=== PATIENT | female | born 1940 | race Caucasian/White ===

== ENCOUNTER → 2017-08-20 12:42 | Outpatient (CLI) | payer MEDICARE, SELFPAY ==
--- NOTE | 2017-08-20 12:46 | CDU_ITS ---
Reason For Study: Carotid stenosis Rt. Velocities/BP Lt. Velocities/BP Prox CCA 88.5/15.8 cm/sec. Prox CCA 92.6/16.4 cm/sec. Mid CCA 88.5/17.6 cm/sec. Mid CCA 78.6/17.0 cm/sec. Dist CCA 76.8/18.2 cm/sec. Dist CCA 82.1/12.3 cm/sec. Prox ICA 58.7/10.5 cm/sec. Prox ICA 72.7/21.7 cm/sec. Mid ICA 75.0/19.9 cm/sec. Mid ICA 90.3/25.8 cm/sec. Dist ICA 70.1/15.9 cm/sec. Dist ICA 73.8/16.0 cm/sec. Rt. ICA/CCA = .85. Lt. ICA/CCA = 1.2. Prox ECA 84.4/9.4 cm/sec. Prox ECA 82.7/10.6 cm/sec. Rt. Vert. 53.4/14.7 cm/sec. Lt. Vert. 63.9/17.0 cm/sec. Right Extracranial There is intimal thickening but no significant atherosclerotic plaque noted in the right common carotid artery. There is intimal thickening but no significant atherosclerotic plaque noted in the right internal carotid artery. There is intimal thickening but no significant atherosclerotic plaque noted in the right external carotid artery. Antegrade flow is noted in the right vertebral artery. Left Extracranial There is intimal thickening but no significant atherosclerotic plaque noted in the left common carotid artery. There is intimal thickening but no significant atherosclerotic plaque noted in the left internal carotid artery. There is intimal thickening but no significant atherosclerotic plaque noted in the left external carotid artery. Antegrade flow is noted in the left vertebral artery. Procedure Carotid Duplex [id number]. Exam performed in department. Interpretation Summary Mild (<50%) stenosis right extracranial internal carotid. Mild (<50%) stenosis left extracranial internal carotid. Flow within the vertebral arteries is antegrade bilaterally. Ordering Physician: Stacie Cardenas Referring Physician: Stacie Cardenas Performed By: Latasha Lanier RVT
== END ==
PROVIDERS: Family Provider Internal Medicine; PCP Internal Medicine; Visit Provider Internal Medicine
DX: I65.23 Occlusion and stenosis of bilateral carotid arteries (principal)
CPT/HCPCS: 93880

== ENCOUNTER → 2017-09-17 11:11 | Outpatient (CLI) | payer MEDICARE, SELFPAY ==
--- NOTE | 2017-09-17 11:16 | BD_ITS ---
STUDY: DUAL ENERGY X-RAY ABSORPTIOMETRY / DXA REASON FOR EXAM: Female, 77 years old. The patient is postmenopausal. Loss of height. TECHNIQUE: Bone Mineral Density (BMD) measurements of lumbar spine and bilateral hips were obtained. COMPARISON: Comparison is made with prior study dated September 14, 2015. FINDINGS: Lumbar Spine (L1-L4): g/cm2 (0.746) / T-score (-3.6) / Z-score (-1.8) Findings are suggestive of osteoporosis with a high fracture risk. Left Femur Total: g/cm2 (0.761) / T-score (-2.0) / Z-score (0.0) Left Femoral Neck: g/cm2 (0.755) / T-score (-2.0) / Z-score (0.1) Right Femur Total: g/cm2 (0.768) / T-score (-1.9) / Z-score (0.1) Right Femoral Neck: g/cm2 (0.805) / T-score (-1.7) / Z-score (0.4) The T-Scores on the most recent prior examination were: Lumbar Spine (L1-L4): There has been worsening of bone density since the previous examination. Left Femur Total: which represents a worsening of 4.6%. Right Femur Total: which represents a worsening of 8.6%. BD/Dexa Bone Density Study IMPRESSION: The patient is considered osteoporotic as outlined below according to World Raz Organization (WHO) criteria with a high fracture risk. There has been worsening of bone density since the previous examination. Reference Information: The T-score is the number of standard deviations above or below the standard which is normal for young adults at their peak bone mineral density. The World Health Organization (WHO) interprets the T-scores as follows: Above -1 Normal bone density Between -1 and -2.5 Osteopenia Equal to / or below -2.5 Osteoporosis As a practical clinical guideline, osteopenia may be graded as follows: Mild -1 through -1.5 Moderate -1.6 through -2.0 Severe -2.1 through -2.4 The Z-score is the number of standard deviations above or below age-matched controls. A Z-score of less than -1.5 would be considered abnormal. References: 1. NIH Osteoporosis and Related Bone Diseases http://www.osteo.org 2. International Society for Clinical Densitometry http://www.iscd.org 3. National Osteoporosis Foundation http://www.nof.org Electronically Signed: Leon Arrington MD at 9:12 EDT Tel [phone], Service support ,
--- NOTE | 2017-09-17 11:17 | BI_ITS ---
MAMMOGRAPHY - BILATERAL SCREENING REASON FOR EXAM: Female, 77 years old. Routine annual screening examination. PERTINENT HISTORY: Sister with breast cancer. TECHNIQUE: Digital bilateral breast joshua (3D mammographic acquisition) in the CC and MLO projections. 2-D mediolateral oblique (MLO) and craniocaudad (CC) views of both breasts were obtained. CAD: Full Field Digital Mammography with Computer Added Detection was performed. COMPARISON: Comparison is made with prior study dated September 16, 2016 and September 14, 2015. FINDINGS: Breast Composition: There are scattered areas of fibroglandular density. There are no dominant masses or suspicious calcifications. No other significant abnormalities are identified. There has been no significant change since the prior study. BI/SCREENING MAMM (CAD), BILAT IMPRESSION: Stable bilateral screening mammogram. Yearly follow-up mammogram recommended. (A) ASSESSMENT CATEGORY: BIRADS Category 1: Negative. A letter regarding these results will be sent to the patient by the facility within 30 days. Approximately 10% of breast cancers are not detected by mammography. A normal mammogram should not delay biopsy of a clinically suspicious abnormality. [id number] Electronically Signed: Leon Arrington MD at 11:30 EDT Tel [phone], Service support ,
== END ==
PROVIDERS: Family Provider Internal Medicine; PCP Internal Medicine; Visit Provider Internal Medicine
DX: Z12.31 Encounter for screening mammogram for malignant neoplasm of breast (principal); Z78.0 Asymptomatic menopausal state
CPT/HCPCS: 77063; 77067; 77080

== ENCOUNTER 2018-02-23 08:07 | Day surgery (SDC) | payer MEDICARE, SELFPAY ==
[2018-02-23 08:30] VITALS: BP 132/56; PULSE 60; RESP 14; TEMP 36.6; O2SAT 100; BMI 24.2
[2018-02-23 09:20] VITALS: BP 102/53; BP 132/56; PULSE 60; RESP 16; TEMP 36.3; O2SAT 97
--- NOTE | 2018-02-23 09:21 | OP.ENDO_ITS ---
Patient Name: Nadeen Vasquez Procedure Date: 02/23/2018 9:05 AM Date of : 1940 Age: 77 Procedure: Upper GI endoscopy Indications: Dysphagia Providers: Misael Spencer MD Medicines: See the Anesthesia note for documentation of the administered medications Patient Profile: This is a 77 year old female. Refer to note in patient chart for documentation of history and physical. Complications: No immediate complications. Procedure: Pre-Anesthesia Assessment: - Prior to the procedure, a History and Physical was performed, and patient medications and allergies were reviewed. The patient's tolerance of previous anesthesia was also reviewed. The risks and benefits of the procedure and the sedation options and risks were discussed with the patient. All questions were answered, and informed consent was obtained. Prior Anticoagulants: The patient has taken aspirin, last dose was 7 days prior to procedure. ASA Grade Assessment: III - A patient with severe systemic disease. After reviewing the risks and benefits, the patient was deemed in satisfactory condition to undergo the procedure. After obtaining informed consent, the endoscope was passed under direct vision. Throughout the procedure, the patient's blood pressure, pulse, and oxygen saturations were monitored continuously. The gastroscope was introduced through the mouth, and advanced to the second part of duodenum. The upper GI endoscopy was accomplished without difficulty. The patient tolerated the procedure well. Scope In: 9:13:29 AM Scope Out: 9:16:12 AM Total Procedure Duration Time 0 hours 2 minutes 43 seconds Findings: The Z-line was regular and was found 40 cm from the incisors. No biopsies or other specimens were collected for this exam. The entire examined stomach was normal. The examined duodenum was normal. No biopsies or other specimens were collected for this exam. Impression: - Z-line regular, 40 cm from the incisors. No specimens collected. - Normal stomach. - Normal examined duodenum. No specimens collected. Recommendation: - Discharge patient to home. - Resume previous diet. - Continue present medications. - Await pathology results. - Perform routine esophageal manometry at appointment to be scheduled. Procedure Code(s): --- Professional --- 57194, Esophagogastroduodenoscopy, flexible, transoral; diagnostic, including collection of specimen(s) by brushing or washing, when performed (separate procedure) Diagnosis Code(s): --- Professional --- R13.10, Dysphagia, unspecified CPT copyright 2017 [employer]. All rights reserved. The codes documented in this report are preliminary and upon can bander operator review may be revised to meet current compliance requirements. MD Misael Mathews MD 02/23/2018 9:20:32 AM This report has been signed electronically. Number of Addenda: 0 Note Initiated On: 02/23/2018 9:05 AM
[2018-02-23 09:25] VITALS: BP 132/56; BP 99/53; PULSE 60; RESP 14; O2SAT 97
[2018-02-23 09:30] VITALS: BP 104/62; BP 132/56; PULSE 60; RESP 16; O2SAT 98
[2018-02-23 09:35] VITALS: BP 116/65; BP 132/56; PULSE 62; RESP 16; TEMP 36.6; O2SAT 99
[2018-02-23 09:55] VITALS: BP 132/56
== END 2018-02-23 10:20 | disposition home or self-care (01) ==
LOC: EN 08:07 → AC 08:08
PROVIDERS: Family Provider Internal Medicine; PCP Internal Medicine; Referring Provider Surgery; Visit Provider Surgery
PROC: 0DJ08ZZ Inspection of Upper Intestinal Tract, Via Natural or Artificial Opening Endoscopic (ICD-10-PCS; CPT 43235; principal; 2018-02-23 09:10)
DX: R13.12 Dysphagia, oropharyngeal phase (principal); K21.9 Gastro-esophageal reflux disease without esophagitis; I25.10 Atherosclerotic heart disease of native coronary artery without angina pectoris; E78.5 Hyperlipidemia, unspecified; I48.0 Paroxysmal atrial fibrillation; E03.9 Hypothyroidism, unspecified; I10 Essential (primary) hypertension; J44.9 Chronic obstructive pulmonary disease, unspecified; Z95.0 Presence of cardiac pacemaker; Z79.82 Long term (current) use of aspirin; Z79.52 Long term (current) use of systemic steroids; Z79.899 Other long term (current) drug therapy
CPT/HCPCS: 43235; J7120

== ENCOUNTER 2018-03-26 08:50 | Day surgery (SDC) | payer MEDICARE, SELFPAY ==
[2018-03-26 09:10] VITALS: BP 128/72; PULSE 81; RESP 16; TEMP 36.3; O2SAT 99
== END 2018-03-26 09:49 | disposition home or self-care (01) ==
PROVIDERS: Surgery; Family Provider Internal Medicine; PCP Internal Medicine; Referring Provider Surgery; Visit Provider Surgery
PROC: F00ZJWZ Instrumental Swallowing and Oral Function Assessment using Swallowing Equipment (ICD-10-PCS; CPT 43235; principal; 2018-03-26 07:55)
DX: R13.10 Dysphagia, unspecified (principal)
CPT/HCPCS: 78258

== ENCOUNTER → 2018-04-16 08:34 | Outpatient (CLI) | payer MEDICARE, SELFPAY ==
[2018-04-09 15:23] VITALS: BMI 24.2
[2018-04-09 15:51] VITALS: BMI 24.2
--- NOTE | 2018-04-16 08:37 | RAD_ITS ---
STUDY: SWALLOWING STUDY REASON FOR EXAM: Female, 78 years old. Dysphagia. TECHNIQUE: The examination was performed with Speech Pathology in attendance. Under fluoroscopic observation, the patient ingested thin barium, thick barium, barium pudding, and barium coated cracker. FLUOROSCOPY TIME: 1:08 minutes/seconds. 1028 fluoroscopic images were obtained. RADIOLOGIST INVOLVEMENT: Radiologist was present and providing direct supervision. COMPARISON: None. FINDINGS: The following was observed during swallowing of the various mixtures of barium: Thin Barium: There was no evidence of aspiration or laryngeal penetration. Barium Pudding: There was no evidence of aspiration or laryngeal penetration. Barium Coated Cracker: There was no evidence of aspiration or laryngeal penetration. RAD/Swallowing Function w/Video IMPRESSION: Normal tailored barium swallow study. No evidence of increased risk for aspiration. The swallow study findings were discussed with the patient by the speech pathologist at the conclusion of the examination. Please see speech pathology report for more information and recommendations. Electronically Signed: Leon Arrington MD at 11:16 EST Tel [phone], Service support ,
--- NOTE | 2018-04-16 09:58 | SP.MBSS_ITS ---
PRIMARY / SECONDARY DIAGNOSIS: dysphagia, unspecified (R13.10) REFERRING PHYSICIAN: Dr. Misael Spencer CURRENT DIET: regular textures/thin liquids DENTITION: upper dentures/lower natural teeth MENTAL STATUS: WFL RESPIRATORY STATUS: O2 via room air PREVIOUS MODIFIED BARIUM SWALLOW STUDY: pt reports >20 years ago REASON FOR REFERRAL: frequent coughing and occasional difficulty with pills MEDICAL HISTORY: Pt is 78/f who presents at [facility] for modifed barium swallow study. Pt reports being seen by neurologist last year to evaluate for Parkinson's Disease however, evaluation was negative. Pt reports history of GERD and treating with medication. STUDY FINDINGS: Patient participated in a Modified Barium Swallow (MBS) study on 04/16/2018. Dr. Arrington was the radiologist present for this evaluation. This study was recorded in the lateral view and images were sent to PACs for storage. The following consistencies were presented to this patient for analysis of oropharyngeal swallow function: thin liquid, pudding, and a regular textured, Maxine Doone cookie. Results of the MBS are as follows: PENETRATION / ASPIRATION SCALE (DALTON): 1 = does not enter airway 2 = enters airway/above vocal folds/ejected 3 = enters airway/above vocal folds/not ejected 4 = enters airway/contacts vocal folds/ejected 5 = enters airway/contacts vocal folds/not ejected 6 = enters airway/below vocal folds/ejected 7 = enters airway/below vocal folds/not ejected despite effort 8 = enters airway/below vocal folds/no effort PENETRATION / ASPIRATION SCALE (SCORE): IMPRESSION: 1) thin liquid via teaspoon = 1 2) thin liquid via teaspoon = 1 3) thin liquid via cup (small single sip) = 1 4) thin liquid via cup (large single sip)= 1 5) thin liquid via cup (sequential swallows) = 1 6) pudding = 1 7) cookie = 1 8) thin liquid via straw (sequential swallows) = 1 ORAL PHASE CHARACTERIZED BY: LABIAL SEAL: no labial escape TONGUE CONTROL DURING BOLUS MANIPULATION: cohesive bolus between tongue to palatal seal BOLUS PREPARATION / MASTICATION: timely and efficient chewing and mashing BOLUS TRANSPORT / LINGUAL MOTION: brisk tongue motion ORAL RESIDUE: trace residue lining oral structures PHARYNGEAL PHASE CHARACTERIZED BY: INITIATION OF PHARYNGEAL SWALLOW: bolus head at posterior angle of ramus at first hyoid excursion SOFT PALATE ELEVATION: no bolus between soft palate and pharyngeal wall LARYNGEAL ELEVATION: partial superior movement of thyroid cartilage/partial approximation of arytenoids cartilage to epiglottic petiole ANTERIOR HYOID EXCURSION: partial anterior movement EPIGLOTTIC MOVEMENT: complete epiglottic inversion LARYNGEAL VESTIBULE CLOSURE AT HEIGHT OF SWALLOW: incomplete laryngeal vestibule closure with narrow column of air/contrast in laryngeal vestibule PHARYNGEAL STRIPPING WAVE: pharyngeal stripping wave present / complete PHARYNGOESOPHAGEAL SEGMENT OPENING: partial distension and partial duration; partial obstruction of flow TONGUE BASE RETRACTION:no contrast between tongue base and posterior pharyngeal wall PHARYNGEAL RESIDUE: trace residue within or on pharyngeal structures ESOPHAGEAL PHASE CHARACTERIZED BY: ESOPHAGEAL BOLUS CLEARANCE IN THE UPRIGHT POSITION: could not view DIET TEXTURE RECOMMENDATIONS: Will recommend a regular textured, thin liquid diet. COMPENSATORY STRATEGIES RECOMMENDED: Small bites/sips, reduced rate of intake, seated upright at 90 degrees during PO intake, and remain upright for 30-60 minutes post meal (GERD precaution). Medications with liquid chaser or purees per patient preference. INTERPRETATION OF RESULTS: Patient presents with swallow function that is WFL at this time. Oral phase primarily marked by timely mastication with cohesive bolus. Trace oral residue remained after trial of Maxine Doone cookie although able to be cleared with thin liquid chaser. Pharyngeal phase primarily marked by slightly decreased laryngeal elevation and hyoid excursion, however adequate/complete epiglottic closure preventing aspiration. Slightly reduced pharyngoesophageal segment opening resulting in partial obstruction of flow. Trace residue remained on pharyngeal structures. No signs of aspiration noted this date. The patient demonstrates mastication and deglutition abilities grossly within normal limits. RECOMMENDATIONS: Would further consider additional assessment of the patients esophageal functioning (esophagram), as it is outside the scope of the modified barium swallow study to objectively assess esophageal functioning, may additionally consider further workup via air intelligence specialist. Provided brief overview of signs and symptoms of aspiration, with recommendations for the patient to further discuss symptoms with PCP and ordering physician. No further skilled speech-language services warranted at this time targeting dysphagia. ADDITIONAL COMMENTS/RECOMMENDATIONS: Results and recommendations were discussed with the Patient immediately following MBS completion, with the Patient verbalizing understanding and agreement with all recommendations and education provided. IMAGE COUNT: [id number] Haritha Can M.A., [facility] [employer]PER[employer] Speech Language Pathologist [id number] [place] [address] [email or web address] [phone]
--- OUTSIDE RECORDS SUMMARY | 2018-06-20 21:31 | XMS RPT_ITS ---
:1940 Author Organization [place] Support Name Relationship Address Phone KATHIE NASSAR Unavailable [address] + [place] [address] LOUIS MINOR Unavailable [address] + [place] [address] R Unavailable Unavailable Unavailable KATHIE NASSAR Unavailable [address] + [place] [address] L[place] MINOR Unavailable [address] + [place] [address] R Unavailable Unavailable Unavailable KATHIE NASSAR Unavailable [address] + [place] [address] LOUIS MINOR Unavailable [address] + [place] [address] R Unavailable Unavailable Unavailable KATHIE NASSAR Unavailable [address] + [place] [address] LOU[place] MINOR Unavailable [address] + [place] [address] R Unavailable Unavailable Unavailable KATHIE NASSAR Unavailable [address] + [place] [address] LOUIS MINOR Unavailable [address] + [place] [address] R Unavailable Unavailable Unavailable KATHIE NASSAR Unavailable [address] + [place] [address] LOUIS MINOR Unavailable [address] + [place] [address] R Unavailable Unavailable Unavailable KATHIE NASSAR Unavailable [address] + [place] [address] L[place] MINOR Unavailable [address] + [place] [address] R Unavailable Unavailable Unavailable ARNEY KATHIE Unavailable [address] + [place] [address] L[place] MINOR Unavailable [address] + [place] [address] R Unavailable Unavailable Unavailable ARNEY KATHIE Unavailable [address] + [place] [address] L[place] MINOR Unavailable [address] + [place] [address] R Unavailable Unavailable Unavailable ARNEY, KATHIE Unavailable [address] + [place] [address] LOU[place] MINOR Unavailable [address] + [place] [address] R Unavailable Unavailable Unavailable ARNEY KATHIE Unavailable [address] + [place] [address] L[place] MINOR Unavailable [address] + [place] [address] R Unavailable Unavailable Unavailable ARNPIERRE STANFORDNDA Unavailable [address] + [place] [address] LOU[place] MINOR Unavailable [address] + [place] [address] R Unavailable Unavailable Unavailable CESARIO KATHIE Unavailable [address] + [place] [address] L[place] MINOR Unavailable [address] [phone] [place] [address] R Unavailable Unavailable Unavailable PIERRE NASSARNDA Unavailable [address] + [place] [address] L[place] MINOR Unavailable [address] [phone] [place] [address] R Unavailable Unavailable Unavailable CESARIO KATHIE Unavailable [address] + [place] [address] LOU[place] MINOR Unavailable [address] [phone] [place] [address] R Unavailable Unavailable Unavailable Care Team Providers Name Role Phone Fast DO Stacie A Attending Unavailable Fast DO Stacie A Referring Unavailable Fast DO, Stacie A Consulting Unavailable Calabretta, Yared Attending Unavailable Moira Martinezony Referring Unavailable Fast, Stacie Primary Care Unavailable Johanna, Misael Attending Unavailable Fast, Stacie Referring Unavailable Bryant, Misael Attending Unavailable Johanna, Misael Referring Unavailable Fast, Stacie Primary Care Unavailable Bryant, Misael Attending Unavailable Fast, Stacie Referring Unavailable LennoxKaylane Attending Unavailable Fast, Stacie Referring Unavailable Fast, Stacie Attending Unavailable Fast, Stacie Referring Unavailable Fast, Stacie Primary Care Unavailable Leighann Chapman Attending Unavailable Jim, Eddy Attending Unavailable Fast, Stacie Referring Unavailable Fast, Stacie Primary Care Unavailable Fast, Stacie Attending Unavailable Fast, Stacie Primary Care Unavailable Fast, Stacie Referring Unavailable Lennox, Lady Attending Unavailable Fast, Stacie Referring Unavailable Fast, Stacie Primary Care Unavailable Bryant, Misael Attending Unavailable Fast, Stacie Referring Unavailable Johanna, Misael Attending Unavailable Johanna, Misael Referring Unavailable Fast, Stacie Primary Care Unavailable Lennox, Lady Attending Unavailable Fast, Stacie Referring Unavailable Bryant, Misael Attending Unavailable Fast, Stacie Referring Unavailable Johanna, Misael Attending Unavailable PROBLEMS PROBLEMS DATE TYPE CONDITION / CODE ATTENDING STATUS SOURCE 04/16/2018 Unknown R13.10 - JohannaHarley pryorel Active [place] Dysphagia, Community unspecified / Hospital R13.10(ICD-10) Repository 04/15/2018 Unknown K21.9 - Johanna, Misael Active [place] Gastro-esophageal Community reflux disease Hospital without Repository esophagitis / K21.9(ICD-10) 09/17/2017 Unknown Z12.31 - Encounter Fast, Stacie Active [place] for screening Community mammogram for Hospital malignant neoplasm Repository of breast / Z12.31(ICD-10) 09/17/2017 Unknown Z78.0 - Fast, Stacie Active [place] Asymptomatic Community menopausal state / Hospital Z78.0(ICD-10) Repository 09/16/2017 Unknown I48.0 - Paroxysmal Jim, [place] Active [place] atrial Community fibrillation / Hospital I48.0(ICD-10) Repository 09/16/2017 Unknown I49.5 - Sick sinus Jim, Eddy Active [facility] syndrome / Community I49.5(ICD-10) Hospital Repository 09/16/2017 Unknown R00.1 - Jim, [place] Active [place] Bradycardia, Community unspecified / Hospital R00.1(ICD-10) Repository 09/16/2017 Unknown Z95.0 - Presence Jim, Eddy Active [place] of cardiac Community pacemaker / Hospital Z95.0(ICD-10) Repository 09/16/2017 Unknown E78.5 - Jim, [place] Active [place] Hyperlipidemia, Community unspecified / Hospital E78.5(ICD-10) Repository 09/15/2017 Unknown I65.23 - Occlusion Fast, Stacie Active [place] and stenosis of Community bilateral carotid Hospital arteries / Repository I65.23(ICD-10) PROCEDURES PROCEDURES No Procedure Records FoundRESULTS RESULTS MODIFIED BARIUM Observed: 04/16/2018 Status: F Source: [place] SWALLOW STUDY 10:20 AM [facility] REPOSITORY [facility] Speech Pathology [address] [place] [address] Modified Barium Swallow Study MR#: [id number] Acct: [id number] Name: NADEEN MINOR Rep #: [id number] : 1940 78 From: Haritha Can [facility] [employer]ANG[facility], M.A. PRIMARY / SECONDARY DIAGNOSIS: dysphagia, unspecified (R13.10) REFERRING PHYSICIAN: Dr. Misael Spencer CURRENT DIET: regular textures/thin liquids DENTITION: upper dentures/lower natural teeth MENTAL STATUS: WFL RESPIRATORY STATUS: O2 via room air PREVIOUS MODIFIED BARIUM SWALLOW STUDY: pt reports >20 years ago REASON FOR REFERRAL: frequent coughing and occasional difficulty with pills MEDICAL HISTORY: Pt is 78/f who presents at [facility] for modifed barium swallow study. Pt reports being seen by neurologist last year to evaluate for Parkinson's Disease however, evaluation was negative. Pt reports history of GERD and treating with medication. STUDY FINDINGS: Patient participated in a Modified Barium Swallow (MBS) study on 04/16/2018. Dr. Arrington was the radiologist present for this evaluation. This study was recorded in the lateral view and images were sent to PACs for storage. The following consistencies were presented to this patient for analysis of oropharyngeal swallow function: thin liquid, pudding, and a regular textured, Maxine Doone cookie. Results of the MBS are as follows: PENETRATION / ASPIRATION SCALE (DALTON): 1 = does not enter airway 2 = enters airway/above vocal folds/ejected 3 = enters airway/above vocal folds/not ejected 4 = enters airway/contacts vocal folds/ejected 5 = enters airway/contacts vocal folds/not ejected 6 = enters airway/below vocal folds/ejected 7 = enters airway/below vocal folds/not ejected despite effort 8 = enters airway/below vocal folds/no effort PENETRATION / ASPIRATION SCALE (SCORE): IMPRESSION: 1) thin liquid via teaspoon = 1 2) thin liquid via teaspoon = 1 3) thin liquid via cup (small single sip) = 1 4) thin liquid via cup (large single sip)= 1 5) thin liquid via cup (sequential swallows) = 1 6) pudding = 1 7) cookie = 1 8) thin liquid via straw (sequential swallows) = 1 ORAL PHASE CHARACTERIZED BY: LABIAL SEAL: no labial escape TONGUE CONTROL DURING BOLUS MANIPULATION: cohesive bolus between tongue to palatal seal BOLUS PREPARATION / MASTICATION: timely and efficient chewing and mashing BOLUS TRANSPORT / LINGUAL MOTION: brisk tongue motion ORAL RESIDUE: trace residue lining oral structures PHARYNGEAL PHASE CHARACTERIZED BY: INITIATION OF PHARYNGEAL SWALLOW: bolus head at posterior angle of ramus at first hyoid excursion SOFT PALATE ELEVATION: no bolus between soft palate and pharyngeal wall LARYNGEAL ELEVATION: partial superior movement of thyroid cartilage/partial approximation of arytenoids cartilage to epiglottic petiole ANTERIOR HYOID EXCURSION: partial anterior movement EPIGLOTTIC MOVEMENT: complete epiglottic inversion LARYNGEAL VESTIBULE CLOSURE AT HEIGHT OF SWALLOW: incomplete laryngeal vestibule closure with narrow column of air/contrast in laryngeal vestibule PHARYNGEAL STRIPPING WAVE: pharyngeal stripping wave present / complete PHARYNGOESOPHAGEAL SEGMENT OPENING: partial distension and partial duration; partial obstruction of flow TONGUE BASE RETRACTION:no contrast between tongue base and posterior pharyngeal wall PHARYNGEAL RESIDUE: trace residue within or on pharyngeal structures ESOPHAGEAL PHASE CHARACTERIZED BY: ESOPHAGEAL BOLUS CLEARANCE IN THE UPRIGHT POSITION: could not view DIET TEXTURE RECOMMENDATIONS: Will recommend a regular textured, thin liquid diet. COMPENSATORY STRATEGIES RECOMMENDED: Small bites/sips, reduced rate of intake, seated upright at 90 degrees during PO intake, and remain upright for 30-60 minutes post meal (GERD precaution). Medications with liquid chaser or purees per patient preference. INTERPRETATION OF RESULTS: Patient presents with swallow function that is WFL at this time. Oral phase primarily marked by timely mastication with cohesive bolus. Trace oral residue remained after trial of Maxine Doone cookie although able to be cleared with thin liquid chaser. Pharyngeal phase primarily marked by slightly decreased laryngeal elevation and hyoid excursion, however adequate/complete epiglottic closure preventing aspiration. Slightly reduced pharyngoesophageal segment opening resulting in partial obstruction of flow. Trace residue remained on pharyngeal structures. No signs of aspiration noted this date. The patient demonstrates mastication and deglutition abilities grossly within normal limits. RECOMMENDATIONS: Would further consider additional assessment of the patients esophageal functioning (esophagram), as it is outside the scope of the modified barium swallow study to objectively assess esophageal functioning, may additionally consider further workup via machine lacer. Provided brief overview of signs and symptoms of aspiration, with recommendations for the patient to further discuss symptoms with PCP and ordering physician. No further skilled speech-language services warranted at this time targeting dysphagia. ADDITIONAL COMMENTS/RECOMMENDATIONS: Results and recommendations were discussed with the Patient immediately following MBS completion, with the Patient verbalizing understanding and agreement with all recommendations and education provided. IMAGE COUNT: [id number] Haritha Can M.A., CCC-ASSEMBLER ARRANGER Speech Language Pathologist [address] [place] [address] [email or web address] [phone] 04/16/18 1020 <Electronically signed by Haritha Can CCC-ASSEMBLER ARRANGER, M.A.> Date Haritha Can CCC-ASSEMBLER ARRANGER, M.A. Co-Signature Required for all Medicare patients Date/Time Co-Signature CC: SWALLOWING FUNCTION Observed: 04/16/2018 Status: F Source: [place] W/VIDEO 8:38 AM [facility] REPOSITORY [facility] Imaging Services [address] [place], [place] [address] [address] Swallowing Function w/Video MR#: [id number] Acct: [id number] Name: NADEEN MINOR Rep #: [id number] : 1940 F 78 From: Leon Arrington MD PCP: Stacie Cardenas DO Status: REG CLI Study: Swallowing Function w/Video Date of Exam: 04/16/18 Exam# [id number] Ordering Dr: Misael Spencer MD STUDY: SWALLOWING STUDY REASON FOR EXAM: Female, 78 years old. Dysphagia. TECHNIQUE: The examination was performed with Speech Pathology in attendance. Under fluoroscopic observation, the patient ingested thin barium, thick barium, barium pudding, and barium coated cracker. FLUOROSCOPY TIME: 1:08 minutes/seconds. 1028 fluoroscopic images were obtained. RADIOLOGIST INVOLVEMENT: Radiologist was present and providing direct supervision. COMPARISON: None. FINDINGS: The following was observed during swallowing of the various mixtures of barium: Thin Barium: There was no evidence of aspiration or laryngeal penetration. Barium Pudding: There was no evidence of aspiration or laryngeal penetration. Barium Coated Cracker: There was no evidence of aspiration or laryngeal penetration. RAD/Swallowing Function w/Video IMPRESSION: Normal tailored barium swallow study. No evidence of increased risk for aspiration. The swallow study findings were discussed with the patient by the speech pathologist at the conclusion of the examination. Please see speech pathology report for more information and recommendations. Electronically Signed: Leon Arrington MD at 11:16 EST Tel [phone], Service support , CC: Misael Spencer MD; Stacie Cardenas DO Jack Machine Operator: Signed SURGERY VISIT REPORT Observed: 04/09/2018 Status: F Source: [place] 4:28 PM [facility] REPOSITORY [facility] [address] [place] [address] [address] [place] [address] OFFICE VISIT Date of Service: 04/09/18 MR#: [id number] Acct: [id number] Name: NADEEN MINOR Rep #: [id number] : 1940 Provider: Misael Spencer MD Age/Sex: 78/F Location: [facility] Status: Signed Intake Vital Signs04/09/18 Body Mass Index (BMI) 24.2 Intake Visit Reasons: FU Manometry Results Chief Complaint: esophageal manometry Director Of Knowledge Management Required: No Is patient in pain?: No Allergies nitrofurantoin [From Macrobid] Adverse Reaction (Severe, Verified 04/09/18 15:23) Vomiting nitrofurantoin macrocrystalline [From Macrobid] Adverse Reaction (Severe, Verified 04/09/18 15:23) Vomiting montelukast [From Singulair] Adverse Reaction (Unknown, Verified 04/09/18 15:23) Unknown Tetracyclines Adverse Reaction (Verified 04/09/18 15:23) Other Medications E AC/Rut/Hesper/Bio/B AND C/Hc111 [Varisan Vitality Tablet] 1 ea PO DAILY 09/04/13 [History Confirmed 04/09/18] Lecithin, Soy [Lecithin Soya] 1,200 mg PO DAILY 09/04/13 [History Confirmed 04/09/18] Levothyroxine [Synthroid] 112 mcg PO DAILY 09/04/13 [History Confirmed 04/09/18] Pravastatin Sodium 1 tab PO QHS 09/04/13 [History Confirmed 04/09/18] Cetirizine HCl [Allergy Relief] 10 mg PO DAILY 02/28/15 [History Confirmed 04/09/18] Glucosamine/MSM/Chondroitin A [Glucosamine Chondroit MSM Tab] 1 ea PO BID 02/28/15 [History Confirmed 04/09/18] L.acidoph,Paracasei, B.lactis [Probiotic] 1 ea PO QHS 02/28/15 [History Confirmed 04/09/18] prednisolone acetate 1 % eye drops,suspension 1 drp OPHTHALMIC QHS ml 09/15/17 [History Confirmed 04/09/18] aspirin 81 mg tablet,delayed release 81 mg PO QDAY #90 tab 09/16/17 [Rx Confirmed 04/09/18] cholecalciferol (vitamin D3) 1,000 unit tablet 2,000 unit PO .COMPLEX 09/16/17 [History Confirmed 04/09/18] omeprazole 20 mg capsule,delayed release 20 mg PO DAILY cap 09/16/17 [History Confirmed 04/09/18] ranitidine 150 mg tablet 150 mg PO QDAY 09/16/17 [History Confirmed 04/09/18] Albuterol IH (ProAir) [Proair Hfa (SP)Vent Pts] 1 - 2 puff INHALATION Q6H PRN PRN 02/18/18 [History Confirmed 04/09/18] Black Cohosh 540 mg PO DAILY 02/18/18 [History Confirmed 04/09/18] Calcium Carbonate [Calcium] 1,500 mg PO DAILY 02/18/18 [History Confirmed 04/09/18] Cranberry Fruit Extract [Cranberry] 12,500 mg PO BID 02/18/18 [History Confirmed 04/09/18] Dung Quai 530 mg PO BID 02/18/18 [History Confirmed 04/09/18] Fluticasone 220 Mcg [Flovent (SP)] 1 puff INHALATION DAILY 02/18/18 [History Confirmed 04/09/18] Meloxicam 15 mg PO DAILY 02/18/18 [History Confirmed 04/09/18] Progestrone Cream 02/18/18 [History Confirmed 04/09/18] Tobramycin [Tobrex] 1 drp OP PRN PRN 02/18/18 [History Confirmed 04/09/18] flecainide 100 mg tablet 100 mg PO BID #180 tab 04/03/18 [Rx Confirmed 04/09/18] metoprolol succinate ER 25 mg tablet,extended release 24 hr 25 mg PO QHS #90 tab 04/03/18 [Rx Confirmed 04/09/18] PFSH Medical History Carotid artery disease (Chronic) Hyperlipidemia (Chronic) Sinus bradycardia (Chronic) Paroxysmal atrial fibrillation (Chronic) Sick sinus syndrome (Chronic) Presence of cardiac pacemaker (Chronic) Hypothyroidism (Acute) GERD (gastroesophageal reflux disease) (Chronic) Surgical History History of esophagogastroduodenoscopy (EGD) (Acute 02/23/18) History of arthroscopic knee surgery (Resolved) History of carpal tunnel surgery (Resolved) History of cataract surgery (Resolved) History of tonsillectomy and adenoidectomy (Resolved) Hx of appendectomy (Resolved) Family History Father CAD (coronary artery disease) Mother Heart disease Social History Smoking Status: Never smoker alcohol intake: never substance use type: does not use caffeine: No what type of physical activity do you participate in: walking, aerobics, other details: Silver Sneakers frequency: 1-2 times per week seatbelt use: always HPI HPI HPI: NADEEN MINOR, is a 78 F who presents to the office today for an esophageal manometry study. Patient had esophageal manometry study done at [facility] on 03/26/2018. The impression read as follows. 10 swallows were analyzed. The patient did have several incomplete bolus clearance is. There is also a cardiac interference. It appeared that when there was a retained bolus it was proximal to the 32nd centimeter doug. Below that the bolus cleared normally. The LES residual pressure was normal indicating that it was not the cause of the incomplete bolus. And may be compressed from mediastinal abnormalities as it coincided with a cardiac interference. I really was not anticipating this abnormality. I think that I need to obtain an upper GI to see if there is deviation of the esophagus which I could not appreciate in her EGD. If the upper GI study is normal then I think would be safe for us to obtain a 48-hour pH probe. If her pH probe is abnormal I do not know she is necessarily going to be a good candidate to have a standard Kaela fundoplication. She may have to be evaluated with a CT scan of her chest. Assessment AND Plan Problems 1. Gastroesophageal reflux disease without esophagitis K21.9 2. Esophageal dysphagia R13.10 Plan There is no exam today. To obtain the barium swallow. Once this is completed I will sit back down with her and discussed the results in more likely order the 48-hour pH probe and possibly order a CAT scan of the chest Orders Orders: Coding Level of Care Code Off vis,est,level 2 Diagnoses Gastroesophageal reflux disease without esophagitis K21.9 Esophagitis presence: without esophagitis Esophageal dysphagia R13.10 Dysphagia type: esophageal phase Time Spent (min) 04/09/18 1860 <Electronically signed by Misael Spencer MD> Date Misael Sandoval Signature: Date (if applicable) CC: Stacie Cardenas DO; Raudel Parisi MD PACEMAKER CHECK Observed: 03/10/2018 Status: F Source: [place] 10:36 AM [facility] REPOSITORY [facility] [address] [place], [place] [id number] Pacemaker Check Date of Service: 03/10/18910 MR#: [id number] Acct: [id number] Name: MILYNADEEN E Rep #: [id number] : 1940 From: Lady High Age/Sex: 77/F Location: [facility] Status: Signed Billing Codes PM Device Codes: PM Dev Interrogate (Remot 03/10/1812 <Electronically signed by Lady High > Date Lady High 03/10/18 1036<Electronically signed by Eddy Fernandez MD> Lori Signature: Date (if applicable) Eddy Fernandez MD CC: SURGERY VISIT REPORT Observed: 03/06/2018 Status: F Source: [place] 9:20 AM [facility] [address] [place], [place] [address] OFFICE VISIT Date of Service: 03/04/18 MR#: [id number] Acct: [id number] Name: NADEEN MINOR Rep #: [id number] : 1940 Provider: Misael Spencer MD Age/Sex: 77/F Location: [facility] Status: Signed Intake Intake Visit Reasons: Upper Scope 02/23 Chief Complaint: Follow up Director Of Knowledge Management Required: No Is patient in pain?: No Allergies nitrofurantoin [From Macrobid] Adverse Reaction (Severe, Verified 03/04/18 13:19) Vomiting nitrofurantoin macrocrystalline [From Macrobid] Adverse Reaction (Severe, Verified 03/04/18 13:19) Vomiting montelukast [From Singulair] Adverse Reaction (Unknown, Verified 03/04/18 13:19) Unknown Tetracyclines Adverse Reaction (Verified 03/04/18 13:19) Other Medications E AC/Rut/Hesper/Bio/B AND C/Hc111 [Varisan Vitality Tablet] 1 ea PO DAILY 09/04/13 [History Confirmed 03/04/18] Lecithin, Soy [Lecithin Soya] 1,200 mg PO DAILY 09/04/13 [History Confirmed 03/04/18] Levothyroxine [Synthroid] 112 mcg PO DAILY 09/04/13 [History Confirmed 03/04/18] Pravastatin Sodium 1 tab PO QHS 09/04/13 [History Confirmed 03/04/18] Cetirizine HCl [Allergy Relief] 10 mg PO DAILY 02/28/15 [History Confirmed 03/04/18] Glucosamine/MSM/Chondroitin A [Glucosamine Chondroit MSM Tab] 1 ea PO BID 02/28/15 [History Confirmed 03/04/18] L.acidoph,Paracasei, B.lactis [Probiotic] 1 ea PO QHS 02/28/15 [History Confirmed 03/04/18] flecainide 100 mg tablet 100 mg PO BID #180 tab 03/14/17 [Rx Confirmed 03/04/18] metoprolol succinate ER 25 mg tablet,extended release 24 hr 25 mg PO QHS #90 tab 03/14/17 [Rx Confirmed 03/04/18] prednisolone acetate 1 % eye drops,suspension 1 drp OPHTHALMIC QHS ml 09/15/17 [History Confirmed 03/04/18] aspirin 81 mg tablet,delayed release 81 mg PO QDAY #90 tab 09/16/17 [Rx Confirmed 03/04/18] cholecalciferol (vitamin D3) 1,000 unit tablet 2,000 unit PO .COMPLEX 09/16/17 [History Confirmed 03/04/18] omeprazole 20 mg capsule,delayed release 20 mg PO DAILY cap 09/16/17 [History Confirmed 03/04/18] ranitidine 150 mg tablet 150 mg PO QDAY 09/16/17 [History Confirmed 03/04/18] Albuterol IH (ProAir) [Proair Hfa (SP)Vent Pts] 1 - 2 puff INHALATION Q6H PRN PRN 02/18/18 [History Confirmed 03/04/18] Black Cohosh 540 mg PO DAILY 02/18/18 [History Confirmed 03/04/18] Calcium Carbonate [Calcium] 1,500 mg PO DAILY 02/18/18 [History Confirmed 03/04/18] Cranberry Fruit Extract [Cranberry] 12,500 mg PO BID 02/18/18 [History Confirmed 03/04/18] Dung Quai 530 mg PO BID 02/18/18 [History Confirmed 03/04/18] Fluticasone 220 Mcg [Flovent (SP)] 1 puff INHALATION DAILY 02/18/18 [History Confirmed 03/04/18] Meloxicam 15 mg PO DAILY 02/18/18 [History Confirmed 03/04/18] Progestrone Cream 02/18/18 [History Confirmed 03/04/18] Tobramycin [Tobrex] 1 drp OP PRN PRN 02/18/18 [History Confirmed 03/04/18] Subjective Details: Patient status post an upper endoscopy completed on 02/23/2018. This was done for dysphasia. The patient was noted to have a Z line at 40 cm and it did appear to be normal. The stomach was also normal there was no signs of any irritation nor were there any signs of ulcerations either in the stomach or the duodenum. My recommendations at that time were to get her evaluated with esophageal manometry. Patient is still complaining of dysphagia particularly with liquid foods in the pleural oropharyngeal and upper esophageal phase. Objective Details: Lungs are clear Heart regular rate Abdomen is soft Assessment AND Plan Problems 1. Dysphagia R13.10 2. Gastroesophageal reflux disease K21.9 Plan At the present time we are going to first obtain esophageal manometry. Going to the patient back after that so that we can discuss the findings. She may actually need to undergo a cookie swallow test as opposed to evaluation with a 48-hour pH probe but I am going to defer my judgment until after we obtain the results of the esophageal manometry. Otherwise not entirely convinced that her problems is related to reflux we may need to wait until we get 48-hour pH probe results before we can definitively state this. Coding Level of Care Code Off vis,est,level 2 Diagnoses Dysphagia R13.10 Gastroesophageal reflux disease K21.9 03/06/18 0920 <Electronically signed by Misael Spencer MD> Date Misael Spencer MD Cosigner Signature: Date (if applicable) CC: Stacie Cardenas DO OPERATIVE REPORT - Observed: 02/23/2018 Status: F Source: [facility] 9:21 AM [facility] REPOSITORY [facility] Medical Records Department [address] [place] [id number] Operative Report - Endoscopy MR#: [id number] Acct: [id number] Name: NADEEN MINOR Rep #: [id number] : 1940 77 From: Misael Spencer MD PCP: Stacie Cardenas DO Status: [facility] Patient Name: Nadeen Minor Procedure Date: 02/23/2018 9:05 AM Date of : 1940 Age: 77 Procedure: Upper GI endoscopy Indications: Dysphagia Providers: Misael Spencer MD Medicines: See the Anesthesia note for documentation of the administered medications Patient Profile: This is a 77 year old female. Refer to note in patient chart for documentation of history and physical. Complications: No immediate complications. Procedure: Pre-Anesthesia Assessment: - Prior to the procedure, a History and Physical was performed, and patient medications and allergies were reviewed. The patient's tolerance of previous anesthesia was also reviewed. The risks and benefits of the procedure and the sedation options and risks were discussed with the patient. All questions were answered, and informed consent was obtained. Prior Anticoagulants: The patient has taken aspirin, last dose was 7 days prior to procedure. ASA Grade Assessment: III - A patient with severe systemic disease. After reviewing the risks and benefits, the patient was deemed in satisfactory condition to undergo the procedure. After obtaining informed consent, the endoscope was passed under direct vision. Throughout the procedure, the patient's blood pressure, pulse, and oxygen saturations were monitored continuously. The gastroscope was introduced through the mouth, and advanced to the second part of duodenum. The upper GI endoscopy was accomplished without difficulty. The patient tolerated the procedure well. Scope In: 9:13:29 AM Scope Out: 9:16:12 AM Total Procedure Duration Time 0 hours 2 minutes 43 seconds Findings: The Z-line was regular and was found 40 cm from the incisors. No biopsies or other specimens were collected for this exam. The entire examined stomach was normal. The examined duodenum was normal. No biopsies or other specimens were collected for this exam. Impression: - Z-line regular, 40 cm from the incisors. No specimens collected. - Normal stomach. - Normal examined duodenum. No specimens collected. Recommendation: - Discharge patient to home. - Resume previous diet. - Continue present medications. - Await pathology results. - Perform routine esophageal manometry at appointment to be scheduled. Procedure Code(s): --- Professional --- 30570, Esophagogastroduodenoscopy, flexible, transoral; diagnostic, including collection of specimen(s) by brushing or washing, when performed (separate procedure) Diagnosis Code(s): --- Professional --- R13.10, Dysphagia, unspecified CPT copyright 2017 [employer]. All rights reserved. The codes documented in this report are preliminary and upon senior java software engineer review may be revised to meet current compliance requirements. MD Misael Mathews MD 02/23/2018 9:20:32 AM This report has been signed electronically. Number of Addenda: 0 Note Initiated On: 02/23/2018 9:05 AM 02/23/18 0920 Date Misael Spencer MD Cosigner Signature: Date (if indicated) CC: Misael Spencer MD; Stacie Cardenas DO Date Dictated: 02/23/18 09 Date Transcribed: Jack Machine Operator: DP Signed SURGERY VISIT REPORT Observed: 02/03/2018 Status: F Source: [facility] 10:29 AM [facility] REPOSITORY [facility] [address] [place] [address] OFFICE VISIT Date of Service: 02/03/18 MR#: [id number] Acct: [id number] Name: NADEEN MINOR Rep #: [id number] : 1940 Provider: Misael Spencer MD Age/Sex: 77/F Location: [facility] Status: Signed Intake Vital Signs02/03/18 Height 5 ft 2 in 02/03/18 Weight: 130 lb Intake Visit Reasons: Gastroesophageal reflux disease (GERD) Chief Complaint: Follow up Director Of Knowledge Management Required: No Is patient in pain?: No Allergies nitrofurantoin [From Macrobid] Adverse Reaction (Severe, Verified 02/03/18 09:21) Vomiting nitrofurantoin macrocrystalline [From Macrobid] Adverse Reaction (Severe, Verified 02/03/18 09:21) Vomiting montelukast [From Singulair] Adverse Reaction (Unknown, Verified 02/03/18 09:21) Unknown Tetracyclines Adverse Reaction (Verified 02/03/18 09:21) Other Medications E AC/Rut/Hesper/Bio/B AND C/Hc111 [Varisan Vitality Tablet] 1 ea PO DAILY 09/04/13 [History Confirmed 02/03/18] Lecithin, Soy [Lecithin Soya] 1,200 mg PO DAILY 09/04/13 [History Confirmed 02/03/18] Levothyroxine [Synthroid] 112 mcg PO DAILY 09/04/13 [History Confirmed 02/03/18] Pravastatin Sodium 1 tab PO QHS 09/04/13 [History Confirmed 02/03/18] Cetirizine HCl [Allergy Relief] 10 mg PO DAILY 02/28/15 [History Confirmed 02/03/18] Glucosamine/MSM/Chondroitin A [Glucosamine Chondroit MSM Tab] 1 ea PO BID 02/28/15 [History Confirmed 02/03/18] L.acidoph,Paracasei, B.lactis [Probiotic] 1 ea PO QHS 02/28/15 [History Confirmed 02/03/18] flecainide 100 mg tablet 100 mg PO BID #180 tab 03/14/17 [Rx Confirmed 02/03/18] metoprolol succinate ER 25 mg tablet,extended release 24 hr 25 mg PO QHS #90 tab 03/14/17 [Rx Confirmed 02/03/18] prednisolone acetate 1 % eye drops,suspension 1 drp OPHTHALMIC QHS ml 09/15/17 [History Confirmed 02/03/18] aspirin 81 mg tablet,delayed release 81 mg PO QDAY #90 tab 09/16/17 [Rx Confirmed 02/03/18] cholecalciferol (vitamin D3) 1,000 unit tablet 2,000 unit PO .COMPLEX 09/16/17 [History Confirmed 02/03/18] omeprazole 20 mg capsule,delayed release 20 mg PO DAILY cap 09/16/17 [History Confirmed 02/03/18] ranitidine 150 mg tablet 150 mg PO QDAY 09/16/17 [History Confirmed 02/03/18] [facility] Medical History Carotid artery disease (Chronic) Hyperlipidemia (Chronic) Sinus bradycardia (Chronic) Paroxysmal atrial fibrillation (Chronic) Sick sinus syndrome (Chronic) Presence of cardiac pacemaker (Chronic) Hypothyroidism (Acute) GERD (gastroesophageal reflux disease) (Chronic) Surgical History History of arthroscopic knee surgery (Resolved) History of carpal tunnel surgery (Resolved) History of cataract surgery (Resolved) History of tonsillectomy and adenoidectomy (Resolved) Hx of appendectomy (Resolved) Family History Father CAD (coronary artery disease) Mother Heart disease Social History Smoking Status: Never smoker alcohol intake: never substance use type: does not use caffeine: No what type of physical activity do you participate in: walking, aerobics, other details: Silver Sneakers frequency: 1-2 times per week seatbelt use: always HPI HPI HPI: NADEEN MINOR, is a 77 F who presents to the office today for evaluation of gastroesophageal reflux disease. Patient states that in 2005 she was on a trip in [place] he was taking doxycycline for malaria and started to develop significant amounts of reflux. She has never had an EGD. She is complaining of some dysphasia particularly with water and also having a cough. She currently takes Zantac in the morning and omeprazole in the evening. 2006 she had a cookie swallow test which did show a small amount of trickling in the esophagus. ROS General General: No weight change, appetite, fatigue, colon cancer, breast cancer or weakness HEENT HEENT: Yes difficulty swallowing and eye surgery; no eye injury, swollen glands or hoarseness Endo Endocrine: Yes thyroid disease; no diabetes mellitus, thyroid cancer, Hair loss, heat intolerance or cold intolerance Skin Skin: No rash or changing moles Musc Musculoskeletal: Yes arthritis; no back problems, rheumatoid arthritis, gout or joint pain Cardio Cardiovascular: Yes pacemaker and atrial fibrillation; no murmur, heart disease, high blood pressure, heart attack, heart stent, palpitations, shortness of breat with exertion or chest pain Psych Psychiatric: No depression, anxiety or hearing voices Resp Respiratory: Yes COPD, Yes asthma, Yes cough, No shortness of breath, No sleep apnea, No emphysema, No wheezing Gastro Gastrointestinal: Yes acid reflux, No abdominal pain, No nausea or vomiting, No diarrhea, No constipation, No blood in stool, No hemorrhoids, No ulcers, No gallbladder problem, No black,tarry stools Dwayne Hematologic: Yes blood thinners (asa 81mg), No blood disorders, No bleeding, No anemia, No blood clots Neuro Neurologic: No system reviewed and no additional complaints, except as docu, No as per HPI, No abnormal walking, No abnormal hearing, No abnormal movements, No abnormal speech, No behavioral changes, No burning sensations, No confusion, No seizure-like activity, No unsteadiness, No dizziness, No localized weakness, No frequent falls, No headache(s), No lack of coordination, No loss of vision, No memory loss, No numbness, No other visual disturbances, No radiating pain, No restless legs, No sensory deficit, No fainting, No tingling, No tremor(s), No weakness, No other Exam Const General: well developed, no acute distress, well hydrated Orientation: oriented to person, oriented to place, oriented to time [facility] Head: normocephalic, atraumatic Ears: external ears normal Mouth: moist mucous membranes Eyes Sclera: sclerae normal Pupils: normal by confrontation Neck Neck: no lymphadenopathy noted Neck mass: No Thyroid: symmetrical, thyroid normal Chest Chest palpation AND inspection: normal inspection of the chest Resp Effort AND Inspection: normal respiratory effort Auscultation: clear to auscultation bilaterally Percussion: percussion normal Cardio Rate: regular rate Rhythm: regular rhythm Heart Sounds: no murmurs GI Palpation: soft, no masses, no hepatosplenomegaly, nontender Rectal Exam: other Other: Rectal exam deferred. Extrem General: no clubbing, cyanosis or edema, normal to inspection Assessment AND Plan 1. Gastroesophageal reflux disease, esophagitis presence not specified K21.9 2. Oropharyngeal dysphagia R13.12 Plan I have discussed the above with the patient. I have offered the patient esophagogastroduodenoscopy for evaluation. I have explained the risks/benefits of the procedure and described the procedure. I have discussed the risks with the patient, including but not limited to: infection, bleeding, perforation of the GI tract requiring emergency surgery, inability to complete the procedure, injury to any internal organs, complications of anesthesia, etc. - the patient understands and agrees to proceed. I have answered all the patient's questions to the patient's satisfaction and the patient has no further questions. The patient has been given instructions for the colon cleansing preparation. Coding Level of Care Code Off vis,new,level 3 Diagnoses Gastroesophageal reflux disease, esophagitis presence not specified K21.9 Esophagitis presence: esophagitis presence not specified Oropharyngeal dysphagia R13.12 Dysphagia type: oropharyngeal phase 02/03/18 1029 <Electronically signed by Misael Spencer MD> Date Misael Spencer MD Cosigner Signature: Date (if applicable) CC: Stacie Cardenas DO PACEMAKER CHECK Observed: 11/12/2017 Status: F Source: [facility] 11:51 AM [facility] REPOSITORY [facility] [address] [place] [address] Pacemaker Check Date of Service: 11/10/171940 MR#: [id number] Acct: [id number] Name: NADEEN MINOR Danae Rep #: [id number] : 1940 From: Lady High Age/Sex: 77/F Location: [facility] Status: Signed Billing Codes PM Device Codes: PM Dev Interrogate (Remot 11/10/171941 <Electronically signed by Lady High > Date Lady High 11/12/17 115<Electronically signed by Eddy Fernandez MD> Cosigner Signature: Date (if applicable) Eddy Fernandez MD CC: DEXA BONE DENSITY Observed: 09/17/2017 Status: F Source: [facility] STUDY 11:18 AM [facility] REPOSITORY [facility] Imaging Services [address] [place] [address] Dexa Bone Density Study MR#: [id number] Acct: [id number] Name: NADEEN MINOR Danae Rep #: [id number] : 1940 F 77 From: Leon Arrington MD PCP: Stacie Cardenas DO Status: [facility] CLI Study: Dexa Bone Density Study Date of Exam: 09/17/17 Exam# [id number] Ordering Dr: Stacie Cardenas DO STUDY: DUAL ENERGY X-RAY ABSORPTIOMETRY / DXA REASON FOR EXAM: Female, 77 years old. The patient is postmenopausal. Loss of height. TECHNIQUE: Bone Mineral Density (BMD) measurements of lumbar spine and bilateral hips were obtained. COMPARISON: Comparison is made with prior study dated September 14, 2015. FINDINGS: Lumbar Spine (L1-L4): g/cm2 (0.746) / T-score (-3.6) / Z-score (-1.8) Findings are suggestive of osteoporosis with a high fracture risk. Left Femur Total: g/cm2 (0.761) / T-score (-2.0) / Z- score (0.0) Left Femoral Neck: g/cm2 (0.755) / T-score (-2.0) / Z- score (0.1) Right Femur Total: g/cm2 (0.768) / T-score (-1.9) / Z- score (0.1) Right Femoral Neck: g/cm2 (0.805) / T-score (-1.7) / Z-score (0.4) The T-Scores on the most recent prior examination were: Lumbar Spine (L1-L4): There has been worsening of bone density since the previous examination. Left Femur Total: which represents a worsening of 4.6%. Right Femur Total: which represents a worsening of 8.6%. BD/Dexa Bone Density Study IMPRESSION: The patient is considered osteoporotic as outlined below according to World Raz Organization (WHO) criteria with a high fracture risk. There has been worsening of bone density since the previous examination. Reference Information: The T-score is the number of standard deviations above or below the standard which is normal for young adults at their peak bone mineral density. The World Health Organization (WHO) interprets the T-scores as follows: Above -1 Normal bone density Between -1 and -2.5 Osteopenia Equal to / or below -2.5 Osteoporosis As a practical clinical guideline, osteopenia may be graded as follows: Mild -1 through -1.5 Moderate -1.6 through -2.0 Severe -2.1 through -2.4 The Z-score is the number of standard deviations above or below age-matched controls. A Z-score of less than -1.5 would be considered abnormal. References: 1. NIH Osteoporosis and Related Bone Diseases http://www.osteo.org 2. International Society for Clinical Densitometry http://www.iscd.org 3. National Osteoporosis Foundation http://www.nof.org Electronically Signed: Leon Arrington MD at 9:12 EDT Tel [phone], Service support , CC: Stacie Cardenas DO Jack Machine Operator: Signed SCREENING MAMM (CAD), Observed: 09/17/2017 Status: F Source: [facility] 11:18 AM [facility] REPOSITORY [facility] Imaging Services [address] [place] [address] SCREENING MAMM (CAD), BILAT MR#: [id number] Acct: [id number] Name: NADEEN MINOR Rep #: [id number] : 1940 F 77 From: Leon Arrington MD PCP: Stacie Cardenas DO Status: REG CLI Study: SCREENING MAMM (CAD), BILAT Date of Exam: 09/17/17 Exam# [id number] Ordering Dr: Stacie Cardenas DO MAMMOGRAPHY - BILATERAL SCREENING REASON FOR EXAM: Female, 77 years old. Routine annual screening examination. PERTINENT HISTORY: Sister with breast cancer. TECHNIQUE: Digital bilateral breast joshua (3D mammographic acquisition) in the CC and MLO projections. 2-D mediolateral oblique (MLO) and craniocaudad (CC) views of both breasts were obtained. CAD: Full Field Digital Mammography with Computer Added Detection was performed. COMPARISON: Comparison is made with prior study dated September 16, 2016 and September 14, 2015. FINDINGS: Breast Composition: There are scattered areas of fibroglandular density. There are no dominant masses or suspicious calcifications. No other significant abnormalities are identified. There has been no significant change since the prior study. BI/SCREENING MAMM (CAD), BILAT IMPRESSION: Stable bilateral screening mammogram. Yearly follow-up mammogram recommended. (A) ASSESSMENT CATEGORY: BIRADS Category 1: Negative. A letter regarding these results will be sent to the patient by the facility within 30 days. Approximately 10% of breast cancers are not detected by mammography. A normal mammogram should not delay biopsy of a clinically suspicious abnormality. [id number] Electronically Signed: Leon Arrington MD at 11:30 EDT Tel [phone], Service support , CC: Stacie Cardenas DO Jack Machine Operator: Signed CARDIOLOGY VISIT Observed: 09/16/2017 Status: F Source: [facility] 12:02 PM [facility] REPOSITORY [facility] [address] [place] [address]. [address] [place] [address] OFFICE VISIT Date of Service: 09/16/17 MR#: [id number] Acct: [id number] Name: NADEEN MINOR Rep #: [id number] : 1940 Provider: Eddy Fernandez MD Age/Sex: 77/F Location: [facility] Status: Signed HPI HPI Chief Complaint: Follow up Details: NADEEN MINOR, is a 77 F who presents to the office today for a follow-up visit. She is a lady with history of palpitations minimal coronary artery disease status post pacemaker placement who returns for routine follow-up visit. She denies any chest pain or shortness breath or paroxysmal nocturnal dyspnea or pedal edema she has had no neck arm or jaw discomfort suggest angina. She has been compliant with all her medications. She tells me that cardiac adams she actually has been doing quite well. Her physical exam demonstrates clear lung chavez regular rate and rhythm and no pedal edema. Intake Vital Signs09/16/17 Height 5 ft 2.5 in 09/16/17 Weight: 130 lb 09/16/17 Body Mass Index (BMI) 23.3 09/16/17 Blood Pressure 118/56 Intake Visit Reasons: 1 Y FU Allergies nitrofurantoin [From Macrobid] Adverse Reaction (Severe, Verified 09/16/17 11:39) Vomiting nitrofurantoin macrocrystalline [From Macrobid] Adverse Reaction (Severe, Verified 09/16/17 11:39) Vomiting montelukast [From Singulair] Adverse Reaction (Unknown, Verified 09/16/17 11:39) Unknown Tetracyclines Adverse Reaction (Verified 09/16/17 11:39) Other Medications E AC/Rut/Hesper/Bio/B AND C/Hc111 [Varisan Vitality Tablet] 1 ea PO DAILY 09/04/13 [History Confirmed 09/16/17] Lecithin, Soy [Lecithin Soya] 1,200 mg PO DAILY 09/04/13 [History Confirmed 09/16/17] Levothyroxine [Synthroid] 112 mcg PO DAILY 09/04/13 [History Confirmed 09/16/17] Pravastatin Sodium [Pravastatin Sodium] 1 tab PO QHS 09/04/13 [History Confirmed 09/16/17] Cetirizine HCl [Allergy Relief] 10 mg PO DAILY 02/28/15 [History Confirmed 09/16/17] Glucosamine/MSM/Chondroitin A [Glucosamine Chondroit MSM Tab] 1 ea PO BID 02/28/15 [History Confirmed 09/16/17] L.acidoph,Paracasei, B.lactis [Probiotic] 1 ea PO QHS 02/28/15 [History Confirmed 09/16/17] flecainide 100 mg tablet 100 mg PO BID #180 tab 03/14/17 [Rx Confirmed 09/16/17] metoprolol succinate ER 25 mg tablet,extended release 24 hr 25 mg PO QHS #90 tab 03/14/17 [Rx Confirmed 09/16/17] prednisolone acetate 1 % eye drops,suspension 1 drp OPHTHALMIC QHS ml 09/15/17 [History Confirmed 09/16/17] aspirin 81 mg tablet,delayed release 81 mg PO QDAY #90 tab 09/16/17 [Rx Confirmed 09/16/17] cholecalciferol (vitamin D3) 1,000 unit tablet 2,000 unit PO .COMPLEX 09/16/17 [History Confirmed 09/16/17] omeprazole 20 mg capsule,delayed release 20 mg PO DAILY cap 09/16/17 [History Confirmed 09/16/17] ranitidine 150 mg tablet 150 mg PO QDAY 09/16/17 [History Confirmed 09/16/17] [facility] Medical History Carotid artery disease (Chronic) Hyperlipidemia (Chronic) Sinus bradycardia (Chronic) Paroxysmal atrial fibrillation (Chronic) Sick sinus syndrome (Chronic) Presence of cardiac pacemaker (Chronic) Hypothyroidism (Acute) GERD (gastroesophageal reflux disease) (Chronic) Surgical History History of arthroscopic knee surgery (Resolved) History of carpal tunnel surgery (Resolved) History of cataract surgery (Resolved) History of tonsillectomy and adenoidectomy (Resolved) Hx of appendectomy (Resolved) Family History Father CAD (coronary artery disease) Mother Heart disease Social History Smoking Status: Never smoker alcohol intake: never substance use type: does not use ROS Const Const: Negative for fatigue, weakness, weight gain, weight loss, frequent falls or excessive sweating Eyes Eyes: Negative for change in vision, blurry vision or transient loss of vision ENT ENT: Negative for dizziness or balance problems Cardio Chest Pain: No Palpitations: No Edema: None Muscle aches with walking: None Resp Respiratory: Negative for SOB with activity or SOB at rest GI GI: Negative vomiting or vomiting blood/hematemesis : Negative for hematuria Musc Musc: Negative for balance problems, muscle aches/ myalgia, muscle weakness or joint pain Skin Skin: Negative non-healing lesions or rash Neuro Neuro: Negative for weakness, blurry vision, dizziness, lightheadedness, frequent falls or orthostatic symptoms Dwayne Hematologic/Lymphatic: Negative for easy bleeding Endo Endo: Negative for fatigue or excessive sweating Psych Psych: Negative for anxiety or depression Allergy Allergy/Immunology: Negative for hives, Negative for rash Cardiology Exam Const Appearance: cooperative, healthy appearing, well developed, well groomed and no acute distress Nutritional Appearance: well nourished and average body habitus Orientation: alert, awake and oriented x3 Head Head: normal to inspection, normocephalic and atraumatic Ears: hearing grossly normal bilaterally and external ears normal Nose: external nose normal, nasal mucous membranes and turbinates normal, nares normal, septum normal, no nasal discharge Face and Sinus: face symmetric Mouth: oral mucosae normal, tongue normal, oropharynx normal and moist mucous membranes Teeth and gingiva: dentition normal Throat: posterior oropharynx normal, tonsils normal and uvula midline Eyes General: appearance normal, both eyes and all related structures Eyelids: eyelids normal Conjunctivae: conjunctivae normal Pupils: PERRL, normal by confrontation and accommodation normal EOM: EOM intact bilaterally Neck Neck: normal visual inspection, trachea midline and no JVD JVD: +5 Carotids: normal carotid upstroke and bounding pulses Chest Chest inspection: normal inspection of the chest, symmetric chest movement and normal respiratory effort Auscultation: Bilateral: Clear to Auscultation Cardio Palpation: normal PMI Rate: regular rate Rhythm: regular rhythm Heart sounds: S1 normal, S2 normal and normal, physiologic split S2; negative rub, gallop or murmur GI GI: normal to inspection, soft, no hepatosplenomegaly and bowel sounds present Neuro General: alert, awake, oriented x3, no focal sensory deficit, gait normal and moves all extremities Skin Skin: no rashes or lesions noted Extremities Pulses: Normal: Right Femoral Pulse, Left Femoral Pulse, Right Dorsalis Pedis Pulse, Left Dorsalis Pedis Pulse, Right Posterior Tibial Pulse, Left Posterior Tibial Pulse, Right Radial Pulse, Left Radial Pulse Lower Extremity Edema: None: Bilateral Musculoskel Musculoskeletal: No joint tenderness Psych Psychological: normal affect Assessment AND Plan 1. Paroxysmal atrial fibrillation I48.0 Plan She does not appear to have had any paroxysms of atrial fibrillation she is well-controlled on the flecainide as well as the beta-edith and this will be continued. She is not on anticoagulation. An electrocardiogram will be performed today to show that her intervals are appropriate and unchanged. Orders Orders: 2. Presence of cardiac pacemaker Z95.0 Plan Remote Dual Chamber Pacemaker Evaluation: See attached scanned remote [facility] report. Interrogation shows 1 AT/AF episode, <0.1% or 46 secs and no VT episodes since 01/30/17. Presenting rhythm shows AAI pacing @ 70 ppm. MACHINE TRACER=<0.1%. Device and lead measurements remain stable. Normal remote PPM function. Pt notified remote transmission received and next f/u appt scheduled for in 3 mos. no changes will be made at this time. 3. Hyperlipidemia E78.5 Plan She remains on lipid-lowering therapy and has been followed by her primary physician for the above. Thank you for allowing me to participate in the care of your patient. Please don't hesitate to call if any issues arise Plan Detail Other Orders Orders: Other Medications New: Discontinued: Follow Up 1 Year (alterations sewer) Coding Level of Care Code Off vis,est,level 3 Diagnoses Paroxysmal atrial fibrillation I48.0 Presence of cardiac pacemaker Z95.0 Hyperlipidemia E78.5 Coding Level of Care Code Off vis,est,level 3 Diagnoses Paroxysmal atrial fibrillation I48.0 Presence of cardiac pacemaker Z95.0 Hyperlipidemia E78.5 09/16/17 1202 <Electronically signed by Eddy Fernandez MD> Date Eddy Fernandez MD Cosigner Signature: Date (if applicable) CC: Stacie Cardenas DO CAROTID DUPLEX Observed: 08/26/2017 Status: F Source: [facility] ULTRASOUND 10:13 PM [facility] REPOSITORY [facility] Cardiovascular Services [address] [place] [address] Carotid Duplex Ultrasound 08/20/17 1248 MR#: [id number] Acct: [id number] Name: NADEEN MINOR Rep #: [id number] : 1940 77 From: Cas Pena MD Attending Dr: Stacie Cardenas DO Status: REG CLI Ordering Dr: Stacie Cardenas DO Date: 08/20/17 Location: [facility] Sex: F C Admitted: Reason For Study: Carotid stenosis Rt. Velocities/BP Lt. Velocities/BP Prox CCA 88.5/15.8 cm/sec. Prox CCA 92.6/16.4 cm/sec. Mid CCA 88.5/17.6 cm/sec. Mid CCA 78.6/17.0 cm/sec. Dist CCA 76.8/18.2 cm/sec. Dist CCA 82.1/12.3 cm/sec. Prox ICA 58.7/10.5 cm/sec. Prox ICA 72.7/21.7 cm/sec. Mid ICA 75.0/19.9 cm/sec. Mid ICA 90.3/25.8 cm/sec. Dist ICA 70.1/15.9 cm/sec. Dist ICA 73.8/16.0 cm/sec. Rt. ICA/CCA = .85. Lt. ICA/CCA = 1.2. Prox ECA 84.4/9.4 cm/sec. Prox ECA 82.7/10.6 cm/sec. Rt. Vert. 53.4/14.7 cm/sec. Lt. Vert. 63.9/17.0 cm/sec. Right Extracranial There is intimal thickening but no significant atherosclerotic plaque noted in the right common carotid artery. There is intimal thickening but no significant atherosclerotic plaque noted in the right internal carotid artery. There is intimal thickening but no significant atherosclerotic plaque noted in the right external carotid artery. Antegrade flow is noted in the right vertebral artery. Left Extracranial There is intimal thickening but no significant atherosclerotic plaque noted in the left common carotid artery. There is intimal thickening but no significant atherosclerotic plaque noted in the left internal carotid artery. There is intimal thickening but no significant atherosclerotic plaque noted in the left external carotid artery. Antegrade flow is noted in the left vertebral artery. Procedure Carotid Duplex 54217. Exam performed in department. Interpretation Summary Mild (<50%) stenosis right extracranial internal carotid. Mild (<50%) stenosis left extracranial internal carotid. Flow within the vertebral arteries is antegrade bilaterally. Ordering Physician: Stacie Cardenas Referring Physician: Stacie Cardenas Performed By: Latasha Lanier RVT 08/26/172211 Date Cas Pena MD CC: Stacie Cardenas DO Date Dictated: 08/20/17 1248 Date Transcribed: 08/26/172211 Jack Machine Operator: Signed PACEMAKER CHECK Observed: 08/15/2017 Status: F Source: [place] 2:14 PM [facility] REPOSITORY [facility] [address] [place] [address] Pacemaker Check Date of Service: 08/04/17 1451 MR#: [id number] Acct: [id number] Name: MILYNADEEN E Rep #: [id number] : 1940 From: Lady High Age/Sex: 77/F Location: [facility] Status: Signed Comments Summary Comments: Remote Dual Chamber Pacemaker Evaluation: See attached scanned remote Carelink report. Interrogation shows 1 AT/AF episode, <0.1% or 46 secs and no VT episodes since 01/30/17. Presenting rhythm shows AAI pacing @ 70 ppm. MACHINE TRACER=<0.1%. Device and lead measurements remain stable. Normal remote PPM function. Pt notified remote transmission received and next f/u appt scheduled for in 3 mos. Device Device Date Interviewed: 08/04/17 Follow-up Location: remote Interview Reason: scheduled follow up Women Nurse: [employer] Name: Sary JONES Model: A2DR01 Serial #: [id number] Implant Date: 12/21/12 Year(s): 4 Implant Physician: Dr Chilo Li Patient Characteristics Atrial Indication: Sinus bradycardia, Paroxysmal atrial fibrillation AV/Node Indication: Second degree AV block Ejection fraction %: 55 to 59 (12/11) By: Echo Underlying rhythm: Sinus bradycardia Pacemaker Dependent: No Device Characteristics Device: Dual Chamber Type: Pacemaker Remote Follow-Up: Carelink Leads Lead #1 Women Nurse Lead 1: Med[employer]onic Model Lead 1: 5086/45 MRI Serial# Lead 1: [id number] Date Implanted Lead 1: 12/21/12 Position Lead 1: RA Lead #2 Women Nurse Lead 2: [employer]onic Model Lead 2: 5086/52 MRI Serial# Lead 2: [id number] Date Implanted Lead 2: 12/21/12 Position Lead 2: RV Thor Settings Bradycardia Mode and Timing Settings Pacemaker Mode: AAIR+ Base Rate: 60 bpm Max Track Rate: 130 bpm Max Sensor Rate: 120 bpm Maximum AV Delay: 180 msec Bradycardia Output and Sensitivity Settings Right Atrium: 0.4 msec, Adaptive1.5 volts, 0.6 mV sensitivity. Right Ventricle: 0.4 msec, Adaptive2.0 volts. Billing Codes PM Device Codes: PM Dev Interrogate (Remot Assessment AND Plan Problems 1. Presence of cardiac pacemaker Z95.0 2. Sick sinus syndrome I49.5 3. Paroxysmal atrial fibrillation I48.0 4. Sinus bradycardia R00.1 08/15/17 0757 <Electronically signed by Lady High > Date Lady High 08/15/17 1414<Electronically signed by Eddy Fernandez MD> Loir Signature: Date (if applicable) Eddy Fernandez MD CC: ALLERGIES ALLERGIES DATE TYPE / NAME / CODE REACTION SEVERITY SOURCE CODE 04/17/2018 Drug nitrofurantoin Vomiting [place] Allergy/41 macrocrystalline/F00 Community [id number]( 0829831(RXNORM) [facility]) Repository 04/17/2018 Drug Tetracyclines/J84303 Other Unknown [place] Allergy/41 0478(RXNORM) Community 8493863([facility]) Repository 04/17/2018 Drug nitrofurantoin/F0060 Vomiting [place] Allergy/41 97111(RXNORM) Community 7735736([facility]) Repository 04/17/2018 Drug montelukast/[id number] Unknown Unknown [place] Allergy/41 56(RXNORM) [facility] [id number]([facility]) Repository ENCOUNTERS ENCOUNTERS ADMIT/DISCHARGE ACCOUNT ADMITTING ENCOUNTER LOCATION SOURCE NUMBER CLASS 04/17/2018/ [id number] Ambulatory BMSBuilding:B [place] 9 3 [facility] Repository 04/16/2018 [id number] Ambulatory [place] 2 [facility] ing:RAD Repository 04/09/2018/ [id number] Ambulatory BMSBuilding:B [place] 9 4 [facility] Repository 03/26/2018/ [id number] Ambulatory [place] 8 2 [facility] ing:EN Repository 03/18/2018 2941 Ambulatory Building:[facility] Repository 03/04/2018/ [id number] Ambulatory BMSBuilding:B [place] 8 7 [facility] Repository 02/25/2018/ [id number] Ambulatory BMSBuilding:B [place] 8 6 [facility] Repository 02/23/2018/ [id number] Ambulatory [place] 8 5 [facility] ing:ENRoom: Repository AC17 02/23/2018/ [id number] Ambulatory BMSBuilding:B [place] 8 6 MS.CF.[facility] Repository 02/03/2018/ [id number] Ambulatory BMSBuilding:B [place] 8 7 [facility] Repository 11/10/2017/ [id number] Ambulatory BMSBuilding:B [place] 8 7 [facility] Repository 09/17/2017 [id number] Ambulatory [place] 2 [facility] ing:OPBD Repository 09/16/2017/ [id number] Ambulatory BMSBuilding:B [place] 8 7 [facility] Repository 09/15/2017 [id number] Ambulatory BMSBuilding:B [place] 8 [facility] Repository 08/20/2017 [id number] Ambulatory [place] 3 [facility] ing:[facility] Repository 08/04/2017/ [id number] Ambulatory BMSBuilding:B [place] 8 0 MS.[facility] Repository PAYERS PAYERS ENCOUNTER GUARANTOR PAYER SUBSCRIBER SOURCE 04/17/2018 NADEEN E Primary NADEEN E [place] [id number] E Insurance:SUMMA CARE DEJONGDOB: Community [id number] Number: Repository [address]Dnp: 330 [id number] [phone] (HP) Date:6820-61-65UV [address] [place] [address] 97596TY: 04/17/2018 Secondary NOT GIVENUNK [place] Insurance:SELF PAY [facility] Number: Effective Repository Date:2018-04-15 04/16/2018 NADEEN E Primary NADEEN E [place] [id number] E Insurance:SUMMA CARE DEJONGDOB: Community [place] [id number] [place] Number: Repository 75[address]Nwl: 330 [id number] [phone] (HP) Date:8420-21-64DG [address] [place] [address] 43479GN: 04/16/2018 Secondary NOT GIVENUNK [place] Insurance:SELF PAY [facility] Number: Effective Repository Date:2018-04-09 04/09/2018 NADEEN E Primary NADEEN E [place] [id number] E Insurance:SUMMA CARE DEJONGDOB: Community [place] [id number] Number: Repository 113[address]Etl: 330 [id number] [phone] (HP) Date:4564-16-95AK [address] [place] [address] 82309BF: 04/09/2018 Secondary NOT GIVENUNK [place] Insurance:SELF PAY [facility] Number: Effective Repository Date:2018-04-02 03/26/2018 L[place] P Primary NADEEN E [place] [id number] E Insurance:SUMMA CARE DEJONGDOB: Community [place] [id number] [place] Number: Repository 86[address]Ekk: 330 [id number] [phone] (HP) Date:1717-46-59[address] [address]MK: 03/26/2018 Secondary NOT GIVENUNK [place] Insurance:SELF PAY [facility] Number: Effective Repository Date:2018-03-05 03/18/2018 NADEEN E Primary NADEEN E OHIP Practices DEJONGDOB: Insurance:[employer]Care DEJONGDOB: Repository [id number] [facility] [id number] [place] Number: [address] [place] [address] [id number] [place], [place] [address]Kwk: (330) Date:7379-00-86Pryn 89[address]Oax: () Name:[facility] [phone] () [address] [place] [address] 91234IX: 03/18/2018 Secondary NADEEN E OHIP Practices Insurance:MedicarePol DEJONGDOB: Repository icy Number: [id number] [place] Date: - [place], [place] 8107-20-44Cles [address]Sht: Name:BIOFUELS PRODUCT MANAGER Box ~(3 [phone], [place] 30 (HP) [address]PX: 03/18/2018 Tertiary NADEEN E OHIP Practices Insurance:ADVANTRA DEJONGDOB: Repository FREEDOMPolicy Number: [id number] [place] Date:2008-03-31 - [place], [place] 3598-39-67Qsze [address]Ffw: Name:FPO [address] [address], [place] 30 (HP) [address]LX: 03/04/2018 [place] P Primary NADEEN E [place] [id number] E Insurance:SUMMA CARE DEJONGDOB: Community [place] [id number] [place] Number: Repository [address]Ail: (330 [id number] [phone] (HP) Date:0275-98-48HD [address] [address]RA: 03/04/2018 Secondary NOT GIVENUNK [place] Insurance:SELF PAY [facility] Number: Effective Repository Date:2018-03-04 02/25/2018 L[place]IS Lucas Primary NADEEN E [place] [id number] E Insurance:SUMMA CARE DEJONGDOB: Community [place] [id number] [place] Number: Repository [address]Cfx: 330 [id number] [phone] (HP) Date:8525-51-78DP [address] [place] [address] 725[address]WT: 02/25/2018 Secondary NOT GIVENUNK [place] Insurance:SELF PAY [facility] Number: Effective Repository Date:2018-02-25 02/23/2018 L[place]IS Lucas Primary NADEEN E [place] [id number] E Insurance:SUMMA CARE DEJONGDOB: Community [place] [id number] [place] Number: Repository [address]Jtf: 330 [id number] [phone] (HP) Date:8478-53-04JA [address] [address]SP: 02/23/2018 Secondary NOT GIVENUNK [place] Insurance:SELF PAY [facility] Number: Effective Repository Date:2018-02-03 02/23/2018 LOUIS Lucas Primary NADEEN E [place] [id number] E Insurance:SUMMA CARE DEJONGDOB: Community [place] [id number] [place] Number: Repository [address]Hov: 330 [id number] [phone] (HP) Date:5126-23-05KU BOX [facility] [address]JC: 02/23/2018 Secondary NOT GIVENUNK [place] Insurance:SELF PAY [facility] Number: Effective Repository Date:2018-02-23 02/03/2018 L[place]IS Lucas Primary NADEEN E [place] [id number] E Insurance:SUMMA CARE DEJONGDOB: Community [place] MED[place]ARE[place] [id number] [place] Number: Repository [address]Swe: 330 [id number] [phone] () Date:7333-64-81YW BOX [facility]ENTER[facility] [address]FL: 02/03/2018 Secondary NOT GIVENUNK [place] Insurance:SELF PAY [facility] Number: Effective Repository Date:2018-02-02 11/10/2017 L[place]IS Lucas Primary NADEEN E [place] [id number] E Insurance:SUMMA CARE DEJONGDOB: Community [place] [id number] [place] Number: Repository [address]Vll: 330 [id number] [phone] () Date:1290-43-09BG [address] [place] [address]CT: 11/10/2017 Secondary NOT GIVENUNK [place] Insurance:SELF PAY [facility] Number: Effective Repository Date:2017-11-10 09/17/2017 L[place]IS Lucas Primary NADEEN E [place] [id number] E Insurance:SUMMA CARE DEJONGDOB: Community [place] [id number] [place] Number: Repository [address]Hzi: 330 [id number] [phone] (HP) Date:6505-25-25XR BOX [facility] CENTERJAMAL[facility], [place] [address]FD: 09/17/2017 Secondary NOT GIVENUNK [place] Insurance:SELF PAY [facility] Number: Effective Repository Date:2017-08-06 09/16/2017 L[place]IS Lucas Primary NADEEN E [place] [id number] E Insurance:SUMMA CARE DEJONGDOB: Community [place] [id number] Number: Repository [address]Vsu: (330) [id number] [phone] (HP) Date:2714-00-33XS [address] [address]CH: 09/16/2017 Secondary NOT GIVENUNK [place] Insurance:SELF PAY [facility] Number: Effective Repository Date:2017-07-14 09/15/2017 L[place]IS Lucas Primary NADEEN E [place] [id number] E Insurance:SUMMA CARE DEJONGDOB: Community [place] [employer]ARE[place] [id number], [place] Number: Repository [address]Upe: [id number] [phone] Date:0030-84-27AW [address] (HP) 3620MNJ[place], [place] [address]MF: 09/15/2017 Secondary NOT GIVENUNK [place] Insurance:SELF PAY [facility] Number: Effective Repository Date:2017-09-15 08/20/2017 L[place]IS Lucas Primary NADEEN E [place] [id number] E Insurance:SUMMA CARE DEJONGDOB: Community [place] MED[place]ARE[place] [id number], [place] Number: Repository [address]Kds: [id number] [phone] Date:5252-63-53XE [address] (HP) 362[facility] MED[facility] CENTERJAMAL[place], [place] [address]RW: 08/20/2017 Secondary NOT GIVENUNK [place] Insurance:SELF PAY [facility] Number: Effective Repository Date:2017-08-06 08/04/2017 Louis Lucas Primary NOT GIVENUNK [place] [id number] E Insurance:SELF [place]Y [place] Number: Effective Repository [address]Hhm: Date:2017-08-04 ~330 -3 (HP)
== END ==
PROVIDERS: Family Provider Internal Medicine; PCP Internal Medicine; Referring Provider Surgery; Visit Provider Surgery
DX: R13.10 Dysphagia, unspecified (principal)
CPT/HCPCS: 74230; 92611

== ENCOUNTER → 2018-06-12 10:43 | Outpatient (CLI) | payer MEDICARE, SELFPAY ==
[2018-04-09 15:51] VITALS: BMI 24.2
[2018-06-12 10:55] LABS: Absolute Lymphocyte Count 1.74 X10^3/ul (0.83-4.51); Absolute Neutrophil Count 2.7 X10^3/uL (2.0-7.7); Basophil# 0.04 X10^3/uL; Basophil% 0.8 % (0-1); Eosinophil# 0.21 X10^3/uL; Eosinophils% 4.1 % (0-5); Hematocrit 37.7 % (37-47); Hemoglobin 12.1 g/dl (12.0-15.0); Lymphocyte # 1.74 X10^3/ul (4.0); Lymphocyte % 33.7 % (19-41); Mean Corp Hgb Conc 32.1 g/gl (32-36); Mean Corpuscular Hgb 30.6 pg (27.0-32.0); Mean Corpuscular Volume 95.4 fL (81-99); Mean Platelet Vol. 10.7 fl (6.2-12.0); Monocyte# 0.48 X10^3/uL; Monocyte% 9.3 % (0-10); Neutrophil # 2.68 X10^3/uL (2.7-7.7); Neutrophil % 51.9 % (47-70); Platelet Count 222 K/mm3 (150-450); RBC Distribution Width CV 14.2 % (11.6-14.6); RBC Distribution Width SD 49.5 fl (35.1-43.9); Red Blood Count 3.95 M/mm3 (4.2-5.4); White Blood Count 5.2 K/mm3 (4.4-11.0)
[2018-06-12 10:56] LABS: POSITIVE COUNT NO; POSITIVE DIFFERENTIAL NO; POSITIVE MORPHOLOGY NO
[2018-06-12 10:58] LABS: Erythrocyte Sedimentation Rate 2 mm/hr (0-30)
[2018-06-12 11:11] LABS: CRP < 2.90 mg/L (0.0-3.0)
== END ==
PROVIDERS: Family Provider Internal Medicine; PCP Internal Medicine; Referring Provider Internal Medicine; Visit Provider Internal Medicine
DX: R51 Headache (principal)
CPT/HCPCS: 85025; 85652; 86140

== ENCOUNTER → 2018-06-23 09:25 | Outpatient (CLI) | payer MEDICARE, SELFPAY ==
[2018-04-09 15:51] VITALS: BMI 24.2
--- NOTE | 2018-06-23 10:00 | MRI_ITS ---
STUDY: MRA OF THE HEAD WITHOUT CONTRAST REASON FOR EXAM: Female, 78 years old. Pulsatile headache in the left temporal area x1.5 weeks. Resolved now. TECHNIQUE: 3-D mztx-gu-xrkmcc (TOF) imaging was performed with MIPs. The study was performed unenhanced. COMPARISON: None. FINDINGS: Normal bilateral petrous carotid arteries. Normal right cavernous carotid artery with a normal supraclinoid bifurcation. Normal left cavernous carotid artery with a normal supraclinoid bifurcation. Normal right A1 segment of the anterior cerebral artery. Normal left A1 segment of the anterior cerebral artery. Normal intact anterior communicating artery (ACOM). Normal bilateral A2 segments of the anterior cerebral arteries. Normal right M1 and M2 segments of the middle cerebral arteries, with a normal M1 bifurcation. Normal left M1 and M2 segments of the middle cerebral arteries, with a normal M1 bifurcation. No visible right posterior communicating artery (PCOM). No visible left posterior communicating artery (PCOM). Normal bilateral vertebral arteries. Normal basilar artery with a normal basilar bifurcation. The visualized bilateral superior cerebellar (SCA) arteries are normal. Normal bilateral P1, P2 and visualized P3 segments of the posterior cerebral arteries. There is no demonstrated aneurysm of the pamunkey of [place]. There is no major vessel occlusion or hemodynamically significant stenosis. There is no demonstrated abnormality of the visualized brain. MRI/MRA Head ONLY without Contrast IMPRESSION: Normal MRA of the head Electronically Signed: Harpreet Pineda MD at 14:31 EDT , Service support ,
--- NOTE | 2018-06-23 10:00 | MRI_ITS ---
STUDY: MRI BRAIN WITH AND WITHOUT CONTRAST REASON FOR EXAM: Female, 78 years old. Pulsatile headaches. Left temporal area TECHNIQUE: Standardized multiplanar fat and water weighted pulse sequences were obtained. 12 IV Dotarem was administered for the contrast portion of the examination. COMPARISON: None. FINDINGS: The pituitary and pineal regions are normal. The brainstem is normal. The corpus callosum is normal. The 7th and 8th nerve complexes are normal. Both cerebellopontine angles are clear. The cerebellar vermis and lobes are normal. The ventricles, basal cisterns and cortical sulci are normal with no midline shift and no intra or extra-axial hemorrhage or tumor mass. There is no acute infarction. The calvarium is intact. There are no scalp swelling. The vessels at the base of the brain are normal. Bilateral mastoiditis. This is more the left than the right. The orbits and paranasal sinuses are normal MRI/Brain W/WO Contrast IMPRESSION: No acute findings in the brain. Bilateral mastoiditis. This is small in the left side of the right Electronically Signed: Norm Anne MD at 6:23 EDT Tel , Service support ,
== END ==
PROVIDERS: Family Provider Internal Medicine; PCP Internal Medicine; Referring Provider Internal Medicine; Visit Provider Internal Medicine
DX: R51 Headache (principal)
CPT/HCPCS: 70544; 70553; A9575

== ENCOUNTER → 2018-08-04 | Outpatient (CLI) | payer MEDICARE, SELFPAY ==
[2018-04-09 15:51] VITALS: BMI 24.2
--- NOTE | 2018-08-04 10:14 | CDU_ITS ---
Reason For Study: carotid stenosis Rt. Velocities/BP Lt. Velocities/BP Prox CCA 89.1/21.3 cm/sec. Prox CCA 79.4/17.9 cm/sec. Mid CCA 85.2/26.5 cm/sec. Mid CCA 83.8/21.2 cm/sec. Dist CCA 61.7/17.3 cm/sec. Dist CCA 68.4/14.6 cm/sec. Prox ICA 78.6/26.5 cm/sec. Prox ICA 61.8/11.3 cm/sec. Mid ICA 98.2/31.7 cm/sec. Mid ICA 95.9/32.2 cm/sec. Dist ICA 68.2/25.2 cm/sec. Dist ICA 92.6/25.6 cm/sec. Rt. ICA/CCA = 1.2. Lt. ICA/CCA = 1.1. Prox ECA 77.3/10.8 cm/sec. Prox ECA 91.5/6.9 cm/sec. Rt. Vert. 48.7/12.4 cm/sec. Lt. Vert. 70.6/20.1 cm/sec. Right Extracranial There is intimal thickening but no significant atherosclerotic plaque noted in the right common carotid artery. There is intimal thickening but no significant atherosclerotic plaque noted in the right internal carotid artery. There is intimal thickening but no significant atherosclerotic plaque noted in the right external carotid artery. Antegrade flow is noted in the right vertebral artery. Left Extracranial There is intimal thickening but no significant atherosclerotic plaque noted in the left common carotid artery. There is heterogeneous, smooth atherosclerotic plaque noted in the left internal carotid artery. There is intimal thickening but no significant atherosclerotic plaque noted in the left external carotid artery. Antegrade flow is noted in the left vertebral artery. Procedure Carotid Duplex 72504. The exam was diagnostic. Exam performed in department. Interpretation Summary No significant atherosclerotic plaque or stenosis noted in the right internal carotid artery. Mild (<50%) stenosis left extracranial internal carotid. Flow within the vertebral arteries is antegrade bilaterally. Ordering Physician: Stacie Cardenas Performed By: Jae Suazo RVT
--- NOTE | 2018-08-04 12:37 | CT_ITS ---
STUDY: CT CHEST WITHOUT CONTRAST REASON FOR EXAM: Female, 78 years old. Calcium scoring examination. Hyperlipidemia. Radiological over read study. RADIATION DOSAGE (If Supplied By Facility): CTDIvol = ( 12.19 ) mGy, DLP = ( 195.04 ) mGycm TECHNIQUE: Transaxial imaging was performed without the administration of intravenous contrast material. Individualized dose optimization techniques were used for this CT. COMPARISON: None. FINDINGS: Mild degree of increased markings at the lung bases suggestive of scarring. Small subpleural blebs. There is no demonstrated pleural abnormality. There are calcifications of the coronary arteries. Minimal pericardial thickening posteriorly. A dual-chamber pacemaker is seen. There are multiple small lymph nodes within the mediastinum, which are normal in size and morphology most compatible with reactive lymph hyperplasia. Normal hilar regions. Normal unenhanced pulmonary arteries. Normal aorta arch and descending thoracic aorta. There are multi-level degenerative changes of the thoracic spine. There is no demonstrated abnormality of the visualized upper abdomen. CT/Limited Chest CT w/CCTA IMPRESSION: Coronary artery calcification. Mild degree of linear scarring at the lung bases. Minimal pericardial thickening posteriorly. Electronically Signed: Leon Arrington, at 10:29 EDT , Service support ,
[2018-08-04 12:45] VITALS: BP 115/47; PULSE 71; RESP 16; O2SAT 99; BMI 23.8
--- NOTE | 2018-08-04 15:13 | CA.SCORE ---
Calcium Scoring Date of Study:: 08/04/18 Coronary Calcium Scoring: High-resolution Computed Tomographic imaging of the chest was performed on [ ], with particular attention paid to the coronary arteries. Images from the examination were analyzed for the presence and extent of coronary artery calcification , using coronary calcium quantification software. The patient tolerated the procedure well and there were no complications. The results of the coronary calcification analysis are provided below. - Findings Left Main (LM): 32.6 Left Anterior Descending (LAD): 0.99 Left Circumflex (LCX): 4.37 Right Coronary Artery (RCA): 0 Total Agatston Score: 37.96 - Conclusion Calcium Scoring Interpretation: Calcium Score Interpretation 0 No identifiable atherosclerotic plaque. Very low cardiovascular disease risk. <5% chance of presence coronary artery disease A Negative Examination 1-10 Minimal Plaque burden. Significant coronary artery disease very unlikely. 11-100 Mild plaque burden. Likely mild or minimal coronary atherosclerosis. 101-400 Moderate plaque burden Moderate non-obstructive coronary artery disease highly likely. Over 400 Extensive plaque burden. High likelihood of at least one significant coronary stenosis (>50% diameter) Calcium Score: 11 - 100 Likely mild or minimal coronary stenosis - 1. Percentile ranking: Between 25 and 50%: Comment: Between 25% and 50% of people of the same gender and similar age had the same or lower scores.2. Continue cardiovascular risk factor evaluation/therapy as deemed appropriate.
== END | disposition home or self-care (01) ==
PROVIDERS: Family Provider Internal Medicine; PCP Internal Medicine; Referring Provider Internal Medicine; Visit Provider Internal Medicine
DX: I65.23 Occlusion and stenosis of bilateral carotid arteries (principal); E78.5 Hyperlipidemia, unspecified
CPT/HCPCS: 75571; 76380; 93880

== ENCOUNTER → 2018-09-18 | Outpatient (CLI) | payer MEDICARE, SELFPAY ==
[2018-04-09 15:51] VITALS: BMI 24.2
[2018-09-17 09:43] VITALS: BMI 24.1
--- NOTE | 2018-09-18 09:52 | BI_ITS ---
MAMMOGRAPHY - BILATERAL SCREENING 3-D TOMOSYNTHESIS REASON FOR EXAM: Female, 78 years old. Bilateral Screening 3-D tomosynthesis PERTINENT HISTORY: No significant family history. TECHNIQUE: 2-D mammograms and 3-D Tomosynthesis of the breast (s) were performed. CAD was performed. COMPARISON: Was made to the previous studies the last dated September 17, 2017. FINDINGS: The breast composition is of scattered fibroglandular tissue without evidence of any spiculated lesion, microcalcifications, skin thickening or nipple retraction. There are scattered benign and vascular calcifications seen bilaterally. There has been no change since the previous studies. BI/SCREEN MAMM (CAD) W/KAELYN BILAT IMPRESSION: No mammographic signs of malignancy. Routine yearly mammograms recommended. BIRADS 2. FOLLOW UP RECOMMENDATION: Yearly follow up mammogram recommended. (A) Approximately 10% of breast cancers are not detected by mammography. A normal mammogram should not delay biopsy of a clinically suspicious abnormality. Electronically Signed: Perla Bedolla, at 15:59 EDT Tel , Service support ,
== END | disposition home or self-care (01) ==
LOC: OPBI 09:50
PROVIDERS: Family Provider Internal Medicine; PCP Internal Medicine; Referring Provider Internal Medicine; Visit Provider Internal Medicine
DX: Z12.31 Encounter for screening mammogram for malignant neoplasm of breast (principal)
CPT/HCPCS: 77063; 77067

== ENCOUNTER → 2018-10-06 | Outpatient (CLI) | payer MEDICARE, SELFPAY ==
[2018-09-17 09:43] VITALS: BMI 24.1
--- NOTE | 2018-10-06 13:52 | ECHOD_ITS ---
Reason For Study: Afib/Flutter Procedure This was a 2D Doppler, Color Flow transthoracic echocardiogram. Exam performed in department. Left Ventricle Normal LV size. Left ventricular systolic function is normal. The estimated ejection fraction is 60 %. Stage 1 diastolic dysfunction. No regional wall motion abnormalities noted. Right Ventricle Normal RV size. ICD or pacer leads identified within the right ventricle. Normal systolic function. Atria Normal left atrium. Normal right atrium. Mitral Valve Normal mitral valve. Trivial eccentric mitral valve insufficiency. Tricuspid Valve Normal tricuspid valve. Mild (1+) tricuspid valve insufficiency. Pulmonary artery systolic pressure is 30 mmHg. Aortic Valve Normal aortic valve. Trisinus/trileaflet aortic valve. Pulmonic Valve Normal pulmonic valve. Great Vessels Normal aortic root. The pulmonary artery is normal size. Normal inferior vena cava. Pericardium/Pleural No pericardial effusion. MMode/2D Measurements & Calculations LVIDd: 4.2 cm IVSd: 1.0 cm LA dimension: 3.5 cm LVIDs: 2.7 cm LVPWd: 0.92 cm FS: 36.0 % LAV(MOD-sp4): 45.8 ml LA A4 area: 16.9 cm2 RA A4 area: 16.6 cm2 Time Measurements MV dec time: 0.19 sec Doppler Measurements & Calculations MV E max [place]: 69.1 cm/sec Lat Peak E' [place]: 6.5 cm/sec Med Peak E' [place]: 8.1 cm/sec MV A max [place]: 90.2 cm/sec E/E' lat: 10.6 E/E' med: 8.5 MV E/A: 0.77 MV V2 max: 99.5 cm/sec MV P1/2t max [place]: 75.1 cm/sec Ao V2 max: 95.3 cm/sec MV max P.0 mmHg MV P1/2t: 84.1 msec Ao max P.6 mmHg MV V2 mean: 59.4 cm/sec MV dec slope: 261.6 cm/sec2 MV mean P.7 mmHg MVA(P1/2t): 2.6 cm2 MV V2 VTI: 22.3 cm LV V1 max: 81.2 cm/sec PA V2 max: 64.1 cm/sec TR max [place]: 249.9 cm/sec LV V1 max P.6 mmHg TR max P.0 mmHg Interpretation Summary Normal LV size. Left ventricular systolic function is normal. The estimated ejection fraction is 60 %. Stage 1 diastolic dysfunction. Mild (1+) tricuspid valve insufficiency. Pulmonary artery systolic pressure is 30 mmHg. Ordering Physician: Eddy Fernandez Referring Physician: Eddy Fernandez Performed By: Desmond Koenig RCS
== END | disposition home or self-care (01) ==
LOC: CVS 13:50
PROVIDERS: Family Provider Internal Medicine; PCP Internal Medicine; Referring Provider Internal Medicine Cardiovascular Disease; Visit Provider Internal Medicine Cardiovascular Disease
DX: I48.0 Paroxysmal atrial fibrillation (principal)
CPT/HCPCS: 93306

== ENCOUNTER → 2019-01-13 | Outpatient (CLI) | payer MEDICARE, SELFPAY ==
[2018-09-17 09:43] VITALS: BMI 24.1
--- NOTE | 2019-01-13 14:00 | RAD_ITS ---
STUDY: X-RAY CHEST REASON FOR EXAM: Female, 78 years old. History of pneumonia and pleural effusion. TECHNIQUE: PA and lateral views of the chest. COMPARISON: Comparison is made with prior study August 28, 2016. FINDINGS: There is a tenting of the anterior aspect of the right hemidiaphragm. Focal infiltrate is seen in the right middle lobe with the blunting of the right costophrenic angle. A left-sided dual-chamber pacemaker is seen. Normal mediastinum and odell. Normal visualized pulmonary arteries. There is atherosclerotic calcification of the aortic arch with tortuosity. There are diffuse degenerative changes of the visualized thoracic spine. Dextroscoliosis at the thoracolumbar junction. Normal visualized ribs, clavicles, and shoulders. There is no demonstrated abnormality of the visualized soft tissue structures of the upper abdomen. RAD/Chest PA and Lateral IMPRESSION: Infiltrate in the right middle lobe with a small right pleural effusion. Electronically Signed: Leon Arrington, at 14:51 EDT , Service support ,
== END | disposition home or self-care (01) ==
LOC: HPRAD 13:54
PROVIDERS: Family Provider Internal Medicine; PCP Internal Medicine; Referring Provider Internal Medicine; Visit Provider Internal Medicine
DX: J93.9 Pneumothorax, unspecified (principal)
CPT/HCPCS: 71046

== ENCOUNTER → 2019-02-10 | Outpatient (CLI) | payer MEDICARE, SELFPAY ==
[2018-09-17 09:43] VITALS: BMI 24.1
--- NOTE | 2019-02-10 13:45 | RAD_ITS ---
STUDY: X-RAY CHEST REASON FOR EXAM: Female, 78 years old. Cough. TECHNIQUE: PA and lateral views of the chest. COMPARISON: 01/13/2019. FINDINGS: There is a left-sided pacemaker in place. There is mild right lower lobe atelectasis. Remainder of the lungs are clear and expanded. There is no demonstrated pleural abnormality. Normal size heart. Normal mediastinum and odell. Normal visualized pulmonary arteries. There is atherosclerotic calcification of the aortic arch with tortuosity. There is demineralization of the osseous structures. There is degenerative osteoarthritis of the bilateral shoulders and spine. There is no demonstrated abnormality of the visualized soft tissue structures of the upper abdomen. RAD/Chest PA and Lateral IMPRESSION: Atelectasis along the right lower lobe/right middle lobe region, otherwise no acute process identified. Electronically Signed: Heidi Riley MD at 0:31 EST , Service support ,
== END | disposition home or self-care (01) ==
LOC: HPRAD 02-12 11:45
PROVIDERS: Family Provider Internal Medicine; PCP Internal Medicine; Referring Provider Internal Medicine; Visit Provider Internal Medicine
DX: J18.9 Pneumonia, unspecified organism (principal)
CPT/HCPCS: 71046

== ENCOUNTER → 2019-02-15 17:14 | Outpatient (CLI) | payer MEDICARE, SELFPAY ==
[2018-09-17 09:43] VITALS: BMI 24.1
--- NOTE | 2019-02-15 17:17 | RAD_ITS ---
STUDY: X-RAY - LEFT TIBIA AND FIBULA REASON FOR EXAM: Female, 78 years old. Fell and injured left lower leg TECHNIQUE: 2 view(s) of the tibia and fibula were obtained. COMPARISON: None. FINDINGS: Normal visualized tibia. Normal visualized fibula. The soft tissue structures are unremarkable. RAD/Tibia & Fibula 2 Views IMPRESSION: Normal x-ray examination of the tibia and fibula. Electronically Signed: Jose Carl MD at 18:27 EST , Service support ,
== END ==
PROVIDERS: Family Provider Internal Medicine; PCP Internal Medicine; Referring Provider Internal Medicine; Visit Provider Internal Medicine
DX: M79.605 Pain in left leg (principal)
CPT/HCPCS: 73590

== ENCOUNTER → 2019-03-02 12:46 | Outpatient (CLI) | payer MEDICARE, SELFPAY ==
[2018-09-17 09:43] VITALS: BMI 24.1
[2019-03-02 13:04] LABS: D-Dimer Quantitative (DVT/PE) 0.38 FEU/ug/m (0.27-0.49)
== END ==
PROVIDERS: Family Provider Internal Medicine; PCP Internal Medicine; Referring Provider Internal Medicine; Visit Provider Internal Medicine
DX: R07.89 Other chest pain (principal)
CPT/HCPCS: 85379

== ENCOUNTER → 2019-05-12 | Outpatient (CLI) | payer MEDICARE, SELFPAY ==
[2018-09-17 09:43] VITALS: BMI 24.1
--- NOTE | 2019-05-12 13:55 | RAD_ITS ---
STUDY: X-RAY - RIGHT WRIST REASON FOR EXAM: Fall one week ago. TECHNIQUE: 3 view(s) of the wrist were obtained. COMPARISON: None. FINDINGS: There is osteopenia. Normal visualized distal radius and ulna. Normal radiocarpal articulation. Normal distal radioulnar articulation. Normal carpal bones. There is severe joint space narrowing of the triscaphe articulation. There is moderate to severe joint space narrowing of the carpometacarpal articulation of the thumb. Normal second through fifth carpometacarpal articulations. Normal visualized metacarpal bones. The soft tissue structures are unremarkable. 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 Osteopenia without demonstrated fracture. Electronically Signed: Dhaval Tan MD at 14:57 EST Tel , Service support ,
--- NOTE | 2019-05-12 13:56 | RAD_ITS ---
STUDY: X-RAY - UNILATERAL RIBS ( RIGHT ) WITH CHEST REASON FOR EXAM: Female, 79 years old. FALL X 1 WEEK/chest pain TECHNIQUE - RIBS: 2 view(s) of the ribs. TECHNIQUE - CHEST: 1 view COMPARISON: Prior chest radiograph of February 10, 2019 FINDINGS - RIBS: Normal visualized ribs without a demonstrated fracture. FINDINGS - CHEST: Negative for pneumothorax or pleural effusion. The lungs are clear and expanded. There is no demonstrated pleural abnormality. Normal size heart. Right atrial and ventricular pacemaker electrodes remain in good position. Normal visualized pulmonary arteries. There is atherosclerotic calcification of the aortic arch with tortuosity. Dextroscoliosis of the thoracolumbar spine. There is no demonstrated abnormality of the visualized soft tissue structures of the upper abdomen. RAD/Ribs Uni Min 3V w/PA Chest IMPRESSION: RIBS: Normal x-ray examination of the ribs. CHEST: No acute cardiopulmonary findings or changes. Negative for pneumothorax, pleural effusion, atelectasis or consolidation. Normal cardiac size. ICD remains in good position. Electronically Signed: Jenny Jin MD at 22:20 EST , Service support ,
--- NOTE | 2019-05-12 13:57 | RAD_ITS ---
STUDY: X-RAY - RIGHT SHOULDER REASON FOR EXAM: Female, 79 years old. FALL X 1 WEEK/pain TECHNIQUE: 4 view(s) of the shoulder. COMPARISON: None. FINDINGS: There is mild degenerative arthrosis of the glenohumeral articulation. There is degenerative arthrosis of the acromioclavicular joint without inferior osseous spur formation. Normal acromion. Negative for fracture or dislocation. The soft tissue structures are unremarkable. Normal visualized pulmonary apex. RAD/Shoulder min 2 Views IMPRESSION: Negative for fracture or dislocation. Mild degenerative arthrosis of the glenohumeral joint and acromioclavicular joint. Electronically Signed: Jenny Jin MD at 22:21 EST , Service support ,
== END | disposition home or self-care (01) ==
LOC: HPRAD 13:50
PROVIDERS: PCP Internal Medicine; Referring Provider Internal Medicine; Visit Provider Internal Medicine
DX: M79.601 Pain in right arm (principal); R07.9 Chest pain, unspecified
CPT/HCPCS: 71101; 73030; 73110

== ENCOUNTER → 2019-10-26 | Outpatient (CLI) | payer MEDICARE, SELFPAY ==
[2019-09-21 10:02] VITALS: BMI 21.5
--- NOTE | 2019-10-26 12:34 | BI_ITS ---
MAMMOGRAPHY - BILATERAL SCREENING REASON FOR EXAM: Female, 79 years old. Routine annual screening examination. PERTINENT HISTORY: Sister with breast cancer. Brother with breast cancer. TECHNIQUE: Digital bilateral breast kaelyn (3D mammographic acquisition) in the CC and MLO projections. 2-D mediolateral oblique (MLO) and craniocaudad (CC) views of both breasts were obtained. CAD: Full Field Digital Mammography with Computer Added Detection was performed. COMPARISON: Comparison is made with prior study dated 09-18-18 and 09-17-17. FINDINGS: Breast Composition: There are scattered areas of fibroglandular density. There are no dominant masses or suspicious calcifications. No other significant abnormalities are identified. There has been no significant change since the prior study. BI/SCREEN MAMM (CAD) W/KAELYN BILAT IMPRESSION: Stable bilateral screening mammogram. Yearly follow-up mammogram recommended. (A) ASSESSMENT CATEGORY: BIRADS Category 1: Negative. A letter regarding these results will be sent to the patient by the facility within 30 days. Approximately 10% of breast cancers are not detected by mammography. A normal mammogram should not delay biopsy of a clinically suspicious abnormality. [id number] Electronically Signed: Leon Arrington, at 14:07 EDT , Service support ,
--- NOTE | 2019-10-26 13:09 | BD_ITS ---
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 COMPARISON: Comparison is made with prior study dated 09/17/2017. FINDINGS: Lumbar Spine (L1-L4): g/cm2 (0.854) / T-score (-2.7) / Z-score (-0.9) Findings are suggestive of osteoporosis with a high fracture risk. Left Femur Total: g/cm2 (0.715) / T-score (-2.3) / Z-score (-0.2) Left Femoral Neck: g/cm2 (0.782) / T-score (-1.8) / Z-score (0.4) Right Femur Total: g/cm2 (0.750) / T-score (-2.0) / Z-score (0.0) Right Femoral Neck: g/cm2 (0.807) / T-score (-1.7) / Z-score (0.6) The T-Scores on the most recent prior examination were: Lumbar Spine (L1-L4): There has been improvement of bone density since the previous examination. Left Femur Total: which represents a worsening of 6%. Right Femur Total: which represents a worsening of 2.3%. BD/Dexa Bone Density Study IMPRESSION: The patient is considered osteoporotic as outlined below according to World Raz Organization (WHO) criteria with a high fracture risk. There has been worsening of bone density since the previous examination. Reference Information: The T-score is the number of standard deviations above or below the standard which is normal for young adults at their peak bone mineral density. The World Health Organization (WHO) interprets the T-scores as follows: Above -1 Normal bone density Between -1 and -2.5 Osteopenia Equal to / or below -2.5 Osteoporosis As a practical clinical guideline, osteopenia may be graded as follows: Mild -1 through -1.5 Moderate -1.6 through -2.0 Severe -2.1 through -2.4 The Z-score is the number of standard deviations above or below age-matched controls. A Z-score of less than -1.5 would be considered abnormal. References: 1. NIH Osteoporosis and Related Bone Diseases http://www.osteo.org 2. International Society for Clinical Densitometry http://www.iscd.org 3. National Osteoporosis Foundation http://www.nof.org Electronically Signed: Leon Arrington, at 11:57 EDT , Service support ,
--- NOTE | 2019-10-26 13:26 | CDU_ITS ---
Reason For Study: Carotid stenosis Rt. Velocities/BP Lt. Velocities/BP Prox CCA 96.9/21.3 cm/sec. Prox CCA 88.8/17.6 cm/sec. Mid CCA 73.4/20.0 cm/sec. Mid CCA 86.3/16.3 cm/sec. Dist CCA 70.8/22.6 cm/sec. Dist CCA 80.2/16.3 cm/sec. Prox ICA 77.8/16.3 cm/sec. Prox ICA 75.3/21.2 cm/sec. Mid ICA 79.6/23.9 cm/sec. Mid ICA 97.4/32.3 cm/sec. Dist ICA 105.8/26.7 cm/sec. Dist ICA 104.7/26.2 cm/sec. Rt. ICA/CCA = 1.4. Lt. ICA/CCA = 1.2. Prox ECA 64.3/3.0 cm/sec. Prox ECA 72.8/1.6 cm/sec. Rt. Vert. 93.7/22.5 cm/sec. Lt. Vert. 59.3/20.0 cm/sec. Right Extracranial There is intimal thickening but no significant atherosclerotic plaque noted in the right common carotid artery. There is intimal thickening but no significant atherosclerotic plaque noted in the right internal carotid artery. There is intimal thickening but no significant atherosclerotic plaque noted in the right external carotid artery. Antegrade flow is noted in the right vertebral artery. Left Extracranial There is intimal thickening but no significant atherosclerotic plaque noted in the left common carotid artery. There is homogeneous, smooth atherosclerotic plaque noted in the left internal carotid artery. There is intimal thickening but no significant atherosclerotic plaque noted in the left external carotid artery. Antegrade flow is noted in the left vertebral artery. Procedure Carotid Duplex 90084. Exam performed in department. Interpretation Summary No significant atherosclerotic plaque or stenosis noted in the right internal carotid artery. Mild (<50%) stenosis left extracranial internal carotid. Flow within the vertebral arteries is antegrade bilaterally. Ordering Physician: Stacie Cardenas Referring Physician: Stacie Cardenas Performed By: Debra Dickerson RVT and Student
== END | disposition home or self-care (01) ==
LOC: OPBD 12:31
PROVIDERS: PCP Internal Medicine; Referring Provider Internal Medicine; Visit Provider Internal Medicine
DX: I65.23 Occlusion and stenosis of bilateral carotid arteries (principal); Z78.0 Asymptomatic menopausal state; Z12.31 Encounter for screening mammogram for malignant neoplasm of breast
CPT/HCPCS: 77063; 77067; 77080; 93880

== ENCOUNTER → 2020-01-11 | Outpatient (CLI) | payer MEDICARE, SELFPAY ==
[2019-09-21 10:02] VITALS: BMI 21.5
[2020-01-11 09:42] LABS: Mucous, Urine 0 SEEN /hpf (<or=2+); Red Blood Cells-Urine 0 SEEN /hpf (0-5); Squamous Epithelial Cells - UA 0 SEEN /hpf (5-10)
[2020-01-11 12:41] LABS: Color, Urine Yellow (Yellow); Glucose, Dipstick Normal (Normal); Ketone-Dipstick Negative (Negative); Leukocyte Esterase-Dipstick 500 /ul (Negative); Nitrite-Dipstick Positive (Negative); Occult Blood-Urine 10 /ul (Negative); Protein-Dipstick Negative (Negative); Specific Gravity, Urine 1.015 (1.002-1.030); Urine Bilirubin Dipstick Negative (Negative); Urine Clarity Sl. Cloudy (Clear); Urine Urobilinogen Normal (Normal)
[2020-01-11 12:43] LABS: Absolute Lymphocyte Count 2.02 X10^3/uL (0.83-4.51); Absolute Neutrophil Count 2.2 X10^3/uL (2.0-7.7); Basophil# 0.05 X10^3/uL; Hematocrit 39.1 % (37-47); Hemoglobin 12.5 g/dL (12.0-15.0); Lymphocyte # 2.02 X10^3/ul (4.0); Lymphocyte % 40.6 % (19-41); Mean Corpuscular Hgb 31.5 pg (27.0-32.0); Mean Corpuscular Volume 98.5 fL (81-99); Monocyte# 0.45 X10^3/uL; NRBC Flagged by Analyzer 0 % (0-5); Neutrophil # 2.24 X10^3/uL (2.7-7.7); Platelet Count 235 K/mm3 (150-450); RBC Distribution Width CV 13.7 % (11.6-14.6); RBC Distribution Width SD 49.6 fl (35.1-43.9); Red Blood Count 3.97 M/mm3 (4.2-5.4)
[2020-01-11 12:59] LABS: Bacteria 2+ /hpf (None Seen); White Blood Cells 10-25 SEEN /hpf (0-5)
[2020-01-11 13:05] LABS: Hemoglobin A1c 5.3 % (3.8-5.6)
[2020-01-11 13:28] LABS: Microalbumin,Random Urine 10.4 mg/L (NO RANGE EST.); Microalbumin:Creatinine Ratio 17.2 mg/g CRE (<30 mg/g CRE)
[2020-01-11 13:33] LABS: AST(SGOT) 21 U/L (15-37); Alanine Aminotransfer ALT/SGPT 20 U/L (13-56); Albumin, Serum 3.5 g/dL (3.2-5.0); Alkaline Phosphatase 55 U/L (45-117); Anion Gap 3 (5-15); BUN 14 mg/dL (7-18); BUN/Creat Ratio 20.7 RATIO (10-20); Calcium,Total 8.6 mg/dL (8.5-10.1); Chloride 105 mmol/L (98-107); Cholesterol 163 mg/dL (200); Creatinine, Serum 0.68 mg/dL (0.55-1.02); EST Glomerular Filtration Rate 89 mL/min (>60); Est Glom Filt Rate - Afr Amer 107 mL/min (>60); Globulin 3.6 g/dL (2.2-4.2); Glucose 75 mg/dL (74-106); High Density Lipoprotein 80 mg/dL; Potassium 3.9 mmol/L (3.5-5.1); Protein, Total 7.1 g/dL (6.4-8.2); Sodium Level 142 mmol/L (136-145); Thyroid Stim Hormone (TSH) 4.93 uIU/mL (0.358-3.74); Triglycerides 48 mg/dL; Very Low Density Lipoprotein 10 mg/dL (5-40)
== END | disposition home or self-care (01) ==
LOC: MTLAB 09:38
PROVIDERS: PCP Internal Medicine; Referring Provider Internal Medicine; Visit Provider Internal Medicine
DX: E78.00 Pure hypercholesterolemia, unspecified (principal); E03.9 Hypothyroidism, unspecified; R73.09 Other abnormal glucose
CPT/HCPCS: 36415; 80053; 80061; 81001; 82043; 82570; 83036; 84443; 85025

== ENCOUNTER 2020-07-19 10:38 | Day surgery (SDC) | payer MEDICARE, SELFPAY ==
[2019-09-21 10:02] VITALS: BMI 21.5
[2020-07-19] VITALS (7 sets, daily range): BP systolic 101–113; BP diastolic 47–87; PULSE 59–61; RESP 16; TEMP 36.4–37.1; O2SAT 60–100; BMI 22.8
[2020-07-19] MEDS: Lactated Ringers 1,000 ML 100 ML IV (11:20)
[2020-07-19] MEDS: Cefazolin 1 GM/50 ML BAG IV (12:25)
[2020-07-19] MEDS: Lidocaine 1% (30 ml sdv) 30 ML Vial (12:42)
[2020-07-19] MEDS: Bupivacaine Mpf 0.5% 30 ML VIAL (12:42)
--- NOTE | 2020-07-19 12:46 | PCM.OPRPT ---
Report of Operation Date of Procedure: 07/19/20 Pre-Operative Diagnosis: Left carpal tunnel syndrome Post-Operative Diagnosis: Left carpal tunnel syndrome Surgery/Procedure Performed:: Left carpal tunnel release Description of Surgical Findings:: Complete release transverse carpal ligament contract negotiation manager: None Type of Anesthesia:: Block,Ok Anesthesiologist: Brian Bullock Special Medications: Ancef Estimated Blood Loss (mL): 2 Fluids Replaced: 500 mL crystalloid Description of Procedure: Brief history operative indications: 80-year-old female patient wished to proceed with left open carpal tunnel release. After discussing risks and benefits including but not limited to blood loss, DVTs, PEs, neurovascular damage, infection, hematoma and general risk of anesthesia, the patient demonstrated understanding wish to proceed with left open carpal tunnel release Procedure: On the date of the procedure, the patient's left upper extremity was marked in the preoperative area. Patient was taken back to the operating room, where the tourniquet was placed on the right upper extremity. Patient was given light sedation. All bony prominences are identified well-padded. Anesthesia assumed control C-spine and airway and remained in control throughout the remainder the procedure. Ok block was administered by anesthesia. The left upper extremity was prepped in sterile fashion. Surgeon then scrub. Upon reentering the room, the left upper extremity was prepped in a standard orthopedic fashion. A timeout was called and everyone agreed upon the side, the site, the procedure to be performed, patient identity and antibiotics given. The incision was marked out. Incision was taken at the skin subtenons tissue fat down to fascia. Fascia was then lightly tethered until the median nerve was visible. A Mil[place] was placed proximally and distally, and then scissors were placed proximally and distally to release the transverse carpal ligament. During the release the others were never completely closed. The Mil[place] was then placed proximally and distally once more to verify the transverse carpal ligament had been adequately released. The wound was then copiously irrigated out with normal saline. Wound was then closed using 3-0 nylon suture. 10 cc of 50-50 mixture of 1% lidocaine and 0.5% Sensorcaine without epinephrine injection was given. Xeroform dressing was placed, sterile dressing was placed, compressive dressing was placed. Tourniquet was let down. Volar splint was placed. Patient was awakened by anesthesia and transferred to the PACU for recovery. Postoperative plan: The patient will follow up in 2 weeks for removal splint removal sutures. At that time if they are doing well they will follow-up as needed. - Complications No intraoperative complications - Admit VTE Documentation VTE Present on Admission: No VTE Mechan Device Prophylaxis: SCD's VTE Pharm Prophylaxis ordered?: No Reason prophylaxis not ordered:: Treatment Not Indicated
[2020-07-19] MEDS: Ketorolac 15 MG/ML Vial IV (13:04)
== END 2020-07-19 14:00 | disposition home or self-care (01) ==
LOC: SDC 10:39 → AC 10:39
PROVIDERS: PCP Internal Medicine; Referring Provider Specialist; Visit Provider Specialist
PROC: (CPT 64721; principal; 2020-07-19 12:15)
DX: G56.02 Carpal tunnel syndrome, left upper limb (principal); J44.9 Chronic obstructive pulmonary disease, unspecified; K21.9 Gastro-esophageal reflux disease without esophagitis; E78.00 Pure hypercholesterolemia, unspecified; E06.9 Thyroiditis, unspecified; Z95.0 Presence of cardiac pacemaker; Z79.899 Other long term (current) drug therapy; Z20.822 Contact with and (suspected) exposure to COVID-19
CPT/HCPCS: 64721; 87426; C9803; J7120; A4216; J2405

== ENCOUNTER → 2021-03-08 10:45 | Outpatient (CLI) | payer MEDICARE, SELFPAY ==
--- NOTE | 2021-03-08 10:52 | CDU_ITS ---
Reason For Study: carotid stenosis Rt. Velocities/BP Lt. Velocities/BP Prox CCA 96.9/23.9 cm/sec. Prox CCA 89.1/14.7 cm/sec. Mid CCA 94.3/22.6 cm/sec. Mid CCA 87.8/17.3 cm/sec. Dist CCA 60.4/18.6 cm/sec. Dist CCA 61.7/14.7 cm/sec. Prox ICA 65.6/18.6 cm/sec. Prox ICA 55.1/13.5 cm/sec. Mid ICA 74.7/20.0 cm/sec. Mid ICA 113.8/29.8 cm/sec. Dist ICA 98.2/31.7 cm/sec. Dist ICA 98.6/26.2 cm/sec. Rt. ICA/CCA = 1.0. Lt. ICA/CCA = 1.3. Prox ECA 73.4/9.5 cm/sec. Prox ECA 79.9/5.6 cm/sec. Rt. Vert. 60.4/17.3 cm/sec. Lt. Vert. 81.4/18.8 cm/sec. Right Extracranial There is intimal thickening but no significant atherosclerotic plaque noted in the right common carotid artery. There is intimal thickening but no significant atherosclerotic plaque noted in the right internal carotid artery. There is intimal thickening but no significant atherosclerotic plaque noted in the right external carotid artery. Antegrade flow is noted in the right vertebral artery. Left Extracranial There is intimal thickening but no significant atherosclerotic plaque noted in the left common carotid artery. There is heterogeneous, smooth atherosclerotic plaque noted in the left internal carotid artery. There is intimal thickening but no significant atherosclerotic plaque noted in the left external carotid artery. Antegrade flow is noted in the left vertebral artery. Procedure Carotid Duplex 59553. This is a Carotid Duplex examination using B-mode, color flow and specral Doppler. The exam was diagnostic. Exam performed in department. VL/Carotid Duplex Ultrasound Interpretation Summary No significant atherosclerotic plaque or stenosis noted in the right internal c arotid artery. Mild (<50%) stenosis left extracranial internal carotid. Flow within the vertebral a rteries is antegrade bilaterally. Ordering Physician: Stacie Cardenas Performed By: Jae Suazo RVT
== END ==
PROVIDERS: PCP Internal Medicine; Referring Provider Internal Medicine; Visit Provider Internal Medicine
DX: I65.23 Occlusion and stenosis of bilateral carotid arteries (principal)
CPT/HCPCS: 93880

== ENCOUNTER → 2021-03-21 15:12 | Outpatient (CLI) | payer MEDICARE, SELFPAY ==
--- NOTE | 2021-03-21 15:15 | BI_ITS ---
MAMMOGRAPHY - BILATERAL SCREENING REASON FOR EXAM: Female, 80 years old. Routine annual screening examination. PERTINENT HISTORY: Sister with breast cancer. Brother with breast cancer. TECHNIQUE: Digital bilateral breast kaelyn (3D mammographic acquisition) in the CC and MLO projections. 2-D mediolateral oblique (MLO) and craniocaudad (CC) views of both breasts were obtained. CAD: Full Field Digital Mammography with Computer Added Detection was performed. COMPARISON: Comparison is made with prior study dated 10/26/2019 and 09/18/2018. FINDINGS: Breast Composition: There are scattered areas of fibroglandular density. There are no dominant masses or suspicious calcifications. No other significant abnormalities are identified. There has been no significant change since the prior study. BI/SCRN MAMM (CAD)W/KAELYN BILAT IMPRESSION: Stable bilateral screening mammogram. Yearly follow-up mammogram recommended. (A) ASSESSMENT CATEGORY: BIRADS Category 1: Negative. A letter regarding these results will be sent to the patient by the facility within 30 days. Approximately 10% of breast cancers are not detected by mammography. A normal mammogram should not delay biopsy of a clinically suspicious abnormality. [id number] Electronically Signed: Leon Arrington MD at 15:45 EST , Service support ,
== END ==
PROVIDERS: PCP Internal Medicine; Visit Provider Internal Medicine
DX: Z12.31 Encounter for screening mammogram for malignant neoplasm of breast (principal)
CPT/HCPCS: 77063; 77067

== ENCOUNTER → 2021-12-25 | Outpatient (CLI) | payer MEDICARE, SELFPAY ==
--- NOTE | 2021-12-25 11:09 | BD_ITS ---
STUDY: DUAL ENERGY X-RAY ABSORPTIOMETRY / DXA REASON FOR EXAM: Female, 81 years old. M810. The patient is postmenopausal. TECHNIQUE: Bone Mineral Density (BMD) measurements of lumbar spine and bilateral hips were obtained. COMPARISON: Comparison is made with prior study dated 10/26/2019 and 09/17/2017. FINDINGS: Lumbar Spine (L1-L4): g/cm2 (0.744) / T-score (-2.8) / Z-score (0.1) Findings are suggestive of osteoporosis with a high fracture risk. Left Femur Total: g/cm2 (0.688) / T-score (-2.1) / Z-score (0.2) Left Femoral Neck: g/cm2 (0.670) / T-score (-1.6) / Z-score (0.9) Right Femur Total: g/cm2 (0.666) / T-score (-2.3) / Z-score (0.0) Right Femoral Neck: g/cm2 (0.588) / T-score (-2.4) / Z-score (0.1) The T-Scores on the most recent prior examination were: Lumbar Spine (L1-L4): There has been worsening of bone density since the previous examination. Left Femur Total: which represents an improvement of 4.6%. Right Femur Total: which represents a worsening of 3.6%. BD/Dexa Bone Density Study IMPRESSION: The patient is considered osteoporotic as outlined below according to World Raz Organization (WHO) criteria with a high fracture risk. There has been worsening of bone density since the previous examination. Reference Information: The T-score is the number of standard deviations above or below the standard which is normal for young adults at their peak bone mineral density. The World Health Organization (WHO) interprets the T-scores as follows: Above -1 Normal bone density Between -1 and -2.5 Osteopenia Equal to / or below -2.5 Osteoporosis As a practical clinical guideline, osteopenia may be graded as follows: Mild -1 through -1.5 Moderate -1.6 through -2.0 Severe -2.1 through -2.4 The Z-score is the number of standard deviations above or below age-matched controls. A Z-score of less than -1.5 would be considered abnormal. References: 1. NIH Osteoporosis and Related Bone Diseases www osteo.org 2. International Society for Clinical Densitometry www iscd.org 3. National Osteoporosis Foundation www nof.org Electronically Signed: Leon Arrington MD at 13:03 EDT ,
== END | disposition home or self-care (01) ==
PROVIDERS: PCP Internal Medicine; Visit Provider Internal Medicine
DX: M81.0 Age-related osteoporosis without current pathological fracture (principal); Z78.0 Asymptomatic menopausal state; M85.80 Other specified disorders of bone density and structure, unspecified site
CPT/HCPCS: 77080

== ENCOUNTER → 2022-04-12 | Outpatient (CLI) | payer MEDICARE, SELFPAY ==
--- NOTE | 2022-04-12 08:12 | BI_ITS ---
MAMMOGRAPHY - BILATERAL SCREENING REASON FOR EXAM: Female, 82 years old. Routine annual screening examination. PERTINENT HISTORY: Sister with breast cancer. Brother with breast cancer. TECHNIQUE: Digital bilateral breast kaelyn (3D mammographic acquisition) in the CC and MLO projections. 2-D mediolateral oblique (MLO) and craniocaudad (CC) views of both breasts were obtained. CAD: Full Field Digital Mammography with Computer Added Detection was performed. COMPARISON: Comparison is made with prior study dated 03/21/2021 and 10/26/2019. FINDINGS: Breast Composition: The breasts are heterogeneously dense, which may obscure small masses. There are no dominant masses or suspicious calcifications. No other significant abnormalities are identified. There has been no significant change since the prior study. BI/SCRN MAMM (CAD)W/KAELYN BILAT IMPRESSION: Stable bilateral screening mammogram. Yearly follow-up mammogram recommended. (A) ASSESSMENT CATEGORY: BIRADS Category 1: Negative. A letter regarding these results will be sent to the patient by the facility within 30 days. Approximately 10% of breast cancers are not detected by mammography. A normal mammogram should not delay biopsy of a clinically suspicious abnormality. [id number] Electronically Signed: Leon Arrington MD at 9:11 EST ,
== END | disposition home or self-care (01) ==
LOC: OPBI 08:10
PROVIDERS: PCP Nurse Practitioner Family; Referring Provider Nurse Practitioner Family; Visit Provider Nurse Practitioner Family
DX: Z12.31 Encounter for screening mammogram for malignant neoplasm of breast (principal); Z80.3 Family history of malignant neoplasm of breast
CPT/HCPCS: 77063; 77067

== ENCOUNTER → 2023-04-14 | Outpatient (CLI) | payer MEDICARE, SELFPAY ==
--- NOTE | 2023-04-14 14:48 | BI_ITS ---
MAMMOGRAPHY - BILATERAL SCREENING REASON FOR EXAM: Female, 83 years old. Routine annual screening examination. PERTINENT HISTORY: Sister with breast cancer. Brother with breast cancer. TECHNIQUE: Digital bilateral breast kaelyn (3D mammographic acquisition) in the CC and MLO projections. 2-D mediolateral oblique (MLO) and craniocaudad (CC) views of both breasts were obtained. CAD: Full Field Digital Mammography with Computer Added Detection was performed. COMPARISON: Comparison is made with prior examination dated April 12, 2022 and March 21, 2021. FINDINGS: Breast Composition: The breasts are heterogeneously dense, which may obscure small masses. There are no dominant masses or suspicious calcifications. No other significant abnormalities are identified. There has been no significant change since the prior study. BI/SCRN MAMM (CAD)W/KAELYN BILAT IMPRESSION: Stable bilateral screening mammogram. Yearly follow-up mammogram recommended. (A) ASSESSMENT CATEGORY: BIRADS Category 1: Negative. A letter regarding these results will be sent to the patient by the facility within 30 days. Approximately 10% of breast cancers are not detected by mammography. A normal mammogram should not delay biopsy of a clinically suspicious abnormality. [id number] Electronically Signed: Leon Arrington MD at 15:26 EST ,
== END | disposition home or self-care (01) ==
LOC: OPBI 14:48
PROVIDERS: PCP Internal Medicine; Referring Provider Internal Medicine; Visit Provider Internal Medicine
DX: Z12.31 Encounter for screening mammogram for malignant neoplasm of breast (principal); Z80.3 Family history of malignant neoplasm of breast
CPT/HCPCS: 77063; 77067

== ENCOUNTER → 2023-05-07 | Outpatient (CLI) | payer MEDICARE, SELFPAY ==
--- NOTE | 2023-05-07 12:45 | CDU_ITS ---
Reason For Study: Bilateral carotid artery stenosis Rt. Velocities/BP Lt. Velocities/BP Prox CCA 99.2/15.7 cm/sec. Prox CCA 101/15.2 cm/sec. Mid CCA 101.4/17.9 cm/sec. Mid CCA 74/14.6 cm/sec. Dist CCA 91.6/21.2 cm/sec. Dist CCA 86.1/15.7 cm/sec. Prox ICA 91.6/24.5 cm/sec. Prox ICA 86.3/18.8 cm/sec. Mid ICA 103.6/25.6 cm/sec. Mid ICA 117.4/27.9 cm/sec. Dist ICA 128.4/27.9 cm/sec. Dist ICA 121.1/27.9 cm/sec. Rt. ICA/CCA = 1.29. Lt. ICA/CCA = 1.41. Prox ECA 89.4/9.1 cm/sec. Prox ECA 112.1/7.7 cm/sec. Rt. Vert. 59/13.3 cm/sec. Lt. Vert. 70.7/17.9 cm/sec. Right Extracranial There is intimal thickening but no significant atherosclerotic plaque noted in the right common carotid artery. There is intimal thickening but no significant atherosclerotic plaque noted in the right internal carotid artery. There is intimal thickening but no significant atherosclerotic plaque noted in the right external carotid artery. Antegrade flow is noted in the right vertebral artery. Left Extracranial There is intimal thickening but no significant atherosclerotic plaque noted in the left common carotid artery. There is intimal thickening but no significant atherosclerotic plaque noted in the left internal carotid artery. There is intimal thickening but no significant atherosclerotic plaque noted in the left external carotid artery. Antegrade flow is noted in the left vertebral artery. VL/Carotid Duplex Ultrasound Interpretation Summary Normal right extracranial internal carotid. Normal left extracranial internal carotid. Patent and antegrade vertebrals bilaterally. Ordering Physician: Rakel Archer Referring Physician: Rakel Archer Performed By: Debra Dickerson RVT
== END | disposition home or self-care (01) ==
LOC: CVS 12:43
PROVIDERS: PCP Internal Medicine; Referring Provider Internal Medicine; Visit Provider Internal Medicine
DX: J45.909 Unspecified asthma, uncomplicated (principal); I65.23 Occlusion and stenosis of bilateral carotid arteries
CPT/HCPCS: 93880; 94060; 94726; 94729

== ENCOUNTER 2023-07-03 13:00 | Outpatient (RCR) | payer MEDICARE, SELFPAY ==
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
--- NOTE | 2023-06-19 09:53 | HP.PTREVAL_ITS ---
Re-Evaluation Intro: Dr. Rakel Archer, DO, It has been my pleasure to treat SARAH MINOR over the last 8 visits for BACK AND HIP PAIN. Please see the progress note below for an update on the physical therapy plan of care! Subjective Subjective: PATIENT REPORTS TWO EPISODES OF BACK PAIN SINCE LAST VISIT AND BOTH EPISODES WERE ON VERY BUSY STRESSFUL DAYS. SHE REPORTS THE SECOND EPISODE OCCURRED WHEN SHE PUSHED TO TRY TO HAVE A BOWEL MVMT ON THE TOLIET. THE SECOND EPISODE WAS PRETTY SEVERE BUT ABLE TO ABOLISH BOTH EPISODES WITH UNLOADING IN LYING IN LESS THAN 20 MIN. I AM ABLE TO DO A LOT MORE NOW WITHOUT THE PAIN...LIFTING, BENDING, SITTING...BUT I'M NOT THERE YET. 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 DUE TO ALL OF THIS SHE STATES SHE HAS NOT BEEN ABLE TO IMPLEMENT THE NEW EX'S THAT SHE WANTED TO (FROM HER PAST) BUT SHE HAS BEEN DOING HER HEP. PATIENT REPORTS SHE HASN'T HAD ANY PROBLEMS WITH HER HOME EX'S. Objective Objective/Function: PATIENT WENT 8 DAYS WORKING INTO NEAR NORMAL ADL'S WITH NO PAIN UNTIL Friday06/14/23 WHEN SHE HAD A RATHER SEVERE EPISODE WHEN TRYING TO HAVE A BOWEL MVMT BUT HAS BEEN PAINFREE AGAIN EVER SINCE. OVER-ALL SHE HAS MADE GOOD PROGRESS WITH PT BUT DUE TO REPORTING BEING UNDER A LOT OF STRESS AND HAVING MULTIPLE COMORBIDITIES WE AGREE IT WOULD BE GOOD FOR HER TO CHECK IN WITH HER PHYSICIAN AT THIS POINT. ASSESSMENT OF CURRENT SX'S AND HEP CHECK. EDUCATION IN LUMBAR SPINE ANATOMY IN RELATION TO PELVIC FLOOR. THERE ARE A LOT OF VARIABLES TO CONSIDER SINCE LAST VISIT BUT DUE TO THE TWO EPISODES REPORTED THIS PT DECIDED TO REMOVE SKTC AND LTR FROM HEP AT THIS TIME AND RECOMMENDED PATIENT CHECK IN WITH HER REFERRING PHYSICIAN DUE TO STILL HAVING EPISODES OF PAIN. PATIENT AGREEABLE. UPON EXAM: Motor deficit: R HIP 4/5, KNEE 4-/5, ANKLE 5/5. L HIP 4/5, KNEE 5/5, ANKLE 5/5. Reflexes: 2/3 SURENDRA LE'S. Dural Signs: NEGATIVE SURENDRA LE'S. Lumbar mvmt loss: flex - NIL ext - MOD R SG - MOD L SG - MOD Core strength: FAIR Palpation: NO ACUTE LUMBAR, SACRAL, SI, OR HIP TENDERNESS. Plan Plan Plan: PATIENT TO CONTINUE HEP AND SEE PHYSICIAN. RESUME PT NEEDED/APPROPRIATE 1X/WK OR BIWEEKLY AFTER PHYSICIAN FOLLOW UP. PATIENT AGREEABLE WITH SAME POC WORKING TOWARD BELOW GOALS. Balance/Gait/Functional tests Balance/Special Test Scores Oswestry Low Back Score: 8 Goals Goals Goal 1:: PATIENT WILL BE ABLE TO SIT TO PARTICIPATE IN ACTIVITES LIKE CONGREGATIONAL WITHOUT LOW BACK PAIN. Goal Time Frame: 4-6 Weeks Goal Progress: Progressing Goal 2:: PATIENT WILL BE ABLE TO INDEP'LY DEMONSTRATE PROPER POSTURE CONTROL AND BODY MECHANICS THROUGHOUT PT SESSION Goal Time Frame: 4-6 Weeks Goal Progress: Progressing Goal 3:: PATIENT WILL BE INDEP WITH HEP FOR CONTINUED IMPROVEMENT ONCE FORMAL PHYSICAL THERAPY CONCLUDES. Goal Time Frame: 4-6 Weeks Goal Progress: Progressing Goal 4:: NEW GOAL: PATIENT WILL BE ABLE TO RESUME ALL ADL'S INCLUDING HOUSE WORK TO PLOF WITHOUT EPISODES OF BACK PAIN AND DYSFUNCTION. Goal Time Frame: 4-6 Weeks Anticipated Interventions Anticipated Interventions Patient/Client Instruction: Educate patient on: Condition, Plan of Care and Risk Factors For the Purpose of:: To improve self management Therapeutic Exercise to Include: Strength training, Body mechanics, Postural training, Flexibilty training, Neuromotor development and Dynamic Lumbar Stabilization For the Purpose of:: To decrease pain, To improve muscle performance and motor function, To increase tolerance to activity/condition/position, To improve ability of physical actions for home/community/work/leisure and To increase flexibility/ROM Re-Evaluation Ending Re-evaluation ending: Please do not hesitate to contact me at [phone] by phone or if you have questions or concerns regarding this new plan of care! Sincerely, Patricia Horan, PT, Cert MDT
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
--- NOTE | 2023-10-09 09:49 | HP.PTDCSUM ---
Discharge Summary D/C summary: It has been my pleasure to treat SARAH MINOR referred by Dr. Rakel Longoria, DO, with the diagnosis of BACK AND HIP PAIN for a total of 9 visit(s). Discharge Date: 10/09/23 Please see the following information for a summary of their discharge status. Subjective Subjective: PATIENT REPORTS SHE HASN'T HAD ANY EPISODES OF PAIN BENDING HER OVER OR REQUIRING HER TO LAY DOWN SINCE LAST VISIT. SHE STATES SHE WAS EVEN VERY ACTIVE FROM 5AM TO 8PM ON Friday. SHE REPORTS SHE DID HAVE ONE EPISODE OF PAIN WHEN SHE BENT AND TWISTED TO GET SOMETHING OFF THE BOTTOM SHELF OF THE REFRIGERATOR BUT SHE WAS ABLE TO GET IT TO PASS RATHER QUICKLY BY STRETCHING UPRIGHT. SHE ALSO REPORTS AN EPISODE OF R LBP ON Friday BUT AGAIN WAS ABLE TO GET IT TO GO AWAY RATHER QUICKLY IN 5 TO 10 MINUTES RESTING IN THE RECLINER. I AM MUCH MUCH BETTER. I AM ABLE TO DO NORMAL THINGS AGAIN. I AM ABLE TO STOOP. I AM ABLE TO TWIST TO GET THINGS OFF THE NIGHT STAND AND OTHER NORMAL THINGS WITHOUT HAVING AN EVENT. ALSO REPORTS BEING ABLE TO USE HER RECLINER AGAIN WITHOUT IT BOTHERING HER BACK. SHE CONTINUES TO REPORT COMPLIANCE WITH HER HEP AT LEAST ONCE A DAY AND STATES SHE WAS EVEN ABLE TO TAKE ABOUT A 15 MINUTE WALK AND IT FELT GOOD. HAD A FOLLOW UP WITH DR. LONGORIA AND NO FURTHER BACK TESTING HAS BEEN ORDERED AT THIS TIME. Overall Improvement % Improvement: 92 Objective Objective/Function: PATIENT HAS GONE OVER 2 WKS WITHOUT ANY EPISODES OF SIGNIFICANT BACK PAIN THAT SHE WASN'T ABLE TO QUICKLY OVERCOME. SHE IS INDEP WITH A HEP AND APPROPRIATE FOR AND AGREEABLE TO D/C AT THIS TIME. Goals Goal 1:: PATIENT WILL BE ABLE TO SIT TO PARTICIPATE IN ACTIVITES LIKE [employer] WITHOUT LOW BACK PAIN. Goal Progress: Goal Met Goal 2:: PATIENT WILL BE ABLE TO INDEP'LY DEMONSTRATE PROPER POSTURE CONTROL AND BODY MECHANICS THROUGHOUT PT SESSION Goal Progress: Goal Met Goal 3:: PATIENT WILL BE INDEP WITH HEP FOR CONTINUED IMPROVEMENT ONCE FORMAL PHYSICAL THERAPY CONCLUDES. Goal Progress: Goal Met Goal 4:: NEW GOAL: PATIENT WILL BE ABLE TO RESUME ALL ADL'S INCLUDING HOUSE WORK TO PLOF WITHOUT EPISODES OF BACK PAIN AND DYSFUNCTION. Goal Progress: Progressing Plan Plan: D/C D/C Information d/c sentence: If there are questions or concerns regarding this patient's physical therapy, please feel free to call me at [phone]. Thank you for the referral of this patient. Sincerely, Patricia Horan, PT, Cert MDT Balance/Gait/Functional tests Balance/Special Test Scores Oswestry Low Back Score: 3 Improvement % Improvement: 92
== END 2023-07-03 19:00 | disposition home or self-care (01) ==
LOC: PT 13:00
PROVIDERS: PCP Internal Medicine; Referring Provider Internal Medicine; Visit Provider Internal Medicine
DX: M54.9 Dorsalgia, unspecified (principal); M25.552 Pain in left hip
CPT/HCPCS: 97035; 97112; 97162; 97530

== ENCOUNTER 2023-08-01 11:52 | Day surgery (SDC) | payer MEDICARE, SELFPAY ==
--- NOTE | 2023-07-17 15:09 | RAD_ITS ---
INDICATION: For PPM generator change on 08/01/23 EXAMINATION/TECHNIQUE: X-RAY - XR Chest 2 Views COMPARISON: No relevant prior comparison study available FINDINGS: LINES/DEVICES: Left side dual-chamber cardiac pacer device. LUNGS: No consolidation, edema or effusion. No pneumothorax. MEDIASTINUM AND CARDIOVASCULAR STRUCTURES: Cardiac silhouette not enlarged. Central airways and mediastinal contour are unremarkable. BONES AND SOFT TISSUES: Degenerative changes of the thoracic spine. RAD/Chest PA and Lateral IMPRESSION: No radiographic evidence of acute cardiopulmonary disease. Electronically Signed: Lobo Edmonds MD at 15:33 EDT ,
[2023-07-17 15:25] LABS: Bacteria 0 SEEN /hpf (None Seen); Mucous, Urine 0 SEEN /hpf (<or=2+); Red Blood Cells-Urine 0 SEEN /hpf (0-5); Squamous Epithelial Cells - UA 0 SEEN /hpf (5-10); White Blood Cells 0 SEEN /hpf (0-5)
[2023-07-17 16:38] LABS: Hematocrit 39.3 % (37-47); Hemoglobin 12.9 g/dL (12.0-15.0); Mean Corp Hgb Conc 32.8 g/dL (32-36); Mean Corpuscular Hgb 31.5 pg (27.0-32.0); Mean Corpuscular Volume 96.1 fL (81-99); Platelet Count 227 K/mm3 (150-450); RBC Distribution Width CV 14.4 % (11.6-14.6); RBC Distribution Width SD 50.8 fl (35.1-43.9); Red Blood Count 4.09 M/mm3 (4.2-5.4)
[2023-07-17 16:41] LABS: Color, Urine Yellow (Yellow); Glucose, Dipstick Normal (Normal); Ketone-Dipstick Negative (Negative); Leukocyte Esterase-Dipstick Negative /ul (Negative); Nitrite-Dipstick Negative (Negative); Occult Blood-Urine 10 /ul (Negative); Protein-Dipstick Negative (Negative); Urine Bilirubin Dipstick Negative (Negative); Urine Clarity Clear (Clear); Urine Urobilinogen Normal (Normal)
[2023-07-17 16:50] LABS: Prothrombin Time (Protime)PT. 13.3 SECONDS (11.7-14.9)
[2023-07-17 17:03] LABS: Anion Gap 3 (5-15); BUN 17 mg/dL (7-18); BUN/Creat Ratio 25.2 RATIO (10-20); Calcium,Total 8.8 mg/dL (8.5-10.1); Chloride 104 mmol/L (98-107); Creatinine, Serum 0.68 mg/dL (0.55-1.02); EST Glomerular Filtration Rate 88 mL/min (>60); Est Glom Filt Rate - Afr Amer 107 mL/min (>60); Glucose 85 mg/dL (74-106); Sodium Level 139 mmol/L (136-145)
[2023-07-31 10:38] VITALS: BMI 22.4
--- NOTE | 2023-08-01 14:32 | CL.IE_ITS ---
Patient: SARAH MINOR Study Date: 08/01/2023 Performing: Eddy Fernandez MD : [id number] Age: 83 Gender: female PROCEDURES PERFORMED [id number])BATTERY REMOVAL+REPLACEMENT PACER-DUAL LEAD INDICATIONS Sinoatrial node dysfunction/Sick sinus syndrome PROCEDURE DETAILS The patient was brought to the Catheterization Lab in the postabsorptive nonsedated state. Informed consent was obtained prior to the procedure. Local anesthetic was given subcutaneously to the left upper chest area with Lidocaine 2%. Incision was made to the left upper chest. Old PPM generator was removed. Device pocket was irrigated with antibiotic, Ancef 1gm. The new PPM generator was attached to the lead(s) and inserted into the pocket. Subcutaneous closure was completed with 3-0 Vicryl. Skin closure was completed with 4-0 Vicryl. Steri-strips applied to Lt chest area. The patient tolerated the procedure well. Estimated Blood Loss: < 10 mls IMPLANTED / EX-PLANTED DEVICES IMPLANTED DEVICE(S): PPM Generator - [employer]: [employer], Model # [id number] , Serial # [id number] DEVICE PARAMETERS DEVICE PARAMETERS: Mode- DDDR Lower rate- 60 Upper rate- 120 CONCLUSIONS / RECOMMENDATIONS Device Conclusions: Successful implantation of a dual chamber pacemaker battery change and replacement Device Recommendations: Follow up with Primary Care Physician PROCEDURE MEDICATIONS Fentanyl 25 mcg IV Versed 0.5 mg IV Oxygen: 2 L/min via nasal cannula Antibiotic given in appropriate timeframe. Ancef 1 Gm IV @ 08/01/2023 13:53:18 Signed By Eddy Fernandez MD On 08/01/2023 14:31:38 Eddy Fernandez MD
== END 2023-08-01 15:40 | disposition home or self-care (01) ==
LOC: CLSP 11:54
PROVIDERS: PCP Internal Medicine; Referring Provider Internal Medicine Cardiovascular Disease; Visit Provider Internal Medicine Cardiovascular Disease
DX: Z45.010 Encounter for checking and testing of cardiac pacemaker pulse generator [battery] (principal); I49.5 Sick sinus syndrome; I48.0 Paroxysmal atrial fibrillation; I25.10 Atherosclerotic heart disease of native coronary artery without angina pectoris; Z79.899 Other long term (current) drug therapy; Z79.82 Long term (current) use of aspirin; Z79.890 Hormone replacement therapy; K21.9 Gastro-esophageal reflux disease without esophagitis; E78.5 Hyperlipidemia, unspecified; E03.9 Hypothyroidism, unspecified
CPT/HCPCS: 33228; 36415; 71046; 80048; 81001; 85027; 85610; 99152; 99153; J7040; J7050

== ENCOUNTER → 2023-10-08 | Outpatient (CLI) | payer MEDICARE, SELFPAY ==
--- NOTE | 2023-10-08 16:17 | RAD_ITS ---
STUDY: X-RAY - UNILATERAL RIBS ( LEFT ) REASON FOR EXAM: Female, 83 years old. rib pain on left side TECHNIQUE: 3 view(s) of the ribs. COMPARISON: None. FINDINGS: Normal visualized ribs without a demonstrated fracture. The visualized lung is clear and expanded. RAD/Ribs Unil 2V No CXR IMPRESSION: Normal x-ray examination of the ribs. Electronically Signed: Jose Carl MD at 17:17 EDT ,
--- NOTE | 2023-10-08 16:17 | RAD_ITS ---
STUDY: X-RAY CHEST REASON FOR EXAM: Female, 83 years old. rib pain on left side TECHNIQUE: Frontal and lateral views of the chest. COMPARISON: July 17, 2023 FINDINGS: Bipolar pacer on the left. Lungs are hyperaerated but clear. There is no demonstrated pleural abnormality. No pneumothorax. Normal size heart. Normal mediastinum and odell. Normal visualized pulmonary arteries. Normal visualized aortic arch and descending thoracic aorta. Mild scoliosis. Normal visualized ribs, clavicles, and shoulders. There is no demonstrated abnormality of the visualized soft tissue structures of the upper abdomen. RAD/Chest PA and Lateral IMPRESSION: COPD. No acute disease. No pneumothorax. Electronically Signed: Jose Carl MD at 17:18 EDT ,
== END | disposition home or self-care (01) ==
LOC: MTRAD 16:15
PROVIDERS: PCP Internal Medicine; Referring Provider Nurse Practitioner Family; Visit Provider Nurse Practitioner Family
DX: R07.81 Pleurodynia (principal)
CPT/HCPCS: 71046; 71100

== ENCOUNTER 2023-12-12 10:13 | Inpatient (IN) | payer MEDICARE, SELFPAY ==
[2023-12-12] VITALS (12 sets, daily range): BP systolic 104–151; BP diastolic 46–82; PULSE 60–85; RESP 12–19; TEMP 36.1–36.7; O2SAT 97–100; BMI 22.2; BMI 25.0
--- NOTE | 2023-12-12 10:22 | EKG12_ITS ---
Test Reason : STROKE TEAM Blood Pressure : / mmHG Vent. Rate : 061 BPM Atrial Rate : 061 BPM P-R Int : 180 ms QRS Dur : 086 ms QT Int : 428 ms P-R-T Axes : 000 045 073 degrees QTc Int : 430 ms Atrial-paced rhythm Abnormal ECG Confirmed by Rogelio Prather ([id number]), rewrite editor BAN UMAÑA ([id number]) on 12/15/2023 11:02:28 AM Referred By: Confirmed By:Rogelio Prather
--- NOTE | 2023-12-12 10:22 | CT_ITS ---
STUDY: CT HEAD STROKE PROTOCOL W/O CONTRAST INJECTION REASON FOR EXAM: Female, 83 years old. Neuro deficit, acute, stroke suspected RADIATION DOSAGE (If Supplied By Facility): CTDIvol = ( 44.99 ) mGy, DLP = ( 812.98 ) mGycm TECHNIQUE: Transaxial CT imaging of the brain was performed without administration of intravenous contrast material. Individualized dose optimization techniques were used for this CT. COMPARISON: Comparison is made with prior study dated April 28, 2015. FINDINGS: Normal soft tissue structures. Normal calvarium. There is mild cerebral atrophy with widening of the extra-axial spaces and ventricular dilatation. Normal white matter tracts of the cerebral hemispheres. Normal basal ganglia and thalami. Normal brainstem. Normal cerebellum. There is no intracranial hemorrhage. There are no findings of an acute ischemic infarction. Atherosclerotic plaque formation of the cavernous portions of the internal carotid arteries bilaterally. Normal visualized paranasal sinuses. ASPECT score: 10 CT/STROKE Brain/Head without Cont IMPRESSION: Chronic involutional changes of the brain. N.B. : The above Results were Read Back by Leon Arrington MD to Dr Abilio DO, and understanding confirmed on 12/12/2023 10:41:23 (ET). Electronically Signed: Leon Arrington MD at 10:42 EDT ,
--- NOTE | 2023-12-12 10:30 | EDS_ITS ---
HPI History of Present Illness Chief Complaint: Weakness Narrative Narrative: Patient is a 83-year-old female past medical history of hypothyroidism, hyperlipidemia, GERD, paroxysmal atrial fibrillation not on any anticoagulation who presents to the emergency department with a chief complaint of right lower extremity weakness. Patient states that she got up was feeling her normal self when on her daily walk for her exercise and noted that she developed sudden right lower extremity weakness and had difficulty ambulating. Patient states that her right lower extremity weakness is improving at this point time. Patient states that she has not had any think this happened in the past. [facility] Medical History (Updated 12/12/23 @ 11:[address] Sushant Knox, DO) Carotid artery disease Hypothyroidism Hyperlipidemia GERD (gastroesophageal reflux disease) Sinus bradycardia Paroxysmal atrial fibrillation Sick sinus syndrome Home Medications ?Medication ?Instructions ?Recorded ?Last Taken ?Type levothyroxine 112 mcg tablet 112 mcg PO DAILY 09/04/13 07/19/20 07:00 History L.acidoph, paracasei,B. lactis 10 1 ea PO QHS 02/28/15 Unknown History billion cell capsule cetirizine 10 mg capsule 10 mg PO DAILY 02/28/15 Unknown History glucosamine HCl 500 mg-msm 83 1 ea PO BID 02/28/15 Unknown History mg-chondroitin 400 mg tablet prednisolone acetate 1 % eye 1 drp ophthalmic (eye) QHS 09/15/17 Unknown History drops,suspension aspirin 81 mg tablet,delayed 81 mg PO QDAY #90 tabs 09/16/17 Unknown Rx release (Adult Low Dose Aspirin) [place] 530 mg PO BID 02/18/18 Unknown History Progestrone Cream 1 applic vaginal DAILY 02/18/18 Unknown History black cohosh 540 mg capsule 540 mg PO DAILY 02/18/18 Unknown History cranberry extract 500 mg tablet 12,500 mg PO BID 02/18/18 Unknown History ascorbic acid (vitamin C) 1,000 mg 1,000 mg PO DAILY 09/21/19 Unknown History tablet gentamicin 0.3 % eye drops 1 drp ophthalmic (eye) QHS PRN eye 09/21/19 Unknown History infection cholecalciferol (vitamin D3) 50 4,000 unit PO QODAY 07/12/20 Unknown History mcg (2,000 unit) capsule Curamin 3 cap PO DAILY 01/24/22 Unknown History albuterol sulfate 90 mcg/actuation 2 puff inhalation Q6H PRN 01/24/22 Unknown History aerosol inhaler shortness of breath or wheezing calcium carbonate 1,500 mg PO DAILY 01/24/22 Unknown History dextromethorphan-guaifenesin 30 1 tab PO Q12H PRN cough 01/24/22 Unknown History mg-600 mg tablet extended [id number] hr (Mucinex DM) ketotifen fumarate 0.025 % (0.035 1 drp ophthalmic (eye) QHS PRN 01/24/22 Unknown History %) eye drops (Zaditor) allergy symptoms omeprazole 20 mg capsule,delayed 20 mg PO MOWEFR 01/24/22 Unknown History release quercetin 500 mg capsule 500 mg PO 01/24/22 Unknown History metoprolol succinate 25 mg 25 mg PO QHS #90 tabs 03/04/23 Unknown Rx tablet,extended release 24 hr lovastatin 40 mg tablet 40 mg PO QHS #90 TABLETS 11/17/23 Unknown Rx Allergy/AdvReac Type Severity Reaction Status Date / Time nitrofurantoin (From AdvReac Severe Vomiting Verified 12/12/23 10:21 Macrobid) nitrofurantoin AdvReac Severe Vomiting Verified 12/12/23 10:21 macrocrystalline (From Macrobid) amiodarone AdvReac Intermediate Severe Verified 12/12/23 10:21 dizziness montelukast (From Singulair) AdvReac Unknown Unknown Verified 12/12/23 10:21 Tetracyclines AdvReac Other Verified 12/12/23 10:21 Family History Father CAD (coronary artery disease) Mother Heart disease Surgical History History of permanent cardiac pacemaker placement (12/21/12) History of esophagogastroduodenoscopy (EGD) (~02/23/18) History of cataract surgery History of carpal tunnel surgery History of arthroscopic knee surgery History of tonsillectomy and adenoidectomy Hx of appendectomy Social History Smoking Status: Never smoker alcohol intake: never substance use type: does not use caffeine: No what type of physical activity do you participate in: walking, aerobics and other details: Silver Sneakers frequency: 1-2 times per week seatbelt use: always ROS ROS ED ROS Narrative Constitutional: Denies any fevers, chills, headaches, lightness, dizziness Eyes: Denies change in vision double vision blurry vision Cardiovascular: Denies chest pain or palpitations Respiratory: Complains of cough denies any shortness of breath or wheezing Abdomen: Denies abdominal pain nausea vomit diarrhea : Denies any urinary symptoms Neurological: Complains of right lower extremity weakness as noted above Musculoskeletal: Denies back pain Skin: Denies rashes or lesions EXAM Physical Exam Narrative Exam Narrative: General: Patient lying in bed rest comfortably did not appear to be in acute distress Head: Atraumatic, normocephalic Eyes: PERRL bilateral, EOMI bilateral, no conjunctival injection noted Neck: Soft, supple, trachea midline Cardiovascular: Regular rate and rhythm no murmurs gallops rubs noted Respiratory: Clear to auscultation bilaterally no rales rhonchi wheeze noted Abdomen: Soft, nondistended, nontender to palpation Extremities: +5/5 strength noted in the bilateral upper extremities, patient has +3/5 strength noted in the right lower extremity and +4/5 strength noted in the left lower extremity. No pedal edema noted exam Neurological: Patient following commands knew that she was at [facility] the year is 2023. Sensation grossly intact. NIH of 4 GCS of 15 patient completed finger-nose test bilaterally. Patient had some difficulty with completing [id number] test with her right lower extremity compared to her left. Patient had drift of her right lower extremity that hit the bed and some mild drift in her left lower extremity as well Skin: Warm, dry, intact Const Vital Signs: 12/12/23 10:18 12/12/23 10:22 12/12/23 10:24 Temperature 97.2 F L Temperature Source Temporal Pulse Rate 72 62 Respiratory Rate 15 14 Respiratory Effort Respiratory Pattern Blood Pressure 140/75 H 140/75 H Blood Pressure Mean 96 96 Pulse Ox 97 100 Oxygen Delivery Method Room Air Room Air Room Air 12/12/23 10:30 12/12/23 10:43 Temperature 97.3 F L Temperature Source Oral Pulse Rate 71 Respiratory Rate 12 Respiratory Effort Normal Non-Labored Respiratory Pattern Normal Blood Pressure 140/75 H Blood Pressure Mean 96 Pulse Ox 97 Oxygen Delivery Method Room Air MDM MDM MDM Narrative Medical decision making narrative: Patient is a 83-year-old female who presented to the emerged part with chief complaint of sudden onset right lower extremity weakness. Patient will have a workup performed here on the differential diagnose includes but not limited to ischemic stroke, TIA, hemorrhagic stroke. Once workup is obtained reviewed she will be reevaluated. Patient's CBC reviewed showed no evidence of leukocytosis white blood count normal at 7.6, hemoglobin was 12.2, platelet count normal at 203. Patient's INR normal 1.1, PT of 13.7. Patient's chemistry is still pending at this point time. Patient CT head and brain without contrast was reviewed and showed chronic involutional changes noted. Patient CT angiography of the head and neck did not show any evidence of large vessel occlusion she has mild atherosclerotic plaque formation of the origin of the left internal carotid artery with less than 50% cross-sectional diameter stenosis normal visualized cervical portion of the left internal carotid artery. Patient also has plaque in the distal portion of the left cavernous carotid with less than 50% narrowing. Patient was evaluated by teleneurologist at [facility] Dr. Tidwell who states that the patient is not a tenecteplase candidate as the risks outweigh the benefits. That he is recommending giving aspirin Plavix which was ordered. Patient will require admission. Called and discussed case with hospitalist Dr. Dr. Alonzo who accept patient for admission. Patient and family ember at bedside are notified with all question and concerns answered at bedside. Critical care time 35 minutes Lab Data Labs: Laboratory Results - last 24 hr 12/12/23 12/12/23 10:21 10:25 WBC 7.6 RBC 4.02 L Hgb 12.2 Hct 38.6 MCV 96.0 MCH 30.3 MCHC 31.6 L RDW Std Deviation 47.6 H RDW Coeff of [place] 13.3 Plt Count 203 MPV 10.5 Immature Gran % (Auto) 0.500 Neut % (Auto) 60.3 Lymph % (Auto) 26.4 [place] % (Auto) 10.0 Eos % (Auto) 2.0 Baso % (Auto) 0.8 Absolute Neuts (auto) 4.6 Absolute Lymphs (auto) 2.00 Nucleated RBC % 0 PT 13.7 INR 1.1 APTT 27.2 POC Glucose 80 Radiography Diagnostic Testing: Clinical Impression(s) from Imaging Studies Brain CT 12/12/23 10:22 IMPRESSION: Chronic involutional changes of the brain. N.B. : The above Results were Read Back by Leon Arrington MD to Dr Abilio DO, and understanding confirmed on 12/12/2023 10:41:23 (ET). Electronically Signed: Leon Arrington MD at 10:42 EDT , ADDENDUM: 12/12/23 1049 IMPRESSION: Chronic involutional changes of the brain. N.B. : The above Results were Read Back by Leon Arrington MD to Dr Abilio DO, and understanding confirmed on 12/12/2023 10:41:23 (ET). Electronically Signed: Leon Arrington MD at 10:42 EDT , Head/Neck CTA 12/12/23 10:31 IMPRESSION: Minimal plaque at the origin of the left and right internal carotid arteries causing less than 50% stenosis. Plaque along the distal portion of the left cavernous carotid with less than 50% narrowing. N.B. : The above Results were Read Back by Leon Arrington MD to Sushant Knox DO, and understanding confirmed on 12/12/2023 10:53:23 (ET). Electronically Signed: Leon Arrington MD at 10:54 EDT , ADDENDUM: 12/12/23 1101 IMPRESSION: Minimal plaque at the origin of the left and right internal carotid arteries causing less than 50% stenosis. Plaque along the distal portion of the left cavernous carotid with less than 50% narrowing. N.B. : The above Results were Read Back by Leon Arrington MD to Sushant Knox DO, and understanding confirmed on 12/12/2023 10:53:23 (ET). Electronically Signed: Leon Arrington MD at 10:54 EDT , Discharge Plan Triage Chief Complaint: Weakness ED Provider: Sushant Knox Dx/Rx/DC Orders Clinical Impression: Right leg weakness, Brain TIA Prescriptions: No Action aspirin [Adult Low Dose Aspirin] 81 mg tablet,delayed release (DR/EC) 81 mg PO QDAY Qty: 90 6RF prednisolone acetate 1 % drops,suspension 1 drp OPHTHALMIC QHS ascorbic acid (vitamin C) 1,000 mg tablet 1,000 mg PO DAILY gentamicin 0.3 % drops 1 drp OPHTHALMIC QHS PRN (Reason: eye infection) Patient Comments: INSTILL 1 DROP INTO RIGHT EYE 4 TIMES DAILY albuterol sulfate 90 mcg/actuation HFA aerosol inhaler 2 puff inhalation Q6H PRN (Reason: shortness of breath or wheezing) ketotifen fumarate [Zaditor] 0.025 % (0.035 %) drops 1 drp ophthalmic (eye) QHS PRN (Reason: allergy symptoms) Rx Instructions: administer at least 8 hours apart Mucinex DM 30-600 mg tablet extended release 12 hr 1 tab PO Q12H PRN (Reason: cough) quercetin 500 mg capsule 500 mg PO Curamin 3 cap PO DAILY levothyroxine 112 MCG tablet 112 mcg PO DAILY omeprazole 20 mg capsule,delayed release(DR/EC) 20 mg PO MOWEFR Patient Comments: in the afternoon Rx Instructions: 1 HR BEFORE SUPPER cetirizine 10 MG capsule 10 mg PO DAILY glucosamine [id number] 1 EACH tablet 1 ea PO BID L.acidoph, paracasei,B. lactis 1 EACH capsule 1 ea PO QHS black cohosh 540 MG capsule 540 mg PO DAILY cranberry extract 500 MG tablet 12,500 mg PO BID Dung [place]ai 530 mg PO BID Progestrone Cream 1 applic vaginal DAILY Rx Instructions: USES EVERY DAY BUT LAST WEEK OF MONTH calcium carbonate 500 mg calcium (1,250 mg) tablet 1,500 mg PO DAILY cholecalciferol (vitamin D3) 2,000 UNIT capsule 4,000 unit PO QODAY metoprolol succinate 25 mg tablet extended release 24 hr 25 mg PO QHS Qty: 90 3RF lovastatin 40 mg tablet 40 mg PO QHS Qty: 90 3RF Primary Care Provider: Rakel Archer Referrals: Rakel Archer DO [Primary Care Provider] - Print Language: Bruneian
--- NOTE | 2023-12-12 10:31 | CT_ITS ---
STUDY: CTA HEAD AND NECK WITH CONTRAST REASON FOR EXAM: Female, 83 years old. Neuro deficit, acute, stroke suspected RADIATION DOSAGE (If Supplied By Facility): CTDIvol = ( 21.02 ) mGy, DLP = ( 690.61 ) mGycm TECHNIQUE: CT angiography was performed with a multi-detector CT scanner. Data acquisition was obtained from the skull base through the vertex following intravenous administration of IV 100mL [id number]-[id number]. MIP images were reconstructed from the axial data set. Post-processing of the angiographic images was performed, with multiplanar reformation and 3D reconstruction. Individualized dose optimization techniques were used for this CT. COMPARISON: No relevant priors. FINDINGS: Normal bilateral petrous carotid arteries. Normal right cavernous carotid artery with a normal supraclinoid bifurcation. There is calcified plaque formation of the left cavernous carotid artery, with a mild stenosis (less than 50%). Normal right A1 segments of the anterior cerebral artery. Normal left A1 segments of the anterior cerebral artery. Normal intact anterior communicating artery (ACOM). Normal bilateral A2 segments of the anterior cerebral arteries. Normal right M1 and M2 segments of the middle cerebral arteries, with a normal M1 bifurcation. Normal left M1 and M2 segments of the middle cerebral arteries, with a normal M1 bifurcation. Normal right posterior communicating artery (PCOM). Normal left posterior communicating artery (PCOM). Normal bilateral vertebral arteries. Normal basilar artery with a normal basilar bifurcation. The visualized bilateral superior cerebellar (SCA) arteries are normal. Normal bilateral P1, P2 and visualized P3 segments of the posterior cerebral arteries. There is no demonstrated aneurysm of the [place]. AORTIC ARCH: There is atherosclerotic calcific plaque formation of the aortic arch and great vessels arising from the aortic arch, without a hemodynamically significant stenosis. There is a bovine origin of the great vessels with a common origin of the brachiocephalic and left common carotid artery. Normal origin of the left subclavian artery. RIGHT CAROTID ARTERIES: Normal right common carotid artery (CCA). Normal right common carotid bulb. There is mild atherosclerotic plaque formation of the origin of the right internal carotid artery with less than 50% cross sectional diameter stenosis. Normal visualized cervical portion of the right internal carotid artery. Normal origin of the right external carotid artery (ECA). LEFT CAROTID ARTERIES: Normal left common carotid artery (CCA). Normal left common carotid bulb. There is mild atherosclerotic plaque formation of the origin of the left internal carotid artery with less than 50% cross sectional diameter stenosis. Normal visualized cervical portion of the left internal carotid artery. Normal origin of the left external carotid artery (ECA). VERTEBRAL ARTERIES: Normal bilateral vertebral arteries. CT/STROKE CTA Head AND Neck W/Con IMPRESSION: Minimal plaque at the origin of the left and right internal carotid arteries causing less than 50% stenosis. Plaque along the distal portion of the left cavernous carotid with less than 50% narrowing. N.B. : The above Results were Read Back by Leon Arrington MD to Sushant Knox DO, and understanding confirmed on 12/12/2023 10:53:23 (ET). Electronically Signed: Leon Arrington MD at 10:54 EDT ,
[2023-12-12 10:36] LABS: Absolute Neutrophil Count 4.6 X10^3/uL (2.0-7.7); Basophil# 0.06 X10^3/uL; Basophil% 0.8 % (0-1); Eosinophil# 0.15 X10^3/uL; Hematocrit 38.6 % (37-47); Hemoglobin 12.2 g/dL (12.0-15.0); Lymphocyte % 26.4 % (19-41); Mean Corp Hgb Conc 31.6 g/dL (32-36); Mean Corpuscular Hgb 30.3 pg (27.0-32.0); Mean Platelet Vol. 10.5 fl (6.2-12.0); Monocyte# 0.76 X10^3/uL; NRBC Flagged by Analyzer 0 % (0-5); Neutrophil # 4.58 X10^3/uL (2.7-7.7); Neutrophil % 60.3 % (47-70); Platelet Count 203 K/mm3 (150-450); RBC Distribution Width CV 13.3 % (11.6-14.6); RBC Distribution Width SD 47.6 fl (35.1-43.9); Red Blood Count 4.02 M/mm3 (4.2-5.4); White Blood Count 7.6 K/mm3 (4.4-11.0)
[2023-12-12 10:41] LABS: Bedside Glucose 80 mg/dL (74-106)
[2023-12-12 10:50] LABS: International Normalized Ratio 1.1; Partial Thromboplast Time 27.2 Seconds (24.1-36.2); Prothrombin Time (Protime)PT. 13.7 SECONDS (11.7-14.9)
[2023-12-12] MEDS: Aspirin 325 MG Tablet PO (11:05)
[2023-12-12] MEDS: Clopidogrel Bisulfate 300 MG Tablet PO (11:05)
[2023-12-12 11:16] LABS: Anion Gap 7 (5-15); BUN 17 mg/dL (7-18); BUN/Creat Ratio 26.8 RATIO (10-20); Calcium,Total 9.6 mg/dL (8.5-10.1); Chloride 107 mmol/L (98-107); Creatinine, Serum 0.63 mg/dL (0.55-1.02); EST Glomerular Filtration Rate 95 mL/min (>60); Est Glom Filt Rate - Afr Amer 115 mL/min (>60); Estimated Creatinine Clearance 42.53 ml/min; Glucose 85 mg/dL (74-106); Potassium 3.9 mmol/L (3.5-5.1); Sodium Level 141 mmol/L (136-145); Troponin-I HS 10 pg/mL (3.0-54.0)
--- NOTE | 2023-12-12 11:44 | RAD_ITS ---
STUDY: X-RAY CHEST REASON FOR EXAM: Female, 83 years old. Neuro deficit, acute, stroke suspected TECHNIQUE: Single AP portable view of the chest. COMPARISON: September 08, 2023 FINDINGS: Dual chamber pacemaker device on the left is stable. The lungs are clear and expanded. There is no demonstrated pleural abnormality. Normal size heart. Normal mediastinum and odell. Normal visualized pulmonary arteries. There is atherosclerotic calcification of the aortic arch with tortuosity. Normal visualized thoracic spine. Normal visualized ribs, clavicles, and shoulders. There is no demonstrated abnormality of the visualized soft tissue structures of the upper abdomen. RAD/Chest 1 View IMPRESSION: No focal infiltrate or edema. Electronically Signed: Lonnie Yoo MD at 12:02 EDT ,
--- NOTE | 2023-12-12 12:06 | MRI_ITS ---
We are attempting to reach an attending provider to discuss findings. An addendum with communication details will be sent when the communication is complete. STUDY: MRI BRAIN WITHOUT CONTRAST REASON FOR EXAM: Female, 83 years old. CVA TECHNIQUE: Standardized multiplanar fat and water weighted pulse sequences were obtained. COMPARISON: None. FINDINGS: Mild atrophy and minor periventricular white matter ischemic changes. There is curvilinear high signal intensity within the left posterior parietal lobe in distribution of the anterior cerebral artery which exhibits restricted diffusion consistent with acute ischemic changes . Normal bilateral basal ganglia. Normal thalami. There is no extra-axial fluid accumulation. Normal flow voids within the major intracranial circulation suggesting patency by spin echo criteria. Normal sella turcica, pituitary gland, infundibular stalk, optic chiasm and hypothalamus. Normal tectal plate and pineal gland. Normal midbrain, rama and medulla. Normal cerebellum. Normal basal cisterns. Normal bilateral temporal bones. Normal bilateral internal auditory canals. No demonstrated orbital abnormality, within the constraints of a routine brain study. Normal visualized paranasal sinuses. Normal calvarium and skull base. Normal visualized soft tissue structures. Normal visualized upper cervical spine. MRI/Brain without Contrast IMPRESSION: Atrophy and minor periventricular white matter ischemic changes.. 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
--- NOTE | 2023-12-12 12:06 | ECHOD_ITS ---
Reason For Study: TIA/CVA Procedure This was a 2D Doppler, Color Flow transthoracic echocardiogram. Exam performed portable in patient room. Left Ventricle Normal LV size. The estimated ejection fraction is 65 %. No evidence for diastolic dysfunction. No regional wall motion abnormalities noted. Right Ventricle Normal RV size. ICD or pacer leads identified within the right ventricle. Normal systolic function. Atria The left and right atria are normal. ICD or pacer leads identified within the right atrium. Bubble contrast study negative for right to left interatrial shunt. No doppler evidence for ASD. Mitral Valve There is mild mitral annular calcification. There is no mitral valve stenosis. Mild (1+) mitral valve insufficiency. Tricuspid Valve There is no tricuspid stenosis. Trivial tricuspid valve insufficiency. Pulmonary artery systolic pressure is 30 mmHg. Aortic Valve Trisinus/trileaflet aortic valve. There is no aortic stenosis. No aortic valve insufficiency. Pulmonic Valve There is no pulmonic valvular stenosis. Trivial pulmonic valve insufficiency. Great Vessels Normal aortic root. Pericardium/Pleural No pericardial effusion. Medication Performed a rapid injection of agitated mix of 9 cc saline and 1cc air to assess for atrial septal defect. MMode/2D Measurements & Calculations LVIDd: 4.3 cm IVSd: 0.80 cm Ao root diam: 2.7 cm LVIDs: 2.7 cm LVPWd: 0.85 cm RVDd: 3.8 cm FS: 36.2 % LAV(MOD-bp): 35.2 ml LVAd ap4: 21.6 cm2 SV(MOD-sp4): 40.6 ml LAV(MOD-bp) Indexed: 22.3 ml/m2 LVLd ap4: 6.5 cm LAV(MOD-sp2): 32.9 ml EDV(MOD-sp4): 59.4 ml LAV(MOD-sp4): 35.6 ml EDV(sp4-el): 60.6 ml LVAs ap4: 10.9 cm2 LVLs ap4: 5.5 cm ESV(MOD-sp4): 18.7 ml ESV(sp4-el): 18.3 ml EF(MOD-sp4): 68.5 % EF(sp4-el): 69.7 % SV(sp4-el): 42.3 ml LA A4 area: 14.5 cm2 LA dimension(2D): 3.5 cm RA A4 area: 16.7 cm2 TAPSE: 2.8 cm Time Measurements MV dec time: 0.17 sec Doppler Measurements & Calculations MV E max [place]: 99.7 cm/sec Lat Peak E' [place]: 7.4 cm/sec Med Peak E' [place]: 8.5 cm/sec MV A max [place]: 100.4 cm/sec E/E' lat: 13.5 E/E' med: 11.7 MV E/A: 0.99 MV dec slope: 575.2 cm/sec2 Ao V2 max: 118.6 cm/sec LV V1 max: 80.2 cm/sec Ao max P.6 mmHg LV V1 max P.6 mmHg Ao V2 mean: 79.7 cm/sec Ao mean P.9 mmHg Ao V2 VTI: 27.7 cm PA V2 max: 83.8 cm/sec PI end-d [place]: 65.4 cm/sec TR max [place]: 255.7 cm/sec TR max P.2 mmHg ECHO/Echo Complete Interpretation Summary The estimated ejection fraction is 65 %. No evidence for diastolic dysfunction. Mild (1+) mitral valve insufficiency. Ordering Physician: Travis Alonzo Referring Physician: Rakel Archer Performed By: Christiana De Leon, JM, RVT
[2023-12-12] MEDS: 0.9% Normal Saline (1000mL) 1,000 ML 100 ML IV (13:06)
--- NOTE | 2023-12-12 15:05 | HP.PCM.HOS_ITS ---
HPI - General General Date of Admission: 12/12/23 Date of Service: 12/12/23 Chief Complaint: Right leg weakness HPI Narrative SARAH MINOR, is a 83 F with a history of atrial fibrillation presents with feeling unwell while on a walk with her son. Just felt very unwell and very weak all over. She denied any vertiginous type symptoms. When she got back it was noted that her right leg was weak. She denies weakness elsewhere, expressive or receptive aphasia or any visual changes. She presented to the emergency room and underwent a workup that was unremarkable. Neurology saw her and recommended additional stroke workup and giving her aspirin and Plavix. Patient does have a history of atrial fibrillation but is not on anticoagulation. [facility] Medical History Carotid artery disease Hypothyroidism Hyperlipidemia GERD (gastroesophageal reflux disease) Sinus bradycardia Paroxysmal atrial fibrillation Sick sinus syndrome Home Medications ?Medication ?Instructions ?Recorded ?Last Taken ?Type levothyroxine 112 mcg tablet 112 mcg PO DAILY 09/04/13 07/19/20 07:00 History L.acidoph, paracasei,B. lactis 10 1 ea PO QHS 02/28/15 Unknown History billion cell capsule cetirizine 10 mg capsule 10 mg PO DAILY 02/28/15 Unknown History glucosamine HCl 500 mg-msm 83 1 ea PO BID 02/28/15 Unknown History mg-chondroitin 400 mg tablet prednisolone acetate 1 % eye 1 drp ophthalmic (eye) QHS 09/15/17 Unknown History drops,suspension aspirin 81 mg tablet,delayed 81 mg PO QDAY #90 tabs 09/16/17 Unknown Rx release (Adult Low Dose Aspirin) [place] 530 mg PO BID 02/18/18 Unknown History Progestrone Cream 1 applic vaginal DAILY 02/18/18 Unknown History black cohosh 540 mg capsule 540 mg PO DAILY 02/18/18 Unknown History cranberry extract 500 mg tablet 12,500 mg PO BID 02/18/18 Unknown History ascorbic acid (vitamin C) 1,000 mg 1,000 mg PO DAILY 09/21/19 Unknown History tablet gentamicin 0.3 % eye drops 1 drp ophthalmic (eye) QHS PRN eye 09/21/19 Unknown History infection cholecalciferol (vitamin D3) 50 4,000 unit PO QODAY 07/12/20 Unknown History mcg (2,000 unit) capsule Curamin 3 cap PO DAILY 01/24/22 Unknown History albuterol sulfate 90 mcg/actuation 2 puff inhalation Q6H PRN 01/24/22 Unknown History aerosol inhaler shortness of breath or wheezing calcium carbonate 1,500 mg PO DAILY 01/24/22 Unknown History dextromethorphan-guaifenesin 30 1 tab PO Q12H PRN cough 01/24/22 Unknown History mg-600 mg tablet extended [id number] hr (Mucinex DM) ketotifen fumarate 0.025 % (0.035 1 drp ophthalmic (eye) QHS PRN 01/24/22 Unknown History %) eye drops (Zaditor) allergy symptoms omeprazole 20 mg capsule,delayed 20 mg PO MOWEFR 01/24/22 Unknown History release quercetin 500 mg capsule 500 mg PO 01/24/22 Unknown History metoprolol succinate 25 mg 25 mg PO QHS #90 tabs 03/04/23 Unknown Rx tablet,extended release 24 hr lovastatin 40 mg tablet 40 mg PO QHS #90 TABLETS 11/17/23 Unknown Rx Allergy/AdvReac Type Severity Reaction Status Date / Time nitrofurantoin (From AdvReac Severe Vomiting Verified 12/12/23 10:21 Macrobid) nitrofurantoin AdvReac Severe Vomiting Verified 12/12/23 10:21 macrocrystalline (From Macrobid) amiodarone AdvReac Intermediate Severe Verified 12/12/23 10:21 dizziness montelukast (From Singulair) AdvReac Unknown Unknown Verified 12/12/23 10:21 Tetracyclines AdvReac Other Verified 12/12/23 10:21 Family History Father CAD (coronary artery disease) Mother Heart disease Surgical History History of permanent cardiac pacemaker placement (12/21/12) History of esophagogastroduodenoscopy (EGD) (~02/23/18) History of cataract surgery History of carpal tunnel surgery History of arthroscopic knee surgery History of tonsillectomy and adenoidectomy Hx of appendectomy Social History Smoking Status: Never smoker alcohol intake: never substance use type: does not use caffeine: No what type of physical activity do you participate in: walking, aerobics and other details: Silver Sneakers frequency: 1-2 times per week seatbelt use: always ROS ROS Narrative All review of systems were negative except as mentioned above in the history of present illness and the other review of systems. Vital Signs Vital Signs Vital Signs: 12/12/23 10:18 12/12/23 10:22 12/12/23 10:24 Temperature 36.2 C L Temperature Source Temporal Pulse Rate 72 62 Respiratory Rate 15 14 Respiratory Effort Respiratory Pattern Blood Pressure 140/75 H 140/75 H Blood Pressure Mean 96 96 Blood Pressure Source Blood Pressure Position Blood Pressure Location Pulse Ox 97 100 Oxygen Delivery Method Room Air Room Air Room Air 12/12/23 10:30 12/12/23 10:43 12/12/23 11:15 Temperature 36.3 C L 36.7 C Temperature Source Oral Pulse Rate 71 75 Respiratory Rate 12 18 Respiratory Effort Normal Non-Labored Respiratory Pattern Normal Blood Pressure 140/75 H 141/82 H Blood Pressure Mean 96 101 Blood Pressure Source Blood Pressure Position Blood Pressure Location Pulse Ox 97 97 Oxygen Delivery Method Room Air 12/12/23 11:22 12/12/23 11:30 12/12/23 14:28 Temperature Temperature Source Pulse Rate 61 75 85 Respiratory Rate 16 19 H 18 Respiratory Effort Respiratory Pattern Blood Pressure 135/68 H 136/58 H 148/59 H Blood Pressure Mean 90 84 88 Blood Pressure Source Monitor Blood Pressure Position Semi-Fowlers Blood Pressure Location Right Arm Pulse Ox 99 98 98 Oxygen Delivery Method Room Air Room Air Room Air 12/12/23 14:42 12/12/23 14:55 Temperature Temperature Source Pulse Rate 85 85 Respiratory Rate 18 Respiratory Effort Respiratory Pattern Blood Pressure 142/68 H 150/67 H Blood Pressure Mean 92 94 Blood Pressure Source Monitor Monitor Blood Pressure Position Supine Supine Blood Pressure Location Right Arm Right Arm Pulse Ox 98 97 Oxygen Delivery Method Room Air Room Air Weight Weight: 57 kg Body Mass Index (BMI) 25.0 Physical Exam Const alert and no apparent distress HEENT normocephalic, head/scalp atraumatic, hearing grossly normal bilaterally, moist oral mucous membranes and oropharynx normal Eyes PERRL and EOMs intact bilaterally Eyes Narrative: No icterus Neck no lymphadenopathy and supple Resp normal respiratory effort, no retractions, no use of accessory muscles and clear to auscultation bilaterally Cardio regular rate, regular rhythm, S1 normal heart sound and S2 normal heart sound GI normal to inspection, nondistended, normoactive bowel sounds, soft to palpation, non-tender, non-distended and hepatosplenomegaly Extremity normal to inspection, full ROM and no clubbing, cyanosis or edema Neuro oriented x3, CN's II-XII intact bilaterally, moves all extremities and no focal motor deficits Neuro Narrative: Muscle strength 4-5 in right lower extremity. Ataxia of the right lower extremity. Sensorium / Orientation: awake and alert Coordination / Balance: [id number] test normal Results Lab / Micro Data 12/12/23 10:25 12/12/23 10:25 Labs: Laboratory Results - last 24 hr 12/12/23 10:21: POC Glucose 80 12/12/23 10:25: WBC 7.6, RBC 4.02 L, Hgb 12.2, Hct 38.6, MCV 96.0, MCH 30.3, M CHC 31.6 L, RDW Std Deviation 47.6 H, RDW Coeff of Santi 13.3, Plt Count 203, MPV 10.5, Immature Gran % (Auto) 0.500, Neut % (Auto) 60.3, Lymph % (Auto) 26.4, [place] % (Auto) 10.0, Eos % (Auto) 2.0, Baso % (Auto) 0.8, Absolute Neuts (auto) 4.6, Absolute Lymphs (auto) 2.00, Nucleated RBC % 0, PT 13.7, INR 1.1, APTT 27.2, Sodium 141, Potassium 3.9, Chloride 107, Carbon Dioxide 27.0, Anion Gap 7, BUN 17, Creatinine 0.63, Estim Creat Clear Calc 42.53, Est GFR (MDRD) Af Amer 115, Est GFR (MDRD) Non-Af 95, BUN/Creatinine Ratio 26.8 H, Glucose 85, Calcium 9.6, Troponin I High Sens 10 Imaging Radiology Impression Brain CT 12/12/23 10:22 IMPRESSION: Chronic involutional changes of the brain. N.B. : The above Results were Read Back by Leon Arrington MD to Dr Abilio DO, and understanding confirmed on 12/12/2023 10:41:23 (ET). Electronically Signed: Leon Arrington MD at 10:42 EDT , ADDENDUM: 12/12/23 1049 IMPRESSION: Chronic involutional changes of the brain. N.B. : The above Results were Read Back by Leon Arrington MD to Dr Abilio DO, and understanding confirmed on 12/12/2023 10:41:23 (ET). Electronically Signed: Leon Arrington MD at 10:42 EDT , Head/Neck CTA 12/12/23 10:31 IMPRESSION: Minimal plaque at the origin of the left and right internal carotid arteries causing less than 50% stenosis. Plaque along the distal portion of the left cavernous carotid with less than 50% narrowing. N.B. : The above Results were Read Back by Leon Arrington MD to Sushant Knox DO, and understanding confirmed on 12/12/2023 10:53:23 (ET). Electronically Signed: Leon Arrington MD at 10:54 EDT , ADDENDUM: 12/12/23 1101 IMPRESSION: Minimal plaque at the origin of the left and right internal carotid arteries causing less than 50% stenosis. Plaque along the distal portion of the left cavernous carotid with less than 50% narrowing. N.B. : The above Results were Read Back by Leon Arrington MD to Sushant Knox DO, and understanding confirmed on 12/12/2023 10:53:23 (ET). Electronically Signed: Leon Arrington MD at 10:54 EDT , Chest X-Ray 12/12/23 11:44 IMPRESSION: No focal infiltrate or edema. Electronically Signed: Lonnie Yoo MD at 12:02 EDT , Assessment & Plan Assessment/Plan (1) Brain TIA: PLAN: Acute onsets that happened today while on a walk. Patient has history of atrial fibrillation but is not on anticoagulation. Will continue with aspirin and clopidogrel. Add statin. Check MRI of the brain, echocardiogram, lipid panel PT OT evaluate and treat. PLAN: Plan Atrial fibrillation * Status post permanent pacemaker. Not on anticoagulation. VTE prophylaxis with enoxaparin CODE STATUS: Addressed with the patient. Patient is DNR Comfort Care arrest. Charges/Coding Visit Charges Inpatient E&M: 26369 Init Hosp L3
--- NOTE | 2023-12-12 15:54 | CHAPLAIN ---
Type of Pastoral Visit _x__ Initial Visit ___ Follow-up Visit ___ On-call Visit ___ General Patient Visit ___ Spiritual Assessment ___ Family Conference ___ Bereavement ___ Rapid Response ___ Code Blue ___ Other (describe below) Pastoral Care Referral From _x__ Patient ___ Family ___ Nurse ___ Physician ___ College And Career Counselor ___ Manager Support Services ___ Other (describe below) Sacrament/Intervention _x__ Active listening ___ Anointing ___ Confucianist ___ Bereavement ___ Communion ___ Gwendolyn exploration ___ ___ Life review _x__ Prayer ___ Reconciliation ___ Sacrament of Sick _x__ Supportive presence ___ Wedding ___ Other (describe below) Pastoral Comments the patient was expressive of her thanks for spiritual care support; daughter was in the room with the patient and stated Mother perked up as soon as she saw you; prayer and presence given
[2023-12-12] MEDS: Atorvastatin Calcium 40 MG Tablet PO (21:10)
[2023-12-13] VITALS (16 sets, daily range): BP systolic 92–122; BP diastolic 38–77; PULSE 59–155; RESP 14–20; TEMP 36.5–37.2; O2SAT 93–98; BMI 25.0
[2023-12-13] MEDS: Digoxin 250 MCG/ML Ampul IV ×2 (01:51→05:27)
[2023-12-13] MEDS: 0.9% Saline Lock 10 ML Syringe IV (01:51)
[2023-12-13] MEDS: cycloBENZAPRine HCl 5 MG TABLET PO (03:23)
[2023-12-13] MEDS: Ondansetron 4 MG/2 ML Vial IV (05:27)
[2023-12-13 06:30] LABS: Cholesterol 134 mg/dL (200); High Density Lipoprotein 80 mg/dL; Triglycerides 49 mg/dL; Very Low Density Lipoprotein 10 mg/dL (5-40)
--- NOTE | 2023-12-13 08:26 | CT_ITS ---
STUDY: CT BRAIN WITHOUT CONTRAST REASON FOR EXAM: Female, 83 years old. Dizziness RADIATION DOSAGE (If Supplied By Facility): CTDIvol = ( 44.9 ) mGy, DLP = ( 745.49 ) mGycm TECHNIQUE: Transaxial CT imaging of the brain was performed without administration of intravenous contrast material. CT scan performed according to ALARA principles. Automated exposure control used during exam. COMPARISON: Prior study dated: 12/12/2023 FINDINGS: PARENCHYMA: There is no acute bleed or infarct. There are stable mild chronic ischemic and atrophic changes. VENTRICLES: There is no hydrocephalus. MASTOID AIR CELLS AND PARANASAL SINUSES: The visualized paranasal sinuses are clear. The mastoid air cells are clear. BONES: There is no skull fracture. SOFT TISSUES: The visualized soft tissues are within normal limits. CT/Brain/Head without Contrast IMPRESSION: No acute intracranial abnormality. Stable mild chronic ischemic and atrophic changes. Electronically Signed: Dung Nolen MD at 9:04 EDT ,
--- NOTE | 2023-12-13 08:27 | PCM.PN.HOSP ---
Reason for Visit Reason for Visit: Diagnoses Transient cerebral ischemic attack, unspecified (12/12/23) Subjective Subjective Increased right lower extremity edema but would wax and wane. A-fib has been elevated Objective Data Objective Data Vital Signs: Vital Signs Temp Pulse Resp BP Pulse Ox O2 Del Method 36.9 C 131 H 18 106/60 93 Room Air 12/13/23 08:07 12/13/23 08:07 12/13/23 08:07 12/13/23 08:07 12/13/23 08:07 12/13/23 08:07 Oxygen Delivery Method Room Air Weight: 57 kg Body Mass Index (BMI) 25.0 Intake & Output: Intake and Output for Last 24 Hours 12/11/23 12/12/23 12/13/23 23:59 23:59 23:59 Intake Total 250 / 250 1000 / 1000 Balance 250 / 250 1000 / 1000 Lab / Micro Data 12/12/23 10:25 12/12/23 10:25 Labs: Laboratory Results - last 24 hr 12/12/23 10:21: POC Glucose 80 12/12/23 10:25: WBC 7.6, RBC 4.02 L, Hgb 12.2, Hct 38.6, MCV 96.0, MCH 30.3, MCHC 31.6 L, RDW Std Deviation 47.6 H, RDW Coeff of Santi 13.3, Plt Count 203, MPV 10.5, Immature Gran % (Auto) 0.500, Neut % (Auto) 60.3, Lymph % (Auto) 26.4, [place] % (Auto) 10.0, Eos % (Auto) 2.0, Baso % (Auto) 0.8, Absolute Neuts (auto) 4.6, Absolute Lymphs (auto) 2.00, Nucleated RBC % 0, PT 13.7, INR 1.1, APTT 27.2, Sodium 141, Potassium 3.9, Chloride 107, Carbon Dioxide 27.0, Anion Gap 7, BUN 17, Creatinine 0.63, Estim Creat Clear Calc 42.53, Est GFR (MDRD) Af Amer 115, Est GFR (MDRD) Non-Af 95, BUN/Creatinine Ratio 26.8 H, Glucose 85, Calcium 9.6, Troponin I High Sens 10 12/13/23 05:05: Triglycerides 49, Cholesterol 134, LDL Cholesterol 44, VLDL Cholesterol 10, HDL Cholesterol 80 Radiography Diagnostic Testing: Radiology Impression Brain CT 12/12/23 10:22 IMPRESSION: Chronic involutional changes of the brain. N.B. : The above Results were Read Back by Leon Arrington MD to Dr Abilio DO, and understanding confirmed on 12/12/2023 10:41:23 (ET). Electronically Signed: Leon Arrington MD at 10:42 EDT , ADDENDUM: 12/12/23 1049 IMPRESSION: Chronic involutional changes of the brain. N.B. : The above Results were Read Back by Leon Arrington MD to Dr Abilio DO, and understanding confirmed on 12/12/2023 10:41:23 (ET). Electronically Signed: Leon Arrington MD at 10:42 EDT , Head/Neck CTA 12/12/23 10:31 IMPRESSION: Minimal plaque at the origin of the left and right internal carotid arteries causing less than 50% stenosis. Plaque along the distal portion of the left cavernous carotid with less than 50% narrowing. N.B. : The above Results were Read Back by Leon Arrington MD to Sushant Knox DO, and understanding confirmed on 12/12/2023 10:53:23 (ET). Electronically Signed: Leon Arrington MD at 10:54 EDT , ADDENDUM: 12/12/23 1101 IMPRESSION: Minimal plaque at the origin of the left and right internal carotid arteries causing less than 50% stenosis. Plaque along the distal portion of the left cavernous carotid with less than 50% narrowing. N.B. : The above Results were Read Back by Leon Arrington MD to Sushant Knox DO, and understanding confirmed on 12/12/2023 10:53:23 (ET). Electronically Signed: Leon Arrington MD at 10:54 EDT , Chest X-Ray 12/12/23 11:44 IMPRESSION: No focal infiltrate or edema. Electronically Signed: Lonnie Yoo MD at 12:02 EDT , Brain MRI 12/12/23 12:06 IMPRESSION: Atrophy and minor periventricular white matter ischemic changes.. 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 : The above Results were Read Back by Pranav Abreu MD to Corinne Walsh RN, and understanding confirmed on 12/12/2023 16:50:39 (ET). Electronically Signed: Pranav Abreu MD at 16:36 EDT , Physical Exam Const alert and no apparent distress HEENT head/scalp atraumatic and moist oral mucous membranes Eyes PERRL and EOMs intact bilaterally Resp normal respiratory effort, no retractions, no use of accessory muscles and clear to auscultation bilaterally Cardio Cardio Narrative: Irregularly irregular GI normal to inspection, nondistended, normoactive bowel sounds, soft to palpation, non-tender, non-distended and hepatosplenomegaly Extremity normal to inspection and full ROM Neuro Neuro Narrative: Muscle strength 3 out of 5 in the right lower extremity. Sensorium / Orientation: awake and alert Coordination / Balance: [id number] test normal Assessment & Plan Assessment/Plan (1) Brain TIA: PLAN: Acute onsets that happened today while on a walk. Patient has history of atrial fibrillation but is not on anticoagulation. Will continue with aspirin and clopidogrel. Add statin. MRI brain showed small acute infarct in the left posterior parietal lobe. Worsening symptoms today. Repeat head CT showed no acute process PT OT evaluate and treat. Neurology recommending Eliquis being started 3 days after her stroke. Patient previously declined using anticoagulation because of risk of bleeding but now that she has had a stroke from untreated atrial fibrillation she is now open to starting the apixaban (2) Atrial fibrillation with RVR: PLAN: Restarted on metoprolol tartrate. Will monitor for now. Cardiology input appreciated PLAN: Plan Atrial fibrillation Status post permanent pacemaker. Not on anticoagulation. VTE prophylaxis with enoxaparin CODE STATUS: Addressed with the patient. Patient is DNR Comfort Care arrest. Charges/Coding Visit Charges Inpatient E&M: 67164 Subs Hosp L3
[2023-12-13 08:40] LABS: Bedside Glucose 109 mg/dL (74-106)
--- NOTE | 2023-12-13 09:08 | CASEMGMT ---
Social Work PHQ-9 completed w/pt as pt is positive for a stroke. Pt scored a 0, no indications on PHQ-9 of depression at this time. GEORGE Galvan
[2023-12-13] MEDS: Enoxaparin 40 MG/0.4 ML Syringe SC (09:17)
[2023-12-13] MEDS: Aspirin 81 MG TAB.CHEW PO (09:17)
[2023-12-13] MEDS: Loratadine 10 MG Tablet PO (09:17)
[2023-12-13] MEDS: Clopidogrel Bisulfate 75 MG Tablet PO (09:17)
--- NOTE | 2023-12-13 09:32 | CASEMGMT ---
Addendum entered by Ana De 12/13/23 13:53: 1345-Noted therapy recommended rehab unit. DONALD DELGADO into pt room, pt states she would like [facility] Rehab unit. She declines the need for a list of other options. Updated SW. Original Note: DONALD DELGADO Assessment: Face to Face with pt for initial transition planning/care coordination assessment. RN SANDY introduced self and role at [facility], pt voices understanding and consents to assessment. Pt is A&O x4 and answers all questions appropriately at this time. Pt sitting up in bed eating breakfast and finishing with ST. Pt son at bedside. Pt agreeable to assessment with son present. Care providers, pharmacy, and demographics verified/updated. Admitting Dx: CVA PCP:Suzi Specialists:Jim cardio; abdoulaye Wilson; ann Parisi Preferred Pharmacy: [facility] Insurance: [employer] [facility] Prescription Benefit: yes LNOK: Christine Stevenson, dtmagalis Living Arrangements: Pt lives with son in a single story home with 1 step to enter. Pt reports she is typically I in ADL and IADLs. Transportation: Pt drives self and denies concerns with transportation. DME:drier operator head, BSC, cane, rollator, built in shower seat and walk in shower HHC/SNF: Denies hx of Pt states that she is interested in acute rehab. States that she spoke with the therapist regarding this. States her right leg sometimes will not move and she would like to be able to ambulate unassisted prior to returning home. Updated SW that pt is interested in Rehab unit. Will follow therapy today. Pt states no further concerns/needs. CM to follow. Advised pt to ask CM if any further question/concerns/needs arise, voices understanding. Pt Goal:Rehab Unit Plan: TBD pending course of hospitalization and therapy Discussed pt plan with hospitalistMahad Lawson RN, CM
--- NOTE | 2023-12-13 10:22 | CON.PCM.NE_ITS ---
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 She denies weakness elsewhere, expressive or receptive aphasia or any visual changes. She presented to the emergency room and underwent a workup that was unremarkable. Tele stroke was consulted [facility] Medical History Carotid artery disease Hypothyroidism Hyperlipidemia GERD (gastroesophageal reflux disease) Sinus bradycardia Paroxysmal atrial fibrillation Sick sinus syndrome Home Medications ?Medication ?Instructions ?Recorded ?Last Taken ?Type levothyroxine 112 mcg tablet 112 mcg PO DAILY thyroid 09/04/13 07/19/20 07:00 History L.acidoph, paracasei,B. lactis 10 1 ea PO QHS probiotic 02/28/15 Unknown History billion cell capsule cetirizine 10 mg capsule 10 mg PO DAILY allergies 02/28/15 Unknown History glucosamine HCl 500 mg-msm 83 1 ea PO BID joints 02/28/15 Unknown History mg-chondroitin 400 mg tablet prednisolone acetate 1 % eye 1 drp ophthalmic (eye) QHS drops 09/15/17 Unknown History drops,suspension for post cornea transplant aspirin 81 mg tablet,delayed 81 mg PO QDAY #90 tabs 09/16/17 12/11/23 Rx release (Adult Low Dose Aspirin) Progestrone Cream 1 applic vaginal DAILY 02/18/18 Unknown History black cohosh 540 mg capsule 540 mg PO DAILY hormones 02/18/18 Unknown History cranberry extract 500 mg tablet 12,500 mg PO BID prevent uti 02/18/18 Unknown History ascorbic acid (vitamin C) 1,000 mg 1,000 mg PO BID vitamin 09/21/19 12/11/23 History tablet gentamicin 0.3 % eye drops 1 drp ophthalmic (eye) QHS PRN eye 09/21/19 Unknown History infection cholecalciferol (vitamin D3) 50 4,000 unit PO QODAY vitamin 07/12/20 Unknown History mcg (2,000 unit) capsule Curamin 3 cap PO DAILY pain relief 01/24/22 Unknown History calcium carbonate 1,500 mg PO BID osteoporosis 01/24/22 12/11/23 History ketotifen fumarate 0.025 % (0.035 1 drp ophthalmic (eye) QHS PRN 01/24/22 Unknown History %) eye drops (Zaditor) allergy symptoms quercetin 500 mg capsule 500 mg PO 01/24/22 Unknown History metoprolol succinate 25 mg 25 mg PO QHS heart rate control, 03/04/23 Unknown Rx tablet,extended release 24 hr afib #90 tabs lovastatin 40 mg tablet 40 mg PO QHS cholesterol #90 11/17/23 Unknown Rx TABLETS Allergy/AdvReac Type Severity Reaction Status Date / Time nitrofurantoin (From AdvReac Severe Vomiting Verified 12/12/23 10:21 Macrobid) nitrofurantoin AdvReac Severe Vomiting Verified 12/12/23 10:21 macrocrystalline (From Macrobid) amiodarone AdvReac Intermediate Severe Verified 12/12/23 10:21 dizziness montelukast (From Singulair) AdvReac Unknown Unknown Verified 12/12/23 10:21 Tetracyclines AdvReac Other Verified 12/12/23 10:21 Family History Father CAD (coronary artery disease) Mother Heart disease Surgical History History of permanent cardiac pacemaker placement (12/21/12) History of esophagogastroduodenoscopy (EGD) (~02/23/18) History of cataract surgery History of carpal tunnel surgery History of arthroscopic knee surgery History of tonsillectomy and adenoidectomy Hx of appendectomy Social History Smoking Status: Never smoker alcohol intake: never substance use type: does not use caffeine: No what type of physical activity do you participate in: walking, aerobics and other details: Silver Sneakers frequency: 1-2 times per week seatbelt use: always Vital Signs Vital Signs Vital Signs: 12/12/23 10:24 12/12/23 10:30 12/12/23 10:43 Temperature 97.3 F L Temperature Source Oral Pulse Rate 62 71 Pulse Strength Respiratory Rate 14 12 Respiratory Effort Normal Non-Labored Respiratory Pattern Normal Blood Pressure 140/75 H 140/75 H Blood Pressure Mean 96 96 Blood Pressure Source Blood Pressure Position Blood Pressure Location Pulse Ox 100 97 Oxygen Delivery Method Room Air Room Air 12/12/23 11:15 12/12/23 11:22 12/12/23 11:30 Temperature 98.1 F Temperature Source Pulse Rate 75 61 75 Pulse Strength Respiratory Rate 18 16 19 H Respiratory Effort Respiratory Pattern Blood Pressure 141/82 H 135/68 H 136/58 H Blood Pressure Mean 101 90 84 Blood Pressure Source Blood Pressure Position Blood Pressure Location Pulse Ox 97 99 98 Oxygen Delivery Method Room Air Room Air 12/12/23 14:28 12/12/23 14:42 12/12/23 14:55 Temperature Temperature Source Pulse Rate 85 85 85 Pulse Strength Respiratory Rate 18 18 Respiratory Effort Respiratory Pattern Blood Pressure 148/59 H 142/68 H 150/67 H Blood Pressure Mean 88 92 94 Blood Pressure Source Monitor Monitor Monitor Blood Pressure Position Semi-Fowlers Supine Supine Blood Pressure Location Right Arm Right Arm Right Arm Pulse Ox 98 98 97 Oxygen Delivery Method Room Air Room Air Room Air 12/12/23 15:20 12/12/23 16:00 12/12/23 18:00 Temperature 97.0 F L 98.1 F Temperature Source Temporal Oral Pulse Rate 67 60 Pulse Strength Respiratory Rate 16 14 Respiratory Effort Respiratory Pattern Blood Pressure 151/46 H 104/46 L Blood Pressure Mean 81 65 Blood Pressure Source Monitor Monitor Blood Pressure Position Semi-Fowlers Semi-Fowlers Blood Pressure Location Left Arm Right Arm Pulse Ox 98 98 Oxygen Delivery Method Room Air Room Air Room Air 12/12/23 22:00 12/12/23 22:00 12/12/23 22:00 Temperature 98.1 F Temperature Source Oral Pulse Rate 60 Pulse Strength Normal (2+) Respiratory Rate 14 Respiratory Effort Respiratory Pattern Blood Pressure 104/46 L Blood Pressure Mean 65 Blood Pressure Source Monitor Blood Pressure Position Semi-Fowlers Blood Pressure Location Left Arm Pulse Ox 98 Oxygen Delivery Method Room Air Room Air 12/13/23 00:00 12/13/23 01:51 12/13/23 02:00 Temperature 98.1 F Temperature Source Oral Pulse Rate 132 H 135 H 130 H Pulse Strength Respiratory Rate 14 Respiratory Effort Respiratory Pattern Blood Pressure 112/70 Blood Pressure Mean 84 Blood Pressure Source Monitor Blood Pressure Position Semi-Fowlers Blood Pressure Location Left Arm Pulse Ox 98 Oxygen Delivery Method Room Air 12/13/23 05:27 12/13/23 06:00 12/13/23 08:07 Temperature 98 F 98.5 F Temperature Source Oral Oral Pulse Rate 150 H 136 H 131 H Pulse Strength Respiratory Rate 14 18 Respiratory Effort Respiratory Pattern Blood Pressure 122/77 H 119/58 L 106/60 Blood Pressure Mean 78 75 Blood Pressure Source Monitor Monitor Blood Pressure Position Semi-Fowlers Semi-Fowlers Blood Pressure Location Left Arm Left Arm Pulse Ox 98 93 Oxygen Delivery Method Room Air Room Air Weight Weight: 57 kg Body Mass Index (BMI) 25.0 EEG Results Procedure Details EEG Procedure Details: SARAH MINOR is a 83 year old F with a past medical history of , who presents for evaluation of Electroencephalogram on DATE at TIME NIHSS NIHSS Nursing Documentation NIHSS Nursing Documentation: NIHSS: Ischemic Stroke/TIA Start: 12/12/23 12:06 Text: For PCU Patients: NIH and Neuro Check every 4 Status: Active hours, PRN and with change in RN caregiver. Freq: [id number] Protocol: Activity Type Activity Date Activity User E-sign Co-sign Detail Recorded Client Recorded Date Recorded By Document 12/13/23 08:45 [facility] [id number] 12/13/23 08:54 [facility] 12/13/23 08:45 NIH Stroke Scale [NIHSS] A score of 0 is normal or asymptomatic . Total possible score is 42. Inpatient: RN or Physician to activate a stroke alert for onset of new stroke symptoms or with NIHSS increase >/= 3 points. Following change in neurological status, NIHSS will be performed per physician order or more frequently PRN. -1a. Level of Consciousness Alert; keenly responsive -1b. LOC Questions Answers BOTH questions correctly. -1c. LOC Commands Performs both tasks correctly . -2. Best Gaze Normal -3. Visual No visual loss -4. Facial Palsy Normal symmetrical movements -5a. Left Arm No drift; arm holds 90 (or 45 ) degrees for full 10 seconds -5b. Right Arm No drift; arm holds 90 (or 45 ) degrees for full 10 seconds -6a. Left Leg No drift; leg holds 30-degree position for full 5 seconds -6b. Right Leg No effort against gravity ; leg falls to bed immediately -7. Limb Ataxia Present in 1 limb -8. Sensory Normal; no sensory loss -9. Best Language No aphasia; normal -10. Dysarthria Normal -11. Extinction and Inattention No abnormality -Total 4 Query Text:A score of 0 is normal or asymptomatic. Total possible score is 42 . ED: Notify Physician for NIHSS increase by > / = 3 points. Inpatient: RN or Physician to activate a stroke alert for NIHSS increase of > / = 3 points. Coma Scale [Assess] -Eye Opening Spontaneous -Motor Obeys Commands -Verbal Oriented [Total] -Coma Scale Total 15 Physical Exam Neuro oriented x3 Neuro Narrative: right leg weakness minimal effort antigravity Sensorium / Orientation: awake, alert, oriented to person, oriented to place and oriented to time Cranial Nerves: CN normal except as noted Coordination / Balance: [id number] test normal Speech: speech normal Lab / Micro Data 12/12/23 10:25 12/12/23 10:25 Labs: Laboratory Results - last 24 hr 12/12/23 10:21: POC Glucose 80 12/12/23 10:25: WBC 7.6, RBC 4.02 L, Hgb 12.2, Hct 38.6, MCV 96.0, MCH 30.3, M CHC 31.6 L, RDW Std Deviation 47.6 H, RDW Coeff of Santi 13.3, Plt Count 203, MPV 10.5, Immature Gran % (Auto) 0.500, Neut % (Auto) 60.3, Lymph % (Auto) 26.4, [place] % (Auto) 10.0, Eos % (Auto) 2.0, Baso % (Auto) 0.8, Absolute Neuts (auto) 4.6, Absolute Lymphs (auto) 2.00, Nucleated RBC % 0, PT 13.7, INR 1.1, APTT 27.2, Sodium 141, Potassium 3.9, Chloride 107, Carbon Dioxide 27.0, Anion Gap 7, BUN 17, Creatinine 0.63, Estim Creat Clear Calc 42.53, Est GFR (MDRD) Af Amer 115, Est GFR (MDRD) Non-Af 95, BUN/Creatinine Ratio 26.8 H, Glucose 85, Calcium 9.6, Troponin I High Sens 10 12/13/23 05:05: Triglycerides 49, Cholesterol 134, LDL Cholesterol 44, VLDL Cholesterol 10, HDL Cholesterol 80 12/13/23 08:22: POC Glucose 109 H Imaging Radiology Impression Brain CT 12/12/23 10:22 IMPRESSION: Chronic involutional changes of the brain. N.B. : The above Results were Read Back by Leon Arrington MD to Dr Abilio DO, and understanding confirmed on 12/12/2023 10:41:23 (ET). Electronically Signed: Leon Arrington MD at 10:42 EDT , ADDENDUM: 12/12/23 1049 IMPRESSION: Chronic involutional changes of the brain. N.B. : The above Results were Read Back by Leon Arrington MD to Dr Abilio DO, and understanding confirmed on 12/12/2023 10:41:23 (ET). Electronically Signed: Leon Arrington MD at 10:42 EDT , Head/Neck CTA 12/12/23 10:31 IMPRESSION: Minimal plaque at the origin of the left and right internal carotid arteries causing less than 50% stenosis. Plaque along the distal portion of the left cavernous carotid with less than 50% narrowing. N.B. : The above Results were Read Back by Leon Arrington MD to Sushant Knox DO, and understanding confirmed on 12/12/2023 10:53:23 (ET). Electronically Signed: Leon Arrington MD at 10:54 EDT , ADDENDUM: 12/12/23 1101 IMPRESSION: Minimal plaque at the origin of the left and right internal carotid arteries causing less than 50% stenosis. Plaque along the distal portion of the left cavernous carotid with less than 50% narrowing. N.B. : The above Results were Read Back by Leon Arrington MD to Sushant Knox DO, and understanding confirmed on 12/12/2023 10:53:23 (ET). Electronically Signed: Leon Arrington MD at 10:54 EDT , Chest X-Ray 12/12/23 11:44 IMPRESSION: No focal infiltrate or edema. Electronically Signed: Lonnie Yoo MD at 12:02 EDT , Brain MRI 12/12/23 12:06 IMPRESSION: Atrophy and minor periventricular white matter ischemic changes.. 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 : The above Results were Read Back by Pranav Abreu MD to Corinne Walsh RN, and understanding confirmed on 12/12/2023 16:50:39 (ET). Electronically Signed: Pranav Abreu MD at 16:36 EDT , Echocardiogram 12/12/23 12:06 Interpretation Summary The estimated ejection fraction is 65 %. No evidence for diastolic dysfunction. Mild (1+) mitral valve insufficiency. Ordering Physician: Travis Alonzo Referring Physician: Rakel Archer Performed By: Christiana De Leon, JM, RVT Active Medications Active Medications Active Medications: Current Medications Generic Name Dose Route Start Last Admin Trade Name Freq PRN Reason Stop Dose Admin Acetaminophen 650 mg 12/12/23 12:06 Acetaminophen 325 Mg Tablet PO Q6H PRN PRN Pain 1-10 Or Fever>100.7 Aspirin 81 mg 12/13/23 08:00 12/13/23 09:17 Aspirin 81 Mg Tab.Chew PO 81 mg BREAKFAST JANET Administration Atorvastatin Calcium 40 mg 12/12/23 22:00 12/12/23 21:10 Atorvastatin Calcium 40 Mg Tablet PO 40 mg QHS JANET Administration Clopidogrel Bisulfate 75 mg 12/13/23 10:00 12/13/23 09:17 Clopidogrel Bisulfate 75 Mg Tablet PO 75 mg DAILY JAENT Administration Enoxaparin Sodium 40 mg 12/13/23 10:00 12/13/23 09:17 Enoxaparin 40 Mg/0.4 Ml Syringe SC 40 mg DAILY JANET Administration Hydralazine HCl 5 mg 12/12/23 12:06 Hydralazine 20 Mg/Ml Vial IV 12/13/23 12:06 Q30M PRN maintain BP parameters with HR <60 Labetalol HCl 20 mg 12/12/23 10:22 Labetalol (Prefilled) 20 Mg/4 Ml IV 12/13/23 10:22 X1 PRN Blood Pressure Labetalol HCl 10 - 20 mg 12/12/23 12:06 Labetalol (Prefilled) 20 Mg/4 Ml IV 12/13/23 12:06 Q10M PRN PRN maintain BP parameters with HR >/=60 Loratadine 10 mg 12/13/23 10:00 12/13/23 09:17 Loratadine 10 Mg Tablet PO 10 mg DAILY JANET Administration Ondansetron HCl 4 mg 12/12/23 12:06 12/13/23 05:27 Ondansetron 4 Mg/2 Ml Vial IV 4 mg Q8H PRN PRN Administration NAUSEA/VOMITING Sodium Chloride 10 - 40 ml 12/12/23 13:31 12/13/23 01:51 0.9% Saline Lock 10 Ml Syringe IV 10 ml UD PRN Administration SALINE FLUSH
[2023-12-13] MEDS: Metoprolol Tartrate 50 MG Tablet PO ×2 (11:22→22:12)
--- NOTE | 2023-12-13 11:56 | PCM.CONS.C ---
Assessment & Plan Assessment/Plan (1) Paroxysmal atrial fibrillation: PLAN: Patient has a history of pensions atrial fibrillation is been well-controlled on flecainide until she reached age 83. At that time it was felt the risk outweighed the benefit and she was switched to amiodarone which she did not tolerate. She has now been placed on metoprolol but has broken through with atrial fibrillation. She is now on her right ventricular sponsor she has improved her rate with oral metoprolol 50 mg given this morning. Given her age her normal renal function and her weight of 57 kg I did recommend that we start Eliquis 2.5 mg twice daily tomorrow as approved by the [facility] neurologist. I also recommend that we institute Tikosyn at 500 mg twice daily given her normal renal function. We will check a QT interval 2 hours after the initial dose and after each subsequent dose for the first 4-5 doses. The QT interval increases will have to drop back to 250 mg twice daily. (2) History of permanent cardiac pacemaker placement: PLAN: The patient's pacemaker is functioning normally at her last pacer check November 12, 2023. Will be able to use the pacemaker to determine her atrial for burden going forward. (3) Right leg weakness: PLAN: Patient still has some residual right leg weakness although it is not as prominent as it was earlier this morning. She is being evaluated by the [facility] neurology team and we will discontinue Plavix and aspirin and start Eliquis 2.5 mg twice daily tomorrow. PLAN: Plan 1. DC aspirin and Plavix. 2. Eliquis 2.5 mg twice daily start 12/14/2019 AM. 3. Tikosyn 500 mg twice daily with EKG 2 hours after each dose. HPI Consult Data Date of Consult: 12/13/23 HPI Narrative Reason for Consultation: Atrial fibrillation in the face of a CVA. HPI Narrative: SARAH MINOR, is a 83 F who presents with right lower extremity weakness and inability to control her right leg. The patient was a stroke team evaluated by the [facility] telestroke team. Her MRI showed a parietal stroke. The patient was in atrial fibrillation when she presented to the emergency department. The patient has a history of paroxysmal atrial fibrillation usually less than 1% of the time on her permanent pacemaker checks. She has refused Eliquis in the past and has been on aspirin. Patient's had no previous history of stroke she is in atrial fibrillation with a rapid ventricular sponsor in the 130s to 140s beat per minute range. The patient was discontinued on flecainide in March 2023 due to her age. She was instituted on amiodarone but did not tolerate it due to side effects. That was discontinued in July 2023. She has been on metoprolol 25 mg daily since then. Last device check was November 12, 2023 she had 7 high atrial rate episodes detected it was consistent with atrial fibs/flutter the longest lasted 3 hours and 55 minutes there was 0.5% cumulative atrial arrhythmia burden. There were no high ventricular rate episodes detected. The patient's right lower extremity is intermittently becoming functional and then that we can again. Currently she is able to raise her leg almost the same as her left leg off the bed. The patient does feel fluttering in her chest when she is in atrial fibrillation she also has a history of esophageal reflux. We did discuss institution of Eliquis and she and the family are now agreeable this was recommended by [facility] neurology to institute it tomorrow. Currently the patient is able to raise her right leg she is able to utilize her both hands and she does not have a facial droop. She is able to communicate effectively. The patient weighs 57 kg. She is 83 years of age and therefore will be on Eliquis 2.5 mg twice daily. [facility] Medical History Carotid artery disease Hypothyroidism Hyperlipidemia GERD (gastroesophageal reflux disease) Sinus bradycardia Paroxysmal atrial fibrillation Sick sinus syndrome Home Medications ?Medication ?Instructions ?Recorded ?Last Taken ?Type levothyroxine 112 mcg tablet 112 mcg PO DAILY thyroid 09/04/13 07/19/20 07:00 History L.acidoph, paracasei,B. lactis 10 1 ea PO QHS probiotic 02/28/15 Unknown History billion cell capsule cetirizine 10 mg capsule 10 mg PO DAILY allergies 02/28/15 Unknown History glucosamine HCl 500 mg-msm 83 1 ea PO BID joints 02/28/15 Unknown History mg-chondroitin 400 mg tablet prednisolone acetate 1 % eye 1 drp ophthalmic (eye) QHS drops 09/15/17 Unknown History drops,suspension for post cornea transplant aspirin 81 mg tablet,delayed 81 mg PO QDAY #90 tabs 09/16/17 12/11/23 Rx release (Adult Low Dose Aspirin) Progestrone Cream 1 applic vaginal DAILY 02/18/18 Unknown History black cohosh 540 mg capsule 540 mg PO DAILY hormones 02/18/18 Unknown History cranberry extract 500 mg tablet 12,500 mg PO BID prevent uti 02/18/18 Unknown History ascorbic acid (vitamin C) 1,000 mg 1,000 mg PO BID vitamin 09/21/19 12/11/23 History tablet gentamicin 0.3 % eye drops 1 drp ophthalmic (eye) QHS PRN eye 09/21/19 Unknown History infection cholecalciferol (vitamin D3) 50 4,000 unit PO QODAY vitamin 07/12/20 Unknown History mcg (2,000 unit) capsule Curamin 3 cap PO DAILY pain relief 01/24/22 Unknown History calcium carbonate 1,500 mg PO BID osteoporosis 01/24/22 12/11/23 History ketotifen fumarate 0.025 % (0.035 1 drp ophthalmic (eye) QHS PRN 01/24/22 Unknown History %) eye drops (Zaditor) allergy symptoms quercetin 500 mg capsule 500 mg PO 01/24/22 Unknown History metoprolol succinate 25 mg 25 mg PO QHS heart rate control, 03/04/23 Unknown Rx tablet,extended release 24 hr afib #90 tabs lovastatin 40 mg tablet 40 mg PO QHS cholesterol #90 11/17/23 Unknown Rx TABLETS Allergy/AdvReac Type Severity Reaction Status Date / Time nitrofurantoin (From AdvReac Severe Vomiting Verified 12/12/23 10:21 Macrobid) nitrofurantoin AdvReac Severe Vomiting Verified 12/12/23 10:21 macrocrystalline (From Macrobid) amiodarone AdvReac Intermediate Severe Verified 12/12/23 10:21 dizziness montelukast (From Singulair) AdvReac Unknown Unknown Verified 12/12/23 10:21 Tetracyclines AdvReac Other Verified 12/12/23 10:21 Family History Father CAD (coronary artery disease) Mother Heart disease Surgical History History of permanent cardiac pacemaker placement (12/21/12) History of esophagogastroduodenoscopy (EGD) (~02/23/18) History of cataract surgery History of carpal tunnel surgery History of arthroscopic knee surgery History of tonsillectomy and adenoidectomy Hx of appendectomy Social History Smoking Status: Never smoker alcohol intake: never substance use type: does not use caffeine: No what type of physical activity do you participate in: walking, aerobics and other details: Silver Sneakers frequency: 1-2 times per week seatbelt use: always ROS Constitutional Constitutional: Reports as per HPI Eyes Eyes: Reports systems reviewed and no addt'l complaints, except as documented ENT HEENT: Reports as per HPI Cardiovascular Cardiovascular: Reports as per HPI Respiratory/Chest Respiratory/Chest: Reports as per HPI Gastrointestinal Gastrointestinal: Reports as per HPI Genitourinary Genitourinary: Reports systems reviewed and no addt'l complaints, except as documented Musculoskeletal Musculoskeletal: Reports as per HPI Integumentary Integumentary: Reports systems reviewed and no addt'l complaints, except as documented Neurologic Neurologic: Reports as per HPI Psychiatric Psychiatric: Reports systems reviewed and no addt'l complaints, except as documented Endocrine Endocrinology: Reports systems reviewed and no addt'l complaints, except as documented Hematologic/Lymphatic Hematologic/Lymphatic: Reports as per HPI Allergic/Immunologic Allergic/Immunologic: Reports systems reviewed and no addt'l complaints, except as documented Physical Exam Const alert Orientation / Consciousness: awake HEENT normocephalic Eyes EOMs intact bilaterally Neck Neck Narrative: Flutter/dilatory ways are visible in her neck veins. Chest inspection of chest normal Chest Narrative: Well-healed left infraclavicular pacer pocket Resp normal respiratory effort and clear to auscultation bilaterally Cardio Rate: tachycardic Rhythm: abnormal rhythm irregularly irregular Heart Sounds: S1 normal and S2 normal; Negative for click, gallop or murmur GI normal to inspection, nondistended, normoactive bowel sounds Extremity full ROM Extremity Narrative: She is obviously slightly weaker in the right lower extremity than the left. General Extremity: Negative for edema Skin no rashes or lesions noted Neuro Neuro Narrative: Weakness in the right lower extremity but per the patient and family much more movement than a few hours ago. Psych mental status grossly normal Risk Stratification Risk Stratification Applicable: No Charges/Coding Visit Charges Inpatient E&M: 07914 Init Hosp L3 Objective Data Vital Signs: Vital Signs Temp Pulse Resp BP Pulse Ox O2 Del Method 98.0 F 138 H 20 H 104/56 L 93 Room Air 12/13/23 10:16 12/13/23 11:22 12/13/23 10:16 12/13/23 11:22 12/13/23 10:16 12/13/23 10:16 Oxygen Delivery Method Room Air Weight: 125 lb 10.616 oz Body Mass Index (BMI) 25.0 Intake & Output: Intake and Output for Last 24 Hours 12/11/23 12/12/23 12/13/23 23:59 23:59 23:59 Intake Total 250 / 250 1000 / 1000 Balance 250 / 250 1000 / 1000 Lab / Micro Data Attestation: I reviewed the patient's lab results. 12/12/23 10:25 12/12/23 10:25 Labs: Laboratory Results - last 24 hr 12/13/23 05:05: Triglycerides 49, Cholesterol 134, LDL Cholesterol 44, VLDL Cholesterol 10, HDL Cholesterol 80 12/13/23 08:22: POC Glucose 109 H Rhythm Strip Rhythm Strip: A-fib Rate: 130 Cardiology Labs/Tests 12/13/23 05:05: Triglycerides 49, Cholesterol 134, LDL Cholesterol 44, VLDL Cholesterol 10, HDL Cholesterol 80 Rhythm: EKG: ECHO: Stress Test: Cardiac Cath: PCI: CT Surgery: Holter monitor: EPS: PPM: CXR: Chest CT Scan: Radiography Diagnostic Testing: Radiology Impression Chest X-Ray 12/12/23 11:44 IMPRESSION: No focal infiltrate or edema. Electronically Signed: Lonnie Yoo MD at 12:02 EDT , Brain MRI 12/12/23 12:06 IMPRESSION: Atrophy and minor periventricular white matter ischemic changes.. 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 : The above Results were Read Back by Pranav Abreu MD to Corinne Walsh RN, and understanding confirmed on 12/12/2023 16:50:39 (ET). Electronically Signed: Pranav Abreu MD at 16:36 EDT , Echocardiogram 12/12/23 12:06 Interpretation Summary The estimated ejection fraction is 65 %. No evidence for diastolic dysfunction. Mild (1+) mitral valve insufficiency. Ordering Physician: Travis Alonzo Referring Physician: Rakel Archer Performed By: Christiana De Leon RDCS, RVT Brain CT 12/13/23 08:26 IMPRESSION: No acute intracranial abnormality. Stable mild chronic ischemic and atrophic changes. Electronically Signed: Dung Nolen MD at 9:04 EDT , EKG Initial EKG: Attestation: I personally reviewed and interpreted this EKG as follows: (Atrial fibrillation with a heart rate of 108 bpm. QT interval is less than 440 ms.)
[2023-12-13] MEDS: Dofetilide 250 MCG Capsule 500 MCG PO ×2 (13:19→22:09)
--- NOTE | 2023-12-13 13:48 | CASEMGMT ---
Social Work Referral made to in rehab via email. SW will follow up on Friday. GEORGE Galvan
--- NOTE | 2023-12-13 19:00 | NURSING ---
emergency documentation in effect 12/13/231899
[2023-12-13] MEDS: Atorvastatin Calcium 40 MG Tablet PO (22:10)
[2023-12-14] VITALS (9 sets, daily range): BP systolic 97–127; BP diastolic 49–56; PULSE 60–86; RESP 18–20; TEMP 36.3–36.7; O2SAT 94–99; BMI 25.0
[2023-12-14] MEDS: Levothyroxine 112 MCG Tablet PO (05:03)
--- NOTE | 2023-12-14 08:50 | PN.HOSP_ITS ---
Reason for Visit Reason for Visit: Diagnoses Transient cerebral ischemic attack, unspecified (12/12/23) Paroxysmal atrial fibrillation (12/12/23) Unspecified atrial fibrillation (12/12/23) Other symptoms and signs involving the musculoskeletal system (12/12/23) Presence of cardiac pacemaker (12/12/23) Subjective Subjective Strength better in her right lower extremity. Started having a dry cough when her A-fib was acting up and then when her rhythm went down, her coughing resolved. Objective Data Objective Data Vital Signs: Vital Signs Temp Pulse Resp BP Pulse Ox O2 Del Method 36.6 C 60 18 106/50 L 99 Room Air 12/14/23 07:30 12/14/23 07:30 12/14/23 07:30 12/14/23 07:30 12/14/23 07:30 12/14/23 07:30 Oxygen Delivery Method Room Air Weight: 57 kg Body Mass Index (BMI) 25.0 Intake & Output: Intake and Output for Last 24 Hours 12/12/23 12/13/23 12/14/23 23:59 23:59 23:59 Intake Total 250 / 250 1420 / 1420 120 / 120 Balance 250 / 250 1420 / 1420 120 / 120 Lab / Micro Data 12/12/23 10:25 12/12/23 10:25 Radiography Diagnostic Testing: Radiology Impression Echocardiogram 12/12/23 12:06 Interpretation Summary The estimated ejection fraction is 65 %. No evidence for diastolic dysfunction. Mild (1+) mitral valve insufficiency. Ordering Physician: Travis Alonzo Referring Physician: Rakel Archer Performed By: Christiana De Leon, KARSTENCS, RVT Brain CT 12/13/23 08:26 IMPRESSION: No acute intracranial abnormality. Stable mild chronic ischemic and atrophic changes. Electronically Signed: Dung Nolen MD at 9:04 EDT , Rhythm Strip Rhythm Strip: A-fib Rate: 130 Physical Exam Const alert and no apparent distress HEENT head/scalp atraumatic and moist oral mucous membranes Resp normal respiratory effort and no retractions Cardio regular rate, regular rhythm, S1 normal heart sound and S2 normal heart sound GI normal to inspection, nondistended, normoactive bowel sounds and soft to palpation Extremity normal to inspection and no clubbing, cyanosis or edema Neuro Neuro Narrative: Mo strength 5-5 in the lower extremities but more diminished on the right as compared to the left Assessment & Plan Assessment/Plan (1) CVA (cerebral vascular accident): PLAN: Acute onsets that happened today while on a walk. Patient has history of atrial fibrillation but is not on anticoagulation. Will continue with aspirin and clopidogrel. Add statin. MRI brain showed small acute infarct in the left posterior parietal lobe. Worsening symptoms today. Repeat head CT showed no acute process PT OT recommending additional therapy particular acute rehab Neurology recommending Eliquis being started 3 days after her stroke. Patient previously declined using anticoagulation because of risk of bleeding but now that she has had a stroke from untreated atrial fibrillation she is now open to starting the apixaban (2) Atrial fibrillation with RVR: PLAN: On metoprolol tartrate. Started on Tikosyn. Initially at 500 mcg which she received on the but had to be decreased down to 250 twice daily today based on prolonged QTc. Patient will have an EKG in the morning to see if that dosing can be continued or if it may need to be readjusted. Dr. Prather has been caring for the patient from a cardiology perspective over the weekend but will not be here on the . He said that he can be contacted for questions if necessary. He will following up on the EKG on the . PLAN: Plan Atrial fibrillation * Status post permanent pacemaker. Not on anticoagulation. VTE prophylaxis with enoxaparin CODE STATUS: Addressed with the patient. Patient is DNR Comfort Care arrest. Disposition: To be determined. Therapy recommending acute rehab. Will have case management evaluate to see if that would be an option. Charges/Coding Visit Charges Inpatient E&M: 20289 Subs Hosp L2
--- NOTE | 2023-12-14 09:14 | PCM.PN.BLA ---
Progress Note Patient reports that she feels like a new person this morning. She has been an atrially paced rhythm since late yesterday. EKG after the second dose of Tikosyn at 500 mg showed an increase in QT interval to approximately 500 ms or greater than 20% over baseline. We will decrease her Tikosyn dose to 250 mg and repeat the EKG per protocol 2 hours after that dose. The patient also reports that her chronic cough she has had for the last 3 weeks has resolved since she has been in a paced rhythm. Is highly likely this was related to her atrial fibrillation and would explain why she is suffered a CVA given the fact that she has had paroxysmal atrial fibrillation but historically the only lasted an hour or so on her pacer checks. Physical Exam Narrative Patient is up at the side of the bed eating breakfast without any restrictions and in good spirits. Const alert and oriented x3 General Appearance: cooperative and comfortable HEENT normocephalic
--- NOTE | 2023-12-14 09:27 | PCM.PN.CARD ---
Subjective Subjective Patient sitting up at the bedside eating breakfast. She reports that she feels like a new person since late yesterday afternoon. She went into atrially paced rhythm and her atrial fibrillation resolved. The patient is starting Eliquis 2.5 mg twice daily today. The patient is 83 years of age and less than 60 kg. The patient does report that her chronic cough she has had for the last 3 weeks has resolved. This seems to correlate with her being in atrial fibrillation. The patient remain off of aspirin and Plavix and be maintained on Eliquis 2.5 mg twice daily for stroke prevention. The patient's Tikosyn was decreased from 500 mg twice daily down to 250 mg due to a prolongation of her QTc on her EKG after the second dose of 500 mg. The patient is due to get her third dose at 250 mg later this morning. Objective Data Vital Signs: Vital Signs Temp Pulse Resp BP Pulse Ox O2 Del Method 97.8 F 60 18 106/50 L 99 Room Air 12/14/23 07:30 12/14/23 07:30 12/14/23 07:30 12/14/23 07:30 12/14/23 07:30 12/14/23 07:30 Oxygen Delivery Method Room Air Weight: 125 lb 10.616 oz Body Mass Index (BMI) 25.0 Intake & Output: Intake and Output for Last 24 Hours 12/12/23 12/13/23 12/14/23 23:59 23:59 23:59 Intake Total 250 / 250 1420 / 1420 120 / 120 Balance 250 / 250 1420 / 1420 120 / 120 Lab / Micro Data Attestation: I reviewed the patient's lab results. 12/12/23 10:25 12/12/23 10:25 Rhythm Strip Rhythm Strip: Atrial paced rhythm Rate: 60 Cardiology Labs/Tests Rhythm: EKG: ECHO: Stress Test: Cardiac Cath: PCI: CT Surgery: Holter monitor: EPS: PPM: CXR: Chest CT Scan: Radiography Diagnostic Testing: Radiology Impression Echocardiogram 12/12/23 12:06 Interpretation Summary The estimated ejection fraction is 65 %. No evidence for diastolic dysfunction. Mild (1+) mitral valve insufficiency. Ordering Physician: Travis Alonzo Referring Physician: Rakel Archer Performed By: Christiana De Leon, RDCS, RVT Brain CT 12/13/23 08:26 IMPRESSION: No acute intracranial abnormality. Stable mild chronic ischemic and atrophic changes. Electronically Signed: Dung Nolen MD at 9:04 EDT , EKG Follow-up EKG: Attestation: I personally reviewed and interpreted this EKG as follows: (Atrially paced rhythm at 60 bpm. [place] QRS conduction. QT interval over 500 ms at 520. Represents greater than 20% increase from baseline. After second dose at 500 mg.) Physical Exam Narrative Patient sitting at the bedside in no distress. Const alert and oriented x3 HEENT normocephalic Eyes EOMs intact bilaterally Neck no JVD Carotids: Negative for bruit Chest inspection of chest normal Chest: left pectoral incision Resp normal respiratory effort and clear to auscultation bilaterally Cardio regular rate, regular rhythm, S1 normal heart sound, S2 normal heart sound, no murmurs, no rub, no gallops and no JVD GI soft to palpation Extremity no pedal edema Skin no rashes or lesions noted Neuro Neuro Narrative: Alert and oriented x 3 moving all of her extremities did not formally test strength in her lower extremity. Psych mental status grossly normal Assessment & Plan Assessment/Plan (1) Atrial fibrillation with RVR: PLAN: Patient is currently in an atrially paced rhythm. Tikosyn was started yesterday at 500 mg twice daily the second EKG showed an increase in the QT interval. Tikosyn was decreased to 250 mg twice daily the next EKG will be 2 hours after the 250 mg dose. If the QT remains increased will need to decrease again to 125 mg twice daily. If the QT remains elevated would not be able to use Tikosyn. The patient will institute Eliquis 2.5 mg twice daily starting today as cleared by the neurologist. The patient is 83 years of age and less than 60 kg necessitating a reduction in dose. The patient should follow-up in the [facility] office 7 to 10 days after discharge for an EKG and follow-up appointment with advanced practitioner. (2) History of permanent cardiac pacemaker placement: PLAN: Patient's pacer is monitored through the [facility]. She should have a pacer check when she is evaluated to determine the duration of her recent atrial fibrillation preceding this CVA. Currently the pacer appears to be functioning normally. (3) CVA (cerebral vascular accident): PLAN: Patient's neurologic deficit was right lower extremity weakness. This has been intermittently coming and going yesterday. She appears to be recovering. The patient is being evaluated for physical therapy and rehab. From a cardiovascular standpoint the patient should be able to proceed with transfer to rehab facility once we determine the exact dose of Tikosyn. We should have this evaluation completed within the next 24 hours. If the patient's QT remains stable on 125 mg or more of Tikosyn after the fifth dose she should be able to be transferred to inpatient rehab. There is any questions about this please call me as I will be rotating off the service today but I will be available to assist with determination of long-term management. PLAN: Plan 1. Decrease Tikosyn to 250 mg twice daily and recheck QT interval after the first dose. 2. If QT interval remains increased with decrease Tikosyn to 125 mg twice daily. 3. If QT is acceptable after the fifth total dose which would be 916 around noon patient should be able to be discharged. 4. If QT remains elevated on 125 mg twice daily, would discontinue Tikosyn and institute metoprolol succinate 50 mg daily. 5. If QT is acceptable on acceptable dosing regimen should be able to be discharged to a rehab facility or to home in the afternoon of 12/15/2023. 6. Please call Dr. Prather at [phone] if any questions. Charges/Coding Visit Charges Inpatient E&M: 31445 Subs Hosp L3
[2023-12-14] MEDS: Dofetilide 250 MCG Capsule PO ×2 (11:06→21:53)
[2023-12-14] MEDS: Loratadine 10 MG Tablet PO (11:06)
[2023-12-14] MEDS: APIXABAN 2.5 MG TABLET (WCH) PO ×2 (11:06→21:52)
[2023-12-14] MEDS: Metoprolol Tartrate 50 MG Tablet PO ×2 (11:06→21:46)
[2023-12-14] MEDS: Atorvastatin Calcium 40 MG Tablet PO (21:53)
[2023-12-15] VITALS (7 sets, daily range): BP systolic 102–114; BP diastolic 45–58; PULSE 60–62; RESP 16–18; TEMP 36.3–36.8; O2SAT 95–100; BMI 23.9
[2023-12-15] MEDS: Levothyroxine 112 MCG Tablet PO (05:49)
--- NOTE | 2023-12-15 09:11 | CASEMGMT ---
MADDISON met with patient. Introduced self and role at [facility]. Per weekend SW patient was interested in Acute Rehab at [facility]. MADDISON asked patient if she was still interested in Acute Rehab. Patient said she would prefer to go to Rehab if her insurance will pay for it. MADDISON told patient there is a good possibility that her insurance may not approve her, but we can try. Patient said yesterday she walked the halls with therapy and when she got back to the room the therapist said she started dragging her foot and she should go to Rehab. MADDISON let patient know we can see what insurance says. MADDISON let Romelia know patient is still interested in the Rehab Unit. Kateryna Holliday [employer]
[2023-12-15] MEDS: Mag Hydrox/Al Hydrox/Simeth 30 ML UDC PO (09:37)
[2023-12-15] MEDS: Metoprolol Tartrate 50 MG Tablet PO ×2 (09:37→22:21)
[2023-12-15] MEDS: APIXABAN 2.5 MG TABLET (WCH) PO ×2 (09:37→22:20)
[2023-12-15] MEDS: Loratadine 10 MG Tablet PO (09:38)
[2023-12-15] MEDS: Dofetilide 250 MCG Capsule PO ×2 (09:38→22:21)
--- NOTE | 2023-12-15 12:15 | CASEMGMT ---
Rehab accepted patient and pre-cert is being initiated. Kateryna Holliday [employer]
--- NOTE | 2023-12-15 14:34 | PCM.PROGNOTE ---
Subjective Subjective Patient seen and examined. She complained of constipation. She said the weakness in her RLE is improving. Review of systems is otherwise negative. She is awaiting placement. Objective Data Objective Data Vital Signs: Vital Signs Temp Pulse Resp BP Pulse Ox O2 Del Method 97.9 F 60 16 107/58 L 99 Room Air 12/15/23 09:10 12/15/23 09:37 12/15/23 09:10 12/15/23 09:37 12/15/23 09:10 12/15/23 09:10 Oxygen Delivery Method Room Air Weight: 130 lb 14.4 oz Body Mass Index (BMI) 23.9 Intake & Output: Intake and Output for Last 24 Hours 12/13/23 12/14/23 12/15/23 23:59 23:59 23:59 Intake Total 1420 / 1420 480 / 480 Balance 1420 / 1420 480 / 480 Lab / Micro Data 12/12/23 10:25 12/12/23 10:25 Rhythm Strip Rhythm Strip: Atrial paced rhythm Rate: 60 Physical Exam Const alert, oriented x3 and no apparent distress Constitutional Narrative: frail General Appearance: cooperative HEENT normocephalic, head/scalp atraumatic, moist oral mucous membranes and oropharynx normal Eyes PERRL and EOMs intact bilaterally Neck supple, no JVD, thyroid normal and nodes Lymph Lymphatic: no lymphadenopathy noted and no lymphedema noted Resp normal respiratory effort, normal air movement and clear to auscultation bilaterally Cardio regular rate, regular rhythm, S1 normal heart sound, S2 normal heart sound and no murmurs GI normal to inspection, nondistended, normoactive bowel sounds, soft to palpation, non-tender and non-distended Extremity normal capillary refill, no clubbing, cyanosis or edema and no calf tenderness General Extremity: no tenderness to palpation of joints or extremities Skin General Skin Exam: no breakdown Neuro CN's II-XII intact bilaterally and no focal motor deficits Neuro Narrative: power in RLE is 4-/5 Motor Exam: general weakness Psych thought process normal, cooperative and affect normal Appearance: appropriate Assessment & Plan Assessment/Plan (1) CVA (cerebral vascular accident): PLAN: Plan #Acute CVA MRI brain showed a small left posterior parietal lobe infarct repeat CT brain done due to worsening symptoms showed no acute intracranial pathology and still showed the stroke as referenced above PT/OT On board neurology on board on aspirin and plavix as well as statin. neurology recommended that eliquis be commenced 3 days after her stroke. Patient not previously on Eliquis. #A-fib with RVR #Afib RVR has resolved. on metoprolol now on Tikosyn also. Per cardiology, can be discharged on PO tikosyn 250mcg daily. To get repeat EKG in one week to monitor her QTc. Results to be sent to choir director Dr. Prather for adjustment of tikosyn dose as needed. on eliquis DVT prophylaxis: on eliquis. Charges/Coding Visit Charges Inpatient E&M: 40042 Subs Hosp L2
[2023-12-15] MEDS: Senna/Docusate Sodium 1 Tablet 2 TABLET PO (14:38)
[2023-12-15] MEDS: Lactobacillis Acidophilus 1 CAP PO (18:03)
[2023-12-15] MEDS: Famotidine 20 MG Tablet 10 MG PO (18:03)
[2023-12-15] MEDS: Calcium (Elemental) 500 MG Tablet 1500 MG PO (18:03)
[2023-12-15] MEDS: Gentamicin Sulfate 1 OPTH.BTL 1 DRP OPHTHALMIC (18:10)
[2023-12-15] MEDS: Atorvastatin Calcium 40 MG Tablet PO (22:20)
[2023-12-15] MEDS: prednisoLONE eye drops (5 mL) 1 DROP OPTH.BTL 1 DRP OPHTHALMIC (22:22)
[2023-12-15] MEDS: Ascorbic Acid 500 MG Tablet 1000 MG PO (22:23)
[2023-12-16 03:12] VITALS: BP 136/76; PULSE 93; RESP 18; TEMP 36.7; O2SAT 97
[2023-12-16 05:28] VITALS: BMI 22.1
[2023-12-16] MEDS: Levothyroxine 112 MCG Tablet PO (05:29)
[2023-12-16 08:34] VITALS: BP 124/67; PULSE 118; RESP 18; TEMP 36.4; O2SAT 96
[2023-12-16] MEDS: Calcium (Elemental) 500 MG Tablet 1500 MG PO (08:44)
[2023-12-16] MEDS: Loratadine 10 MG Tablet PO (08:44)
[2023-12-16] MEDS: APIXABAN 2.5 MG TABLET (WCH) PO (08:44)
[2023-12-16 08:45] VITALS: PULSE 118
[2023-12-16] MEDS: Ascorbic Acid 500 MG Tablet 1000 MG PO (08:45)
[2023-12-16] MEDS: Metoprolol Tartrate 50 MG Tablet PO (08:45)
[2023-12-16] MEDS: Dofetilide 250 MCG Capsule PO (08:45)
[2023-12-16 10:54] VITALS: BMI 22.1
--- NOTE | 2023-12-16 11:37 | CASEMGMT ---
Patient was approved for Acute Rehab. SW notified patient. Patient at first told SW she wants to go home as she cannot take her supplements while at [facility]. SW notified Romelia in Rehab and she said patient can take her supplements as long as she brings them in. SW notified patient and she would like to go to Rehab since she can take her supplements. SW let Romelia and physician know this information. Plan: d/c to [facility] Acute Rehab. Kateryna CARUSO
--- NOTE | 2023-12-16 11:51 | PCM.DC.SUM ---
Providers Date of Admission: 12/12/23 Date of Discharge: 12/16/23 Primary Care Physician: Dr. Rakel Archer, Consultations 12/12/23 12:06 Consult: Tele-Neurology Routine Consulting Provider: [facility] Reason for Consult: Acute Ischemic Stroke/TIA EMERGENT Consult: No Notified: Yes Date Notified: 12/12/23 Time Notified: 11:05 Method of Notification: ED Physician Initiated Nursing Unit Staff Notify [facility] of Tele-Neurology Consult: Yes 12/13/23 09:12 Consult: Cardiology Routine Consulting Provider: Rogelio Prather Reason for Consult: afib rvr EMERGENT Consult: No Notified: Yes Date Notified: 12/13/23 Time Notified: 09:12 Method of Notification: Text Reason For Visit: CVA Diagnosis Discharge Diagnosis (1) CVA (cerebral vascular accident): Status: Acute Code(s): I63.9 - Cerebral infarction, unspecified Plan #Acute CVA MRI brain showed a small left posterior parietal lobe infarct repeat CT brain done due to worsening symptoms showed no acute intracranial pathology and still showed the stroke as referenced above PT/OT On board neurology on board on aspirin and plavix as well as statin. neurology recommended that eliquis be commenced 3 days after her stroke. Patient not previously on Eliquis. #A-fib with RVR #Afib RVR has resolved. on metoprolol now on Tikosyn also. Per cardiology, can be discharged on PO tikosyn 250mcg daily. To get repeat EKG in one week to monitor her QTc. 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 Prather for adjustment of tikosyn dose as needed. on eliquis DVT prophylaxis: on eliquis. Medications at Discharge Home Medications levothyroxine 112 mcg tablet 112 mcg PO DAILY thyroid 09/04/13 L.acidoph, paracasei,B. lactis 10 billion cell capsule 1 ea PO QHS probiotic 02/28/15 cetirizine 10 mg capsule 10 mg PO DAILY allergies 02/28/15 glucosamine HCl 500 mg-msm 83 mg-chondroitin 400 mg tablet 1 ea PO BID joints 02/28/15 prednisolone acetate 1 % eye drops,suspension 1 drp ophthalmic (eye) QHS drops for post cornea transplant 09/15/17 aspirin 81 mg tablet,delayed release (Adult Low Dose Aspirin) 81 mg PO QDAY [employer] #90 tabs 09/16/17 black cohosh 540 mg capsule 540 mg PO DAILY hormones 02/18/18 cranberry extract 500 mg tablet 12,500 mg PO BID prevent uti 02/18/18 ascorbic acid (vitamin C) 1,000 mg tablet 1,000 mg PO BID vitamin 09/21/19 gentamicin 0.3 % eye drops 1 drp ophthalmic (eye) QHS PRN eye infection 09/21/19 cholecalciferol (vitamin D3) 50 mcg (2,000 unit) capsule 4,000 unit PO QODAY vitamin 07/12/20 Curamin 3 cap PO DAILY pain relief 01/24/22 calcium carbonate 1,500 mg PO BID osteoporosis 01/24/22 ketotifen fumarate 0.025 % (0.035 %) eye drops (Zaditor) 1 drp ophthalmic (eye) QHS PRN allergy symptoms 01/24/22 quercetin 500 mg capsule 500 mg PO DAILY general health 01/24/22 famotidine 10 mg tablet (Acid Controller) 10 mg PO DAILY PRN reflux 12/13/23 apixaban 5 mg tablet (Eliquis) 2.5 mg (1/2 x 5 mg) PO BID #60 tabs 12/16/23 atorvastatin 40 mg tablet 40 mg PO QHS #30 tabs 12/16/23 dofetilide 250 mcg capsule 250 mcg PO Q12 #60 caps 12/16/23 metoprolol tartrate 50 mg tablet 50 mg PO BID #60 tabs 12/16/23 Hospital Course Operations None Procedures 2-D Echocardiogram Summary of Care Provided Minutes Spent on Discharge: 57 Hospital Course: Patient is an 83-year-old female with past medical history of atrial fibrillation and was admitted through the ED on 12/12/2023 with a feeling of unwellness whilst on a walk with her son. She felt very weak and tired. When she got back from the walk, she realised her right leg was weak. She denied weakness, expressive or receptive aphasia or any other symptoms. She denied any blurred vision. Review of systems was otherwise negative. Initial CT of the brain in the ED was negative for any evidence of a stroke. She was started on aspirin and plavix due to concerns for a stroke. She did have a history of atrial fibrillation but was not anticoagulated as she had refused anticoagulation in the past. MRI of the brain done showed a small left posterior parietal lobe infarct. She was placed on high intensity statin. Neurology recommended that patient be commenced on Eliquis. She also had A-fib with RVR during the admission. She was placed on metoprolol but heart rate was still not controlled. Of note she had 2D echo which showed EF of 65% with no evidence of diastolic dysfunction. Cardiology was consulted and she was placed on Tikosyn. She was initially on 500 mcg twice daily. However QTc was noted to be prolonged so the dose was cut down to 250 mcg twice daily. Subsequent ECG showed normal QTc. Per cardiology she was to follow-up with cardiology within 1 week for repeat EKG to monitor her QTc. Patient was discharged to acute rehab facility on 12/16/2023. She was discharged on p.o. Tikosyn to 250 mcg twice daily as well as PO metoprolol 50 mg twice daily and Eliquis 2.5 mg twice daily. She is to follow-up with her primary care doctor and with cardiology within 1 to 2 weeks. Patient seen and examined prior to discharge. Her son was by her bedside. She had no complaints and had an uneventful night. Review of systems otherwise negative. Labs and vitals reviewed. Medication reviewed and reconciled. Physical Exam Const alert, oriented x3 and no apparent distress Constitutional Narrative: frail General Appearance: cooperative, comfortable and well kempt Orientation / Consciousness: awake Exam Limitations: no limitations HEENT normocephalic, head/scalp atraumatic, hearing grossly normal bilaterally, moist oral mucous membranes and oropharynx normal Mouth: oral and palatal mucosa normal Eyes PERRL and EOMs intact bilaterally Eyes Narrative: No icterus Neck no lymphadenopathy, supple, no JVD, thyroid normal and nodes Lymph Lymphatic: no lymphadenopathy noted and no lymphedema noted Resp normal respiratory effort, normal air movement, no retractions, no use of accessory muscles and clear to auscultation bilaterally Cardio regular rate, regular rhythm, S1 normal heart sound, S2 normal heart sound and no murmurs Cardio Narrative: Irregularly irregular GI normal to inspection, nondistended, normoactive bowel sounds, soft to palpation, non-tender, non-distended and hepatosplenomegaly Extremity normal to inspection, full ROM, normal capillary refill, no clubbing, cyanosis or edema and no calf tenderness General Extremity: no tenderness to palpation of joints or extremities Skin no rashes or lesions noted General Skin Exam: no breakdown Neuro oriented x3, CN's II-XII intact bilaterally, moves all extremities and no focal motor deficits Neuro Narrative: power in RLE is 4-/5 Sensorium / Orientation: awake and alert Coordination / Balance: [id number] test normal Motor Exam: general weakness Psych thought process normal, cooperative and affect normal Appearance: appropriate Weight / BMI Weight Weight: 121 lb 4.068 oz Body Mass Index (BMI) 22.1 ABG / Lab / Microbiology Data 12/12/23 10:25 12/12/23 10:25 Microbiology: Microbiology 12/15/23 19:00 Mucosa - Nose SARS-CoV-2, Influenza & RSV (PCR) - Final D/C Instructions Discharge Diet: Low fat / Low cholesterol Discharge Activity: Return to Normal Activity Weight Bearing Status: Weight bearing as tolerated Call your doctor if you observe: Fever of 101 or Higher, Shortness of breath, Dizziness, Swelling in the ankles and Chest pain Meaningful Use Info Meaningful Use Meaningful Use Diagnoses (Choose all that apply): Hemorrhagic CVA CVA Therapy Assessed for PT,OT and/or ST?: Yes Ischemic Stroke Antithrombotic order at d/c?: Yes Dx of Atrial fib/flutter?: Yes Anticoagulant at discharge?: Yes Statin Dosing Therapy Reference: STATIN DOSE THERAPY REFERENCE: * Patients > 75 years receive moderate or high dose statin therapy. * Patients 75 years or YOUNGER should receive HIGH intensity statin dose unless contraindicated. You will be required to document reason for non-treatment if statin daily dose does not meet guidelines. HIGH DOSE STATIN THERAPY DAILY Atorvastatin > than or = to 40 mg Rosuvastatin > than or = to 20 mg Amlodipine + Atorvastatin > than or = to 2.5/40 mg Ezetimibe + Simvastatin 10/80 mg Simvastatin 80mg Statins at discharge?: Yes Primary Dx Acute Ischemic CVA?: Yes IV thrombolytic ordered during stay?: No Reason IV thrombolytic not ordered: Treatment not Indicated Discharge Plan Admission Admit Date/Time: 12/12/23 11:04 Primary Reason for Your Visit: acute CVA Attending Provider: Pily Cody Primary Care Provider: Rakel Archer Consulting Providers: Benny Raines; Jessica Ruiz; Gisella Camarena; Lisa Rivera; Laxmi Vance; León Arrieta; Viviana Al; Jamshid Alaniz; Ernie Rainey; Gil Tidwell; Lissette Schaffer; Brad Serrano; Amena Titus; Darya Basilio; Deonte Guerra; Herman Petersen; Reggie Richards; Hugo Hunt; Virginia De La Torre; Jude Sanford; Rogelio Prather; Travis Alonzo Instructions Patient Instructions: AFib Preventing Stroke, Booklet - Understanding Stroke Additional Instructions / Restrictions: to have EKG done next Friday in the rehab unit, or go to Dr Prather' office for an EKG to evaluate her QTc. Discharge Orders/Prescriptions Prescriptions: New atorvastatin 40 mg Tablet 40 mg PO QHS Qty: 30 2RF dofetilide 250 mcg Capsule 250 mcg PO Q12 Qty: 60 1RF metoprolol tartrate 50 mg Tablet 50 mg PO BID Qty: 60 2RF Eliquis 5 mg Tablet 2.5 mg PO BID Qty: 60 2RF Continued aspirin [Adult Low Dose Aspirin] 81 mg tablet,delayed release (DR/EC) 81 mg PO QDAY Qty: 90 6RF prednisolone acetate 1 % drops,suspension 1 drp OPHTHALMIC QHS ascorbic acid (vitamin C) 1,000 mg tablet 1,000 mg PO BID gentamicin 0.3 % drops 1 drp OPHTHALMIC QHS PRN (Reason: eye infection) Patient Comments: INSTILL 1 DROP INTO RIGHT EYE 4 TIMES DAILY ketotifen fumarate [Zaditor] 0.025 % (0.035 %) drops 1 drp ophthalmic (eye) QHS PRN (Reason: allergy symptoms) Rx Instructions: administer at least 8 hours apart quercetin 500 mg capsule 500 mg PO DAILY Curamin 3 cap PO DAILY Patient Comments: 2 caps in am and 1 at hs levothyroxine 112 MCG tablet 112 mcg PO DAILY cetirizine 10 MG capsule 10 mg PO DAILY glucosamine [id number]-ticsntcunp 1 EACH tablet 1 ea PO BID L.acidoph, paracasei,B. lactis 1 EACH capsule 1 ea PO QHS black cohosh 540 MG capsule 540 mg PO DAILY cranberry extract 500 MG tablet 12,500 mg PO BID Patient Comments: pt taking 1 capsule twice daily calcium carbonate 500 mg calcium (1,250 mg) tablet 1,500 mg PO BID cholecalciferol (vitamin D3) 2,000 UNIT capsule 4,000 unit PO QODAY Patient Comments: pt taking 2000units daily famotidine [Acid Controller] 10 mg tablet 10 mg PO DAILY PRN (Reason: reflux) Discontinued metoprolol succinate 25 mg tablet extended release 24 hr 25 mg PO QHS Qty: 90 3RF lovastatin 40 mg tablet 40 mg PO QHS Qty: 90 3RF Referrals / Follow Up: Rakel Archer DO [Primary Care Provider] - Within 1 Week Rogelio Prather MD [Med Staff - Active Staff] - Within 1 Week Disposition Disposition (needs filled in before D/C Order can be placed): Inpatient Rehab Unit/Facility Charges/Coding Visit Charges Inpatient E&M: 64744 Disch Hosp >30min
--- NOTE | 2023-12-16 12:16 | PHA.DC.MR.R ---
Pharmacy [place] Med Reconciliation Pharmacy Service has performed discharge medication reconciliation for this patient. The patient's discharge medication list was reviewed for discrepancies and discrepancies were resolved. Medications at Discharge Home Medications levothyroxine 112 mcg tablet 112 mcg PO DAILY thyroid 09/04/13 L.acidoph, paracasei,B. lactis 10 billion cell capsule 1 ea PO QHS probiotic 02/28/15 cetirizine 10 mg capsule 10 mg PO DAILY allergies 02/28/15 glucosamine HCl 500 mg-msm 83 mg-chondroitin 400 mg tablet 1 ea PO BID joints 02/28/15 prednisolone acetate 1 % eye drops,suspension 1 drp ophthalmic (eye) QHS drops for post cornea transplant 09/15/17 aspirin 81 mg tablet,delayed release (Adult Low Dose Aspirin) 81 mg PO QD [employer] #90 tabs 09/16/17 black cohosh 540 mg capsule 540 mg PO DAILY hormones 02/18/18 cranberry extract 500 mg tablet 12,500 mg PO BID prevent uti 02/18/18 ascorbic acid (vitamin C) 1,000 mg tablet 1,000 mg PO BID vitamin 09/21/19 gentamicin 0.3 % eye drops 1 drp ophthalmic (eye) QHS PRN eye infection 09/21/19 cholecalciferol (vitamin D3) 50 mcg (2,000 unit) capsule 4,000 unit PO QODAY vitamin 07/12/20 Curamin 3 cap PO DAILY pain relief 01/24/22 calcium carbonate 1,500 mg PO BID osteoporosis 01/24/22 ketotifen fumarate 0.025 % (0.035 %) eye drops (Zaditor) 1 drp ophthalmic (eye) QHS PRN allergy symptoms 01/24/22 quercetin 500 mg capsule 500 mg PO DAILY general health 01/24/22 famotidine 10 mg tablet (Acid Controller) 10 mg PO DAILY PRN reflux 12/13/23 apixaban 5 mg tablet (Eliquis) 2.5 mg (1/2 x 5 mg) PO BID #60 tabs 12/16/23 atorvastatin 40 mg tablet 40 mg PO QHS #30 tabs 12/16/23 dofetilide 250 mcg capsule 250 mcg PO Q12 #60 caps 12/16/23 metoprolol tartrate 50 mg tablet 50 mg PO BID #60 tabs 12/16/23
--- NOTE | 2023-12-16 13:57 | NURSING ---
This RN called and gave report to DONALD Putnam at Rehab here in [place].
== END 2023-12-16 14:46 | DRG 66 ==
LOC: ED 11:03 → PCU 11:16
PROVIDERS: Emergency Provider Emergency Medicine; PCP Internal Medicine; Visit Provider Student in an Organized Health Care Education/Training Program
DX: I63.89 Other cerebral infarction (principal); E03.9 Hypothyroidism, unspecified; G83.11 Monoplegia of lower limb affecting right dominant side; I48.0 Paroxysmal atrial fibrillation; E78.5 Hyperlipidemia, unspecified; K21.9 Gastro-esophageal reflux disease without esophagitis; K59.00 Constipation, unspecified; R29.704 NIHSS score 4; Z79.82 Long term (current) use of aspirin; Z79.890 Hormone replacement therapy; Z79.899 Other long term (current) drug therapy; Z95.0 Presence of cardiac pacemaker
CPT/HCPCS: 36415; 70450; 70496; 70498; 70551; 71045; 80048; 80061; 82962; 84484; 85025; 85610; 85730; 87631; 92526; 92610; 93005; 93306; 97110; 97116; 97162; 97166; 97530; 97535; 97802; 99285; J7030; Q9967; A4216; J2405

== ENCOUNTER 2023-12-16 14:50 | Inpatient (IN) | payer MEDICARE, SELFPAY ==
[2023-12-16 15:32] VITALS: BP 111/47; PULSE 85; RESP 15; TEMP 37; O2SAT 98; BMI 22.1
[2023-12-16 15:58] VITALS: BMI 22.3
--- NOTE | 2023-12-16 16:06 | EX.PCM.HP.RE ---
[facility] - General General Date of Admission: 12/16/23 Date of Service: 12/16/23 Chief Complaint: Post stroke debility HPI Narrative SARAH MINOR, is a 83 YO F with a PMH of pAF (not on chronic anticoagulation...taking ASA 81 mg daily), carotid artery stenosis (50% or less), Hypothyroidism, HLD, osteoporosis, GERD, PM insertion in Nov and SSS who presented to the ED at [facility] on 12/12/2023 c/o RLE weakness. she was not able to move her R leg after she finished her morning walk of 1/2 mile. Her son was with her and got her into the house and they called 911. She was brought to the ED. Stat NC CT brain showed chronic involutional changes of the brain only. CTA of the head and neck showed minimal plaque at the origin of the left and right internal carotid arteries causing less than 50% stenosis. There was plaque along the distal portion of the left cavernous carotid with less than 50% narrowing. Teleneurology was consulted and the neurologist felt she was not a candidate for TNK because the risk outweighed the benefit. The NIH per the neurologist was 0 but, there was noticeable weakness of the R leg when compared to the left. She was admitted to the hospitalist service for stroke workup. She was continued on ASa and Plavix was added. she was started on a statin. Transthoracic echocardiogram showed normal left ventricular size with an ejection fraction of 65% and no evidence for diastolic dysfunction or wall motion abnormality. The left and right atria were of normal size. The bubble contrast study was negative for [id number] interatrial shunt. There was mild mitral insufficiency but no significant valvular heart disease. MRI showed atrophy and minor periventricular white matter ischemic changes. It was a small acute infarct in the left posterior parietal lobe. Follow-up consult with neurology on 12/13/2023 was obtained. Chronic anticoagulation with Eliquis was recommended and also treatment with a high intensity statin. The neurologist felt the stroke was likely cardioembolic. While in the hospital she was seen by Dr. Prather from cardiology. Prior to 83 years of age she was well-controlled on flecainide however, flecainide was stopped and 83 due to the risk of continuing the medication outweighing the benefit. She was transition to amiodarone which she did not tolerate. She was started on metoprolol but had breakthrough atrial fibrillation. Dr. Prather agreed with starting Eliquis and recommended starting Tikosyn at 500 mg twice daily. EKG 2 hours after the first dose of Tikosyn showed a QTc of 396 ms. At that time she was in a paced rhythm. EKG after the second dose of Tikosyn 500 mg showed a QTc of 437 ms and once again she was in an atrial paced rhythm. Dr. Figueredo use decrease the Tikosyn to 250 mg twice daily due to prolongation of the QTc on her EKG 2 hours after the second dose. EKG following the first dose of 250 mg showed atrial fibrillation with rapid ventricular response at 101 bpm. The QTc was 534 ms. EKG on 12/15/2023 showed atrial paced rhythm at 60 bpm with a QTc of 448 ms. Cardiology recommended discharge on Tikosyn 250 mg once daily and a repeat EKG in 1 week to monitor her QTc. She was transferred to the acute inpatient rehab unit at [facility] on 12/16/2023 for 3 hours of therapy daily to restore function/independence at or near her level prior to the stroke. Prior to the stroke she was walking every morning for 1/2 to 1 mile without an AD. She was independent with all ADL's and she was driving. She has a walk-in shower but, no grab bars. She has 1 step to enter her house from the garage but, no step at the front entrance. She takes a number of herbal supplements and I will have to check with pharmacy to see if she is allowed to use these while in hospital. She has a blocked tear duct in the R eye and has a RX for gentamicin eye drops to use PRN when she feels there is infection present. Lipid panel at admission showed triglycerides of 49, LDL of 44, HDL of 80. [facility] Medical History (Updated 12/17/23 @ 10:[address] Alycia aCrdenas DO) Asthma Blocked tear duct Osteoporosis Carotid artery disease Hypothyroidism Hyperlipidemia GERD (gastroesophageal reflux disease) Sinus bradycardia Paroxysmal atrial fibrillation Sick sinus syndrome Home Medications ?Medication ?Instructions ?Recorded ?Last Taken ?Type levothyroxine 112 mcg tablet 112 mcg PO DAILY thyroid 09/04/13 12/16/23 History L.acidoph, paracasei,B. lactis 10 1 ea PO QHS probiotic 02/28/15 12/15/23 History billion cell capsule cetirizine 10 mg capsule 10 mg PO DAILY allergies 02/28/15 12/16/23 History glucosamine HCl 500 mg-msm 83 1 ea PO BID joints 02/28/15 12/16/23 History mg-chondroitin 400 mg tablet prednisolone acetate 1 % eye 1 drp ophthalmic (eye) QHS drops 09/15/17 12/15/23 History drops,suspension for post cornea transplant aspirin 81 mg tablet,delayed 81 mg PO QDAY heart health #90 tabs 09/16/17 12/11/23 Rx release (Adult Low Dose Aspirin) black cohosh 540 mg capsule 540 mg PO DAILY hormones 02/18/18 Unknown History cranberry extract 500 mg tablet 12,500 mg PO BID prevent uti 02/18/18 Unknown History ascorbic acid (vitamin C) 1,000 mg 1,000 mg PO BID vitamin 09/21/19 12/11/23 History tablet gentamicin 0.3 % eye drops 1 drp ophthalmic (eye) QHS PRN eye 09/21/19 12/15/23 History infection cholecalciferol (vitamin D3) 50 4,000 unit PO QODAY vitamin 07/12/20 Unknown History mcg (2,000 unit) capsule Curamin 3 cap PO DAILY pain relief 01/24/22 Unknown History calcium carbonate 1,500 mg PO BID osteoporosis 01/24/22 12/16/23 History ketotifen fumarate 0.025 % (0.035 1 drp ophthalmic (eye) QHS PRN 01/24/22 Unknown History %) eye drops (Zaditor) allergy symptoms quercetin 500 mg capsule 500 mg PO DAILY general health 01/24/22 12/11/23 History famotidine 10 mg tablet (Acid 10 mg PO DAILY PRN reflux 12/13/23 Unknown History Controller) apixaban 5 mg tablet (Eliquis) 2.5 mg (1/2 x 5 mg) PO BID Blood 12/16/23 Unknown Rx thinner #60 tabs atorvastatin 40 mg tablet 40 mg PO QHS cholestrol #30 tabs 12/16/23 Unknown Rx dofetilide 250 mcg capsule 250 mcg PO Q12 afib #60 caps 12/16/23 12/16/23 Rx metoprolol tartrate 50 mg tablet 50 mg PO BID BP #60 tabs 09/17/24 Unknown Rx Allergy/AdvReac Type Severity Reaction Status Date / Time nitrofurantoin (From AdvReac Severe Vomiting Verified 12/12/23 10:21 Macrobid) nitrofurantoin AdvReac Severe Vomiting Verified 12/12/23 10:21 macrocrystalline (From Macrobid) amiodarone AdvReac Intermediate Severe Verified 12/12/23 10:21 dizziness montelukast (From Singulair) AdvReac Unknown Unknown Verified 12/12/23 10:21 Tetracyclines AdvReac Other Verified 12/12/23 10:21 Family History Father CAD (coronary artery disease) Mother Heart disease Surgical History History of permanent cardiac pacemaker placement (12/21/12) History of esophagogastroduodenoscopy (EGD) (~02/23/18) History of cataract surgery History of carpal tunnel surgery History of arthroscopic knee surgery History of tonsillectomy and adenoidectomy Hx of appendectomy Social History (Updated 12/16/23 @ 16:[address] Alycia Cardenas DO) household members: family and other details: Her son James is currently living with her. She is a twice now. 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 [employer] Smoking Status: Never smoker alcohol intake: never substance use type: does not use caffeine: No what type of physical activity do you participate in: walking, aerobics and other details: Silver Sneakers frequency: daily duration: other details: She walks for 0.5 - 1 mile daily in the morning seatbelt use: always ROS Constitutional Constitutional: Reports weakness; Denies anorexia, change in weight, chills, fatigue, fever(s) or night sweats Eyes Eyes: Reports discharge from eye(s) and other Details: small amount of DC from the R eye with some mattering of the eyelashes......takes Gentamicin drops PRN for this ; Denies blurry vision, change in vision, eye pain or loss of vision ENT HEENT: Reports other Details: Has rhinitis at times and uses Zyrtec ; Denies abnormal hearing, dysphagia, headache(s), hearing loss, nasal congestion or sore throat Cardiovascular Cardiovascular: Denies chest pain, dyspnea on exertion, edema, lightheadedness, orthopnea, palpitations, paroxysmal nocturnal dyspnea or syncope Respiratory/Chest Respiratory/Chest: Reports cough and other Details: Has a dry cough. Has seen Dr. Allen in the past and has been prescribed inhalers. Questionable history of asthma. Will obtain records from Dr. Parisi. ; Denies dyspnea, shortness of breath at rest, shortness of breath with exertion or wheezing Gastrointestinal Gastrointestinal: Denies abdominal pain, constipation, diarrhea, dyspepsia, hematemesis, hematochezia, nausea or vomiting Genitourinary Genitourinary: Denies dysuria, hematuria, nocturia, urinary frequency, urinary hesitancy, urinary incontinence or urinary urgency Musculoskeletal Musculoskeletal: Reports back pain, joint pain, stiffness and other Details: Takes Curamin for pain and tells me that this adequately relieves her pain. this is an OTC herbal supplement. She also takes Glucosamine. ; Denies joint swelling or neck pain Integumentary Integumentary: Denies jaundice, pruritus, rash or wounds Neurologic Neurologic: Reports focal weakness; Denies confusion, disequilibrium, dizziness, headache(s), paresthesias, seizures or tremor(s) Psychiatric Psychiatric: Denies anxiety, depression, homicidal ideation or suicidal ideation Endocrine Endocrinology: Denies change in body appearance, polydipsia or polyuria Hematologic/Lymphatic Hematologic/Lymphatic: Denies easy bleeding, easy bruising or lymphadenopathy Allergic/Immunologic Allergic/Immunologic: Reports rhinitis and asthma; Denies eczemia Vital Signs Vital Signs Vital Signs: 12/16/23 15:32 Temperature 98.6 F Temperature Source Temporal Pulse Rate 85 Respiratory Rate 15 Blood Pressure 111/47 L Blood Pressure Mean 68 Blood Pressure Source Monitor Blood Pressure Position Sitting Blood Pressure Location Right Arm Pulse Ox 98 Oxygen Delivery Method Room Air Weight Weight: 121 lb 4.068 oz Body Mass Index (BMI) 22.1 Indicators for Scoring Admitted with or Primary Diagnosis of CVA/Stroke: Yes Hx of CVA/Stroke: Yes Modified [place] Score MRS Score at time of Evaluation: 3-Moderate disability NIHSS NIHSS 1a. Level of Consciousness: Alert; keenly responsive 1b. LOC Questions: Answers BOTH questions correctly. 1c. LOC Commands: Performs both tasks correctly. 2. Best Gaze: Normal 3. Visual: No visual loss 4. Facial Palsy: Normal symmetrical movements 5a. Left Arm: No drift; arm holds 90 (or 45) degrees for full 10 seconds 5b. Right Arm: No drift; arm holds 90 (or 45) degrees for full 10 seconds 6a. Left Leg: No drift; leg holds 30-degree position for full 5 seconds 6b. Right Leg: Drift; leg falls by the end of 5-seconds, but does not hit bed (trace drift with the R leg.....it is getting stronger per the patient. R leg is definitely weaker than the L. ) 7. Limb Ataxia: Absent 8. Sensory: Normal; no sensory loss 9. Best Language: No aphasia; normal (Could not name the hammock but, when I gave her the beginning letter she was able to come up with the word. ) 10. Dysarthria: Normal 11. Extinction and Inattention: No abnormality Total: 1 Stroke Questions Stroke Team Activated: No Physical Exam Const alert, oriented x3, no apparent distress and well nourished Constitutional Narrative: Has some memory issues even prior to the stroke....no significant change since the stroke per her dtr Christine. General Appearance: cooperative and well developed Orientation / Consciousness: Negative for confused HEENT normocephalic and head/scalp atraumatic HEENT Narrative: No evidence of thrush Mouth: dry mucous membranes Eyes PERRL and EOMs intact bilaterally Eyes Narrative: No scleral icterus, no conjunctival injection. She tells me that she has had some DC from the R eye and she feels her eyelashes are a little crusty so she started taking Gentamicin drops from home.....she uses 1 drop at HS Neck supple, No nodes and no carotid bruits Neck Narrative: Brisk carotid upstroke with good pulse volume General: trachea midline Resp normal respiratory effort, normal air movement and clear to auscultation bilaterally Effort and Inspection: Negative for tachypneic Cardio S1 normal heart sound, S2 normal heart sound, no murmurs, no rub and no gallops Cardio Narrative: Irreg irreg rhythm......in AF when I listened to her and she did not know she was in AF. She is not tachycardic. She has cold feet.......R>L. DP pulses are palpable BL. GI normal to inspection, nondistended, normoactive bowel sounds, soft to palpation and non-tender GI Narrative: No guarding with palpation, no abdominal bruits. Had a bowel movement today but prior to that felt constipated. Extremity no calf tenderness Extremity Narrative: She has edema of the R ankle. There is also bruising present in the ankle.....shelli the medial side. She tells me that she recently suddenly had a varicose vein in the distal RLE burst and it became very bruised and swollen. she was trying to wear a compression stocking. General Extremity: edema Skin no wounds and no jaundice General Skin Exam: no breakdown Rashes: no rashes Neuro CN's II-XII intact bilaterally and no sensory deficits noted Neuro Narrative: she has mild drift with the RLE and it is definitely weaker than the left but, she and her dtr both tell me that it is stronger than it was at admission. No visual field cuts. No extinction. Coordination / Balance: [id number] test normal and [id number] test normal Speech: speech normal Psych cooperative, affect normal and denies suicidal ideation Psych Narrative: Makes good eye contact with me. Pleasant. sleeping well for the past few nights. Good appetite. A bit tearful when I told her we may not be able to allow her to take all the herbal supplements she uses while on rehab. Appearance: appropriate Attitude: No agitated Mood & Affect: Negative for depressed or anxious Results Lab / Micro Data 12/17/23 05:44 12/17/23 05:44 Assessment & Plan Assessment/Plan (1) Physical debility: (2) CVA (cerebral vascular accident): QUALIFIERS: CVA mechanism: embolism Precerebral and cerebral artery: other cerebral artery Qualified Code(s): I63.49 - Cerebral infarction due to embolism of other cerebral artery (3) Right leg weakness: (4) Paroxysmal atrial fibrillation: (5) Chronic anticoagulation: (6) History of permanent cardiac pacemaker placement: (7) Osteoporosis: QUALIFIERS: Osteoporosis type: age-related Presence of current pathological fracture: without current pathological fracture Qualified Code(s): M81.0 - Age-related osteoporosis without current pathological fracture (8) Asthma: QUALIFIERS: Asthma severity: unspecified severity PLAN: Plan PLAN PT for gait stability OT for ADL's ST for evaluation Analgesics as needed Bowel protocol Fall precautions Assess for Anxiety/Depression GI prophylaxis -continue famotidine 10 mg daily as needed DVT prophylaxis with Eliquis 2.5 mg twice daily - weight is less than 60 KG Follow up with PCP, cardiology, neurology following DC from IP Rehab AM lab including CMP, CBC, Mag, vitamin D, hemoglobin A1c, TSH, T4 and Phos Obtain records from Dr. Cardenas and also Dr. Parisi I clarified with Dr. Jara that the dose of Tikosyn is to be 250 mcg twice daily and not daily. Obtain an EKG on Friday or Friday. Continue high intensity statin and aspirin 81 mg daily I explained to her and Christine that she will need to pass a drivers rehab test for stroke patients prior to resuming driving to make sure that she is safe to drive and she is in agreement with this. Will have the SW make a referral to [facility]. Schedule the gentamicin eyedrop 1 drop in the right eye at at bedtime x 5 nights. Guaifenesin DM every 6 hours as needed dry cough DARIO pascal I reviewed the PA and lateral chest x-ray done in September of this year and also the recent AP chest. There is hyperinflation and some flattening of the diaphragms-I suspect she does have COPD. May need to try an inhaler......await the records from Dr. Parisi. Will have PT check a BP and HR with exertion tomorrow when she is evaluated. Charges/Coding Visit Charges Inpatient E&M: 72813 Init Hosp L3
[2023-12-16 18:00] VITALS: BP 109/66; PULSE 100; RESP 16; TEMP 37; O2SAT 95
[2023-12-16] MEDS: Calcium (Elemental) 500 MG Tablet 1500 MG PO (18:11)
[2023-12-16] MEDS: Ascorbic Acid 500 MG Tablet 1000 MG PO (18:14)
[2023-12-16] MEDS: GLUCOSAMINE HCL MSM CHONDROITN PO (20:30)
[2023-12-16] MEDS: Atorvastatin Calcium 40 MG Tablet PO (20:30)
[2023-12-16] MEDS: Lactobacillis Acidophilus 1 CAP PO (20:31)
[2023-12-16] MEDS: CRANBERRY EXTRACT 500 MG PO (20:31)
[2023-12-16] MEDS: APIXABAN 2.5 MG TABLET (WCH) PO (20:31)
[2023-12-16 20:32] VITALS: PULSE 62
[2023-12-16] MEDS: Metoprolol Tartrate 50 MG Tablet PO (20:32)
[2023-12-16] MEDS: Senna/Docusate Sodium 1 Tablet 2 TABLET PO (20:32)
[2023-12-16] MEDS: Dofetilide 250 MCG Capsule PO (20:32)
[2023-12-16 20:33] VITALS: BP 109/52; PULSE 65
[2023-12-16 21:00] VITALS: BMI 22.3
[2023-12-16] MEDS: CURAMIN PO (21:58)
[2023-12-16] MEDS: Gentamicin Sulfate 1 OPTH.BTL 1 DRP OPHTHALMIC (21:59)
[2023-12-16] MEDS: prednisoLONE eye drops (5 mL) 1 DROP OPTH.BTL 1 DRP OPHTHALMIC (21:59)
[2023-12-16 22:00] VITALS: PULSE 65; RESP 16; O2SAT 95
[2023-12-17] MEDS: Levothyroxine 112 MCG Tablet PO (05:33)
[2023-12-17 06:00] VITALS: BP 119/50; PULSE 95; RESP 18; TEMP 36.9; O2SAT 95; BMI 22.7
[2023-12-17 06:02] LABS: Absolute Neutrophil Count 3.7 X10^3/uL (2.0-7.7); Basophil# 0.07 X10^3/uL; Eosinophil# 0.19 X10^3/uL; Eosinophils% 2.6 % (0-5); Hematocrit 38.1 % (37-47); Hemoglobin 12.4 g/dL (12.0-15.0); Lymphocyte % 32.8 % (19-41); Mean Corp Hgb Conc 32.5 g/dL (32-36); Mean Corpuscular Hgb 30.2 pg (27.0-32.0); Mean Corpuscular Volume 92.9 fL (81-99); Mean Platelet Vol. 10.8 fl (6.2-12.0); Monocyte# 0.91 X10^3/uL; Monocyte% 12.4 % (0-10); NRBC Flagged by Analyzer 0 % (0-5); Neutrophil # 3.72 X10^3/uL (2.7-7.7); Neutrophil % 50.8 % (47-70); Platelet Count 224 K/mm3 (150-450); RBC Distribution Width CV 13.2 % (11.6-14.6); RBC Distribution Width SD 44.8 fl (35.1-43.9); White Blood Count 7.3 K/mm3 (4.4-11.0)
[2023-12-17 06:29] LABS: Phosphorus 4.8 mg/dL (2.5-4.9)
[2023-12-17 06:34] LABS: ALB/GLOB Ratio 0.8 RATIO (0.9-2.4); AST(SGOT) 27 U/L (15-37); Alanine Aminotransfer ALT/SGPT 122 U/L (13-56); Albumin, Serum 2.9 g/dL (3.2-5.0); Alkaline Phosphatase 60 U/L (45-117); Anion Gap 4 (5-15); BUN 15 mg/dL (7-18); BUN/Creat Ratio 27.8 RATIO (10-20); Calcium,Total 9.3 mg/dL (8.5-10.1); Chloride 106 mmol/L (98-107); Creatinine, Serum 0.54 mg/dL (0.55-1.02); EST Glomerular Filtration Rate 114 mL/min (>60); Est Glom Filt Rate - Afr Amer 138 mL/min (>60); Estimated Creatinine Clearance 40.66 ml/min; Globulin 3.7 g/dL (2.2-4.2); Glucose 107 mg/dL (74-106); Magnesium 1.6 mg/dL (1.6-2.6); Potassium 3.9 mmol/L (3.5-5.1); Protein, Total 6.6 g/dL (6.4-8.2); Sodium Level 139 mmol/L (136-145); T4 Free Direct 1.36 ng/dL (0.76-1.46); Thyroid Stim Hormone (TSH) 0.471 uIU/mL (0.358-3.740)
[2023-12-17 08:35] LABS: Hemoglobin A1c 5.3 % (3.8-5.6)
--- NOTE | 2023-12-17 09:45 | REHABEVAL_ITS ---
Admission Information Primary Diagnosis:: Post stroke debility Status Changes from Prescreening?: No changes Identified Actual Problem List:: Cognitve Impr/Memory Loss, Mobility Impaired, Self Care Deficit and Alteration-Leisure Activ. Potential Problem List:: DVT, Bleeding, Infection, UTI, Aspiration, Falls, Skin Integrity and Depression Risk of Complications DVT: DARIO Sanabriae and - (Apixaban 2.5 mg twice daily) Bleeding: Monitor Lab Values, Nursing to Teach Precautions for anti-coagulation therapy., Wound, if applicable, to be assessed every shift. and Stroke patients assessed for lethargy or change in status. Infection: Clinical Staff to Monitor for S/S of infection: and S/S of infection include fever, redness, warmth, etc. Urinary Tract Infection: Monitor for frequency, burning, discomfort, or incontinence. and Nursing will obtain urine sample for urinalysis and C&S when ordered. Aspiration: Clinical staff will monitor for coughing, drooling, congestion., Speech will evaluate swallowing and dsyphasia. and Nursing will monitor patient swallowing during meals. Falls: Patient will be evaluated for Fall Precautions and Patient will be placed on Fall Precautions as indicated per protocol. Skin Breakdown: Nursing will assess skin daily using assessment tool. and Nursing will place on Skin Breakdown Precautions as indicated. Pain: Clinical staff will assess patient's pain level per protocol., Medications will be given, if needed, and the pain level reassessed. and Other methods: Massage, distraction, decrease stimulus, etc. used PRN. Plan of Care Patient requires physician specializing in physical medicine and rehab oversight to provide close medical supervision of rehab issues including: Pain Management, Sleep Problems, Bowel and Bladder, Medical and co-morbidity Management, DVT prophylaxis, Rehabilitation Leadership and Coordination of treatment team Patient needs Physical Therapy: For a minimum of 1 hour and At least 5 out of 7 days Patient needs Physical Therapy to improve:: Mobility, Strengthening, Transfers, Stretching, ROM, Endurance, Stairs, Gait and Balance Patient needs Occupational Therapy: For a minimum of 1 hour and At least 5 out of 7 days Patient needs Occupational Therapy to improve ADL's incl.: Eating, Grooming, Bathing, Dressing, Toileting, Toilet transfers, Community Reintegration, Higher functioning activities, Household tasks, Adaptive Equipment, Splinting and Other activities as determined Patient requires speech therapy: For a minimum of 1 hour and At least 5 out of 7 days Patient requires speech therapy for: Swallowing, Cognition, Language Skills and Compensatory Strategies Patient requires 24/ Rehabilitation Nursing for: Pain Issues, Identifying and preventing risk factors, Monitoring and reporting current medical conditions, Assisting with ambulation, transfer, and all ADL's, Teaching patients about disease process and medications, Family teaching, Providing safe environment, Bowel and Bladder Issues, Skin integrity and Medication Management Patient needs Office Manager Receptionist/ Case Management for: Discharge Planning, Arranging Home Equipment or Services and Family Interventions Patient needs Dietary and Nutrition Services for: Adequate Nutrition, Nutritional Supplements and Nutritional Education Goals Goals Patient will remain: free from falls Patient will perform eating at: MOD I level of assist. Patient will perform bed mobility at: MOD I level of assist. Patient will complete transfers from bed to chair at: MOD I level of assist. Patient will complete upper body dressing at: MOD I level of assist. Patient will complete lower body dressing at: MOD I level of assist. (With [facility] as needed for increased independence with self-care) Patient will complete toilet transfer at: MOD I level of assist. Patient will complete toileting at: MOD I level of assist. Patient will perform bathing at: - (Upper body bathing independently and lower body bathing at mod I with a day as needed to increase independence with self- care.) Patient will perform Tub/Shower transfer at: - (Supervision) Patient will complete grooming at: MOD I level of assist. Patient will complete home management skills at: MOD I level of assist. Patient will have pain level of: of 3 or less Patient's skin will: remain intact Patient will receive: adequate nutrition.
--- NOTE | 2023-12-17 09:47 | PCM.PROGNOTE ---
Subjective Subjective Afebrile VSS -blood pressure is well-controlled and the heart rate has ranged from 65-100 since admission to rehab. Maintaining appropriate oxygen saturation on RA Oral intake - FOOD good FLUIDS fair Postvoid residual x 3 is negative for urinary retention. Discussed with nursing - no problems that need addressed Reviewed the THERAPY notes Medication list reviewed. All lab drawn this morning was personally reviewed. White blood cell count, hemoglobin and platelets are all within normal limits. MCV is normal. RDW standard deviation is just mildly increased at 44.8. Differential is unremarkable. Sodium is 139 and the potassium is 3.9. The BUN is 15 and the creatinine is 0.54. Hemoglobin A1c is normal at 5.3%. Calcium and phosphorus are within normal limits. The magnesium is low at 1.6. The ALT is increased at 122 but other liver function tests are within normal limits. Vitamin D level is 77. TSH is 0.471 and the free T4 is normal at 1.36. Tells me that she slept well last night. She had a normal bowel movement this morning. She denies cephalgia, lightheadedness, vertigo, chest pain, palpitations, shortness of breath, nausea/vomiting/abdominal pain, dysuria and calf tenderness. Objective Data Objective Data Vital Signs: Vital Signs Temp Pulse Resp BP Pulse Ox O2 Del Method 98.5 F 95 18 119/50 L 95 Room Air 12/17/23 06:00 12/17/23 06:00 12/17/23 06:00 12/17/23 06:00 12/17/23 06:00 12/17/23 06:00 Oxygen Delivery Method Room Air Weight: 121 lb 4.068 oz Body Mass Index (BMI) 22.3 Intake & Output: Intake and Output for Last 24 Hours 12/15/23 12/16/23 12/17/23 23:59 23:59 23:59 Intake Total 690 / 690 500 / 500 Output Total 1025 / 1025 450 / 450 Balance -335 / -335 50 / 50 Lab / Micro Data 12/17/23 05:44 12/17/23 05:44 Labs: Laboratory Results - last 24 hr 12/17/23 05:44: WBC 7.3, RBC 4.10 L, Hgb 12.4, Hct 38.1, MCV 92.9, MCH 30.2, MCHC 32.5, RDW Std Deviation 44.8 H, RDW Coeff of Santi 13.2, Plt Count 224, MPV 10.8, Immature Gran % (Auto) 0.400, Neut % (Auto) 50.8, Lymph % (Auto) 32.8, [place] % (Auto) 12.4 H, Eos % (Auto) 2.6, Baso % (Auto) 1.0, Absolute Neuts (auto) 3.7, Absolute Lymphs (auto) 2.40, Nucleated RBC % 0, Sodium 139, Potassium 3.9, Chloride 106, Carbon Dioxide 29.0, Anion Gap 4 L, BUN 15, Creatinine 0.54 L, Estim Creat Clear Calc 40.66, Est GFR (MDRD) Af Amer 138, Est GFR (MDRD) Non-Af 114, BUN/Creatinine Ratio 27.8 H, Glucose 107 H, Hemoglobin A1c 5.3, Calcium 9.3, Phosphorus 4.8, Magnesium 1.6, Total Bilirubin 0.60, AST 27, ALT 122 H, Alkaline Phosphatase 60, Total Protein 6.6, Albumin 2.9 L, Globulin 3.7, Albumin/Globulin Ratio 0.8 L, Vitamin D 25-Hydroxy 77.0, TSH 0.471, Free T4 1.36 Physical Exam Const alert and no apparent distress General Appearance: cooperative Resp normal respiratory effort and clear to auscultation bilaterally Cardio regular rate and regular rhythm Cardio Narrative: No ectopy GI normal to inspection, nondistended, normoactive bowel sounds, soft to palpation and non-tender Extremity no calf tenderness Extremity Narrative: DARIO hose are in place. 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 Parisi regarding etiology of her dry cough. (9) Hypomagnesemia: PLAN: Plan 1. Continue therapy 2. Start magnesium chloride 128 mg p.o. daily and recheck a mag level next week. Would prefer the magnesium be maintained at approximately 2 given the diagnosis of paroxysmal atrial fibrillation. Charges/Coding Visit Charges Inpatient E&M: 18803 Subs Hosp L1
[2023-12-17] MEDS: Dofetilide 250 MCG Capsule PO ×2 (10:41→21:24)
[2023-12-17] MEDS: Ascorbic Acid 500 MG Tablet 1000 MG PO ×2 (10:41→17:19)
[2023-12-17] MEDS: Cholecalciferol (VIT D3) 25 MCG TABLET (1,000 UNITS) 100 MCG PO (10:41)
[2023-12-17] MEDS: APIXABAN 2.5 MG TABLET (WCH) PO ×2 (10:41→21:23)
[2023-12-17] MEDS: Calcium (Elemental) 500 MG Tablet 1500 MG PO ×2 (10:41→17:19)
[2023-12-17] MEDS: Loratadine 10 MG Tablet PO (10:41)
[2023-12-17] MEDS: Zinc Sulfate 50 mg zinc (220 mg) ORAL capsule PO (10:41)
[2023-12-17 10:42] VITALS: BP 119/50; PULSE 95
[2023-12-17] MEDS: GLUCOSAMINE HCL MSM CHONDROITN PO ×2 (10:42→21:23)
[2023-12-17] MEDS: Metoprolol Tartrate 50 MG Tablet PO ×2 (10:42→21:25)
[2023-12-17] MEDS: CRANBERRY EXTRACT 500 MG PO ×2 (10:42→21:23)
[2023-12-17] MEDS: CURAMIN PO ×2 (10:43→20:03)
[2023-12-17] MEDS: Magnesium Chloride 64 MG Delay Rel.Tablet 128 MG PO (10:52)
[2023-12-17 11:46] VITALS: O2SAT 95
--- NOTE | 2023-12-17 14:00 | CASEMGMT ---
Social Work- SW met with patient to complete initial assessment. Introduced self and role. Verified/updated contacts. Pt reports having advanced directives, naming dtr Christine as primary agent with no alternate agents. SW advised pt that there is not a copy on file and requested that pt provide a copy for the chart; pt agreeable. Pt has lived in a condo 2 years following the passing of her spouse; pt plans to return at d/c. Pt son moved in with pt 3.5 weeks ago and will continue to reside with pt. BIMS score 15/15. Pt PHQ9 score 0/2. SW will continue to follow. MCKAY Cantu
[2023-12-17 15:31] VITALS: BMI 22.7
[2023-12-17 17:37] VITALS: BP 100/54; PULSE 110; RESP 15; TEMP 36.7; O2SAT 95
[2023-12-17 20:07] VITALS: BMI 22.7
[2023-12-17] MEDS: Lactobacillis Acidophilus 1 CAP PO (21:23)
[2023-12-17] MEDS: Gentamicin Sulfate 1 OPTH.BTL 1 DRP OPHTHALMIC (21:23)
[2023-12-17] MEDS: Senna/Docusate Sodium 1 Tablet 2 TABLET PO (21:24)
[2023-12-17] MEDS: Atorvastatin Calcium 40 MG Tablet PO (21:24)
[2023-12-17] MEDS: prednisoLONE eye drops (5 mL) 1 DROP OPTH.BTL 1 DRP OPHTHALMIC (21:24)
[2023-12-17 21:25] VITALS: BP 108/48; PULSE 60
[2023-12-17 22:00] VITALS: PULSE 60; RESP 15; O2SAT 95
[2023-12-18] MEDS: Levothyroxine 112 MCG Tablet PO (05:21)
[2023-12-18 06:00] VITALS: BP 106/58; PULSE 98; RESP 15; TEMP 36.6; O2SAT 97
[2023-12-18 08:16] VITALS: PULSE 98
[2023-12-18] MEDS: APIXABAN 2.5 MG TABLET (WCH) PO ×2 (08:16→21:10)
[2023-12-18] MEDS: Zinc Sulfate 50 mg zinc (220 mg) ORAL capsule PO (08:16)
[2023-12-18] MEDS: CRANBERRY EXTRACT 500 MG PO ×2 (08:16→21:11)
[2023-12-18] MEDS: CURAMIN PO ×2 (08:16→21:11)
[2023-12-18] MEDS: Dofetilide 250 MCG Capsule PO ×2 (08:16→21:10)
[2023-12-18] MEDS: Loratadine 10 MG Tablet PO (08:16)
[2023-12-18] MEDS: GLUCOSAMINE HCL MSM CHONDROITN PO ×2 (08:16→21:11)
[2023-12-18] MEDS: Metoprolol Tartrate 50 MG Tablet PO ×2 (08:16→21:12)
[2023-12-18] MEDS: Magnesium Chloride 64 MG Delay Rel.Tablet 128 MG PO (08:17)
[2023-12-18] MEDS: Ascorbic Acid 500 MG Tablet 1000 MG PO ×2 (08:17→17:09)
[2023-12-18] MEDS: Calcium (Elemental) 500 MG Tablet 1500 MG PO ×2 (12:05→17:09)
[2023-12-18 13:02] VITALS: BMI 22.7
--- NOTE | 2023-12-18 13:03 | CASEMGMT ---
Social Work IDT met with patient, dtr and son for Team meeting. Discussed patient's progress in PT/OT/SN. Educated to [facility] insurance with [employer] 12/22, DC 12/23. Pt is progressing very well, but still has goals to return to using no device. IDT recommending OP PT at DC. SW offered to coordinate that referral. Pt requesting to think about decision. SW agreed and will follow up prior to DC date to finalize DC plans. No other issues noted. Plan: DC home 12/23, needs TBD Marium Hernandez, FOOD PRODUCTION SUPERVISOR WAX COATING MACHINE TENDER
--- NOTE | 2023-12-18 14:34 | PN_ITS ---
Subjective Subjective Nadeen was seen on team rounds today. Her daughter Christine and her son James were present in the room for rounds. Afebrile VSS -highest heart rate over the past 48 hours was 110 last evening at 5:37 PM. Maintaining appropriate oxygen saturation on RA Oral intake - FOOD good FLUIDS good Discussed with nursing - no problems that need addressed Reviewed the THERAPY notes Medication list reviewed. She still is having a dry cough at times. I reviewed records we received from Dr. Parisi and she has been diagnosed with asthma in the past. Has not been seen since 2019. She was on a Flovent inhaler BID and ProAir PRN at that time. No longer uses inhalers but, is open to trying Flovent to see if the cough improves. She denies chest pain, chest tightness, cephalgia, lightheadedness, vertigo, shortness of breath, nausea/vomiting/abdominal pain, dysuria and calf pain. She is sleeping well at night. She was made mod I in her room with a rollator by PT and her children will be able to walk with her in the cuevas using the rollator........PT approved. Objective Data Objective Data Vital Signs: Vital Signs Temp Pulse Resp BP Pulse Ox O2 Del Method 97.9 F 98 15 106/58 L 97 Room Air 12/18/23 06:00 12/18/23 08:16 12/18/23 06:00 12/18/23 06:00 12/18/23 06:00 12/18/23 06:00 Oxygen Delivery Method Room Air Weight: 121 lb 4.068 oz Body Mass Index (BMI) 22.7 Intake & Output: Intake and Output for Last 24 Hours 12/16/23 12/17/23 12/18/23 23:59 23:59 23:59 Intake Total 690 / 690 1920 / 2170 1290 / 1290 Output Total 1025 / 1025 1900 / 2050 850 / 850 Balance -335 / -335 20 / 120 440 / 440 Lab / Micro Data 12/17/23 05:44 12/17/23 05:44 Micro: Microbiology 12/17/23 09:11 Stool Stool Occult Blood (JONATHAN) - Final Physical Exam Const alert and no apparent distress General Appearance: cooperative Resp normal respiratory effort and clear to auscultation bilaterally Cardio regular rate and regular rhythm Cardio Narrative: No ectopy GI normal to inspection, nondistended, normoactive bowel sounds, soft to palpation and non-tender GI Narrative: No guarding with palpation Extremity no calf tenderness Extremity Narrative: DARIO hose are in place. 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 Continue therapy 2. Start Flovent 2 puffs every 12 hours for persistent dry cough suspected to be secondary to asthma 3. Continue Tikosyn 4. Continue guaifenesin DM for cough not relieved with Flovent. Charges/Coding Visit Charges Inpatient E&M: 34777 Subs Hosp L1
[2023-12-18 17:23] VITALS: BP 96/60; PULSE 101; RESP 17; TEMP 37.1; O2SAT 99
[2023-12-18] MEDS: Gentamicin Sulfate 1 OPTH.BTL 1 DRP OPHTHALMIC (21:09)
[2023-12-18] MEDS: Atorvastatin Calcium 40 MG Tablet PO (21:11)
[2023-12-18] MEDS: Lactobacillis Acidophilus 1 CAP PO (21:11)
[2023-12-18 21:12] VITALS: BP 101/40; PULSE 62
[2023-12-18] MEDS: prednisoLONE eye drops (5 mL) 1 DROP OPTH.BTL 1 DRP OPHTHALMIC (21:14)
[2023-12-19 06:00] VITALS: BP 112/46; PULSE 70; RESP 18; TEMP 36.6; O2SAT 94
[2023-12-19] MEDS: Levothyroxine 112 MCG Tablet PO (06:02)
[2023-12-19] MEDS: CRANBERRY EXTRACT 500 MG PO ×2 (07:57→21:04)
[2023-12-19] MEDS: CURAMIN PO ×2 (07:58→21:00)
[2023-12-19] MEDS: GLUCOSAMINE HCL MSM CHONDROITN PO ×2 (07:58→21:05)
[2023-12-19] MEDS: Cholecalciferol (VIT D3) 25 MCG TABLET (1,000 UNITS) 100 MCG PO (08:01)
[2023-12-19] MEDS: Dofetilide 250 MCG Capsule PO ×2 (08:01→21:06)
[2023-12-19] MEDS: guaiFENesin Dm 10 ML UDC 5 ML PO ×2 (08:01→21:16)
[2023-12-19] MEDS: Zinc Sulfate 50 mg zinc (220 mg) ORAL capsule PO (08:01)
[2023-12-19 08:02] VITALS: BP 112/50; PULSE 70
[2023-12-19] MEDS: Ascorbic Acid 500 MG Tablet 1000 MG PO ×2 (08:02→17:07)
[2023-12-19] MEDS: Loratadine 10 MG Tablet PO (08:02)
[2023-12-19] MEDS: Magnesium Chloride 64 MG Delay Rel.Tablet 128 MG PO (08:02)
[2023-12-19] MEDS: Metoprolol Tartrate 50 MG Tablet PO ×2 (08:02→21:13)
[2023-12-19] MEDS: APIXABAN 2.5 MG TABLET (WCH) PO ×2 (08:03→21:07)
[2023-12-19] MEDS: Fluticasone Propionate 110 MCG AER.W.ADAP 2 PUFF INHALATION ×2 (10:10→21:07)
[2023-12-19] MEDS: Famotidine 20 MG Tablet 10 MG PO (12:11)
[2023-12-19] MEDS: Calcium (Elemental) 500 MG Tablet 1500 MG PO ×2 (13:08→17:07)
[2023-12-19 16:27] VITALS: BMI 22.7
[2023-12-19 18:00] VITALS: BP 105/53; PULSE 96; RESP 16; TEMP 37.1; O2SAT 98
[2023-12-19] MEDS: Senna/Docusate Sodium 1 Tablet 2 TABLET PO (21:06)
[2023-12-19] MEDS: Gentamicin Sulfate 1 OPTH.BTL 1 DRP OPHTHALMIC (21:07)
[2023-12-19] MEDS: Arthritis Pain Compound 60 CLICK TUBE TOPICAL (21:07)
[2023-12-19] MEDS: Lactobacillis Acidophilus 1 CAP PO (21:07)
[2023-12-19] MEDS: Atorvastatin Calcium 40 MG Tablet PO (21:07)
[2023-12-19] MEDS: prednisoLONE eye drops (5 mL) 1 DROP OPTH.BTL 1 DRP OPHTHALMIC (21:07)
[2023-12-19 21:13] VITALS: BP 108/46; PULSE 116
[2023-12-20 01:06] VITALS: BMI 22.7
[2023-12-20 06:00] VITALS: BP 94/58; PULSE 118; RESP 16; TEMP 37.6; O2SAT 98
[2023-12-20] MEDS: Levothyroxine 112 MCG Tablet PO (06:18)
[2023-12-20] MEDS: APIXABAN 2.5 MG TABLET (WCH) PO ×2 (09:09→20:56)
[2023-12-20] MEDS: Cholecalciferol (VIT D3) 25 MCG TABLET (1,000 UNITS) 100 MCG PO (09:09)
[2023-12-20] MEDS: GLUCOSAMINE HCL MSM CHONDROITN PO ×2 (09:09→20:53)
[2023-12-20] MEDS: Magnesium Chloride 64 MG Delay Rel.Tablet 128 MG PO (09:09)
[2023-12-20] MEDS: CRANBERRY EXTRACT 500 MG PO ×2 (09:09→20:53)
[2023-12-20] MEDS: Ascorbic Acid 500 MG Tablet 1000 MG PO ×2 (09:10→17:43)
[2023-12-20] MEDS: Loratadine 10 MG Tablet PO (09:10)
[2023-12-20] MEDS: Dofetilide 250 MCG Capsule PO ×2 (09:10→20:58)
[2023-12-20] MEDS: Aspirin E.C. 81 MG Tablet PO (09:11)
[2023-12-20] MEDS: Fluticasone Propionate 110 MCG AER.W.ADAP 2 PUFF INHALATION ×2 (09:11→20:56)
[2023-12-20] MEDS: Arthritis Pain Compound 60 CLICK TUBE TOPICAL ×2 (09:11→20:55)
[2023-12-20] MEDS: Zinc Sulfate 50 mg zinc (220 mg) ORAL capsule PO (09:11)
[2023-12-20 09:12] VITALS: BP 104/62; PULSE 111
[2023-12-20] MEDS: Metoprolol Tartrate 50 MG Tablet PO ×2 (09:12→20:58)
[2023-12-20] MEDS: CURAMIN PO ×2 (09:12→20:51)
[2023-12-20 09:35] VITALS: BMI 22.7
[2023-12-20] MEDS: Pantoprazole Sodium 20 MG Tablet PO ×2 (10:46→20:57)
[2023-12-20] MEDS: Calcium (Elemental) 500 MG Tablet 1500 MG PO ×2 (11:59→17:43)
[2023-12-20 17:35] VITALS: BP 111/52; PULSE 66; RESP 16; TEMP 37.3; O2SAT 100
[2023-12-20] MEDS: Lactobacillis Acidophilus 1 CAP PO (20:55)
[2023-12-20] MEDS: Gentamicin Sulfate 1 OPTH.BTL 1 DRP OPHTHALMIC (20:57)
[2023-12-20] MEDS: prednisoLONE eye drops (5 mL) 1 DROP OPTH.BTL 1 DRP OPHTHALMIC (20:57)
[2023-12-20] MEDS: Atorvastatin Calcium 40 MG Tablet PO (20:57)
[2023-12-20 20:58] VITALS: BP 108/63; PULSE 103
[2023-12-21 00:59] VITALS: BP 104/53; PULSE 100
[2023-12-21 02:08] VITALS: BMI 22.7
--- NOTE | 2023-12-21 03:35 | NURSING ---
0100; Pt hr noted to be slightly irregular this batsheva. Hx of afib. Pt called for nurse stating she felt her heart beat in her neck and chest and has been using her own pulse ox stating hr is 118. Pt also states she is having pain in r side of neck and shoulder. Pt bp taken and hr manually. VSS. Pt taken to bathroom. Upon getting back to bed and repositioned. Pt states pain in r neck and shoulder easing up. HR taken manually and in 90's. Pt instructed to call with any changes in how she feels.
[2023-12-21] MEDS: Levothyroxine 112 MCG Tablet PO (05:22)
[2023-12-21 06:00] VITALS: BP 113/72; PULSE 116; RESP 16; TEMP 36.8; O2SAT 97
[2023-12-21] MEDS: GLUCOSAMINE HCL MSM CHONDROITN PO ×2 (08:41→20:11)
[2023-12-21] MEDS: CURAMIN PO ×2 (08:41→20:07)
[2023-12-21] MEDS: Magnesium Chloride 64 MG Delay Rel.Tablet 128 MG PO (08:53)
[2023-12-21] MEDS: CRANBERRY EXTRACT 500 MG PO ×2 (08:53→20:12)
[2023-12-21] MEDS: Ascorbic Acid 500 MG Tablet 1000 MG PO ×2 (08:54→16:35)
[2023-12-21] MEDS: Dofetilide 250 MCG Capsule PO ×2 (08:54→20:08)
[2023-12-21] MEDS: Loratadine 10 MG Tablet PO (08:54)
[2023-12-21] MEDS: Aspirin E.C. 81 MG Tablet PO (08:54)
[2023-12-21] MEDS: Zinc Sulfate 50 mg zinc (220 mg) ORAL capsule PO (08:54)
[2023-12-21] MEDS: APIXABAN 2.5 MG TABLET (WCH) PO ×2 (08:55→20:09)
[2023-12-21] MEDS: Fluticasone Propionate 110 MCG AER.W.ADAP 2 PUFF INHALATION ×2 (08:55→20:17)
[2023-12-21] MEDS: Arthritis Pain Compound 60 CLICK TUBE TOPICAL ×2 (08:55→20:13)
[2023-12-21 08:56] VITALS: BP 120/80; PULSE 94
[2023-12-21] MEDS: Pantoprazole Sodium 20 MG Tablet PO ×2 (08:56→20:09)
[2023-12-21] MEDS: Metoprolol Tartrate 50 MG Tablet PO ×2 (08:56→20:15)
[2023-12-21] MEDS: Calcium (Elemental) 500 MG Tablet 1500 MG PO ×2 (12:02→16:35)
[2023-12-21 15:05] VITALS: BMI 22.7
[2023-12-21] MEDS: Acetaminophen 500 MG Tablet 1000 MG PO (16:36)
[2023-12-21] MEDS: Mag Hydrox/Al Hydrox/Simeth 30 ML UDC PO ×2 (16:36→22:36)
[2023-12-21 18:00] VITALS: BP 108/40; PULSE 64; RESP 16; TEMP 36.6; O2SAT 98
[2023-12-21 20:02] VITALS: BMI 22.7
[2023-12-21] MEDS: Lactobacillis Acidophilus 1 CAP PO (20:08)
[2023-12-21] MEDS: Atorvastatin Calcium 40 MG Tablet PO ×2 (20:09)
[2023-12-21] MEDS: prednisoLONE eye drops (5 mL) 1 DROP OPTH.BTL 1 DRP OPHTHALMIC (20:11)
[2023-12-21 20:15] VITALS: BP 109/68; PULSE 61
[2023-12-21 22:00] VITALS: PULSE 61; RESP 16; O2SAT 96
[2023-12-22] MEDS: Acetaminophen 500 MG Tablet 1000 MG PO (00:39)
[2023-12-22] MEDS: Levothyroxine 112 MCG Tablet PO (05:13)
[2023-12-22 05:18] VITALS: BP 112/69; PULSE 106; RESP 16; TEMP 36.7; O2SAT 95
[2023-12-22] MEDS: Mag Hydrox/Al Hydrox/Simeth 30 ML UDC PO (06:30)
[2023-12-22 07:58] LABS: Absolute Lymphocyte Count 1.42 X10^3/uL (0.83-4.51); Absolute Neutrophil Count 3.8 X10^3/uL (2.0-7.7); Basophil# 0.06 X10^3/uL; Eosinophil# 0.09 X10^3/uL; Eosinophils% 1.4 % (0-5); Hematocrit 34.7 % (37-47); Hemoglobin 11.3 g/dL (12.0-15.0); Lymphocyte # 1.42 X10^3/ul (0.83-4.51); Lymphocyte % 22.8 % (19-41); Mean Corp Hgb Conc 32.6 g/dL (32-36); Mean Corpuscular Hgb 30.3 pg (27.0-32.0); Mean Platelet Vol. 11.4 fl (6.2-12.0); Monocyte# 0.87 X10^3/uL; Monocyte% 13.9 % (0-10); NRBC Flagged by Analyzer 0 % (0-5); Neutrophil # 3.77 X10^3/uL (2.7-7.7); Neutrophil % 60.4 % (47-70); Platelet Count 231 K/mm3 (150-450); RBC Distribution Width CV 12.7 % (11.6-14.6); RBC Distribution Width SD 43.9 fl (35.1-43.9); Red Blood Count 3.73 M/mm3 (4.2-5.4); White Blood Count 6.2 K/mm3 (4.4-11.0)
[2023-12-22 08:06] VITALS: PULSE 106
[2023-12-22] MEDS: Magnesium Chloride 64 MG Delay Rel.Tablet 128 MG PO (08:06)
[2023-12-22] MEDS: Metoprolol Tartrate 50 MG Tablet PO (08:06)
[2023-12-22] MEDS: Dofetilide 250 MCG Capsule PO (08:06)
[2023-12-22] MEDS: CRANBERRY EXTRACT 500 MG PO (08:07)
[2023-12-22] MEDS: Fluticasone Propionate 110 MCG AER.W.ADAP 2 PUFF INHALATION (08:07)
[2023-12-22] MEDS: CURAMIN PO (08:07)
[2023-12-22] MEDS: Zinc Sulfate 50 mg zinc (220 mg) ORAL capsule PO (08:07)
[2023-12-22] MEDS: GLUCOSAMINE HCL MSM CHONDROITN PO (08:07)
[2023-12-22] MEDS: Pantoprazole Sodium 20 MG Tablet PO (08:07)
[2023-12-22] MEDS: Loratadine 10 MG Tablet PO (08:07)
[2023-12-22] MEDS: Ascorbic Acid 500 MG Tablet 1000 MG PO (08:07)
[2023-12-22] MEDS: APIXABAN 2.5 MG TABLET (WCH) PO (08:07)
[2023-12-22] MEDS: Arthritis Pain Compound 60 CLICK TUBE TOPICAL (08:18)
[2023-12-22 08:48] LABS: Lipase 27 U/L (13-75)
--- NOTE | 2023-12-22 09:34 | PN_ITS ---
Subjective Subjective Afebrile VSS - Maintaining appropriate oxygen saturation on RA Oral intake - FOOD has been refusing meals or just doubling since lunchtime on Friday. FLUIDS good -fluid intake yesterday orally was 2410. Discussed with nursing - Did not sleep well. Requesting a K pad for abd pain which she states comes in waves. Reviewed the THERAPY notes Medication list reviewed. All lab from this morning was personally reviewed. White blood cell count is normal at 6.2. Hemoglobin is 11.3 which is down from 12.4 on 12/17/2023. Platelets are within normal limits. Differential is unremarkable. She has been afebrile. Lipase today is normal at 27. She has been complaining of upper abdominal pain and nausea. She requested Tylenol and Mylanta which were ordered. She was also started on Protonix 20 mg BID on Friday. Hemoccult stool at admission was negative. Regular fluids. No emesis. Able to tolerate liquids. She had been having episodic Nausea and abd pain even prior to the admission for the stroke. She had been thinking about making an appt with Dr. Kahn. the pain is colicky. She has a GB and she tells me that it is full of Polyps. The pain gets worse with eating. Pain is primarily in the LLQ but, she also had some epigastric pain when I examined her this morning. Tells me that passing gas sometimes helps to relieve the pain. Last CT of the abdomen and pelvis was in 2013. Head CT was unremarkable with the exception of hepatic cysts and a calcified fibroid uterus. There was also atherosclerotic calcification of the abdominal aorta and its major visceral branches. Objective Data Objective Data Vital Signs: Vital Signs Temp Pulse Resp BP Pulse Ox O2 Del Method 98.1 F 106 H 16 112/69 95 Room Air 12/22/23 05:18 12/22/23 08:06 12/22/23 05:18 12/22/23 05:18 12/22/23 05:18 12/22/23 05:18 Oxygen Delivery Method Room Air Weight: 121 lb 4.068 oz Body Mass Index (BMI) 22.7 Intake & Output: Intake and Output for Last 24 Hours 12/20/23 12/21/23 12/22/23 23:59 23:59 23:59 Intake Total 1620 / 1620 1870 / 2110 780 / 780 Output Total 1900 / 2050 1775 / 2175 1180 / 1180 Balance -280 / -430 95 / -65 -400 / -400 Lab / Micro Data 12/22/23 06:50 12/17/23 05:44 Labs: Laboratory Results - last 24 hr 12/22/23 06:50: WBC 6.2, RBC 3.73 L, Hgb 11.3 L, Hct 34.7 L, MCV 93.0, MCH 30.3, MCHC 32.6, RDW Std Deviation 43.9, RDW Coeff of Santi 12.7, Plt Count 231, MPV 11.4, Immature Gran % (Auto) 0.500, Neut % (Auto) 60.4, Lymph % (Auto) 22.8, M [place] % (Auto) 13.9 H, Eos % (Auto) 1.4, Baso % (Auto) 1.0, Absolute Neuts (auto) 3.8, Absolute Lymphs (auto) 1.42, Nucleated RBC % 0, Lipase 27 Micro: Microbiology 12/17/23 09:11 Stool Stool Occult Blood (JONATHAN) - Final Physical Exam Const alert Constitutional Narrative: Looks fatigued and like she does not feel well. Able to lie flat without SOB. She is participating with PT despite not feeling well. General Appearance: cooperative Resp normal respiratory effort and clear to auscultation bilaterally Cardio no gallops Cardio Narrative: irreg irreg GI GI Narrative: Lower abd is mildly distended. BS's are present in all quadrants but, not normal........not high pitched but, gurgling. She guarded with palpation of the LLQ and with palpation of the RUQ. No masses appreciated. No bruits heard. Tells me that it feels a little better today but, it comes and goes. The lower abd is mildly distended. 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 (3) Right leg weakness: (4) Paroxysmal atrial fibrillation: (5) Chronic anticoagulation: (6) History of permanent cardiac pacemaker placement: (7) Osteoporosis: QUALIFIERS: Osteoporosis type: age-related Presence of current pathological fracture: without current pathological fracture Qualified Code(s): M81.0 - Age-related osteoporosis without current pathological fracture (8) Asthma: QUALIFIERS: Asthma severity: mild Asthma complication type: u ncomplicated (9) Abdominal pain: QUALIFIERS: Abdominal location: left lower quadrant Qualified Code(s): R10.32 - Left lower quadrant pain PLAN: Plan 1. Continue therapy 2. acute abd XRAY 3. CMP now 4. Hold all non-essential medications today 5. If acute abd is unrevealing and the CMP is unremarkable will CT the abd with oral and IV contrast. Charges/Coding Visit Charges Inpatient E&M: 47356 Subs Hosp L2
[2023-12-22 09:42] VITALS: BMI 22.6
[2023-12-22 10:03] LABS: ALB/GLOB Ratio 0.8 RATIO (0.9-2.4); AST(SGOT) 45 U/L (15-37); Alanine Aminotransfer ALT/SGPT 94 U/L (13-56); Alkaline Phosphatase 72 U/L (45-117); Anion Gap 10 (5-15); BUN 13 mg/dL (7-18); BUN/Creat Ratio 18.9 RATIO (10-20); Chloride 102 mmol/L (98-107); Creatinine, Serum 0.69 mg/dL (0.55-1.02); EST Glomerular Filtration Rate 86 mL/min (>60); Est Glom Filt Rate - Afr Amer 104 mL/min (>60); Estimated Creatinine Clearance 40.66 ml/min; Globulin 3.8 g/dL (2.2-4.2); Glucose 100 mg/dL (74-106); Potassium 3.5 mmol/L (3.5-5.1); Protein, Total 6.8 g/dL (6.4-8.2); Sodium Level 137 mmol/L (136-145)
--- NOTE | 2023-12-22 11:00 | RAD_ITS ---
STUDY: X-RAY - ACUTE ABDOMINAL SERIES REASON FOR EXAM: Female, 83 years old. Nausea and abd pain TECHNIQUE: Single view of the chest. Supine, and erect view(s) of the abdomen were obtained. COMPARISON: None. FINDINGS: Hyperinflation. The lungs are clear. Normal size heart. A left-sided pacemaker is seen. Normal mediastinum and odell. Normal visualized pulmonary arteries. There is atherosclerotic calcification of the aortic arch with tortuosity. There is thickening of the haustral pattern along the distal portion of the transverse colon and proximal left hemicolon. Calcified fibroid uterus. There are diffuse degenerative changes of the visualized lumbar spine. Dextroscoliosis of the lumbar spine. RAD/Acute Abdomen Inc Chest IMPRESSION: Thickening of the haustral pattern of the distal transverse colon and proximal descending colon. Colitis should be ruled out. Electronically Signed: Leon Arrington MD at 12:26 EDT ,
--- NOTE | 2023-12-22 14:35 | CT_ITS ---
STUDY: CT ABDOMEN AND PELVIS WITH CONTRAST REASON FOR EXAM: Female, 83 years old. Colitis/abd pain/possible ischemic colitis RADIATION DOSAGE (If Supplied By Facility): CTDIvol = ( 18.21 ) mGy, DLP = ( 494.16 ) mGycm TECHNIQUE: Transaxial images were obtained from the dome of the diaphragm to the symphysis pubis without oral contrast. IV 100mL Isovue-300 was administered. Sagittal and coronal images were reconstructed. Individualized dose optimization techniques were used for this CT. COMPARISON: None. FINDINGS: Mild increased markings at the lung bases suggest mild linear atelectasis and/or scarring. Moderate sized pericardial effusion. A dual-chamber pacemaker is seen. Coronary artery calcification is present. Cysts are seen in the right lobe of the liver. A small cyst is seen in the left lobe of the liver as well. Normal gallbladder and extrahepatic biliary system. Normal spleen. There is diffuse atrophy of the pancreas. Hyperplasia of the left adrenal gland. Normal right kidney. There is a 1.8 cm exophytic cyst along the lateral aspect of the left kidney. There is evidence of a distal gastric wall thickening. Normal small intestine. Fecal material is seen in the right hemicolon. The appendix is visualized and appears normal. There is diffuse atherosclerotic calcification of the abdominal aorta, without a demonstrated aneurysm. Normal inferior vena cava. Normal retroperitoneum. Normal urinary bladder. Calcified fibroid uterus. Normal abdominal wall. There are degenerative changes of the visualized lumbar spine. Dextroscoliosis of the lumbar spine. CT/Abdomen/Pelvis WITH Contrast IMPRESSION: Scattered hepatic cysts. Moderate amount of fecal material is seen in the right hemicolon. Thickening of the distal portion of the stomach. Calcified fibroid uterus. Moderate-sized pericardial effusion. Electronically Signed: Leon Arrington MD at 14:53 EDT ,
[2023-12-22 14:58] VITALS: BMI 22.6
--- NOTE | 2023-12-22 15:02 | ECHOL_ITS ---
Reason For Study: PERICARDIAL EFFUSION Procedure This was a limited 2D transthoracic echocardiogram. Exam performed portable in patient room. Left Ventricle Normal LV size. Left ventricular systolic function is normal. The left ventricular ejection fraction is 50 %. No regional wall motion abnormalities noted. Right Ventricle Normal RV size. Normal systolic function. Atria Normal left atrium. Normal right atrium. Mitral Valve Normal mitral valve. Tricuspid Valve Normal tricuspid valve. Aortic Valve Trisinus/trileaflet aortic valve. Pulmonic Valve Normal pulmonic valve. Great Vessels Normal aortic root. The pulmonary artery is normal size. The inferior vena cava is dilated. and partially collapses. Pericardium/Pleural Moderate pericardial effusion. There are no echocardiographic indications of cardiac tamponade. MMode/2D Measurements & Calculations LVIDd: 3.4 cm IVSd: 0.86 cm LAV(MOD-sp4): 36.9 ml LVIDs: 2.0 cm LVPWd: 0.91 cm RVDd: 3.1 cm FS: 39.7 % LVAd ap4: 15.3 cm2 LVAd ap2: 14.8 cm2 SV(MOD-sp4): 18.2 ml LVLd ap4: 5.7 cm LVLd ap2: 5.9 cm EDV(MOD-sp4): 33.7 ml EDV(MOD-sp2): 31.9 ml EDV(sp4-el): 34.9 ml EDV(sp2-el): 31.4 ml LVAs ap4: 9.4 cm2 LVAs ap2: 9.6 cm2 LVLs ap4: 4.6 cm LVLs ap2: 5.0 cm ESV(MOD-sp4): 15.5 ml ESV(MOD-sp2): 15.2 ml ESV(sp4-el): 16.3 ml ESV(sp2-el): 15.7 ml EF(MOD-sp4): 54.0 % EF(MOD-sp2): 52.4 % EF(sp4-el): 53.4 % SV(MOD-sp2): 16.7 ml SV(sp4-el): 18.6 ml Ao sinus diam: 2.8 cm LA dimension(2D): 4.0 cm LA A4 area: 15.2 cm2 RA A4 area: 15.2 cm2 ECHO/Echo, Limited Study Interpretation Summary Normal LV size. Left ventricular systolic function is normal. The left ventricular ejection fraction is 50 %. Moderate pericardial effusion. There are no echocardiographic indications of cardiac tamponade. Compared to the previous the effusion is new and her IVC is more dilated. Ordering Physician: Alycia Cardenas Referring Physician: Rakel Archer M.D. Performed By: Kita Islas RDCS and Student
[2023-12-22] MEDS: Lactated Ringers 1,000 ML 40 ML IV (15:04)
[2023-12-22] MEDS: 0.9% Saline Lock 10 ML Syringe IV (15:04)
--- NOTE | 2023-12-22 15:16 | CASEMGMT ---
Social Work SW followed up with pt to plan for DC. Pt informed this worker of a change in her medical condition and unsure of DC as planned for 12/23. SW spoke with who confirmed and will need to get CT results back to determine if further treatment is needed or if DC can occur. An insurance update will be submitted on 12/22 for continued stay. MADDISON will continue to follow. STELLA LuoW
--- NOTE | 2023-12-22 15:30 | CHAPLAIN ---
Type of Pastoral Visit _x__ Initial Visit ___ Follow-up Visit ___ On-call Visit ___ General Patient Visit ___ Spiritual Assessment ___ Family Conference ___ Bereavement ___ Rapid Response ___ Code Blue ___ Other (describe below) Pastoral Care Referral From _x__ Patient ___ Family ___ Nurse ___ Physician ___ Windscreen Fitter ___ Full Stack Developer ___ Other (describe below) Sacrament/Intervention _x__ Active listening ___ Anointing ___ Denominational ___ Bereavement ___ Communion ___ Gwendolyn exploration ___ ___ Life review _x__ Prayer ___ Reconciliation ___ Sacrament of Sick ___ Supportive presence ___ Wedding ___ Other (describe below) Pastoral Comments patient is being taken downstairs for a test; this knot tying operator rode the elevator with her to talk about how she is doing; pt reveals updated concerns and reason for test; pt requests prayer and that takes place on the elevator since pt asked; will try to connect with this patient again this week
--- NOTE | 2023-12-22 16:51 | PCM.CONS.C ---
Assessment & Plan Assessment/Plan (1) Pericardial effusion: PLAN: Patient has newly developed pericardial effusion that is at least moderate in size. It is circumferential and the IVC is dilated at 1.9 cm it was 1.5 on December 11 with no pericardial effusion. The patient has right atrial and right ventricular pacer leads in such in place. These have not been recently manipulated. The patient has recently been started December 13 on oral anticoagulation with Eliquis and a baby aspirin due to a CVA on presentation. Hemodynamically the patient is stable at this time. She denies any shortness of breath she was able to ambulate the halls without her walker and walked freely with no shortness of breath or dyspnea on exertion today. She also participated in all of her rehab activities without any shortness of breath. The patient is Eliquis and aspirin have been discontinued. The patient should be moved to the progressive cardiac unit for closer hemodynamic monitoring over the next 48 hours. Should the patient deteriorate hemodynamically we would have to consider transfer for cardiothoracic intervention on the pericardial effusion. I am uncertain of the etiology 1 would have to suspect that this is probably hemorrhagic in nature related to the temporal correlation with starting Eliquis. The patient has reverted back into atrial fibrillation as of 12/20/2023. (2) Chronic anticoagulation: PLAN: The patient had been slated for oral anticoagulation therapy with Eliquis given her CVA presumed related to her paroxysmal atrial fibrillation. Historically the patient had been reluctant to take anything other than the aspirin and had been well-controlled on flecainide until this had to be discontinued earlier this year due to her age. She had been controlled on Tikosyn 250 mg twice daily during this hospitalization but recently on 12/20/2023 reverted back into atrial fibs. The oral anticoagulation is interrupted at this time. (3) Sick sinus syndrome: PLAN: Patient status post DDD pacemaker due to sick sinus syndrome and paroxysmal atrial fibrillation. (4) Paroxysmal atrial fibrillation: PLAN: Patient is currently in atrial fibrillation with a ventricular rate in the 100 to 110 bpm. This is her usual rate when she goes into atrial fibrillation. Would continue her metoprolol and Tikosyn at this time. Will discontinue the Eliquis and aspirin. (5) History of permanent cardiac pacemaker placement: PLAN: Patient has a DDD pacemaker implant. PLAN: Plan 1. Recommend transfer to progressive cardiac unit for closer hemodynamic monitoring. 2. Should the patient deteriorate would recommend transfer to cardiothoracic surgery for pericardial window and draining given the patient's history of Eliquis and unknown etiology of the pericardial effusion. 3. I discussed these possibilities with the patient and her daughter on the phone. 4. Also discussed with the hospitalist team concerning transfer to progressive cardiac unit and monitoring of her hemodynamics. HPI Consult Data Date of Consult: 12/22/23 HPI Narrative Reason for Consultation: You pericardial effusion. HPI Narrative: SARAH MINOR, is a 83 F who presents with apparently effusion documented on CT of the abdomen today. Subsequent echocardiogram revealed a moderate circumferential pericardial effusion without definitive evidence of tamponade. The patient's inferior vena cava was dilated at 1.9 cm it had been 1.5 on a previous echo December 12, 2023 when there was no pericardial effusion. The patient had originally presented back in mid November with right lower extremity weakness consistent with a CVA. Her symptoms waxed and waned and pretty much resolved. She was noted to be in atrial fibrillation and has an AV sequential pacer in place. The patient carries a history of sick sinus syndrome and paroxysmal atrial fibrillation in the past. She had been well-controlled on flecainide but this had to be discontinued due to contraindications related to her age. The patient was instituted on Eliquis after 48 hours following her stroke. Given her weight of less than 60 kg she was started on 2.5 mg twice daily. The patient was also on a baby aspirin. She felt like a new person when she spontaneously converted into sinus rhythm on Tikosyn 250 mg twice daily. She had originally been treated with 500 mg but her QT elongated and therefore her dose was decreased and the QT interval returned to acceptable ranges on 250 mg twice daily. The patient reverted into atrial fibrillation on 12/20/2023. She also was noted to have anorexia about the same time. And has been unable to take solid foods. The patient was able to ambulate around the rehab facility today without any shortness of breath. She denies any shortness of breath lying flat in the bed she is in atrial fibrillation on her EKG with no ischemic changes noted. Her blood pressure has been stable at 110-112 systolic. Heart rate has been in the 100 bpm range in atrial fibrillation. The patient is on metoprolol 50 mg twice daily as well as the Tikosyn 250 mg twice daily. Eliquis and aspirin have been held. The patient is being transferred from the rehab section of the hospital back to the progressive cardiac unit for closer hemodynamic monitoring. [facility] Medical History Asthma Blocked tear duct Osteoporosis Carotid artery disease Hypothyroidism Hyperlipidemia GERD (gastroesophageal reflux disease) Sinus bradycardia Paroxysmal atrial fibrillation Sick sinus syndrome Home Medications ?Medication ?Instructions ?Recorded ?Last Taken ?Type levothyroxine 112 mcg tablet 112 mcg PO DAILY thyroid 09/04/13 12/16/23 History L.acidoph, paracasei,B. lactis 10 1 ea PO QHS probiotic 02/28/15 12/15/23 History billion cell capsule glucosamine HCl 500 mg-msm 83 1 ea PO BID joints 02/28/15 12/16/23 History mg-chondroitin 400 mg tablet prednisolone acetate 1 % eye 1 drp ophthalmic (eye) QHS drops 09/15/17 12/15/23 History drops,suspension for post cornea transplant ascorbic acid (vitamin C) 1,000 mg 1,000 mg PO BID vitamin 09/21/19 12/11/23 History tablet atorvastatin 40 mg tablet 40 mg PO QHS cholestrol #30 tabs 12/16/23 Unknown Rx dofetilide 250 mcg capsule 250 mcg PO Q12 afib #60 caps 12/16/23 12/16/23 Rx metoprolol tartrate 50 mg tablet 50 mg PO BID BP #60 tabs 12/16/23 Unknown Rx acetaminophen 500 mg tablet 1,000 mg (2 x 500 mg) PO Q8H PRN 12/22/23 Unknown Rx PRN Pain 1-10 Or Fever #1 TAB aluminum-mag hydroxide-simethicone 30 ml PO Q6H PRN PRN Indigestion 12/22/23 Unknown Rx 400 mg-400 mg-40 mg/5 mL oral susp #1 mL (Mag-Al Plus Extra Strength) bisacodyl 10 mg rectal suppository 10 mg GA X1 PRN Constipation #1 ea 12/22/23 Unknown Rx calcium carbonate 1,000 mg (2 x 500 mg calcium 12/22/23 Unknown Rx (1,250 mg)) PO BID osteoporosis #1 TAB cholecalciferol (vitamin D3) 25 100 mcg (4 x 25 mcg (1,000 unit)) 12/22/23 Unknown Rx mcg (1,000 unit) tablet PO QODAY #1 TAB dextromethorphan-guaifenesin 10 5 ml PO Q6H PRN PRN Dry cough #5 mL 12/22/23 Unknown Rx mg-100 mg/5 mL oral syrup magnesium chloride 64 mg 128 mg (2 x 64 mg) PO DAILY #1 TAB 12/22/23 Unknown Rx (magnesium chloride) tablet,delayed release (Mag 64) morphine 2 mg/mL intravenous 1 mg (0.5 mL) IV Q4H PRN PRN pain 12/22/23 Unknown Rx syringe 7-10 1 day #1 mL pantoprazole 20 mg tablet,delayed 20 mg PO BID #1 TAB 12/22/23 Unknown Rx release sennosides 8.6 mg-docusate sodium 2 tab PO BID #1 TAB 12/22/23 Unknown Rx 50 mg tablet (Stimulant Laxative Plus) sodium chloride 0.9 % (flush) (BD 10 - 40 ml IV UD PRN Saline Flush 12/22/23 Unknown Rx PosiFlush Normal Saline 0.9 % #5 mL injection syringe) tramadol 50 mg tablet 25 mg (1/2 x 50 mg) PO Q8H PRN PRN 12/22/23 Unknown Rx pain 3-6 #1 TAB zinc sulfate 50 mg zinc (220 mg) 50 mg PO DAILY #1 cap 12/22/23 Unknown Rx capsule Allergy/AdvReac Type Severity Reaction Status Date / Time nitrofurantoin (From AdvReac Severe Vomiting Verified 12/12/23 10:21 Macrobid) nitrofurantoin AdvReac Severe Vomiting Verified 12/12/23 10:21 macrocrystalline (From Macrobid) amiodarone AdvReac Intermediate Severe Verified 12/12/23 10:21 dizziness montelukast (From Singulair) AdvReac Unknown Unknown Verified 12/12/23 10:21 Tetracyclines AdvReac Other Verified 12/12/23 10:21 Family History Father CAD (coronary artery disease) Mother Heart disease Surgical History History of permanent cardiac pacemaker placement (12/21/12) History of esophagogastroduodenoscopy (EGD) (~02/23/18) History of cataract surgery History of carpal tunnel surgery History of arthroscopic knee surgery History of tonsillectomy and adenoidectomy Hx of appendectomy Social History household members: family and other details: Her son James is currently living with her. She is a twice now. 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 Smoking Status: Never smoker alcohol intake: never substance use type: does not use caffeine: No what type of physical activity do you participate in: walking, aerobics and other details: Silver Sneakers frequency: daily duration: other details: She walks for 0.5 - 1 mile daily in the morning seatbelt use: always ROS Constitutional Constitutional: Reports as per HPI Eyes Eyes: Reports systems reviewed and no addt'l complaints, except as documented ENT HEENT: Reports systems reviewed and no addt'l complaints, except as documented Cardiovascular Cardiovascular: Reports as per HPI Respiratory/Chest Respiratory/Chest: Reports as per HPI Gastrointestinal Gastrointestinal: Reports as per HPI Genitourinary Genitourinary: Reports systems reviewed and no addt'l complaints, except as documented Musculoskeletal Musculoskeletal: Reports as per HPI Integumentary Integumentary: Reports systems reviewed and no addt'l complaints, except as documented Neurologic Neurologic: Reports as per HPI Psychiatric Psychiatric: Reports systems reviewed and no addt'l complaints, except as documented Endocrine Endocrinology: Reports systems reviewed and no addt'l complaints, except as documented Hematologic/Lymphatic Hematologic/Lymphatic: Reports systems reviewed and no addt'l complaints, except as documented Allergic/Immunologic Allergic/Immunologic: Reports systems reviewed and no addt'l complaints, except as documented Physical Exam Const alert and oriented x3 HEENT normocephalic Eyes EOMs intact bilaterally Neck no JVD Neck Narrative: No JVD at 30 degrees. The patient is resting comfortably in bed with normal respirations. Chest inspection of chest normal Resp normal respiratory effort and clear to auscultation bilaterally Cardio Rate: tachycardic Rhythm: abnormal rhythm irregularly irregular Heart Sounds: S1 normal and S2 normal; Negative for click, gallop or murmur GI soft to palpation Extremity no pedal edema Extremity Narrative: Compression socks in place. Neuro Neuro Narrative: Patient is alert and oriented x 3 she moves all her extremities and is actually ambulated today in the halls without assistance. She participated in all of her rehab treatments today without restrictions. Psych mental status grossly normal Risk Stratification Risk Stratification Applicable: No Charges/Coding Visit Charges Inpatient E&M: 72106 Init Hosp L3 Objective Data Vital Signs: Vital Signs Temp Pulse Resp BP Pulse Ox O2 Del Method 98.1 F 106 H 16 112/69 95 Room Air 12/22/23 05:18 12/22/23 08:06 12/22/23 05:18 12/22/23 05:18 12/22/23 05:18 12/22/23 05:18 Oxygen Delivery Method Room Air Weight: 123 lb Body Mass Index (BMI) 22.6 Intake & Output: Intake and Output for Last 24 Hours 12/20/23 12/21/23 12/22/23 23:59 23:59 23:59 Intake Total 1620 / 1620 1870 / 2110 1740 / 1740 Output Total 1900 / 0 1775 / 2175 1780 / 1780 Balance -280 / -430 95 / -65 -40 / -40 Lab / Micro Data Attestation: I reviewed the patient's lab results. 12/22/23 06:50 12/22/23 06:50 Labs: Laboratory Results - last 24 hr 12/22/23 06:50: WBC 6.2, RBC 3.73 L, Hgb 11.3 L, Hct 34.7 L, MCV 93.0, MCH 30.3, MCHC 32.6, RDW Std Deviation 43.9, RDW Coeff of Santi 12.7, Plt Count 231, MPV 11.4, Immature Gran % (Auto) 0.500, Neut % (Auto) 60.4, Lymph % (Auto) 22.8, Cooke % (Auto) 13.9 H, Eos % (Auto) 1.4, Baso % (Auto) 1.0, Absolute Neuts (auto) 3.8, Absolute Lymphs (auto) 1.42, Nucleated RBC % 0, Sodium 137, Potassium 3.5, Chloride 102, Carbon Dioxide 25.0, Anion Gap 10, BUN 13, Creatinine 0.69, Estim Creat Clear Calc 40.66, Est GFR (MDRD) Af Amer 104, Est GFR (MDRD) Non-Af 86, BUN/Creatinine Ratio 18.9, Glucose 100, Calcium 9.0, Total Bilirubin 0.50, AST 45 H, ALT 94 H, Alkaline Phosphatase 72, Total Protein 6.8, Albumin 3.0 L, Globulin 3.8, Albumin/Globulin Ratio 0.8 L, Lipase 27 ABG Data Attestation: I personally reviewed and interpreted this ABG as follows: (Atrial fibrillation with heart rate of 106. No acute ischemic changes noted.) Cardiology Labs/Tests 12/22/23 06:50: WBC 6.2, RBC 3.73 L, Hgb 11.3 L, Hct 34.7 L, MCV 93.0, MCH 30.3, MCHC 32.6, Plt Count 231, MPV 11.4, Immature Gran % (Auto) 0.500, Neut % (Auto) 60.4, Lymph % (Auto) 22.8, Cooke % (Auto) 13.9 H, Eos % (Auto) 1.4, Baso % (Auto) 1.0, Absolute Neuts (auto) 3.8, Nucleated RBC % 0, Sodium 137, Potassium 3.5, Chloride 102, Carbon Dioxide 25.0, Anion Gap 10, BUN 13, Creatinine 0.69, Est GFR (MDRD) Af Amer 104, Est GFR (MDRD) Non-Af 86, BUN/Creatinine Ratio 18.9, Glucose 100, Calcium 9.0, Total Bilirubin 0.50 Rhythm: EKG: ECHO: Stress Test: Cardiac Cath: PCI: CT Surgery: Holter monitor: EPS: PPM: CXR: Chest CT Scan: Radiography Diagnostic Testing: Radiology Impression Acute Abdomen Series 12/22/23 11:00 IMPRESSION: Thickening of the haustral pattern of the distal transverse colon and proximal descending colon. Colitis should be ruled out. Electronically Signed: Leon Arrington MD at 12:26 EDT , Abdomen/Pelvis CT 12/22/23 14:35 IMPRESSION: Scattered hepatic cysts. Moderate amount of fecal material is seen in the right hemicolon. Thickening of the distal portion of the stomach. Calcified fibroid uterus. Moderate-sized pericardial effusion. Electronically Signed: Leon Arrington MD at 14:53 EDT , Echocardiogram 12/22/23 15:02 Interpretation Summary Normal LV size. Left ventricular systolic function is normal. The left ventricular ejection fraction is 50 %. Moderate pericardial effusion. There are no echocardiographic indications of cardiac tamponade. Compared to the previous the effusion is new and her IVC is more dilated. Ordering Physician: Alycia Cardenas Referring Physician: Rakel Archer M.D. Performed By: Kita Islas RDCS and Student
--- NOTE | 2023-12-22 16:54 | PCM.DC.SUM ---
Providers Date of Admission: 12/16/23 Date of Discharge: 12/22/23 Primary Care Physician: Dr. Rakel Archer, Consultations 12/22/23 15:15 Consult: Gastroenterology Routine Consulting Provider: Luis Felipe Gastroenterology Reason for Consult: abd pain with abnormal CT abd and pelvis EMERGENT Consult: No Notified: Yes Date Notified: 12/22/23 Time Notified: 15:15 Method of Notification: Verbal 12/22/23 16:25 Consult: Cardiology Routine Consulting Provider: Rogelio Prather Reason for Consult: New pericardial effusion EMERGENT Consult: Yes Notified: Yes Date Notified: 12/22/23 Time Notified: 16:25 Method of Notification: Verbal Reason For Visit: CVA Diagnosis Discharge Diagnosis (1) Physical debility: Status: Acute Code(s): R53.81 - Other malaise (2) CVA (cerebral vascular accident): Status: Acute Code(s): I63.9 - Cerebral infarction, unspecified Qualifiers: CVA mechanism: embolism Precerebral and cerebral artery: other cerebral artery Qualified Code(s): I63.49 - Cerebral infarction due to embolism of other cerebral artery Plan: Embolic CVA Left posterior parietal lobe. (3) Right leg weakness: Status: Acute Code(s): R29.898 - Other symptoms and signs involving the musculoskeletal system (4) Paroxysmal atrial fibrillation: Status: Chronic Code(s): I48.0 - Paroxysmal atrial fibrillation (5) Chronic anticoagulation: Status: Acute Code(s): Z79.01 - assisted (current) use of anticoagulants Plan: Was not on Anticoagulation at the time she presented to the hospital with a embolic stroke. She was taking 1 81 ASA daily prior to the stroke. (6) History of permanent cardiac pacemaker placement: Status: Chronic Code(s): Z95.0 - Presence of cardiac pacemaker (7) Osteoporosis: Status: Chronic Code(s): M81.0 - Age-related osteoporosis without current pathological fracture Qualifiers: Osteoporosis type: age-related Presence of current pathological fracture: without current pathological fracture Qualified Code(s): M81.0 - Age-related osteoporosis without current pathological fracture Plan: Refuses tx other than calcium and vitamin D. (8) Asthma: Status: Chronic Code(s): J45.909 - Unspecified asthma, uncomplicated Qualifiers: Asthma severity: mild Asthma complication type: uncomplicated Asthma persistence: persistent Qualified Code(s): J45.30 - Mild persistent asthma, uncomplicated Plan: Has seen Dr. Parisi in the past (the last viist was in 2019). She was on Flovent and a ProAir inhaler the last time she saw Dr. Parisi but, she has since stopped both of these on her own. She had a persistent dry cough for the past several months. This resolved while on rehab with the reinstitution of a Flovent inhaler 220 mcg every 12 hours. (9) Abdominal pain: Status: Chronic Code(s): R10.9 - Unspecified abdominal pain Qualifiers: Abdominal location: left lower quadrant Qualified Code(s): R10.32 - Left lower quadrant pain Plan: This has been chronic and intermittent. She saw PCP in September for this and it was attributed to low back pain with radicular component. Rib XRAY were normal in September. The pain is always located in the left lower quadrant and is colicky. It gets worse with eating. She has known calcified atherosclerosis of the abdominal aorta and needs major branches. I suspect she has ischemic colitis. (10) Pericardial effusion: Status: Acute Code(s): I31.39 - Other pericardial effusion (noninflammatory) Plan: This has developed since the ECHO on 12/12/23. The effusion is moderate and the EF has decreased from 65% to 50 %. She has increased dilation of the inferior vena cava. Plan 1. Discussed with Dr. Prather from cardiology. Plan on transfer to PCU where she can be on telemetry and watched/monitored more closely. She is mildly tachycardic now but, BP is stable and she has no SOB or CP. If she has significant stenosis in the SMA the decrease in the CO could be contributing to the increase in the LLQ pain. 2. DC ASA and Eliquis. 3. Needs a repeat CBC and BMP in the AM. 4. Will need to see GI at some point about the thickening of the distal gastric wall and possible ischemic colitis. Will continue the Protonix BID for now. 5. EKG today shows AF with a HR of 114. QT is 322 and the QTc isw 443. she is currently on tikosyn 250 mg BID.....she had QT prolongation on 500 mg BID Medications at Discharge Home Medications levothyroxine 112 mcg tablet 112 mcg PO DAILY thyroid 09/04/13 L.acidoph, paracasei,B. lactis 10 billion cell capsule 1 ea PO QHS probiotic 02/28/15 glucosamine HCl 500 mg-msm 83 mg-chondroitin 400 mg tablet 1 ea PO BID joints 02/28/15 prednisolone acetate 1 % eye drops,suspension 1 drp ophthalmic (eye) QHS drops for post cornea transplant 09/15/17 ascorbic acid (vitamin C) 1,000 mg tablet 1,000 mg PO BID vitamin 09/21/19 atorvastatin 40 mg tablet 40 mg PO QHS cholestrol #30 tabs 12/16/23 dofetilide 250 mcg capsule 250 mcg PO Q12 afib #60 caps 12/16/23 metoprolol tartrate 50 mg tablet 50 mg PO BID BP #60 tabs 12/16/23 acetaminophen 500 mg tablet 1,000 mg (2 x 500 mg) PO Q8H PRN PRN Pain 1-10 Or Fever #1 TAB 12/22/23 aluminum-mag hydroxide-simethicone 400 mg-400 mg-40 mg/5 mL oral susp (Mag-Al Plus Extra Strength) 30 ml PO Q6H PRN PRN Indigestion #1 mL 12/22/23 bisacodyl 10 mg rectal suppository 10 mg VT X1 PRN Constipation #1 ea 12/22/23 calcium carbonate 1,000 mg (2 x 500 mg calcium (1,250 mg)) PO BID osteoporosis #1 TAB 12/22/23 cholecalciferol (vitamin D3) 25 mcg (1,000 unit) tablet 100 mcg (4 x 25 mcg (1,000 unit)) PO QODAY #1 TAB 12/22/23 dextromethorphan-guaifenesin 10 mg-100 mg/5 mL oral syrup 5 ml PO Q6H PRN PRN Dry cough #5 mL 12/22/23 magnesium chloride 64 mg (magnesium chloride) tablet,delayed release (Mag 64) 128 mg (2 x 64 mg) PO DAILY #1 TAB 12/22/23 morphine 2 mg/mL intravenous syringe 1 mg (0.5 mL) IV Q4H PRN PRN pain 7-10 1 day #1 mL 12/22/23 pantoprazole 20 mg tablet,delayed release 20 mg PO BID #1 TAB 12/22/23 sennosides 8.6 mg-docusate sodium 50 mg tablet (Stimulant Laxative Plus) 2 tab PO BID #1 TAB 12/22/23 sodium chloride 0.9 % (flush) (BD PosiFlush Normal Saline 0.9 % injection syringe) 10 - 40 ml IV UD PRN Saline Flush #5 mL 12/22/23 tramadol 50 mg tablet 25 mg (1/2 x 50 mg) PO Q8H PRN PRN pain 3-6 #1 TAB 12/22/23 zinc sulfate 50 mg zinc (220 mg) capsule 50 mg PO DAILY #1 cap 12/22/23 Hospital Course Operations None Procedures 2-D Echocardiogram Summary of Care Provided Minutes Spent on Discharge: 60 Hospital Course: Terrell Vasquez is an 83-year-old female with a past medical history of paroxysmal atrial fibrillation, carotid artery stenosis (50% or less), hypothyroidism, hyperlipidemia, osteoporosis (refuses treatment other than calcium and vitamin D), GERD, asthma, PM implantation for SSS and chronic back pain who presented to the emergency department at [facility] on 12/12/2023 complaining of right lower extremity weakness. She had only been taking ASA 81 mg daily for AF/stroke prophylaxis. CTA of the head and neck showed minimal plaque at the origin of the left and right internal carotid arteries causing less than 50% stenosis. The noncontrast CT brain showed chronic involutional changes only. Teleneurology was consulted and felt she was not a candidate for TNK because the risk outweighed the benefit. She was continued on aspirin 81 mg daily and Plavix was added. She was started on a statin. MRI showed a small acute ischemic infarct in the left posterior parietal lobe which was presumed to be embolic. Eliquis was recommended and the patient was started on Eliquis 2.5 mg twice daily. Plavix was discontinued. Echocardiogram on 12/12/2023 showed a normal left ventricular ejection fraction of 65% with no evidence for diastolic dysfunction and no wall motion abnormalities. The atria were of normal size. The bubble contrast study was negative for [id number] interatrial shunt. While in the hospital she was seen by Dr. Prather from cardiology and started on Tikosyn 500 mg twice daily. The dose was decreased to 250 mg twice daily because of QTc prolongation to 534. On 12/16/2023 she was transferred to the acute inpatient rehab unit at [facility] for 3 hours of therapy daily to restore function/independence at or near her level prior to the recent stroke. She was in AF at arrival to rehab but, the following day she was in a regular rhythm. On Friday12/19/23 she began to c/o LLQ abd pain. Appetite was decreased and she herself restricted her diet to clear liquids. She had been having LLQ abd pain for a few months prior to admission to rehab. It comes and goes and is gets worse with eating. she had not been losing weight and she had no vomiting. She had a CT scan of the abd/pelvis in 2013 that showed a calcified uterus, hepatic cysts and scattered atherosclerotic calcification of the abdominal aorta and its major visceral branches without any demonstrated aneurysm. She has a known hx of GERD and had been taking a PPI and a H2 edith at one time. She was started on Protonix 20 mg BID. On 12/22/23 she was still c/o abd pain today but, she denied to nursing. She had not eaten any solid food since Friday noon. she had no nausea and she had not vomited. Hemoccult stool had been negative. CBC on 12/22/2023 showed a normal white blood cell count with an unremarkable differential. Hemoglobin was 11.3 which is down from 12.4 on 12/17/2023. CMP was remarkable for a very mild increase in AST and ALT. The alkaline phosphatase and bilirubin were normal. An acute abdominal series was obtained and showed thickening of the haustral pattern of the distal transverse colon and proximal descending colon. A CT scan of the abdomen and pelvis was ordered with oral and IV contrast. The CT showed liver cysts which she was noted to have, normal gallbladder and extrahepatic biliary system, normal spleen and diffuse atrophy of the pancreas. There was hyperplasia of the left adrenal gland and a 1.8 cm exophytic cyst along the lateral aspect of the left kidney. There was evidence of a distal gastric wall thickening. The small intestine appeared normal. There was no mention of colitis. There was diffuse atherosclerotic calcification of the abdominal aorta with no aneurysm. An incidental finding was a moderate-sized pericardial effusion. On 12/12/2023 she had no pleural effusion on transthoracic echocardiogram. A repeat limited echocardiogram was ordered and it showed a circumferential moderate-sized pericardial effusion. The ejection fraction had decreased from 65% to 50% and the IVC had increased dilation. Cardiology was consulted and she was seen by Dr. Rogelio silva. He recommended discontinuation of aspirin and Eliquis and transferred to the progressive care unit where she could be on telemetry and monitored more closely. Also at presentation to rehab she had a dry cough which she has been having for a few months. She has been diagnosed with asthma in the past and she has seen Dr. Parisi (her last visit was in 2019). At her last visit to Dr. Parisi she was on Flovent BID and PROAir PRN. She was not using the rescue inhaler. Since that time she has discontinued use of Flovent. Her lungs were clear to auscultation at admission but she did have a persistent dry cough. We restarted Flovent and the dry cough has resolved since starting inhaled steroids. She is being transferred to PCU for the pericardial effusion. I have consulted Dr. Kahn to see her for the abd pain and possible ischemic colitis. Dr. Prather has talked with her family and so have I. Physical Exam Const alert and oriented x3 Constitutional Narrative: She c/o abd pain but, she was able to do 3 hours of therapy today. She is taking liquids well with no N/V. She denies heartburn. She has no cough today and she denies SOB. She is able to lie flat in bed with no respiratory distress. She is somewhat anxious and is fixated on her bowels and urine. HEENT moist oral mucous membranes Eyes PERRL, EOMs intact bilaterally, conjunctivae normal and no scleral icterus Eyes Narrative: No discharge from the eyes. Neck supple and no carotid bruits Neck Narrative: I do not appreciate any significant JVD. Chest Chest: symmetrical chest wall rise Resp normal respiratory effort and normal air movement Resp Narrative: Not tachypneic. No accessory muscle use. Effort and Inspection: able to speak in complete sentences Cardio Cardio Narrative: She is in atrial fibrillation with a heart rate of 114 at the time of my examination. There are no murmurs, no pericardial friction rub and no gallop. EKG today shows atrial fibrillation with rapid ventricular response at 114 bpm. QRS complexes are of low voltage. The QTc is 443 today. GI GI Narrative: The lower abdomen is very mildly distended. Bowel sounds are present in all 4 quadrants and there are no high pitched tinkling BS's. She has pain with palpation of the epigastric area and also with palpation of the LLQ. She is having regular BM's and the stool is brown. No masses were appreciated and I did not hear any abd bruits. The is no palpable aortic dilation. Extremity no calf tenderness and no pedal edema Extremity Narrative: She has varicosities of both LE's. Neuro Neuro Narrative: NIHSS is 0 today although the R leg is weaker than the left. Psych cooperative Psych Narrative: Anxious. Weight / BMI Weight Weight: 123 lb Body Mass Index (BMI) 22.6 ABG / Lab / Microbiology Data 12/22/23 06:50 12/22/23 06:50 Laboratory: Laboratory Results - last 24 hr 12/22/23 06:50: WBC 6.2, RBC 3.73 L, Hgb 11.3 L, Hct 34.7 L, MCV 93.0, MCH 30.3, MCHC 32.6, RDW Std Deviation 43.9, RDW Coeff of Santi 12.7, Plt Count 231, MPV 11.4, Immature Gran % (Auto) 0.500, Neut % (Auto) 60.4, Lymph % (Auto) 22.8, Mcmullen % (Auto) 13.9 H, Eos % (Auto) 1.4, Baso % (Auto) 1.0, Absolute Neuts (auto) 3.8, Absolute Lymphs (auto) 1.42, Nucleated RBC % 0, Sodium 137, Potassium 3.5, Chloride 102, Carbon Dioxide 25.0, Anion Gap 10, BUN 13, Creatinine 0.69, Estim Creat Clear Calc 40.66, Est GFR (MDRD) Af Amer 104, Est GFR (MDRD) Non-Af 86, BUN/Creatinine Ratio 18.9, Glucose 100, Calcium 9.0, Total Bilirubin 0.50, AST 45 H, ALT 94 H, Alkaline Phosphatase 72, Total Protein 6.8, Albumin 3.0 L, Globulin 3.8, Albumin/Globulin Ratio 0.8 L, Lipase 27 Microbiology: Microbiology 12/17/23 09:11 Stool Stool Occult Blood (JONATHAN) - Final Radiography Diagnostic Testing: Radiology Impression Acute Abdomen Series 12/22/23 11:00 IMPRESSION: Thickening of the haustral pattern of the distal transverse colon and proximal descending colon. Colitis should be ruled out. Electronically Signed: Leon Arrington MD at 12:26 EDT , Abdomen/Pelvis CT 12/22/23 14:35 IMPRESSION: Scattered hepatic cysts. Moderate amount of fecal material is seen in the right hemicolon. Thickening of the distal portion of the stomach. Calcified fibroid uterus. Moderate-sized pericardial effusion. Electronically Signed: Leon Arrington MD at 14:53 EDT , Echocardiogram 12/22/23 15:02 Interpretation Summary Normal LV size. Left ventricular systolic function is normal. The left ventricular ejection fraction is 50 %. Moderate pericardial effusion. There are no echocardiographic indications of cardiac tamponade. Compared to the previous the effusion is new and her IVC is more dilated. Ordering Physician: Alycia Cardenas Referring Physician: Rakel Archer M.D. Performed By: Kita Islas RDCS and Student Meaningful Use Info Meaningful Use Meaningful Use Diagnoses (Choose all that apply): Ischemic CVA CVA Therapy Assessed for PT,OT and/or ST?: Yes Ischemic Stroke Antithrombotic order at d/c?: No Reason antithrombotic not ordered: Treatment not Indicated (She developed a new pericardial effusion on aspirin and Eliquis and ASA is being held due to possibility of hemopericardium.) Dx of Atrial fib/flutter?: Yes Anticoagulant at discharge?: Yes Reason anticoagulant not ordered: Treatment not Indicated (Anticoagulants are on hold due to possibility of a hemopericardium and possible need for pericardiocentesis.) Statin Dosing Therapy Reference: STATIN DOSE THERAPY REFERENCE: * Patients > 75 years receive moderate or high dose statin therapy. * Patients 75 years or YOUNGER should receive HIGH intensity statin dose unless contraindicated. You will be required to document reason for non-treatment if statin daily dose does not meet guidelines. HIGH DOSE STATIN THERAPY DAILY Atorvastatin > than or = to 40 mg Rosuvastatin > than or = to 20 mg Amlodipine + Atorvastatin > than or = to 2.5/40 mg Ezetimibe + Simvastatin 10/80 mg Simvastatin 80mg Statins at discharge?: Yes Primary Dx Acute Ischemic CVA?: Yes IV thrombolytic ordered during stay?: No Reason IV thrombolytic not ordered: Procedure not Indicated Discharge Plan Admission Admit Date/Time: 12/16/23 14:50 Primary Reason for Your Visit: CVA Attending Provider: Alycia Cardenas Primary Care Provider: Rakel Archer Instructions Additional Instructions / Restrictions: 1. Transferring to PCU for new pericardial effusion with decreased CO which has developed within the past 10 days. she has been on Eliquis.....was also ordered ASA but, usually refuses it. Has been seen by Dr. Prather who reviewed the ECHO and the recent EKG. QT is normal today but, she is in AF with HR 114. 2. Maintain HL Discharge Orders/Prescriptions Prescriptions: New dextromethorphan-guaifenesin 10-100 mg/5 mL Syrup 5 ml PO Q6H PRN PRN (Reason: Dry cough) Qty: 5 0RF acetaminophen 500 mg Tablet 1,000 mg PO Q8H PRN PRN (Reason: Pain 1-10 Or Fever) Qty: 1 0RF bisacodyl 10 mg Suppository 10 mg VT X1 PRN (Reason: Constipation) Qty: 1 0RF sodium chloride 0.9 % (flush) [BD PosiFlush Normal Saline 0.9] Syringe 10 - 40 ml IV UD PRN (Reason: Saline Flush) Qty: 5 0RF cholecalciferol (vitamin D3) 25 mcg (1,000 unit) Tablet 100 mcg PO QODAY Qty: 1 0RF alum-mag hydroxide-simeth [Mag-Al Plus Extra Strength] 400-400-40 mg/5 mL Suspension 30 ml PO Q6H PRN PRN (Reason: Indigestion) Qty: 1 0RF magnesium chloride [Mag 64] 64 mg Tablet,Delayed Release (Dr/Ec) 128 mg PO DAILY Qty: 1 0RF sennosides-docusate sodium [Stimulant Laxative Plus] 8.6-50 mg Tablet 2 tab PO BID Qty: 1 0RF tramadol 50 mg Tablet 25 mg PO Q8H PRN PRN (Reason: pain 3-6) Qty: 1 0RF pantoprazole 20 mg Tablet,Delayed Release (Dr/Ec) 20 mg PO BID Qty: 1 0RF zinc sulfate 50 mg zinc (220 mg) Capsule 50 mg PO DAILY Qty: 1 0RF morphine 2 mg/mL Syringe 1 mg IV Q4H PRN PRN (Reason: pain 7-10) 1 Days Qty: 1 0RF Continued prednisolone acetate 1 % drops,suspension 1 drp OPHTHALMIC QHS ascorbic acid (vitamin C) 1,000 mg tablet 1,000 mg PO BID levothyroxine 112 MCG tablet 112 mcg PO DAILY glucosamine [id number] 1 EACH tablet 1 ea PO BID L.acidoph, paracasei,B. lactis 1 EACH capsule 1 ea PO QHS atorvastatin 40 mg Tablet 40 mg PO QHS Qty: 30 2RF dofetilide 250 mcg Capsule 250 mcg PO Q12 Qty: 60 1RF metoprolol tartrate 50 mg Tablet 50 mg PO BID Qty: 60 2RF Changed calcium carbonate 500 mg calcium (1,250 mg) tablet 1,000 mg PO BID Qty: 1 0RF Discontinued aspirin [Adult Low Dose Aspirin] 81 mg tablet,delayed release (DR/EC) 81 mg PO QDAY Qty: 90 6RF gentamicin 0.3 % drops 1 drp OPHTHALMIC QHS PRN (Reason: eye infection) Patient Comments: INSTILL 1 DROP INTO RIGHT EYE 4 TIMES DAILY ketotifen fumarate [Zaditor] 0.025 % (0.035 %) drops 1 drp ophthalmic (eye) QHS PRN (Reason: allergy symptoms) Rx Instructions: administer at least 8 hours apart quercetin 500 mg capsule 500 mg PO DAILY Curamin 3 cap PO DAILY Patient Comments: 2 caps in am and 1 at hs cetirizine 10 MG capsule 10 mg PO DAILY black cohosh 540 MG capsule 540 mg PO DAILY cranberry extract 500 MG tablet 12,500 mg PO BID Patient Comments: pt taking 1 capsule twice daily cholecalciferol (vitamin D3) 2,000 UNIT capsule 4,000 unit PO QODAY Patient Comments: pt taking 2000units daily famotidine [Acid Controller] 10 mg tablet 10 mg PO DAILY PRN (Reason: reflux) Eliquis 5 mg Tablet 2.5 mg PO BID Qty: 60 2RF Referrals / Follow Up: Rakel Archer DO [Primary Care Provider] - Rogelio Prather MD [Med Staff - Active Staff] - Disposition Disposition (needs filled in before D/C Order can be placed): Acute Care Hospital Charges/Coding Visit Charges Inpatient E&M: 62448 Disch Hosp >30min
[2023-12-22 17:59] VITALS: BP 130/71; PULSE 114; RESP 17; TEMP 37.1; O2SAT 98
--- NOTE | 2023-12-22 18:22 | CON.PCM.GI_ITS ---
HPI Consult Data Date of Consult: 12/22/23 HPI Narrative Reason for Consultation: Abdominal pain HPI Narrative: SARAH MINOR, is a 83 YO F with a PMH of pAF ( on ASA 81 mg daily), PM insertion in Nov and SSS who presented to the ED at [facility] on 12/12/2023 c/o RLE weakness. She was not able to move her R leg after she finished her morning walk of 1/2 mile. She was brought to the ED. Stat NC CT brain showed chronic involutional changes of the brain only. CTA of the head and neck showed minimal plaque at the origin of the left and right internal carotid arteries causing less than 50% stenosis. There was plaque along the distal portion of the left cavernous carotid with less than 50% narrowing. Teleneurology was consulted and the neurologist felt she was not a candidate for TNK because the risk outweighed the benefit. The NIH per the neurologist was 0 but, there was noticeable weakness of the R leg when compared to the left. She was admitted to the hospitalist service for stroke workup. She was continued on ASa and Plavix was added. She was started on a statin. Transthoracic echocardiogram showed normal left ventricular size with an ejection fraction of 65% and no evidence for diastolic dysfunction or wall motion abnormality. The left and right atria were of normal size. The bubble contrast study was negative for [id number] interatrial shunt. There was mild mitral insufficiency but no significant valvular heart disease. MRI showed atrophy and minor periventricular white matter ischemic changes. It was a small acute infarct in the left posterior parietal lobe. Chronic anticoagulation with Eliquis was recommended and also treatment with a high intensity statin. The neurologist felt the stroke was likely cardioembolic. While in the hospital she was seen by Dr. Prather from cardiology. She was transferred to the acute inpatient rehab unit at [facility] on 12/16/2023 for 3 hours of therapy daily to restore function/independence at or near her level prior to the stroke. She had been complaining of upper abdominal pain and nausea. She requested Tylenol and Mylanta which were ordered. She was also started on Protonix 20 mg BID on Friday. Hemoccult stool at admission was negative. Regular fluids. No emesis. Able to tolerate liquids. She had been having episodic Nausea and abd pain even prior to the admission for the stroke. She has a GB and she tells me that it is full of Polyps. The pain gets worse with eating. Pain is primarily in the LLQ but, she also had some epigastric pain when I examined her this morning. Tells me that passing gas sometimes helps to relieve the pain. Last CT of the abdomen and pelvis was in 2013. Head CT was unremarkable with the exception of hepatic cysts and a calcified fibroid uterus. There was also atherosclerotic calcification of the abdominal aorta and its major visceral branches. CBC on 12/22/2023 showed a normal white blood cell count with an unremarkable differential. Hemoglobin was 11.3 which is down from 12.4 on 12/17/2023. CMP was remarkable for a very mild increase in AST and ALT. The alkaline phosphatase and bilirubin were normal. An acute abdominal series was obtained and showed thickening of the haustral pattern of the distal transverse colon and proximal descending colon. A CT scan of the abdomen and pelvis was ordered with oral and IV contrast. The CT showed liver cysts which she was noted to have, normal gallbladder and extrahepatic biliary system, normal spleen and diffuse atrophy of the pancreas. There was hyperplasia of the left adrenal gland and a 1.8 cm exophytic cyst along the lateral aspect of the left kidney. There was evidence of a distal gastric wall thickening. The small intestine appeared normal. There was no mention of colitis. There was diffuse atherosclerotic calcification of the abdominal aorta with no aneurysm. [facility] Medical History (Updated 12/22/23 @ 17:[address] Alycia Cardenas, DO) Asthma Blocked tear duct Osteoporosis Carotid artery disease Hypothyroidism Hyperlipidemia GERD (gastroesophageal reflux disease) Sinus bradycardia Paroxysmal atrial fibrillation Sick sinus syndrome Home Medications ?Medication ?Instructions ?Recorded ?Last Taken ?Type levothyroxine 112 mcg tablet 112 mcg PO DAILY thyroid 09/04/13 12/16/23 History L.acidoph, paracasei,B. lactis 10 1 ea PO QHS probiotic 02/28/15 12/15/23 History billion cell capsule glucosamine HCl 500 mg-msm 83 1 ea PO BID joints 02/28/15 12/16/23 History mg-chondroitin 400 mg tablet prednisolone acetate 1 % eye 1 drp ophthalmic (eye) QHS drops 09/15/17 12/15/23 History drops,suspension for post cornea transplant ascorbic acid (vitamin C) 1,000 mg 1,000 mg PO BID vitamin 09/21/19 12/11/23 History tablet atorvastatin 40 mg tablet 40 mg PO QHS cholestrol #30 tabs 12/16/23 Unknown Rx dofetilide 250 mcg capsule 250 mcg PO Q12 afib #60 caps 12/16/23 12/16/23 Rx metoprolol tartrate 50 mg tablet 50 mg PO BID BP #60 tabs 12/16/23 Unknown Rx acetaminophen 500 mg tablet 1,000 mg (2 x 500 mg) PO Q8H PRN 12/22/23 Unknown Rx PRN Pain 1-10 Or Fever #1 TAB aluminum-mag hydroxide-simethicone 30 ml PO Q6H PRN PRN Indigestion 12/22/23 Unknown Rx 400 mg-400 mg-40 mg/5 mL oral susp #1 mL (Mag-Al Plus Extra Strength) bisacodyl 10 mg rectal suppository 10 mg MT X1 PRN Constipation #1 ea 12/22/23 Unknown Rx calcium carbonate 1,000 mg (2 x 500 mg calcium 12/22/23 Unknown Rx (1,250 mg)) PO BID osteoporosis #1 TAB cholecalciferol (vitamin D3) 25 100 mcg (4 x 25 mcg (1,000 unit)) 12/22/23 Unknown Rx mcg (1,000 unit) tablet PO QODAY #1 TAB dextromethorphan-guaifenesin 10 5 ml PO Q6H PRN PRN Dry cough #5 mL 12/22/23 Unknown Rx mg-100 mg/5 mL oral syrup magnesium chloride 64 mg 128 mg (2 x 64 mg) PO DAILY #1 TAB 12/22/23 Unknown Rx (magnesium chloride) tablet,delayed release (Mag 64) morphine 2 mg/mL intravenous 1 mg (0.5 mL) IV Q4H PRN PRN pain 12/22/23 Unknown Rx syringe 7-10 1 day #1 mL pantoprazole 20 mg tablet,delayed 20 mg PO BID #1 TAB 12/22/23 Unknown Rx release sennosides 8.6 mg-docusate sodium 2 tab PO BID #1 TAB 12/22/23 Unknown Rx 50 mg tablet (Stimulant Laxative Plus) sodium chloride 0.9 % (flush) (BD 10 - 40 ml IV UD PRN Saline Flush 12/22/23 Unknown Rx PosiFlush Normal Saline 0.9 % #5 mL injection syringe) tramadol 50 mg tablet 25 mg (1/2 x 50 mg) PO Q8H PRN PRN 12/22/23 Unknown Rx pain 3-6 #1 TAB zinc sulfate 50 mg zinc (220 mg) 50 mg PO DAILY #1 cap 12/22/23 Unknown Rx capsule Allergy/AdvReac Type Severity Reaction Status Date / Time nitrofurantoin (From AdvReac Severe Vomiting Verified 12/12/23 10:21 Macrobid) nitrofurantoin AdvReac Severe Vomiting Verified 12/12/23 10:21 macrocrystalline (From Macrobid) amiodarone AdvReac Intermediate Severe Verified 12/12/23 10:21 dizziness montelukast (From Singulair) AdvReac Unknown Unknown Verified 12/12/23 10:21 Tetracyclines AdvReac Other Verified 12/12/23 10:21 Family History Father CAD (coronary artery disease) Mother Heart disease Surgical History History of permanent cardiac pacemaker placement (12/21/12) History of esophagogastroduodenoscopy (EGD) (~02/23/18) History of cataract surgery History of carpal tunnel surgery History of arthroscopic knee surgery History of tonsillectomy and adenoidectomy Hx of appendectomy Social History household members: family and other details: Her son James is currently living with her. She is a twice now. 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 Smoking Status: Never smoker alcohol intake: never substance use type: does not use caffeine: No what type of physical activity do you participate in: walking, aerobics and other details: Silver Sneakers frequency: daily duration: other details: She walks for 0.5 - 1 mile daily in the morning seatbelt use: always ROS Constitutional Constitutional: Reports as per HPI Eyes Eyes: Reports systems reviewed and no addt'l complaints, except as documented ENT HEENT: Reports systems reviewed and no addt'l complaints, except as documented Cardiovascular Cardiovascular: Reports as per HPI Respiratory/Chest Respiratory/Chest: Reports as per HPI Gastrointestinal Gastrointestinal: Reports as per HPI Genitourinary Genitourinary: Reports systems reviewed and no addt'l complaints, except as documented Musculoskeletal Musculoskeletal: Reports as per HPI Integumentary Integumentary: Reports systems reviewed and no addt'l complaints, except as documented Neurologic Neurologic: Reports as per HPI Psychiatric Psychiatric: Reports systems reviewed and no addt'l complaints, except as documented Endocrine Endocrinology: Reports systems reviewed and no addt'l complaints, except as documented Hematologic/Lymphatic Hematologic/Lymphatic: Reports systems reviewed and no addt'l complaints, except as documented Allergic/Immunologic Allergic/Immunologic: Reports systems reviewed and no addt'l complaints, except as documented Physical Exam Const alert and oriented x3 HEENT normocephalic Eyes EOMs intact bilaterally Neck no JVD Chest inspection of chest normal Resp normal respiratory effort and clear to auscultation bilaterally Cardio Rate: tachycardic Rhythm: abnormal rhythm irregularly irregular Heart Sounds: S1 normal and S2 normal; Negative for click, gallop or murmur GI soft to palpation Extremity no pedal edema Extremity Narrative: Compression socks in place. Neuro Neuro Narrative: Patient is alert and oriented x 3 she moves all her extremities and is actually ambulated today in the halls without assistance. She participated in all of her rehab treatments today without restrictions. Psych mental status grossly normal Lab / Micro Data 12/22/23 06:50 12/22/23 06:50 Labs: Laboratory Results - last 24 hr 12/22/23 06:50: WBC 6.2, RBC 3.73 L, Hgb 11.3 L, Hct 34.7 L, MCV 93.0, MCH 30.3, MCHC 32.6, RDW Std Deviation 43.9, RDW Coeff of Santi 12.7, Plt Count 231, MPV 11.4, Immature Gran % (Auto) 0.500, Neut % (Auto) 60.4, Lymph % (Auto) 22.8, M manolo % (Auto) 13.9 H, Eos % (Auto) 1.4, Baso % (Auto) 1.0, Absolute Neuts (auto) 3.8, Absolute Lymphs (auto) 1.42, Nucleated RBC % 0, Sodium 137, Potassium 3.5, Chloride 102, Carbon Dioxide 25.0, Anion Gap 10, BUN 13, Creatinine 0.69, Estim Creat Clear Calc 40.66, Est GFR (MDRD) Af Amer 104, Est GFR (MDRD) Non-Af 86, BUN/Creatinine Ratio 18.9, Glucose 100, Calcium 9.0, Total Bilirubin 0.50, AST 45 H, ALT 94 H, Alkaline Phosphatase 72, Total Protein 6.8, Albumin 3.0 L, Globulin 3.8, Albumin/Globulin Ratio 0.8 L, Lipase 27 Imaging Radiology Impression Acute Abdomen Series 12/22/23 11:00 IMPRESSION: Thickening of the haustral pattern of the distal transverse colon and proximal descending colon. Colitis should be ruled out. Electronically Signed: Leon Arrington MD at 12:26 EDT , Abdomen/Pelvis CT 12/22/23 14:35 IMPRESSION: Scattered hepatic cysts. Moderate amount of fecal material is seen in the right hemicolon. Thickening of the distal portion of the stomach. Calcified fibroid uterus. Moderate-sized pericardial effusion. Electronically Signed: Leon Arrington MD at 14:53 EDT , Echocardiogram 12/22/23 15:02 Interpretation Summary Normal LV size. Left ventricular systolic function is normal. The left ventricular ejection fraction is 50 %. Moderate pericardial effusion. There are no echocardiographic indications of cardiac tamponade. Compared to the previous the effusion is new and her IVC is more dilated. Ordering Physician: Alycia Cardenas Referring Physician: Rakel Archer M.D. Performed By: Kita Islas RDCS and Student Assessment & Plan Assessment/Plan (1) Abdominal pain: QUALIFIERS: Abdominal location: left lower quadrant Qualified Code(s): R10.32 - Left lower quadrant pain PLAN: Very pleasant 83-year-old with past medical history of paroxysmal atrial fibrillation who recently was diagnosed with acute CVA started on Eliquis, aspirin and statin therapy. She was discovered to have new pericardial effusion with decreased ejection fraction. I was consulted to see her due to worsening abdominal pain that started over the last week. She has been having abdominal pain with eating and complains of some nausea and colicky epigastric and left upper quadrant and left lower quadrant abdominal pain. Differential diagnosis does include peptic ulcer disease, acute on chronic ischemic colitis, less commonly mesenteric ischemia (as she does not seem to be having lower GI bleeding or signs or symptoms of an acute abdomen). There is also no sign of pancreatitis, appendicitis or cholecystitis seen on imaging and her history is not consistent with that. Her peptic ulcer disease will be more common in the distal stomach and proximal small bowel. Depending on whether she needs a pericardiocentesis that would depend on whether she would get an upper endoscopy. She would need to be cleared by cardiology prior to any endoscopic procedure. For now recommend Protonix twice a day and Carafate 1 g 3 times a day. Monitor blood pressure and keep systolic blood pressure greater than 100 and MAP greater than 60. Charges/Coding Visit Charges Inpatient E&M: 15660 Init Hosp L3
[2023-12-22 19:07] VITALS: BP 130/71; PULSE 114; RESP 17; TEMP 37.1; O2SAT 98
[2023-12-22 19:09] VITALS: BMI 22.6
--- NOTE | 2023-12-22 19:10 | NURSING ---
discharged to PCU report called to Harriet
== END 2023-12-22 19:10 | disposition short-term general hospital (02) | DRG 57 ==
PROVIDERS: Admitting Provider Internal Medicine; PCP Internal Medicine; Visit Provider Internal Medicine
DX: I69.341 Monoplegia of lower limb following cerebral infarction affecting right dominant side (principal); K55.9 Vascular disorder of intestine, unspecified; I31.39 Other pericardial effusion (noninflammatory); J44.89 Other specified chronic obstructive pulmonary disease; I70.0 Atherosclerosis of aorta; E03.9 Hypothyroidism, unspecified; I48.0 Paroxysmal atrial fibrillation; E78.5 Hyperlipidemia, unspecified; K21.9 Gastro-esophageal reflux disease without esophagitis; M54.50 Low back pain, unspecified; I49.5 Sick sinus syndrome; J45.30 Mild persistent asthma, uncomplicated; M81.0 Age-related osteoporosis without current pathological fracture; D25.9 Leiomyoma of uterus, unspecified; Z79.02 Long term (current) use of antithrombotics/antiplatelets; Z79.82 Long term (current) use of aspirin; N28.1 Cyst of kidney, acquired; Z95.0 Presence of cardiac pacemaker; Z79.899 Other long term (current) drug therapy; Z79.890 Hormone replacement therapy; Z79.01 Long term (current) use of anticoagulants
CPT/HCPCS: 36415; 74022; 74177; 80053; 82274; 82306; 83036; 83690; 83735; 84100; 84439; 84443; 85025; 92523; 93005; 93308; 97110; 97112; 97116; 97162; 97166; 97530; 97535; 97802; J7120; Q9967; A4216

== ENCOUNTER 2023-12-22 19:56 | Inpatient (IN) | payer MEDICARE, SELFPAY ==
--- NOTE | 2023-12-22 19:55 | HP.PCM.HOS_ITS ---
HPI - General General Date of Admission: 12/22/23 Date of Service: 12/22/23 Chief Complaint: Pericardial effusion, new HPI Narrative SARAH MINOR, is a 83 F with history of paroxysmal atrial fibrillation, permanent pacemaker placement, hypothyroidism, recent embolic stroke subsequently admitted to med rehab for therapy poststroke who was a transfer to the medical floor from inpatient med rehab at [facility] 12/22/2023 for new pericardial effusion. After patient's stroke she had been doing well in med rehab and was progressing. Last Friday did have some left lower quadrant pain that she had had previously as well in September and now has had it off and on since then. She endorsed the pain was colicky in nature and worse when eating so today a CT of her abdomen was ordered to assess further and this demonstrated scattered hepatic cysts with moderate amount of fecal material seen in right hemicolon and thickening of the distal portion of the stomach as well as a moderate-sized pericardial effusion. She subsequently had an echocardiogram which redemonstrated the pericardial effusion and cardiology was contacted and recommended transfer to the medical floor. Discussed case with social media content specialist on- call and it was recommended to continue her on IV fluids, hold her Eliquis and aspirin, and continue her metoprolol and Tikosyn and monitor in telemetry. Patient presently with no symptoms of tamponade and has good exercise tolerance with no increase in shortness of breath and no chest pain so is felt reasonable to monitor and institution however if patient worsens would need transfer to tertiary facility for intervention. Patient seen on floor after transfer to PCU, still intermittently having be crampy squeezing abdominal pain and overnight reports it was helped with Tylenol, also having some loose stool since she drank the contrast for the CT. Denies any chest pain or shortness of breath or other new or acute complaints. [facility] Medical History (Updated 12/22/23 @ 17:[address] Alycia Cardenas, DO) Asthma Blocked tear duct Carotid artery disease GERD (gastroesophageal reflux disease) Hyperlipidemia Hypothyroidism Osteoporosis Paroxysmal atrial fibrillation Sick sinus syndrome Sinus bradycardia Home Medications ?Medication ?Instructions ?Recorded ?Last Taken ?Type levothyroxine 112 mcg tablet 112 mcg PO DAILY thyroid 09/04/13 12/16/23 History L.acidoph, paracasei,B. lactis 10 1 ea PO QHS probiotic 02/28/15 12/15/23 History billion cell capsule glucosamine HCl 500 mg-msm 83 1 ea PO BID joints 02/28/15 12/16/23 History mg-chondroitin 400 mg tablet prednisolone acetate 1 % eye 1 drp ophthalmic (eye) QHS drops 09/15/17 12/15/23 History drops,suspension for post cornea transplant ascorbic acid (vitamin C) 1,000 mg 1,000 mg PO BID vitamin 09/21/19 12/11/23 History tablet atorvastatin 40 mg tablet 40 mg PO QHS cholestrol #30 tabs 12/16/23 Unknown Rx dofetilide 250 mcg capsule 250 mcg PO Q12 afib #60 caps 12/16/23 12/16/23 Rx metoprolol tartrate 50 mg tablet 50 mg PO BID BP #60 tabs 12/16/23 Unknown Rx acetaminophen 500 mg tablet 1,000 mg (2 x 500 mg) PO Q8H PRN 12/22/23 Unknown Rx PRN Pain 1-10 Or Fever #1 TAB aluminum-mag hydroxide-simethicone 30 ml PO Q6H PRN PRN Indigestion 12/22/23 Unknown Rx 400 mg-400 mg-40 mg/5 mL oral susp #1 mL (Mag-Al Plus Extra Strength) bisacodyl 10 mg rectal suppository 10 mg OR X1 PRN Constipation #1 ea 12/22/23 Unknown Rx calcium carbonate 1,000 mg (2 x 500 mg calcium 12/22/23 Unknown Rx (1,250 mg)) PO BID osteoporosis #1 TAB cholecalciferol (vitamin D3) 25 100 mcg (4 x 25 mcg (1,000 unit)) 12/22/23 Unknown Rx mcg (1,000 unit) tablet PO QODAY #1 TAB dextromethorphan-guaifenesin 10 5 ml PO Q6H PRN PRN Dry cough #5 mL 12/22/23 Unknown Rx mg-100 mg/5 mL oral syrup magnesium chloride 64 mg 128 mg (2 x 64 mg) PO DAILY #1 TAB 12/22/23 Unknown Rx (magnesium chloride) tablet,delayed release (Mag 64) morphine 2 mg/mL intravenous 1 mg (0.5 mL) IV Q4H PRN PRN pain 12/22/23 Unknown Rx syringe 7-10 1 day #1 mL pantoprazole 20 mg tablet,delayed 20 mg PO BID #1 TAB 12/22/23 Unknown Rx release sennosides 8.6 mg-docusate sodium 2 tab PO BID #1 TAB 12/22/23 Unknown Rx 50 mg tablet (Stimulant Laxative Plus) sodium chloride 0.9 % (flush) (BD 10 - 40 ml IV UD PRN Saline Flush 12/22/23 Unknown Rx PosiFlush Normal Saline 0.9 % #5 mL injection syringe) tramadol 50 mg tablet 25 mg (1/2 x 50 mg) PO Q8H PRN PRN 12/22/23 Unknown Rx pain 3-6 #1 TAB zinc sulfate 50 mg zinc (220 mg) 50 mg PO DAILY #1 cap 12/22/23 Unknown Rx capsule Allergy/AdvReac Type Severity Reaction Status Date / Time nitrofurantoin (From AdvReac Severe Vomiting Verified 12/12/23 10:21 Macrobid) nitrofurantoin AdvReac Severe Vomiting Verified 12/12/23 10:21 macrocrystalline (From Macrobid) amiodarone AdvReac Intermediate Severe Verified 12/12/23 10:21 dizziness montelukast (From Singulair) AdvReac Unknown Unknown Verified 12/12/23 10:21 Tetracyclines AdvReac Other Verified 12/12/23 10:21 Family History Father CAD (coronary artery disease) Mother Heart disease Surgical History History of arthroscopic knee surgery History of carpal tunnel surgery History of cataract surgery History of esophagogastroduodenoscopy (EGD) (~02/23/18) History of permanent cardiac pacemaker placement (12/21/12) History of tonsillectomy and adenoidectomy Hx of appendectomy Social History household members: family and other details: Her son James is currently living with her. She is a twice now. 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 Smoking Status: Never smoker alcohol intake: never substance use type: does not use caffeine: No what type of physical activity do you participate in: walking, aerobics and other details: Silver Sneakers frequency: daily duration: other details: She walks for 0.5 - 1 mile daily in the morning seatbelt use: always ROS ROS Narrative General: Denies fever/chills HENT: Denies headache, denies stuffy nose, denies sore throat EYES: Denies changes in vision Resp: Denies cough, denies shortness of breath Cardiac: Denies chest pain GI: Intermittent crampy abdominal pain, some loose stools especially postcontrast : Denies changes in urination Extremity: Denies swelling MSK: Denies weakness Neuro: Denies any numbness/tingling Heme: Denies any bleeding or bruising Skin: Denies rashes Psychiatric: No complaints voiced Physical Exam Narrative General: Alert, oriented, no apparent distress HEENT: Atraumatic, normocephalic Eyes: Anicteric, normal conjunctiva, extraocular movements grossly intact Neck: Supple Respiratory: Clear to auscultation bilaterally, normal respiratory effort Cardiovascular: Slightly tachycardic GI: Soft, no significant tender mass or distention, no rebound, guarding, rigidity Extremities: No edema Musculoskeletal: Moving all extremities Neuro: No overt focal neurological deficits Skin: No rashes appreciated Psych: Cooperative Assessment & Plan Assessment/Plan (1) Pericardial effusion: PLAN: Plan # New pericardial effusion -Seen on echocardiogram 12/22/2023 and was not demonstrated on echocardiogram 12/11 as part of her stroke workup -Discussed with cardiology and patient presently with no symptoms of tamponade and has good exercise tolerance with no increased shortness of breath -He was advised to hold aspirin and Eliquis, continue IV fluids -Continue Tikosyn and metoprolol -Cardiology evaluated and will continue to follow along, monitor on telemetry # Recent embolic CVA -MRI with small infarct in left posterior parietal lobe on previous admission -Patient on Tikosyn and metoprolol -Her Eliquis has been held given new pericardial effusion and inability to rule out this could be cause or contributor to this and advised no aspirin as well -Continue statin -PT/OT # Paroxysmal atrial fibrillation and sick sinus syndrome status post history of permanent pacemaker -Holding Eliquis -Continue metoprolol and Tikosyn -Monitor on telemetry # Thickening of the distal portion of the stomach and intermittent abdominal pain -Seen on CT of the abdomen -Evaluated by GI -Will ultimately need upper endoscopy however will need to be cleared by cardiology and stable from a heart standpoint prior to that -Continue Protonix and Carafate #Hypothyroidism -Continue Synthroid #GERD -Continue PPI #DVT ppx: SCDs Karishma Starkey MD Time spent in the patient's overall evaluation,decision-making process, review of diagnostic data, adjustment of management, discussion with other providers, nursing nursing and ancillary staff involved in patient's care documentation, 56 Minutes CODE status: Discussed CODE status at length including difference between FULL code, DNR-CCA, and DNR-CC status. Following discussions about the differences in these status, requested DNR/DNI. Patient previously DNR but okay for short-term intubation however in light of new diagnosis she would like to continue current management and treatment but would not want intubation or resuscitation if he were to come to that. Also at this point reports she would not want anything like a central line either but agreeable to everything up to that point. A dvanced Care Planning Face to Face Time: 16 minutes. Charges/Coding Multi Select Codes Visit Charges Visit Charges: 06763 Init Hosp L2 Hospitalists' Procedures Procedures: 54766 Advncd Care Plan 30 Min
[2023-12-22] MEDS: Dofetilide 250 MCG Capsule PO (21:10)
[2023-12-22] MEDS: Pantoprazole Sodium 40 MG Tablet PO (21:10)
[2023-12-22] MEDS: Sucralfate 1 GM Tablet PO (21:10)
[2023-12-22 21:11] VITALS: BP 118/73; PULSE 134
[2023-12-22] MEDS: Metoprolol Tartrate 50 MG Tablet PO (21:11)
[2023-12-22] MEDS: Atorvastatin Calcium 40 MG Tablet PO (21:11)
[2023-12-22] MEDS: Acetaminophen 500 MG Tablet 1000 MG PO (21:21)
[2023-12-22] MEDS: 0.9% Normal Saline (1000mL) 1,000 ML 50 ML IV (21:26)
[2023-12-22 21:30] VITALS: BP 122/58; PULSE 122; RESP 18; TEMP 36.9; O2SAT 98
[2023-12-22 22:06] VITALS: BMI 23.3
[2023-12-23] VITALS (10 sets, daily range): BP systolic 90–120; BP diastolic 47–83; PULSE 110–134; RESP 17–18; TEMP 35.9–36.9; O2SAT 97–99; BMI 23.3
[2023-12-23] MEDS: traMADol 50 MG Tablet 25 MG PO ×2 (01:54→20:42)
[2023-12-23] MEDS: Morphine 2 MG/ML Syringe IV (03:54)
--- NOTE | 2023-12-23 05:55 | EKG12_ITS ---
Test Reason : TIKOSYN Blood Pressure : / mmHG Vent. Rate : 125 BPM Atrial Rate : 000 BPM P-R Int : 000 ms QRS Dur : 074 ms QT Int : 340 ms P-R-T Axes : 000 026 081 degrees QTc Int : 490 ms Atrial fibrillation with rapid ventricular response Low voltage QRS Nonspecific T wave abnormality Abnormal ECG Confirmed by Rogelio Prather ([id number]), commercial production editor MICHELLE VÁSQUEZ ([id number]) on 12/24/2023 5:26:49 AM Referred By: Confirmed By:Rogelio Prather
[2023-12-23] MEDS: Levothyroxine 112 MCG Tablet PO (06:04)
[2023-12-23] MEDS: Sucralfate 1 GM Tablet PO ×4 (06:04→22:03)
[2023-12-23] MEDS: Acetaminophen 500 MG Tablet 1000 MG PO ×2 (06:58→14:34)
[2023-12-23] MEDS: Digoxin 250 MCG/ML Ampul 500 MCG IV (06:59)
--- NOTE | 2023-12-23 07:03 | ECHOL_ITS ---
Reason For Study: PERICARDIAL EFFUSION Procedure This was a limited 2D transthoracic echocardiogram. Exam performed portable in patient room. Left Ventricle Normal LV size. Left ventricular systolic function is normal. The left ventricular ejection fraction is 55 %. No regional wall motion abnormalities noted. Right Ventricle Normal RV size. ICD or pacer leads identified within the right ventricle. Normal systolic function. Atria Normal left atrium. Normal right atrium. ICD or pacer leads identified within the right atrium. Mitral Valve Normal mitral valve. Tricuspid Valve Normal tricuspid valve. Aortic Valve Trisinus/trileaflet aortic valve. Pulmonic Valve Normal pulmonic valve. Great Vessels Normal aortic root. The pulmonary artery is normal size. Plethoric inferior vena cava. The inferior vena cava is dilated. and does not collapse. Pericardium/Pleural Moderate pericardial effusion. Circumferential effusion. There are no echocardiographic indications of cardiac tamponade. MMode/2D Measurements & Calculations LVIDd: 3.5 cm IVSd: 0.85 cm LVAd ap4: 9.7 cm2 LVIDs: 2.1 cm LVPWd: 0.98 cm LVLd ap4: 5.0 cm FS: 41.9 % EDV(MOD-sp4): 15.7 ml EDV(sp4-el): 16.0 ml LVAs ap4: 5.0 cm2 LVLs ap4: 3.9 cm ESV(MOD-sp4): 5.7 ml ESV(sp4-el): 5.4 ml EF(MOD-sp4): 64.0 % EF(sp4-el): 66.3 % LVAd ap2: 12.4 cm2 SV(MOD-sp4): 10.1 ml SV(MOD-sp2): 16.5 ml LVLd ap2: 5.0 cm EDV(MOD-sp2): 25.2 ml EDV(sp2-el): 25.9 ml LVAs ap2: 6.7 cm2 LVLs ap2: 4.4 cm ESV(MOD-sp2): 8.7 ml ESV(sp2-el): 8.7 ml EF(MOD-sp2): 65.3 % SV(sp4-el): 10.6 ml Ao sinus diam: 3.0 cm LA dimension(2D): 3.8 cm ECHO/Echo, Limited Study Interpretation Summary Normal LV size. Left ventricular systolic function is normal. The left ventricular ejection fraction is 55 %. Moderate pericardial effusion. Circumferential effusion. There are no echocardiographic indications of cardiac tamponade. Compared to the previous the effusion is worse. Ordering Physician: Rogelio Prather Referring Physician: Rakel Archer M.D. Performed By: Kita Islas RDCS
[2023-12-23 07:25] LABS: Basophil# 0.05 X10^3/uL; Basophil% 0.7 % (0-1); Eosinophil# 0.03 X10^3/uL; Eosinophils% 0.4 % (0-5); Hematocrit 32.8 % (37-47); Hemoglobin 10.6 g/dL (12.0-15.0); Lymphocyte % 16.8 % (19-41); Mean Corp Hgb Conc 32.3 g/dL (32-36); Mean Corpuscular Hgb 29.9 pg (27.0-32.0); Mean Corpuscular Volume 92.7 fL (81-99); Monocyte# 0.84 X10^3/uL; Monocyte% 11.8 % (0-10); NRBC Flagged by Analyzer 0 % (0-5); Neutrophil # 4.97 X10^3/uL (2.7-7.7); Neutrophil % 69.7 % (47-70); Platelet Count 244 K/mm3 (150-450); RBC Distribution Width CV 12.7 % (11.6-14.6); RBC Distribution Width SD 42.8 fl (35.1-43.9); Red Blood Count 3.54 M/mm3 (4.2-5.4); White Blood Count 7.1 K/mm3 (4.4-11.0)
[2023-12-23 08:12] LABS: ALB/GLOB Ratio 0.7 RATIO (0.9-2.4); AST(SGOT) 42 U/L (15-37); Alanine Aminotransfer ALT/SGPT 85 U/L (13-56); Albumin, Serum 2.5 g/dL (3.2-5.0); Alkaline Phosphatase 63 U/L (45-117); Anion Gap 5 (5-15); BUN 11 mg/dL (7-18); BUN/Creat Ratio 18.8 RATIO (10-20); Calcium,Total 8.4 mg/dL (8.5-10.1); Chloride 106 mmol/L (98-107); Creatinine, Serum 0.58 mg/dL (0.55-1.02); EST Glomerular Filtration Rate 104 mL/min (>60); Est Glom Filt Rate - Afr Amer 126 mL/min (>60); Estimated Creatinine Clearance 40.66 ml/min; Globulin 3.4 g/dL (2.2-4.2); Glucose 114 mg/dL (74-106); Magnesium 1.9 mg/dL (1.6-2.6); Phosphorus 3.2 mg/dL (2.5-4.9); Potassium 3.5 mmol/L (3.5-5.1); Protein, Total 5.9 g/dL (6.4-8.2); Sodium Level 138 mmol/L (136-145)
[2023-12-23 08:24] LABS: International Normalized Ratio 1.4; Prothrombin Time (Protime)PT. 17.2 SECONDS (11.7-14.9)
--- NOTE | 2023-12-23 08:27 | PCM.PN.CARD ---
Subjective Subjective Patient denies any shortness of breath or pleuritic chest discomfort. She does report some colicky type sensations across her upper abdomen that come in waves and resolved spontaneously. She denies any lower extremity edema. Patient denies any PND orthopnea as well. A repeat echocardiogram done this morning due to the fact the patient's blood pressure was 90 systolic and her heart rate was 120 preliminarily shows no significant change in the pericardial effusion her IVC continues to be the same size with a slight decrease with inspiration. Formal final reading is pending at this time. The patient's blood pressure at home environment runs 90?100 systolic. She remains in atrial fibrillation after 0.5 mg Lanoxin this morning her heart rate is 108. Her metoprolol was held due to her blood pressure this morning. Objective Data Vital Signs: Vital Signs Pulse BP 122 H 90/62 12/23/23 06:59 12/23/23 06:59 Weight: 127 lb 13.89 oz Body Mass Index (BMI) 23.3 Intake & Output: Intake and Output for Last 24 Hours 12/21/23 12/22/23 12/23/23 23:59 23:59 23:59 Intake Total 300 / 300 Balance 300 / 300 Lab / Micro Data 12/23/23 06:55 12/23/23 06:55 Labs: Laboratory Results - last 24 hr 12/23/23 06:55: WBC 7.1, RBC 3.54 L, Hgb 10.6 L, Hct 32.8 L, MCV 92.7, MCH 29.9, MCHC 32.3, RDW Std Deviation 42.8, RDW Coeff of Santi 12.7, Plt Count 244, MPV 11.0, Immature Gran % (Auto) 0.600, Neut % (Auto) 69.7, Lymph % (Auto) 16.8 L, [place] % (Auto) 11.8 H, Eos % (Auto) 0.4, Baso % (Auto) 0.7, Absolute Neuts (auto) 5.0, Absolute Lymphs (auto) 1.20, Nucleated RBC % 0, PT 17.2 H, INR 1.4, Sodium 138, Potassium 3.5, Chloride 106, Carbon Dioxide 27.0, Anion Gap 5, BUN 11, Creatinine 0.58, Estim Creat Clear Calc 40.66, Est GFR (MDRD) Af Amer 126, Est GFR (MDRD) Non-Af 104, BUN/Creatinine Ratio 18.8, Glucose 114 H, Calcium 8.4 L, Phosphorus 3.2, Magnesium 1.9, Total Bilirubin 0.40, AST 42 H, ALT 85 H, Alkaline Phosphatase 63, Total Protein 5.9 L, Albumin 2.5 L, Globulin 3.4, Albumin/Globulin Ratio 0.7 L Rhythm Strip Rhythm Strip: A-fib Rate: 108 Cardiology Labs/Tests 12/22/ 06:55: WBC 7.1, RBC 3.54 L, Hgb 10.6 L, Hct 32.8 L, MCV 92.7, MCH 29.9, MCHC 32.3, Plt Count 244, MPV 11.0, Immature Gran % (Auto) 0.600, Neut % (Auto) 69.7, Lymph % (Auto) 16.8 L, [place] % (Auto) 11.8 H, Eos % (Auto) 0.4, Baso % (Auto) 0.7, Absolute Neuts (auto) 5.0, Nucleated RBC % 0, PT 17.2 H, INR 1.4, Sodium 138, Potassium 3.5, Chloride 106, Carbon Dioxide 27.0, Anion Gap 5, BUN 11, Creatinine 0.58, Est GFR (MDRD) Af Amer 126, Est GFR (MDRD) Non-Af 104, BUN/Creatinine Ratio 18.8, Glucose 114 H, Calcium 8.4 L, Phosphorus 3.2, Magnesium 1.9, Total Bilirubin 0.40 Rhythm: EKG: ECHO: Stress Test: Cardiac Cath: PCI: CT Surgery: Holter monitor: EPS: PPM: CXR: Chest CT Scan: Physical Exam Const alert and oriented x3 HEENT normocephalic Eyes EOMs intact bilaterally Neck no carotid bruits Chest inspection of chest normal Chest: left pectoral incision Resp normal respiratory effort and clear to auscultation bilaterally Cardio Rate: tachycardic Rhythm: abnormal rhythm irregularly irregular Heart Sounds: S1 normal and S2 normal; Negative for click, gallop or murmur GI soft to palpation Extremity no pedal edema Neuro Neuro Narrative: Alert and oriented x 3. Psych mental status grossly normal Assessment & Plan Assessment/Plan (1) Pericardial effusion: PLAN: Patient presented this morning with a blood pressure of 90 systolic and a heart rate of 120. She did not receive metoprolol due to the blood pressure. Given this change in her vital signs repeat limited echocardiogram was performed. This does not show any significant change in the moderate pericardial effusion and IVC dilation. There is no definitive evidence of pericardial tamponade. The pacer wires are identified in the right atrium and right ventricle. We will use Lanoxin to maintain resting heart rate and decrease her metoprolol to 25 mg twice daily. I did discuss drainage options with the patient and her daughter this morning. They voiced understanding to proceed with our current monitoring processes. (2) Chronic anticoagulation: PLAN: The patient is Eliquis and aspirin have been interrupted she missed her dose last evening. The plan would be to try to avoid pericardial draining intervention for at least another 24 to 48 hours. (3) Sick sinus syndrome: PLAN: Patient has a history of sick sinus syndrome going in and out of paroxysmal atrial fibrillation. When she is in atrial fibs she seems to be tachycardic in her home environment with blood pressures in the 90?100 systolic range. When she is in sinus rhythm she is in an atrially paced rhythm most of the time. (4) Paroxysmal atrial fibrillation: PLAN: Patient continues in atrial fibrillation. Heart rate is in the 100?120 range. We will add Lanoxin for resting rate control. This tachycardia is expected given her pericardial effusion. (5) Pacemaker: PLAN: Patient's pacemaker last checked when she was hospitalized November 2023 was functioning normally. This is managed through the [place] [facility]. PLAN: Plan 1. Will add Lanoxin 0.25 mg daily. Will decrease this to 0.125 mg daily after 4 days. 2. Decrease metoprolol to 25 mg twice daily and hold for systolic less than 95. 3. Will continue with daily activities to monitor her for any new shortness of breath/dyspnea on exertion. Also want to maintain the gains she has made with her rehab after her CVA. 4. Will reevaluate with repeat limited echo in 48 hours and as needed. Charges/Coding Visit Charges Inpatient E&M: 51783 [facility] Hosp L3
[2023-12-23] MEDS: Dofetilide 250 MCG Capsule PO ×2 (10:56→22:02)
[2023-12-23] MEDS: Pantoprazole Sodium 40 MG Tablet PO ×2 (10:56→22:02)
[2023-12-23] MEDS: Metoprolol Tartrate 25 MG Tablet PO ×2 (10:57→22:02)
[2023-12-23] MEDS: Digoxin 125 MCG Tablet PO (10:57)
--- NOTE | 2023-12-23 12:23 | CASEMGMT ---
This MADDISON and MADDISON Padilla met with patient. Introduced selves and role at [facility]. Patient stated she plans on going home at discharge with Palliative Care. SW asked patient if she would like home health. Patient said she would like theray at discharge. MADDISON notified RN SANDY. Kateryna CARUSO
--- NOTE | 2023-12-23 13:14 | CASEMGMT ---
Discharge Planning A list of HH providers including quality and resource use data and consistent with the patient's preferred geographic region, medical needs, and insurance network was created in [facility] Guide.? This list was provided to the RN SANDY. Arlet Stroud, Discharge Planning Asst.
--- NOTE | 2023-12-23 13:47 | PN.HOSP_ITS ---
Subjective Subjective Doing well, no issues overnight. Denies any significant shortness of breath or abdominal pain currently. Objective Data Objective Data Vital Signs: Vital Signs Temp Pulse Resp BP Pulse Ox O2 Del Method 97.1 F L 116 H 18 103/67 98 Room Air 12/23/23 10:52 12/23/23 10:57 12/23/23 10:52 12/23/23 10:52 12/23/23 10:52 12/23/23 10:52 Oxygen Delivery Method Room Air Weight: 127 lb 13.89 oz Body Mass Index (BMI) 23.3 Intake & Output: Intake and Output for Last 24 Hours 12/22/23 12/23/23 12/24/23 03:59 03:59 03:59 Intake Total 300 / 300 500 / 500 Balance 300 / 300 500 / 500 Lab / Micro Data 12/23/23 06:55 12/23/23 06:55 Labs: Laboratory Results - last 24 hr 12/23/23 06:55: WBC 7.1, RBC 3.54 L, Hgb 10.6 L, Hct 32.8 L, MCV 92.7, MCH 29.9, MCHC 32.3, RDW Std Deviation 42.8, RDW Coeff of Santi 12.7, Plt Count 244, MPV 11.0, Immature Gran % (Auto) 0.600, Neut % (Auto) 69.7, Lymph % (Auto) 16.8 L, M manolo % (Auto) 11.8 H, Eos % (Auto) 0.4, Baso % (Auto) 0.7, Absolute Neuts (auto) 5.0, Absolute Lymphs (auto) 1.20, Nucleated RBC % 0, PT 17.2 H, INR 1.4, Sodium 138, Potassium 3.5, Chloride 106, Carbon Dioxide 27.0, Anion Gap 5, BUN 11, Creatinine 0.58, Estim Creat Clear Calc 40.66, Est GFR (MDRD) Af Amer 126, Est GFR (MDRD) Non-Af 104, BUN/Creatinine Ratio 18.8, Glucose 114 H, Calcium 8.4 L, Phosphorus 3.2, Magnesium 1.9, Total Bilirubin 0.40, AST 42 H, ALT 85 H, Alkaline Phosphatase 63, Total Protein 5.9 L, Albumin 2.5 L, Globulin 3.4, A lbumin/Globulin Ratio 0.7 L Radiography Diagnostic Testing: Radiology Impression Echocardiogram 12/23/23 07:03 Interpretation Summary Normal LV size. Left ventricular systolic function is normal. The left ventricular ejection fraction is 55 %. Moderate pericardial effusion. Circumferential effusion. There are no echocardiographic indications of cardiac tamponade. Compared to the previous the effusion is worse. Ordering Physician: Rogelio Prather Referring Physician: Rakel Archer M.D. Performed By: Kita Islas RDCS Rhythm Strip Rhythm Strip: A-fib Rate: 108 Physical Exam Narrative General: Alert, Oriented x3, Cooperative, No apparent distress HEENT: Atraumatic, PERRLA, EOMI, Normocephalic Oral: Moist Mucosa Neck: Supple, No JVD Lungs: Diminished, Normal air movement, No rhonchi, No wheeze, No rales Cardiovascular: Irregular rate and rhythm, Normal S1, Normal S2, No murmurs Abdomen: Soft, Non Tender, Non-Distended, No Hepato-splenomegaly Extremities: No edema, Capillary Refill Less than 3 Seconds Skin: No rashes, No breakdown Musculoskeletal: No Tenderness to Palpation of Joints or Extremities Neurological: No focal neurological deficits, Motor Exam 5/5 strength throughout, Sensory exam intact to light touch and pain Psych/Mental Status: Normal Affect, Appropriate Assessment & Plan Assessment/Plan (1) Pericardial effusion: PLAN: Plan 1. New pericardial effusion/paroxysmal A-fib with sick sinus syndrome status post pacemaker ? She does not want any intervention for pericardial effusion sided 25-minute discussion advance care planning with both her and her family about prognosis and discharge planning. They would like to proceed with palliative care on discharge ? Doing well otherwise cardiology would like to monitor for another 24 hours and plan for discharge tomorrow if she continues to do well, she has no chest pain or shortness of breath ? Her metoprolol was decreased to 25 mg p.o. twice daily and her digoxin was adjusted as well ? Will monitor blood pressure ? Appreciate cardiology's assistance, will discuss resumption of aspirin and Eliquis prior to discharge ? Continue with Lipitor ? Continue with Tikosyn 2. Thickening of the distal portion of the stomach/GERD ? She does not want any significant interventions at this time so we will continue with medical intervention with Carafate and Protonix per GIs recommendation ? Appreciate their assistance ? No signs of colitis on CT of the abdomen and pelvis 3. Recent embolic CVA ? Continue with her home medications ? Will discuss with cardiology about resuming Eliquis and aspirin as above 4. Hypothyroidism ? Stable ? Continue Synthroid DVT: SCDs Charges/Coding Multi Select Codes Visit Charges Visit Charges: 58916 Subs Hosp L2 Hospitalists' Procedures Procedures: 46891 Advncd Care Plan 30 Min
--- NOTE | 2023-12-23 13:53 | CHAPLAIN ---
Type of Pastoral Visit ___ Initial Visit _x__ Follow-up Visit ___ On-call Visit ___ General Patient Visit ___ Spiritual Assessment ___ Family Conference ___ Bereavement ___ Rapid Response ___ Code Blue ___ Other (describe below) Pastoral Care Referral From _x__ Patient _x__ Family ___ Nurse ___ Physician ___ Watch Repair Person ___ Lead Advisor ___ Other (describe below) Sacrament/Intervention _x__ Active listening ___ Anointing ___ Taoist ___ Bereavement ___ Communion _x__ Gwendolyn exploration ___ _x__ Life review _x__ Prayer ___ Reconciliation ___ Sacrament of Sick _x__ Supportive presence ___ Wedding ___ Other (describe below) Pastoral Comments several family members are in the room as patient is in the bathroom; family members talk lovingly of their mother/grandmother; family expects patient to be discharged home tomorrow; pt enters the room and is very welcoming of spiritual care support and presence of this appeals officer; pt gives updates on her health and admits that this could be the time with the Lord takes me home; pt presents with a positive attitude and full of gwendolyn in God who will decide what is best; pt is asked about requests and she mentions the spiritual needs of her family as the most important; pt states that she wants to glorify God in these days ' no matter how long I have'; prayer is given; son requests that a verse of In the Garden be sung together and that is done too/
--- NOTE | 2023-12-23 15:30 | CASEMGMT ---
DONALD DELGADO in to discuss needs at discharge with patient, daughter at bedside. Patient states she is interested in HHC and Palliative Care. DONALD DELGADO provided patient with HHC list, patient and family to review list and provide preference. Patient and daughter have no further questions or concerns. DONALD DELGADO received order for palliative referral. DONALD DELGADO completed palliative screening tool and referral sent to [facility]. CM will continue to follow this patient and plan for a safe discharge.
[2023-12-23] MEDS: 0.9% Saline Lock 10 ML Syringe IV (20:43)
[2023-12-23] MEDS: Atorvastatin Calcium 40 MG Tablet PO (22:02)
--- NOTE | 2023-12-24 | EKG12_ITS ---
Test Reason : MED Blood Pressure : / mmHG Vent. Rate : 094 BPM Atrial Rate : 000 BPM P-R Int : 000 ms QRS Dur : 064 ms QT Int : 352 ms P-R-T Axes : 000 033 075 degrees QTc Int : 440 ms Atrial fibrillation Low voltage QRS Abnormal ECG When compared with ECG of 23-DEC-2023 05:34, MANUAL COMPARISON REQUIRED, DATA IS UNCONFIRMED Confirmed by Rogelio Prather ([id number]), metropolitan editor MICHELLE VÁSQUEZ ([id number]) on 12/24/2023 10:35:20 AM Referred By: Confirmed By:Rogelio Prather
[2023-12-24] MEDS: Morphine 2 MG/ML Syringe IV (01:16)
[2023-12-24] MEDS: 0.9% Saline Lock 10 ML Syringe IV (01:18)
[2023-12-24 04:00] VITALS: BP 103/69; PULSE 110; RESP 18; TEMP 36.8; O2SAT 97
[2023-12-24 06:00] VITALS: BMI 23.4
[2023-12-24] MEDS: Levothyroxine 112 MCG Tablet PO (06:30)
[2023-12-24 07:14] LABS: Absolute Lymphocyte Count 1.41 X10^3/uL (0.83-4.51); Absolute Neutrophil Count 5.4 X10^3/uL (2.0-7.7); Basophil# 0.04 X10^3/uL; Basophil% 0.5 % (0-1); Eosinophil# 0.05 X10^3/uL; Eosinophils% 0.6 % (0-5); Hematocrit 31.8 % (37-47); Hemoglobin 10.4 g/dL (12.0-15.0); Lymphocyte # 1.41 X10^3/ul (0.83-4.51); Lymphocyte % 17.8 % (19-41); Mean Corp Hgb Conc 32.7 g/dL (32-36); Mean Corpuscular Hgb 30.4 pg (27.0-32.0); Mean Platelet Vol. 11.6 fl (6.2-12.0); Monocyte# 0.96 X10^3/uL; Monocyte% 12.1 % (0-10); NRBC Flagged by Analyzer 0 % (0-5); Neutrophil # 5.42 X10^3/uL (2.7-7.7); Neutrophil % 68.5 % (47-70); Platelet Count 257 K/mm3 (150-450); RBC Distribution Width CV 12.6 % (11.6-14.6); RBC Distribution Width SD 43.1 fl (35.1-43.9); Red Blood Count 3.42 M/mm3 (4.2-5.4); White Blood Count 7.9 K/mm3 (4.4-11.0)
[2023-12-24 07:33] LABS: Anion Gap 7 (5-15); BUN 10 mg/dL (7-18); BUN/Creat Ratio 20.3 RATIO (10-20); Calcium,Total 8.3 mg/dL (8.5-10.1); Chloride 105 mmol/L (98-107); Creatinine, Serum 0.49 mg/dL (0.55-1.02); EST Glomerular Filtration Rate 127 mL/min (>60); Est Glom Filt Rate - Afr Amer 153 mL/min (>60); Estimated Creatinine Clearance 40.66 ml/min; Glucose 158 mg/dL (74-106); Potassium 3.8 mmol/L (3.5-5.1); Sodium Level 136 mmol/L (136-145)
--- NOTE | 2023-12-24 07:34 | ECHOL_ITS ---
Reason For Study: PERICARDIAL EFFUSION Procedure This was a limited 2D transthoracic echocardiogram. Exam performed portable in patient room. Left Ventricle Normal LV size. The left ventricular ejection fraction is 55 %. No regional wall motion abnormalities noted. Right Ventricle Normal RV size. ICD or pacer leads identified within the right ventricle. Normal systolic function. Atria Normal left atrium. Normal right atrium. Great Vessels The inferior vena cava is dilated. Pericardium/Pleural Moderate pericardial effusion. There are no echocardiographic indications of cardiac tamponade. 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 MMode/2D Measurements & Calculations LVIDd: 3.4 cm IVSd: 1.0 cm LVIDs: 2.2 cm LVPWd: 0.93 cm LVAd ap4: 12.0 cm2 FS: 34.3 % LVLd ap4: 5.3 cm EDV(MOD-sp4): 22.9 ml EDV(sp4-el): 23.0 ml LVAs ap4: 5.8 cm2 LVLs ap4: 4.0 cm ESV(MOD-sp4): 7.3 ml ESV(sp4-el): 7.1 ml EF(MOD-sp4): 68.3 % EF(sp4-el): 69.0 % LVAd ap2: 12.5 cm2 SV(MOD-sp4): 15.6 ml SV(MOD-sp2): 15.0 ml LVLd ap2: 5.8 cm EDV(MOD-sp2): 22.8 ml EDV(sp2-el): 23.0 ml LVAs ap2: 6.1 cm2 LVLs ap2: 4.1 cm ESV(MOD-sp2): 7.7 ml ESV(sp2-el): 7.7 ml EF(MOD-sp2): 66.1 % SV(sp4-el): 15.9 ml Ao sinus diam: 3.0 cm LA dimension(2D): 3.6 cm ECHO/Echo, Limited Study Interpretation Summary The left ventricular ejection fraction is 55 %. Normal LV size. No regional wall motion abnormalities noted. Moderate pericardial effusion. 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 The effusion does not appear to be worse and the IVC size is slightly smaller. Ordering Physician: Rogelio Prather Referring Physician: Rakel Archer M.D. Performed By: Kita Islas RDCS
--- NOTE | 2023-12-24 07:35 | PCM.PN.CARD ---
Subjective Subjective Patient up in the chair at the bedside. She reports that she is having no shortness of breath or dyspnea on exertion with ambulation in the halls. The patient does complain of recurrent upper abdominal discomfort and has a new which she described as a neuralgia type pain in the right side of her neck. She had had this in the past when she was on the inpatient rehab and at that time was thought to be related to weight lifting which she has not been doing over the last 48 hours. She received Tylenol and tramadol for pain relief but these were unsuccessful until she received some morphine. The patient is requesting hospice care so that she can get her pain under control. I have referred her to the social workers as her clinical situation probably does not meet criteria for hospice at this point in time but she is very appropriate for palliative care. This pain control though may qualify for her for hospice care depending on the etiology and/or the determination of the social work administrator and the primary service. Objective Data Vital Signs: Vital Signs Temp Pulse Resp BP Pulse Ox O2 Del Method 97.6 F L 113 H 17 120/83 H 99 Room Air 12/23/23 22:00 12/23/23 22:02 12/23/23 22:00 12/23/23 22:02 12/23/23 22:00 12/24/23 00:52 Oxygen Delivery Method Room Air Weight: 127 lb 13.89 oz Body Mass Index (BMI) 23.3 Intake & Output: Intake and Output for Last 24 Hours 12/22/23 12/23/23 12/24/23 23:59 23:59 23:59 Intake Total 1754.17 / 1754.17 Balance 1754.17 / 1754.17 Lab / Micro Data Attestation: I reviewed the patient's lab results. 12/24/23 05:37 12/24/23 05:37 Labs: Laboratory Results - last 24 hr 12/23/23 06:55: PT 17.2 H, INR 1.4, Sodium 138, Potassium 3.5, Chloride 106, Carbon Dioxide 27.0, Anion Gap 5, BUN 11, Creatinine 0.58, Estim Creat Clear Calc 40.66, Est GFR (MDRD) Af Amer 126, Est GFR (MDRD) Non-Af 104, BUN/Creatinine Ratio 18.8, Glucose 114 H, Calcium 8.4 L, Phosphorus 3.2, Magnesium 1.9, Total Bilirubin 0.40, AST 42 H, ALT 85 H, Alkaline Phosphatase 63, Total Protein 5.9 L, Albumin 2.5 L, Globulin 3.4, Albumin/Globulin Ratio 0.7 L 12/24/23 05:37: WBC 7.9, RBC 3.42 L, Hgb 10.4 L, Hct 31.8 L, MCV 93.0, MCH 30.4, MCHC 32.7, RDW Std Deviation 43.1, RDW Coeff of Santi 12.6, Plt Count 257, MPV 11.6, Immature Gran % (Auto) 0.500, Neut % (Auto) 68.5, Lymph % (Auto) 17.8 L, Powell % (Auto) 12.1 H, Eos % (Auto) 0.6, Baso % (Auto) 0.5, Absolute Neuts (auto) 5.4, Absolute Lymphs (auto) 1.41, Nucleated RBC % 0, Sodium 136, Potassium 3.8, Chloride 105, Carbon Dioxide 24.0, Anion Gap 7, BUN 10, Creatinine 0.49 L, Estim Creat Clear Calc 40.66, Est GFR (MDRD) Af Amer 153, Est GFR (MDRD) Non-Af 127, BUN/Creatinine Ratio 20.3 H, Glucose 158 H, Calcium 8.3 L Rhythm Strip Rhythm Strip: A-fib Rate: 100 Cardiology Labs/Tests 12/23/23 06:55: PT 17.2 H, INR 1.4, Sodium 138, Potassium 3.5, Chloride 106, Carbon Dioxide 27.0, Anion Gap 5, BUN 11, Creatinine 0.58, Est GFR (MDRD) Af Amer 126, Est GFR (MDRD) Non-Af 104, BUN/Creatinine Ratio 18.8, Glucose 114 H, Calcium 8.4 L, Phosphorus 3.2, Magnesium 1.9, Total Bilirubin 0.40 12/24/23 05:37: WBC 7.9, RBC 3.42 L, Hgb 10.4 L, Hct 31.8 L, MCV 93.0, MCH 30.4, MCHC 32.7, Plt Count 257, MPV 11.6, Immature Gran % (Auto) 0.500, Neut % (Auto) 68.5, Lymph % (Auto) 17.8 L, Powell % (Auto) 12.1 H, Eos % (Auto) 0.6, Baso % (Auto) 0.5, Absolute Neuts (auto) 5.4, Nucleated RBC % 0, Sodium 136, Potassium 3.8, Chloride 105, Carbon Dioxide 24.0, Anion Gap 7, BUN 10, Creatinine 0.49 L, Est GFR (MDRD) Af Amer 153, Est GFR (MDRD) Non-Af 127, BUN/Creatinine Ratio 20.3 H, Glucose 158 H, Calcium 8.3 L Rhythm: EKG: ECHO: Stress Test: Cardiac Cath: PCI: CT Surgery: Holter monitor: EPS: PPM: CXR: Chest CT Scan: Radiography Diagnostic Testing: Radiology Impression Echocardiogram 12/23/23 07:03 Interpretation Summary Normal LV size. Left ventricular systolic function is normal. The left ventricular ejection fraction is 55 %. Moderate pericardial effusion. Circumferential effusion. There are no echocardiographic indications of cardiac tamponade. Compared to the previous the effusion is worse. Ordering Physician: Rogelio Prather Referring Physician: Rakel Archer M.D. Performed By: Kita Islas RDCS Physical Exam Const alert and oriented x3 HEENT normocephalic Eyes EOMs intact bilaterally Neck no JVD Neck Narrative: No JVD noted at 90 degrees. Chest inspection of chest normal Resp normal respiratory effort Cardio Rate: tachycardic Rhythm: abnormal rhythm irregularly irregular Extremity no pedal edema Neuro Neuro Narrative: Alert and oriented x 3 Psych mental status grossly normal Psych Narrative: The patient is tearful when talking about her pain control. Assessment & Plan Assessment/Plan (1) Pacemaker: PLAN: Patient status post DDD pacemaker which is functioning normally as of her most recent pacer device check. There have been some rare appropriate ventricular paced beats as we have been loading her with Lanoxin. (2) Pericardial effusion: PLAN: Patient's pericardial effusion may have slightly increased on the echo yesterday. We will repeat a limited echo today to reevaluate her effusion. The patient has requesting palliative/hospice care which is being set up in the home environment with a tentative discharge for later today. The patient's heart rate is under slightly better controlled. We will increase her Lanoxin to 250 mcg daily for the next 2 weeks and reevaluate her in the office in 2 weeks. She should continue the metoprolol at 25 mg twice daily as her blood pressure is tolerating it well in the 120 range this morning. Patient should avoid aspirin and Eliquis. 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 (4) Paroxysmal atrial fibrillation: PLAN: Patient's atrial fibrillation continues. She is on Tikosyn 250 mg twice daily which should be continued along with Lanoxin and metoprolol for rate control. The patient is not a candidate for aspirin or oral anticoagulation therapy given her pericardial effusion. The patient does have a DDD pacemaker in place that is known to be functioning normally within the past month on a device check. There have been rare pacer spikes noted when her heart rate slowed down documenting the fact that she is protected at a ventricular rate of 60 should her atrial rate conduction slow. PLAN: Plan 1. insulation worker to evaluate the patient for palliative/hospice care to be set up in the home. There is also a patient request to determine if she could go to inpatient hospice. 2. Continue Tikosyn 250 mg twice daily. 3. Lanoxin 0.25 mg daily. 4. Metoprolol 25 mg twice daily. This is a reduction in her dose from her home dose of 50 mg twice daily. 5. Patient to call the [facility] office for an appointment for follow-up within the next 14 days. 6. Limited echo will be performed today provided there is no significant change the patient should be able to be discharged from the acute care setting from a cardiovascular standpoint. 7. 1 option may be a transitional care admission to get her transition for pain control and assimilation back into her home environment status post her CVA. Charges/Coding Visit Charges Inpatient E&M: 10862 Subs Hosp L2
[2023-12-24] MEDS: Sucralfate 1 GM Tablet PO ×2 (08:25→11:49)
[2023-12-24 08:49] VITALS: BP 107/81; PULSE 113; RESP 17; TEMP 36.6; O2SAT 100
[2023-12-24 08:53] VITALS: PULSE 113
[2023-12-24] MEDS: Pantoprazole Sodium 40 MG Tablet PO (08:53)
[2023-12-24] MEDS: Metoprolol Tartrate 25 MG Tablet PO (08:53)
[2023-12-24] MEDS: traMADol 50 MG Tablet 25 MG PO (08:53)
[2023-12-24] MEDS: Dofetilide 250 MCG Capsule PO (08:54)
[2023-12-24] MEDS: Digoxin 250 MCG Tablet PO (11:50)
[2023-12-24] MEDS: Acetaminophen 500 MG Tablet 1000 MG PO (11:51)
--- NOTE | 2023-12-24 12:21 | DCINST_ITS ---
Discharge Instructions Diet Discharge Diet: No restrictions Activity Discharge Activity: Return to Normal Activity Dressing / Incision Call your doctor if you observe: Fever of 101 or Higher, Shortness of breath, Dizziness, Fainting spells, Swelling in the ankles, Chest pain and Increased palpitations (irregular heartbeat) Follow Up Care Test Results: Test results from this visit will be discussed in further detail at your follow- up appointment, if applicable. Discharge Plan Admission Admit Date/Time: 12/22/23 19:56 Attending Provider: Omari Joseph Primary Care Provider: Rakel Archer Consulting Providers: Rogelio Prather; Karishma Starkey Discharge Orders/Prescriptions Prescriptions: New digoxin 250 mcg (0.25 mg) Tablet 250 mcg PO DAILY 30 Days Qty: 30 0RF pantoprazole 40 mg Tablet,Delayed Release (Dr/Ec) 40 mg PO BID 30 Days Qty: 60 0RF oxycodone 5 mg Tablet 5 mg PO Q6H PRN PRN (Reason: Pain Score 4-10) 4 Days Qty: 15 0RF metoprolol tartrate 25 mg Tablet 25 mg PO BID 30 Days Qty: 60 0RF sucralfate 1 gram Tablet 1 g PO 1HR_ACHS 30 Days Qty: 90 0RF Continued prednisolone acetate 1 % drops,suspension 1 drp OPHTHALMIC QHS ascorbic acid (vitamin C) 1,000 mg tablet 1,000 mg PO BID levothyroxine 112 MCG tablet 112 mcg PO DAILY glucosamine [id number] 1 EACH tablet 1 ea PO BID L.acidoph, paracasei,B. lactis 1 EACH capsule 1 ea PO QHS dextromethorphan-guaifenesin 10-100 mg/5 mL Syrup 5 ml PO Q6H PRN PRN (Reason: Dry cough) Qty: 5 0RF acetaminophen 500 mg Tablet 1,000 mg PO Q8H PRN PRN (Reason: Pain 1-10 Or Fever) Qty: 1 0RF bisacodyl 10 mg Suppository 10 mg MA X1 PRN (Reason: Constipation) Qty: 1 0RF sodium chloride 0.9 % (flush) [BD PosiFlush Normal Saline 0.9] Syringe 10 - 40 ml IV UD PRN (Reason: Saline Flush) Qty: 5 0RF cholecalciferol (vitamin D3) 25 mcg (1,000 unit) Tablet 100 mcg PO QODAY Qty: 1 0RF alum-mag hydroxide-simeth [Mag-Al Plus Extra Strength] 400-400-40 mg/5 mL Suspension 30 ml PO Q6H PRN PRN (Reason: Indigestion) Qty: 1 0RF magnesium chloride [Mag 64] 64 mg Tablet,Delayed Release (Dr/Ec) 128 mg PO DAILY Qty: 1 0RF sennosides-docusate sodium [Stimulant Laxative Plus] 8.6-50 mg Tablet 2 tab PO BID Qty: 1 0RF tramadol 50 mg Tablet 25 mg PO Q8H PRN PRN (Reason: pain 3-6) Qty: 1 0RF zinc sulfate 50 mg zinc (220 mg) Capsule 50 mg PO DAILY Qty: 1 0RF morphine 2 mg/mL Syringe 1 mg IV Q4H PRN PRN (Reason: pain 7-10) 1 Days Qty: 1 0RF calcium carbonate 500 mg calcium (1,250 mg) tablet 1,000 mg PO BID Qty: 1 0RF atorvastatin 40 mg Tablet 40 mg PO QHS Qty: 30 2RF dofetilide 250 mcg Capsule 250 mcg PO Q12 Qty: 60 1RF Discontinued pantoprazole 20 mg Tablet,Delayed Release (Dr/Ec) 20 mg PO BID Qty: 1 0RF metoprolol tartrate 50 mg Tablet 50 mg PO BID Qty: 60 2RF Referrals / Follow Up: Rakel Archer DO [Primary Care Provider] - Within 1 Week Rogelio Prather MD [Med Staff - Active Staff] - Within 2 Weeks Disposition Disposition (needs filled in before D/C Order can be placed): Home Health Service
--- NOTE | 2023-12-24 13:21 | CASEMGMT ---
Addendum entered by Debra Jo 12/24/23 15:17: Patient was accepted by [facility] with start of care for Friday. DONALD DELGADO in to discuss [facility] setup with patient, family at bedside. Patient and family asking if there is information to hire someone to stay with patient overnight. DONALD DELGADO provided patient with private duty list. Patient and family denied further needs or concerns. Patient had no further questions. DONALD DELGADO updated discharge plan. Original Note: Patient has order for discharge. DONALD DELGADO in to discuss [facility] with patient. Patient reviewed list and first choice is [facility], second is [facility]. Patient declined further needs or help at discharge. Patient had no further questions. DONALD DELGADO updated discharge experience planning strategist to send referral to [facility]. CM will continue to follow this patient and plan for safe discharge.
--- NOTE | 2023-12-24 13:35 | CASEMGMT ---
Discharge Planning Referral sent to [facility] via [facility]. Arlet Stroud DC Planning Asst.
[2023-12-24] MEDS: oxyCODONE 5 MG Tablet PO (13:55)
[2023-12-24 16:31] VITALS: BP 106/61; PULSE 111; RESP 14; TEMP 36.7; O2SAT 96
--- NOTE | 2023-12-24 16:57 | PCM.DC.SUM ---
Providers Date of Admission: 12/22/23 Primary Care Physician: Dr. Rakel Archer DO Consultations 12/22/23 19:56 Consult: Cardiology Routine Consulting Provider: Rogelio Prather Reason for Consult: new pericardial effusion EMERGENT Consult: No MD Notified: Yes Date Notified: 12/22/23 Time Notified: 20:00 Method of Notification: Verbal Reason For Visit: NEW PERICARDIAL EFFUSION Diagnosis Discharge Diagnosis (1) Pacemaker: Status: Acute Code(s): Z95.0 - Presence of cardiac pacemaker (2) Pericardial effusion: Status: Acute Code(s): I31.39 - Other pericardial effusion (noninflammatory) (3) CVA (cerebral vascular accident): Status: Acute Code(s): I63.9 - Cerebral infarction, unspecified Qualifiers: CVA mechanism: embolism Precerebral and cerebral artery: other cerebral artery Qualified Code(s): I63.49 - Cerebral infarction due to embolism of other cerebral artery (4) Paroxysmal atrial fibrillation: Status: Acute Code(s): I48.0 - Paroxysmal atrial fibrillation Medications at Discharge Home Medications levothyroxine 112 mcg tablet 112 mcg PO DAILY thyroid 09/04/13 L.acidoph, paracasei,B. lactis 10 billion cell capsule 1 ea PO QHS probiotic 02/28/15 glucosamine HCl 500 mg-msm 83 mg-chondroitin 400 mg tablet 1 ea PO BID joints 02/28/15 prednisolone acetate 1 % eye drops,suspension 1 drp ophthalmic (eye) QHS drops for post cornea transplant 09/15/17 ascorbic acid (vitamin C) 1,000 mg tablet 1,000 mg PO BID vitamin 09/21/19 atorvastatin 40 mg tablet 40 mg PO QHS cholestrol #30 tabs 12/16/23 dofetilide 250 mcg capsule 250 mcg PO Q12 afib #60 caps 12/16/23 acetaminophen 500 mg tablet 1,000 mg (2 x 500 mg) PO Q8H PRN PRN Pain 1-10 Or Fever #1 TAB 12/22/23 aluminum-mag hydroxide-simethicone 400 mg-400 mg-40 mg/5 mL oral susp (Mag-Al Plus Extra Strength) 30 ml PO Q6H PRN PRN Indigestion #1 mL 12/22/23 bisacodyl 10 mg rectal suppository 10 mg AR X1 PRN Constipation #1 ea 12/22/23 calcium carbonate 1,000 mg (2 x 500 mg calcium (1,250 mg)) PO BID osteoporosis #1 TAB 12/22/23 cholecalciferol (vitamin D3) 25 mcg (1,000 unit) tablet 100 mcg (4 x 25 mcg (1,000 unit)) PO QODAY #1 TAB 12/22/23 dextromethorphan-guaifenesin 10 mg-100 mg/5 mL oral syrup 5 ml PO Q6H PRN PRN Dry cough #5 mL 12/22/23 magnesium chloride 64 mg (magnesium chloride) tablet,delayed release (Mag 64) 128 mg (2 x 64 mg) PO DAILY #1 TAB 12/22/23 morphine 2 mg/mL intravenous syringe 1 mg (0.5 mL) IV Q4H PRN PRN pain 7-10 1 day #1 mL 12/22/23 sennosides 8.6 mg-docusate sodium 50 mg tablet (Stimulant Laxative Plus) 2 tab PO BID #1 TAB 12/22/23 sodium chloride 0.9 % (flush) (BD PosiFlush Normal Saline 0.9 % injection syringe) 10 - 40 ml IV UD PRN Saline Flush #5 mL 12/22/23 tramadol 50 mg tablet 25 mg (1/2 x 50 mg) PO Q8H PRN PRN pain 3-6 #1 TAB 12/22/23 zinc sulfate 50 mg zinc (220 mg) capsule 50 mg PO DAILY #1 cap 12/22/23 digoxin 250 mcg (0.25 mg) tablet 250 mcg PO DAILY 30 days #30 tabs 12/24/23 metoprolol tartrate 25 mg tablet 25 mg PO BID 30 days #60 tabs 12/24/23 oxycodone 5 mg tablet 5 mg PO Q6H PRN PRN Pain Score 4-10 4 days #15 tabs 12/24/23 pantoprazole 40 mg tablet,delayed release 40 mg PO BID 30 days #60 tabs 12/24/23 sucralfate 1 gram tablet 1 g PO 1HR_ACHS 30 days #90 tabs 12/24/23 Hospital Course Operations None Procedures 2-D Echocardiogram Summary of Care Provided Minutes Spent on Discharge: 42 Hospital Course: Per HPI: SARAH FREYJONG, is a 83 F with history of paroxysmal atrial fibrillation, permanent pacemaker placement, hypothyroidism, 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 After patient's stroke she had been doing well in med rehab and was progressing. Last Friday did have some left lower quadrant pain that she had had previously as well in September and now has had it off and on since then. She endorsed the pain was colicky in nature and worse when eating so today a CT of her abdomen was ordered to assess further and this demonstrated scattered hepatic cysts with moderate amount of fecal material seen in right hemicolon and thickening of the distal portion of the stomach as well as a moderate-sized pericardial effusion. She subsequently had an echocardiogram which redemonstrated the pericardial effusion and cardiology was contacted and recommended transfer to the medical floor. Discussed case with principal consulting engineer on-call and it was recommended to continue her on IV fluids, hold her Eliquis and aspirin, and continue her metoprolol and Tikosyn and monitor in telemetry. Patient presently with no symptoms of tamponade and has good exercise tolerance with no increase in shortness of breath and no chest pain so is felt reasonable to monitor and institution however if patient worsens would need transfer to tertiary facility for intervention. Patient seen on floor after transfer to PCU, still intermittently having be crampy squeezing abdominal pain and overnight reports it was helped with Tylenol, also having some loose stool since she drank the contrast for the CT. Denies any chest pain or shortness of breath or other new or acute complaints. Hospital Course: 1. New pericardial effusion/paroxysmal A-fib with sick sinus syndrome status post pacemaker?83-year-old female presented to the hospital with abdominal pain that she indicates appears to be like a bandlike abdominal pain over the top of her abdomen. No real obvious consistencies in terms of what precipitates the pain however during evaluation of the pain it was noticed that she had pericardial effusion. She had an echogram that demonstrated that that had slightly enlarged from her previous and it did not appear to be causing any symptoms concerning for cardiac tamponade. Cardiology was consulted and felt that she would need treatment for this pericardial effusion however she would prefer not to and after multiple discussions decided transition with palliative care with the plan being eventual hospice care. Her metoprolol was decreased to 25 mg p.o. twice daily, she was continued on Tikosyn and started on digoxin. She will follow-up with cardiology in 2 weeks for evaluation and to address any further medication changes. She will be discharged with home health care and follow-up with palliative care. I discussed with her the plan for discharge today she expressed understanding of the risks and benefits of going home and would like to go home today 2. Thickening of the distal portion of the stomach/GERD?because of her pericardial effusion it was not felt that anesthesia would be a safe option until the effusion was treated and since she does not want to seek treatment at this time we will proceed with attempted symptomatic management of her abdominal pain. CT scan of the abdomen and pelvis did not show any signs of colitis. She was started on Protonix 40 mg p.o. twice daily as well as Carafate. 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 3. Recent embolic CVA, hypothyroidism, are all chronic medical conditions which complicate her care. Her home medications were continued where appropriate Physical Exam Narrative General: Alert, Oriented x3, Cooperative, No apparent distress HEENT: Atraumatic, PERRLA, EOMI, Normocephalic Oral: Moist Mucosa Neck: Supple, No JVD Lungs: Diminished, Normal air movement, No rhonchi, No wheeze, No rales Cardiovascular: Irregular rate and rhythm, Normal S1, Normal S2, No murmurs Abdomen: Soft, Non Tender, Non-Distended, No Hepato-splenomegaly Extremities: No edema, Capillary Refill Less than 3 Seconds Skin: No rashes, No breakdown Musculoskeletal: No Tenderness to Palpation of Joints or Extremities Neurological: No focal neurological deficits, Motor Exam 5/5 strength throughout, Sensory exam intact to light touch and pain Psych/Mental Status: Normal Affect, Appropriate Weight / BMI Weight Weight: 128 lb 4.944 oz Body Mass Index (BMI) 23.4 ABG / Lab / Microbiology Data 12/24/23 05:37 12/24/23 05:37 Laboratory: Laboratory Results - last 24 hr 12/24/23 05:37: WBC 7.9, RBC 3.42 L, Hgb 10.4 L, Hct 31.8 L, MCV 93.0, MCH 30.4, MCHC 32.7, RDW Std Deviation 43.1, RDW Coeff of Santi 12.6, Plt Count 257, MPV 11.6, Immature Gran % (Auto) 0.500, Neut % (Auto) 68.5, Lymph % (Auto) 17.8 L, [place] % (Auto) 12.1 H, Eos % (Auto) 0.6, Baso % (Auto) 0.5, Absolute Neuts (auto) 5.4, Absolute Lymphs (auto) 1.41, Nucleated RBC % 0, Sodium 136, Potassium 3.8, Chloride 105, Carbon Dioxide 24.0, Anion Gap 7, BUN 10, Creatinine 0.49 L, Estim Creat Clear Calc 40.66, Est GFR (MDRD) Af Amer 153, Est GFR (MDRD) Non-Af 127, BUN/Creatinine Ratio 20.3 H, Glucose 158 H, Calcium 8.3 L Radiography Diagnostic Testing: Radiology Impression Echocardiogram 12/24/23 07:34 Interpretation Summary The left ventricular ejection fraction is 55 %. Normal LV size. No regional wall motion abnormalities noted. Moderate pericardial effusion. 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 The effusion does not appear to be worse and the IVC size is slightly smaller. Ordering Physician: Rogelio Prather Referring Physician: Rakel Archer M.D. Performed By: Kita Islas RDCS D/C Instructions Discharge Diet: No restrictions Call your doctor if you observe: Fever of 101 or Higher, Shortness of breath, Dizziness, Fainting spells, Swelling in the ankles, Chest pain and Increased palpitations (irregular heartbeat) Meaningful Use Info Meaningful Use Meaningful Use Diagnoses (Choose all that apply): None applicable Ischemic Stroke Statin Dosing Therapy Reference: STATIN DOSE THERAPY REFERENCE: * Patients > 75 years receive moderate or high dose statin therapy. * Patients 75 years or YOUNGER should receive HIGH intensity statin dose unless contraindicated. You will be required to document reason for non-treatment if statin daily dose does not meet guidelines. HIGH DOSE STATIN THERAPY DAILY Atorvastatin > than or = to 40 mg Rosuvastatin > than or = to 20 mg Amlodipine + Atorvastatin > than or = to 2.5/40 mg Ezetimibe + Simvastatin 10/80 mg Simvastatin 80mg Discharge Plan Admission Admit Date/Time: 12/22/23 19:56 Attending Provider: Omari Joseph Primary Care Provider: Rakel Archer Consulting Providers: Rogelio Prather; Karishma Starkey Discharge Orders/Prescriptions Prescriptions: New digoxin 250 mcg (0.25 mg) Tablet 250 mcg PO DAILY 30 Days Qty: 30 0RF pantoprazole 40 mg Tablet,Delayed Release (Dr/Ec) 40 mg PO BID 30 Days Qty: 60 0RF oxycodone 5 mg Tablet 5 mg PO Q6H PRN PRN (Reason: Pain Score 4-10) 4 Days Qty: 15 0RF metoprolol tartrate 25 mg Tablet 25 mg PO BID 30 Days Qty: 60 0RF sucralfate 1 gram Tablet 1 g PO 1HR_ACHS 30 Days Qty: 90 0RF Continued prednisolone acetate 1 % drops,suspension 1 drp OPHTHALMIC QHS ascorbic acid (vitamin C) 1,000 mg tablet 1,000 mg PO BID levothyroxine 112 MCG tablet 112 mcg PO DAILY glucosamine GDt-hyv-crkastrhct 1 EACH tablet 1 ea PO BID L.acidoph, paracasei,B. lactis 1 EACH capsule 1 ea PO QHS dextromethorphan-guaifenesin 10-100 mg/5 mL Syrup 5 ml PO Q6H PRN PRN (Reason: Dry cough) Qty: 5 0RF acetaminophen 500 mg Tablet 1,000 mg PO Q8H PRN PRN (Reason: Pain 1-10 Or Fever) Qty: 1 0RF bisacodyl 10 mg Suppository 10 mg AR X1 PRN (Reason: Constipation) Qty: 1 0RF sodium chloride 0.9 % (flush) [BD PosiFlush Normal Saline 0.9] Syringe 10 - 40 ml IV UD PRN (Reason: Saline Flush) Qty: 5 0RF cholecalciferol (vitamin D3) 25 mcg (1,000 unit) Tablet 100 mcg PO QODAY Qty: 1 0RF alum-mag hydroxide-simeth [Mag-Al Plus Extra Strength] 400-400-40 mg/5 mL Suspension 30 ml PO Q6H PRN PRN (Reason: Indigestion) Qty: 1 0RF magnesium chloride [Mag 64] 64 mg Tablet,Delayed Release (Dr/Ec) 128 mg PO DAILY Qty: 1 0RF sennosides-docusate sodium [Stimulant Laxative Plus] 8.6-50 mg Tablet 2 tab PO BID Qty: 1 0RF tramadol 50 mg Tablet 25 mg PO Q8H PRN PRN (Reason: pain 3-6) Qty: 1 0RF zinc sulfate 50 mg zinc (220 mg) Capsule 50 mg PO DAILY Qty: 1 0RF morphine 2 mg/mL Syringe 1 mg IV Q4H PRN PRN (Reason: pain 7-10) 1 Days Qty: 1 0RF calcium carbonate 500 mg calcium (1,250 mg) tablet 1,000 mg PO BID Qty: 1 0RF atorvastatin 40 mg Tablet 40 mg PO QHS Qty: 30 2RF dofetilide 250 mcg Capsule 250 mcg PO Q12 Qty: 60 1RF Discontinued pantoprazole 20 mg Tablet,Delayed Release (Dr/Ec) 20 mg PO BID Qty: 1 0RF metoprolol tartrate 50 mg Tablet 50 mg PO BID Qty: 60 2RF Referrals / Follow Up: Rakel Archer DO [Primary Care Provider] - Within 1 Week Rogelio Prather MD [Med Staff - Active Staff] - Within 2 Weeks Disposition Disposition (needs filled in before D/C Order can be placed): Home Health Service Charges/Coding Visit Charges Inpatient E&M: 56125 Disch Hosp >30min
--- NOTE | 2023-12-24 19:30 | NURSING ---
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 was started in hospital patient never had it at home
== END 2023-12-24 16:50 | disposition home health service (06) | DRG 316 ==
PROVIDERS: Admitting Provider Internal Medicine; PCP Internal Medicine; Visit Provider Family Medicine
DX: I31.39 Other pericardial effusion (noninflammatory) (principal); I49.5 Sick sinus syndrome; K76.89 Other specified diseases of liver; E03.9 Hypothyroidism, unspecified; J45.909 Unspecified asthma, uncomplicated; I48.0 Paroxysmal atrial fibrillation; E78.5 Hyperlipidemia, unspecified; K21.9 Gastro-esophageal reflux disease without esophagitis; R19.7 Diarrhea, unspecified; R10.32 Left lower quadrant pain; Z66 Do not resuscitate; Z79.01 Long term (current) use of anticoagulants; Z79.890 Hormone replacement therapy; Z79.899 Other long term (current) drug therapy; Z95.0 Presence of cardiac pacemaker
CPT/HCPCS: 36415; 80048; 80053; 83735; 84100; 85025; 85610; 93005; 93308; J7030; A4216

== ENCOUNTER 2023-12-29 14:35 | Emergency (ER) | payer MEDICARE, SELFPAY ==
[2023-12-29] VITALS (12 sets, daily range): BP systolic 117–146; BP diastolic 64–95; PULSE 86–100; RESP 14–18; TEMP 36.6–36.7; O2SAT 96–98; BMI 25.4
--- NOTE | 2023-12-29 15:15 | EKG12_ITS ---
Test Reason : Blood Pressure : / mmHG Vent. Rate : 095 BPM Atrial Rate : 000 BPM P-R Int : 000 ms QRS Dur : 080 ms QT Int : 344 ms P-R-T Axes : 000 053 237 degrees QTc Int : 432 ms Atrial fibrillation with occasional ventricular-paced complexes Low voltage QRS ST & T wave abnormality, consider inferolateral ischemia Abnormal ECG Confirmed by KAMRON MORAN, MILLER ([id number]), mapping editor BAN UMAÑA ([id number]) on 12/30/2023 8:47:14 AM Referred By: HAILEY Confirmed By:MILLER LUNDY MD
--- NOTE | 2023-12-29 15:25 | ED.VIS.DYS ---
HPI History of Present Illness Chief Complaint: Shortness of Breath Narrative Narrative: Chief complaint and HPI: Shortness of breath. 83-year-old female with past medical history of hypothyroidism, HLD, GERD, paroxysmal atrial fibrillation not on anticoagulation presents for evaluation of shortness of breath. Shortness of breath started yesterday and worsened today. Shortness of breath is worse with exertion. Endorses orthopnea. Patient states for a couple minutes she had pain in the left side of her chest. She cannot describe this to me. She states that is since resolved. Patient denies any fever, URI type symptoms, cough, current chest pain, vomiting, diarrhea, constipation, dysuria. Patient endorses decreased p.o. intake and baseline nausea as well as abdominal pain this has been ongoing since her hospitalization as well as neck pain. On chart review, patient was discharged from our hospital. She had an echocardiogram performed on 12/22 that showed an EF of 55% and a moderate pericardial effusion. 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 Cardiology, Dr. Rich. Saw the patient. At that time it was decided not to do anything about the patient's effusion if she had no cardiac tamponade. She was requesting hospice/palliative care. At that time she was also having neuralgia type pain in the right side of her neck pain. Patient states that she has not heard from hospice care. They state they called Dr. Prather's office today about her symptoms and did not get a call back. Patient is still having the neuralgia type pain in the right's of her neck. She states this started after weightlifting and doing exercises. Patient at the time was also complaining of her abdominal symptoms. She had a CT that demonstrated calcified aorta with concern for chronic mesenteric angina or ischemia. Review of systems: See HPI Medications: As listed on the chart Allergies: As listed on the chart PFSH: Per chart Vital signs: As listed on the chart. Reviewed. Physical exam: Gen: A&O x3, NAD Head: Normocephalic, atraumatic Eyes: No sclera icterus, conjunctiva clear, PERRL ENT: Moist mucous membranes Neck: Trachea midline, No JVD, tender to palpation in the right cervical para musculature-states this recreates her pain, no midline tenderness, full range of motion CV: RRR, no murmurs, mild nonpitting peripheral edema Resp: Lungs CTA BL but diminished in the bilateral bases, no w/r/c GI: Abd soft, mildly distended, mildly tender to palpation diffusely, no r/r/g Musc: Full ROM, no deformity Skin: Warm, dry Neuro: Alert, oriented, grossly intact, sensation intact Psych: Cooperative, appropriate mood and affect [facility] Medical History (Updated 12/30/23 @ 00:02 by Background Daemon) Paroxysmal atrial fibrillation Chronic anticoagulation Stroke/cerebrovascular accident (~12/12/23) Asthma Blocked tear duct Osteoporosis Carotid artery disease Hypothyroidism Hyperlipidemia GERD (gastroesophageal reflux disease) Sinus bradycardia Sick sinus syndrome Home Medications ?Medication ?Instructions ?Recorded ?Last Taken ?Type levothyroxine 112 mcg tablet 112 mcg PO DAILY thyroid 09/04/13 12/16/23 History L.acidoph, paracasei,B. lactis 10 1 ea PO QHS probiotic 02/28/15 12/15/23 History billion cell capsule glucosamine HCl 500 mg-msm 83 1 ea PO BID joints 02/28/15 12/16/23 History mg-chondroitin 400 mg tablet prednisolone acetate 1 % eye 1 drp ophthalmic (eye) QHS drops 09/15/17 12/15/23 History drops,suspension for post cornea transplant ascorbic acid (vitamin C) 1,000 mg 1,000 mg PO BID vitamin 09/21/19 12/11/23 History tablet atorvastatin 40 mg tablet 40 mg PO QHS cholestrol #30 tabs 12/16/23 Unknown Rx acetaminophen 500 mg tablet 1,000 mg (2 x 500 mg) PO Q8H PRN 12/22/23 Unknown Rx PRN Pain 1-10 Or Fever #1 TAB aluminum-mag hydroxide-simethicone 30 ml PO Q6H PRN PRN Indigestion 12/22/23 Unknown Rx 400 mg-400 mg-40 mg/5 mL oral susp #1 mL (Mag-Al Plus Extra Strength) bisacodyl 10 mg rectal suppository 10 mg GA X1 PRN Constipation #1 ea 12/22/23 Unknown Rx calcium carbonate 1,000 mg (2 x 500 mg calcium 12/22/23 Unknown Rx (1,250 mg)) PO BID osteoporosis #1 TAB cholecalciferol (vitamin D3) 25 100 mcg (4 x 25 mcg (1,000 unit)) 12/22/23 Unknown Rx mcg (1,000 unit) tablet PO QODAY #1 TAB dextromethorphan-guaifenesin 10 5 ml PO Q6H PRN PRN Dry cough #5 mL 12/22/23 Unknown Rx mg-100 mg/5 mL oral syrup magnesium chloride 64 mg 128 mg (2 x 64 mg) PO DAILY #1 TAB 12/22/23 Unknown Rx (magnesium chloride) tablet,delayed release (Mag 64) morphine 2 mg/mL intravenous 1 mg (0.5 mL) IV Q4H PRN PRN pain 12/22/23 Unknown Rx syringe 7-10 1 day #1 mL sennosides 8.6 mg-docusate sodium 2 tab PO BID #1 TAB 12/22/23 Unknown Rx 50 mg tablet (Stimulant Laxative Plus) sodium chloride 0.9 % (flush) (BD 10 - 40 ml IV UD PRN Saline Flush 12/22/23 Unknown Rx PosiFlush Normal Saline 0.9 % #5 mL injection syringe) tramadol 50 mg tablet 25 mg (1/2 x 50 mg) PO Q8H PRN PRN 12/22/23 Unknown Rx pain 3-6 #1 TAB zinc sulfate 50 mg zinc (220 mg) 50 mg PO DAILY #1 cap 12/22/23 Unknown Rx capsule digoxin 250 mcg (0.25 mg) tablet 250 mcg PO DAILY 30 days #30 tabs 12/24/23 Unknown Rx dofetilide 250 mcg capsule 250 mcg PO Q12 afib #60 caps 12/24/23 Unknown Rx metoprolol tartrate 25 mg tablet 25 mg PO BID 30 days #60 tabs 12/24/23 Unknown Rx oxycodone 5 mg tablet 5 mg PO Q6H PRN PRN Pain Score 12/24/23 Unknown Rx 4-10 4 days #15 tabs pantoprazole 40 mg tablet,delayed 40 mg PO BID 30 days #60 tabs 12/24/23 Unknown Rx release sucralfate 1 gram tablet 1 g PO 1HR_ACHS 30 days #90 tabs 12/24/23 Unknown Rx apixaban 2.5 mg tablet (Eliquis) 2.5 mg PO BID 12/29/23 Unknown History fluticasone propionate 220 1 puff inhalation BID PRN 12/29/23 Unknown History mcg/actuation HFA aerosol inhaler lovastatin 40 mg tablet 40 mg PO QHS 12/29/23 Unknown History metoprolol tartrate 50 mg tablet 50 mg PO BID 12/29/23 Unknown History ondansetron HCl 4 mg tablet 4 mg PO Q8H PRN 12/29/23 Unknown History Allergy/AdvReac Type Severity Reaction Status Date / Time nitrofurantoin (From AdvReac Severe Vomiting Verified 12/12/23 10:21 Macrobid) nitrofurantoin AdvReac Severe Vomiting Verified 12/12/23 10:21 macrocrystalline (From Macrobid) amiodarone AdvReac Intermediate Severe Verified 12/12/23 10:21 dizziness montelukast (From Singulair) AdvReac Unknown Unknown Verified 12/12/23 10:21 Tetracyclines AdvReac Other Verified 12/12/23 10:21 Family History Father CAD (coronary artery disease) Mother Heart disease Surgical History History of permanent cardiac pacemaker placement (12/21/12) History of esophagogastroduodenoscopy (EGD) (~02/23/18) History of cataract surgery History of carpal tunnel surgery History of arthroscopic knee surgery History of tonsillectomy and adenoidectomy Hx of appendectomy Social History household members: family and other details: Her son James is currently living with her. She is a twice now. 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 Smoking Status: Never smoker alcohol intake: never substance use type: does not use caffeine: No what type of physical activity do you participate in: walking, aerobics and other details: Silver Sneakers frequency: daily duration: other details: She walks for 0.5 - 1 mile daily in the morning seatbelt use: always EXAM Physical Exam Const Vital Signs: 12/29/23 14:36 12/29/23 15:36 12/29/23 16:00 Temperature 98.1 F Temperature Source Temporal Pulse Rate 100 Respiratory Rate 17 18 Respiratory Effort Blood Pressure 137/92 H 137/67 H 124/69 H Blood Pressure Mean 107 90 87 Pulse Ox 96 Oxygen Delivery Method Room Air 12/29/23 16:17 12/29/23 17:00 12/29/23 17:08 Temperature Temperature Source Pulse Rate Respiratory Rate Respiratory Effort Normal Blood Pressure 143/78 H Blood Pressure Mean 99 Pulse Ox 96 Oxygen Delivery Method Room Air Room Air 12/29/23 18:00 12/29/23 19:00 12/29/23 20:00 Temperature Temperature Source Pulse Rate 87 86 Respiratory Rate 16 Respiratory Effort Blood Pressure 146/64 H 142/72 H 117/71 Blood Pressure Mean 91 95 86 Pulse Ox Oxygen Delivery Method 12/29/23 21:00 12/29/23 22:00 12/29/23 22:55 Temperature 97.8 F Temperature Source Pulse Rate 87 Respiratory Rate 14 14 Respiratory Effort Blood Pressure 118/74 117/95 H 117/95 H Blood Pressure Mean 88 102 102 Pulse Ox 98 98 Oxygen Delivery Method Room Air MDM MDM MDM Narrative Medical decision making narrative: 83-year-old female with past medical history of hypothyroidism, paroxysmal atrial fibs not on anticoagulation, recent pericardial effusion, concern for chronic mesenteric ischemia presents for evaluation of shortness of breath, abdominal pain, right-sided neck pain. Patient was supposed to follow-up with palliative/hospice. Patient and family states that this has not been arranged. On further speaking with the family they would like treatment for patient's symptoms at this time. Vitals are stable other than mild hypertension. Differential diagnosis includes but is not limited to symptomatic pericardial effusion, pneumonia, pleural effusions, arrhythmia, CHF, electrolyte abnormality, mesenteric ischemia, gastritis, musculoskeletal strain. Morphine, Zofran ordered for symptoms. Cardiac/respiratory/abdominal pain workup ordered including CT chest to assess for pericardial effusion and CT abdomen pelvis for intra-abdominal pathology. While workup was pending, patient's family called hospice facility and requesting hospice. Social work at bedside and hospice evaluation initiated. I went and spoke with the family and the patient. They agree that they would like to elect into hospice and not have further workup or care. They realize that they would like just symptomatic control for the patient. Therefore remaining workup canceled. However some labs did result including CBC with mild leukocytosis of 11.3 with baseline anemia. Lactic acid unremarkable. BNP elevated at 502. UA negative for UTI. Hospice evaluated the patient and they had a long discussion. Patient remained in the ED until final decision was made by hospice. Ultimate disposition is discharge to a hospice care facility. Family would like to drive the patient themselves and hospice is okay with this therefore patient will be discharged. Impression: 1. Shortness of breath 2. Right sided neck pain, suspect neck strain 3. Abdominal pain 4. Chronic anemia 5. Elevated BNP 6. Hospice enrollment Lab Data Labs: Laboratory Results - last 24 hr 12/29/23 12/29/23 16:00 16:22 WBC 11.3 H RBC 3.69 L Hgb 11.1 L Hct 32.7 L MCV 88.6 MCH 30.1 MCHC 33.9 RDW Std Deviation 40.3 RDW Coeff of Santi 12.6 Plt Count 435 MPV 10.2 Immature Gran % (Auto) 0.900 Neut % (Auto) 74.7 H Lymph % (Auto) 11.7 L Rolette % (Auto) 11.9 H Eos % (Auto) 0.3 Baso % (Auto) 0.5 Absolute Neuts (auto) 8.4 H Absolute Lymphs (auto) 1.32 Nucleated RBC % 0 Sodium Cancelled Potassium Cancelled Chloride Cancelled Carbon Dioxide Cancelled Anion Gap Cancelled BUN Cancelled Creatinine Cancelled Estim Creat Clear Calc Cancelled Est GFR (MDRD) Af Amer Cancelled Est GFR (MDRD) Non-Af Cancelled BUN/Creatinine Ratio Cancelled Glucose Cancelled Lactic Acid 1.5 Calcium Cancelled Total Bilirubin Cancelled AST Cancelled ALT Cancelled Alkaline Phosphatase Cancelled Troponin I High Sens Cancelled B-Natriuretic Peptide 502.5 H Total Protein Cancelled Albumin Cancelled Globulin Cancelled Albumin/Globulin Ratio Cancelled Lipase Cancelled Urine Color Straw Urine Clarity Clear Urine pH 7.0 Ur Specific Sweet Water 1.005 Urine Protein Negative Urine Glucose (UA) Normal Urine Ketones Negative Urine Occult Blood Negative Urine Nitrite Negative Urine Bilirubin Negative Urine Urobilinogen Normal Ur Leukocyte Esterase Negative Urine RBC 0-5 SEEN Urine WBC Not Reportable Ur Squamous Epith Cells 0 SEEN Urine Bacteria 1+ Urine Mucus 0 SEEN Discharge Plan Triage Chief Complaint: Shortness of Breath ED Provider: Desmond Hendrix Dx/Rx/DC Orders Clinical Impression: Shortness of breath, Hospice care Prescriptions: No Action prednisolone acetate 1 % drops,suspension 1 drp OPHTHALMIC QHS ascorbic acid (vitamin C) 1,000 mg tablet 1,000 mg PO BID levothyroxine 112 MCG tablet 112 mcg PO DAILY glucosamine EQg-rbn-sofptsmnxc 1 EACH tablet 1 ea PO BID L.acidoph, paracasei,B. lactis 1 EACH capsule 1 ea PO QHS dextromethorphan-guaifenesin 10-100 mg/5 mL Syrup 5 ml PO Q6H PRN PRN (Reason: Dry cough) Qty: 5 0RF acetaminophen 500 mg Tablet 1,000 mg PO Q8H PRN PRN (Reason: Pain 1-10 Or Fever) Qty: 1 0RF bisacodyl 10 mg Suppository 10 mg GA X1 PRN (Reason: Constipation) Qty: 1 0RF sodium chloride 0.9 % (flush) [BD PosiFlush Normal Saline 0.9] Syringe 10 - 40 ml IV UD PRN (Reason: Saline Flush) Qty: 5 0RF cholecalciferol (vitamin D3) 25 mcg (1,000 unit) Tablet 100 mcg PO QODAY Qty: 1 0RF alum-mag hydroxide-simeth [Mag-Al Plus Extra Strength] 400-400-40 mg/5 mL Suspension 30 ml PO Q6H PRN PRN (Reason: Indigestion) Qty: 1 0RF magnesium chloride [Mag 64] 64 mg Tablet,Delayed Release (Dr/Ec) 128 mg PO DAILY Qty: 1 0RF sennosides-docusate sodium [Stimulant Laxative Plus] 8.6-50 mg Tablet 2 tab PO BID Qty: 1 0RF tramadol 50 mg Tablet 25 mg PO Q8H PRN PRN (Reason: pain 3-6) Qty: 1 0RF zinc sulfate 50 mg zinc (220 mg) Capsule 50 mg PO DAILY Qty: 1 0RF morphine 2 mg/mL Syringe 1 mg IV Q4H PRN PRN (Reason: pain 7-10) 1 Days Qty: 1 0RF calcium carbonate 500 mg calcium (1,250 mg) tablet 1,000 mg PO BID Qty: 1 0RF fluticasone propionate 220 mcg/actuation HFA aerosol inhaler 1 puff INHALATION BID PRN Eliquis 2.5 mg tablet 2.5 mg PO BID ondansetron HCl 4 mg tablet 4 mg PO Q8H PRN lovastatin 40 mg tablet 40 mg PO QHS metoprolol tartrate 50 mg tablet 50 mg PO BID atorvastatin 40 mg Tablet 40 mg PO QHS Qty: 30 2RF digoxin 250 mcg (0.25 mg) Tablet 250 mcg PO DAILY 30 Days Qty: 30 0RF pantoprazole 40 mg Tablet,Delayed Release (Dr/Ec) 40 mg PO BID 30 Days Qty: 60 0RF oxycodone 5 mg Tablet 5 mg PO Q6H PRN PRN (Reason: Pain Score 4-10) 4 Days Qty: 15 0RF metoprolol tartrate 25 mg Tablet 25 mg PO BID 30 Days Qty: 60 0RF sucralfate 1 gram Tablet 1 g PO 1HR_ACHS 30 Days Qty: 90 0RF dofetilide 250 mcg Capsule 250 mcg PO Q12 Qty: 60 1RF Primary Care Provider: Rakel Archer Referrals: Rakel Archer DO [Primary Care Provider] - 3-5 Days Activity Restrictions/Additional Instructions: When you leave our ED drive to the hospice center Print Language: [place] Citizen Disposition Disposition: Home, Self Care Discharge Date/Time: 12/29/23 23:11
[2023-12-29] MEDS: Ondansetron 4 MG/2 ML Vial IV ×2 (16:02→21:28)
[2023-12-29] MEDS: Morphine 4 MG/ML Syringe 2 MG IV (16:02)
[2023-12-29] MEDS: 0.9% Normal Saline (500mL Bag) 500 ML 999 ML IV (16:11)
[2023-12-29 16:20] LABS: Absolute Lymphocyte Count 1.32 X10^3/uL (0.83-4.51); Absolute Neutrophil Count 8.4 X10^3/uL (2.0-7.7); Basophil# 0.06 X10^3/uL; Basophil% 0.5 % (0-1); Eosinophil# 0.03 X10^3/uL; Eosinophils% 0.3 % (0-5); Hematocrit 32.7 % (37-47); Hemoglobin 11.1 g/dL (12.0-15.0); Lymphocyte # 1.32 X10^3/ul (0.83-4.51); Lymphocyte % 11.7 % (19-41); Mean Corp Hgb Conc 33.9 g/dL (32-36); Mean Corpuscular Hgb 30.1 pg (27.0-32.0); Mean Corpuscular Volume 88.6 fL (81-99); Mean Platelet Vol. 10.2 fl (6.2-12.0); Monocyte# 1.34 X10^3/uL; Monocyte% 11.9 % (0-10); NRBC Flagged by Analyzer 0 % (0-5); Neutrophil # 8.43 X10^3/uL (2.7-7.7); Neutrophil % 74.7 % (47-70); Platelet Count 435 K/mm3 (150-450); RBC Distribution Width CV 12.6 % (11.6-14.6); RBC Distribution Width SD 40.3 fl (35.1-43.9); Red Blood Count 3.69 M/mm3 (4.2-5.4); White Blood Count 11.3 K/mm3 (4.4-11.0)
[2023-12-29 16:27] LABS: Mucous, Urine 0 SEEN /hpf (<or=2+); Squamous Epithelial Cells - UA 0 SEEN /hpf (5-10)
[2023-12-29 16:41] LABS: Color, Urine Straw (Yellow); Glucose, Dipstick Normal (Normal); Ketone-Dipstick Negative (Negative); Leukocyte Esterase-Dipstick Negative /ul (Negative); Nitrite-Dipstick Negative (Negative); Occult Blood-Urine Negative /ul (Negative); Protein-Dipstick Negative (Negative); Specific Gravity, Urine 1.005 (1.002-1.030); Urine Bilirubin Dipstick Negative (Negative); Urine Clarity Clear (Clear); Urine Urobilinogen Normal (Normal)
[2023-12-29 16:49] LABS: Lactic Acid 1.5 mmol/L (0.4-1.9)
[2023-12-29 16:52] LABS: BNP,B-Type NATRIURETIC PEPTIDE 502.5 pg/mL (0-100)
[2023-12-29 17:07] LABS: Bacteria 1+ /hpf (None Seen)
[2023-12-29 17:08] LABS: Red Blood Cells-Urine 0-5 SEEN /hpf (0-5)
--- NOTE | 2023-12-29 18:13 | CM.ED ---
Social Work Referral Source - [facility] Reason for referral - possible hospice Received call from Nannette at [facility] ([phone]) indicating to have received a call from patient's daughter Christine, asking for hospice consult. This global technical writer agreed to investigate. Spoke wiht Dr. Hendrix. Provider reports would be reasonable for hospice referral, depending on patient's goals of care. 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 Patient gave verbal permission for all to be present for conversation. Patient reports was happy to see social work, and identified that desires to go onto hospice. Patient reports to have increasing pain, and lack of quality of life right now. Patient described good experience with [facility] when patient's passed a couple of year ago. Family present as supportive of patient and patient's wishes to have comfort measures only. Patient reports does not want to be worked up in the hospital for medical issues, preferring to be at home or [facility] for management of pain. Supportive listening provided as patient reflected on life and spiritual beliefs. Patient reports to have completed advance directives, which Christine reports are at home. Patient states to want to be a DNRCC, and if heart stopped beating today would not want resuscitation. Updated Dr. Hendrix who supports hospice referral. Order for hospice consult provided. Plan: SW to make referral to [facility] (patient's choice). -SASCHA Antony
--- NOTE | 2023-12-29 18:41 | CM.ED ---
Social Work SW placed call to [facility] per patient and family request to finalize referral. Referral information faxed to [phone], confirmation received. [facility] stated they would be sending over a nurse to meet with patient and family, nurse should be to the hospital by 6:30 pm. Patient and family updated on referral being placed and time to expect Hospice nurse. Ondina Flores, BROKERAGE COORDINATOR,ENGINEERING AND SCIENTIFIC PROGRAMMER
[2023-12-29] MEDS: Morphine 2 MG/ML Syringe IV (21:28)
== END 2023-12-29 23:11 | disposition home or self-care (01) ==
PROVIDERS: Emergency Provider Surgery; PCP Internal Medicine; Visit Provider Surgery
DX: R06.02 Shortness of breath (principal); I48.0 Paroxysmal atrial fibrillation; R10.9 Unspecified abdominal pain; E78.5 Hyperlipidemia, unspecified; Z51.5 Encounter for palliative care; M54.2 Cervicalgia; D64.9 Anemia, unspecified; E03.9 Hypothyroidism, unspecified; K21.9 Gastro-esophageal reflux disease without esophagitis; J45.909 Unspecified asthma, uncomplicated; I25.10 Atherosclerotic heart disease of native coronary artery without angina pectoris; Z79.899 Other long term (current) drug therapy
CPT/HCPCS: 81001; 83605; 83880; 85025; 93005; 96361; 96374; 96375; 96376; 99285; J7030; A4216; J2405